=== PATIENT | female | born 1960 | race American Indian/Alaskan Native ===

== ENCOUNTER 2020-03-11 13:01 | Outpatient (REF) | payer MEDICARE, MEDICAID, SELFPAY ==
[2020-03-11 14:30] LABS: MANUAL DIFF FLAG NO
[2020-03-11 14:38] LABS: Basophils Percent Auto 0.2 % (0-2); Eosinophils Absolute Auto 0.1 X10*3/uL (0.0-0.4); Eosinophils Percent Auto 1.4 % (0-4); Hematocrit 48.9 % (37-47); Hemoglobin 16.6 g/dl (12.0-16.0); Imm Gran Abs Auto 0.03 X10*3/uL (0.00-0.03); Imm Gran Pct Auto 0.3 % (0.0-0.4); Lymphocytes Absolute Auto 2.4 X10*3/uL (1.2-4.9); Lymphocytes Percent Auto 25.9 % (20-40); Mean Corpuscular HGB Conc 33.9 g/dl (31.0-35.0); Mean Corpuscular Hemoglobin 31.3 pg (27.0-33.0); Mean Corpuscular Volume 92.3 fL (80-98); Mean Platelet Volume 9.5 fL (9.4-12.3); Monocytes Absolute Auto 0.5 X10*3/uL (0.1-1.2); Monocytes Percent Auto 4.9 % (2-11); Neutrophils Absolute Auto 6.3 X10*3/uL (2.0-8.3); Neutrophils Percent Auto 67.3 % (45-73); Platelet Count 284 X10*3/uL (160-400); Red Cell Distribution Width 12.5 % (11.0-16.0); White Blood Count 9.4 X10*3/uL (4.8-10.8)
[2020-03-11 15:11] LABS: C Reactive Protein 0.13 mg/dL (< or = 0.50)
[2020-03-11 15:22] LABS: Erythrocyte Sedimentation Rate 5 MM/HR (0-20)
[2020-03-11 15:25] LABS: TSH reflex Free T4 0.94 mIU/mL (0.32-4.0)
[2020-03-11 15:36] LABS: Vitamin B12 646 pg/mL (200-900)
[2020-03-12 19:11] LABS: Anti Nuclear Antibody Screen NEGATIVE (NEGATIVE)
[2020-03-13 09:50] LABS: ANA Additional Testing NOT INDICATED
== END 2020-03-11 13:02 | disposition home or self-care (01) ==
LOC: HO.LAB 13:01
PROVIDERS: Visit Provider Internal Medicine
DX: L65.9 Nonscarring hair loss, unspecified (principal); R20.2 Paresthesia of skin
CPT/HCPCS: 36415; 82607; 82746; 84443; 85025; 85652; 86038; 86039; 86140

== ENCOUNTER 2020-09-21 11:54 | Outpatient (REF) | payer MEDICARE, MEDICAID, SELFPAY ==
[2020-09-21 14:22] LABS: TSH reflex Free T4 0.54 uIU/mL (0.32-4.0)
[2020-09-21 14:43] LABS: Erythrocyte Sedimentation Rate 6 MM/HR (0-20)
[2020-09-21 15:03] LABS: Folate 19.3 ng/mL (> or = 4.0); Vitamin B12 692 pg/mL (200-900)
[2020-09-22 08:23] LABS: Syphilis Screen Nonreactive (Nonreactive)
[2020-09-22 09:02] LABS: Lyme Abs Screen <0.90 index
[2020-09-22 13:51] LABS: Anti Nuclear Antibody Screen NEGATIVE (NEGATIVE)
[2020-09-22 17:12] LABS: IgA 159 mg/dL (70-320); IgG 809 mg/dL (600-1540); IgM 64 mg/dL (50-300)
== END 2020-09-21 11:55 | disposition home or self-care (01) ==
LOC: HO.LAB 11:54
PROVIDERS: Psychiatry & Neurology Neurology; PCP Internal Medicine; Visit Provider Internal Medicine
DX: I10 Essential (primary) hypertension (principal); R41.3 Other amnesia; L65.9 Nonscarring hair loss, unspecified; Z86.73 Personal history of transient ischemic attack (TIA), and cerebral infarction without residual deficits
CPT/HCPCS: 36415; 82607; 82746; 82784; 84443; 85652; 86038; 86039; 86617; 86618; 86780

== ENCOUNTER → 2020-12-01 08:24 | Outpatient (BNVA) | payer MEDICARE, MEDICAID, SELFPAY | PROVIDERS: PCP Internal Medicine; Visit Provider Anesthesiology | DX: M51.36 Other intervertebral disc degeneration, lumbar region (principal); M96.1 Postlaminectomy syndrome, not elsewhere classified; I63.9 Cerebral infarction, unspecified; Z79.899 Other long term (current) drug therapy | CPT/HCPCS: 99202 ==

== ENCOUNTER 2021-01-04 10:25 | Outpatient (REF) | payer MEDICARE, MEDICAID, SELFPAY ==
--- NOTE | ~2021-01-04 | XR_ITS ---
EXAMINATION: XR TIBIA AND FIBULA, RIGHT CLINICAL INFORMATION: Right leg pain. COMPARISON: None TECHNIQUE: AP and lateral views of the right tibia and fibula were obtained. FINDINGS: No acute fracture or dislocation. No osseous erosion. No abnormal soft tissue calcification. Mild soft tissue swelling overlying the anterior aspect of the mid tibial diaphysis. XR/XR tibia fibula RT 2V IMPRESSION: Mild anterior soft tissue swelling without osseous abnormality.
[2021-01-04 12:00] LABS: MANUAL DIFF FLAG NO
[2021-01-04 12:04] LABS: Basophils Percent Auto 0.3 % (0-2); Eosinophils Absolute Auto 0.1 X10*3/uL (0.0-0.4); Eosinophils Percent Auto 1.4 % (0-4); Hematocrit 46.9 % (37-47); Hemoglobin 16.1 g/dl (12.0-16.0); Imm Gran Abs Auto 0.03 X10*3/uL (0.00-0.03); Imm Gran Pct Auto 0.3 % (0.0-0.4); Lymphocytes Absolute Auto 2.9 X10*3/uL (1.2-4.9); Lymphocytes Percent Auto 32.2 % (20-40); Mean Corpuscular HGB Conc 34.3 g/dl (31.0-35.0); Mean Corpuscular Hemoglobin 31.1 pg (27.0-33.0); Mean Corpuscular Volume 90.5 fL (80-98); Mean Platelet Volume 9.5 fL (9.4-12.3); Monocytes Absolute Auto 0.5 X10*3/uL (0.1-1.2); Monocytes Percent Auto 5.8 % (2-11); Neutrophils Absolute Auto 5.5 X10*3/uL (2.0-8.3); Platelet Count 289 X10*3/uL (160-400); Red Blood Count 5.18 X10*6/uL (4.20-5.50); Red Cell Distribution Width 12.7 % (11.0-16.0); White Blood Count 9.1 X10*3/uL (4.8-10.8)
[2021-01-04 12:14] LABS: Glucose Urine UA NEG (NEG); Leukocyte Esterase Urine NEG (NEG); Nitrite Urine NEG (NEG); Specific Gravity - Urine 1.015 (1.005-1.025); Urine Blood NEG (NEG); Urine Ketones 15 MG/DL (NEG); Urine Protein NEG (NEG-TRACE)
[2021-01-04 12:17] LABS: Appearance Urine CLEAR; Color Urine YELLOW
[2021-01-04 12:34] LABS: Alanine Aminotransferase 11 U/L (0-31); Alkaline Phosphatase 54 U/L (39-117); Anion Gap 18 (12-20); Aspartate Amino Transferase 18 U/L (5-31); Bilirubin Total 0.8 mg/dL (0.0-1.0); Blood Urea Nitrogen 13 mg/dL (9-16); Calcium 10.3 mg/dL (8.4-10.2); Carbon Dioxide 26 mmol/L (22-29); Chloride 98 mmol/L (96-108); Cholesterol 253 mg/dL; Estimated Glomerular Filt Rate > 60; Glucose Fasting 90 mg/dL (60-99); HDL Cholesterol 73 mg/dL; LDL Cholesterol Calculated 149 mg/dl; Potassium 4.5 mmol/L (3.3-5.1); Sodium 137 mmol/L (135-145); Total Protein 7.8 g/dL (6.5-8.0); Triglycerides 157 mg/dL
[2021-01-04 12:57] LABS: TSH reflex Free T4 1.49 uIU/mL (0.32-4.0); Vitamin D 25-OH Total 57.6 ng/mL (>30)
[2021-01-04 13:59] LABS: Folate > 20.0 ng/mL (> or = 4.0); Vitamin B12 861 pg/mL (200-900)
== END 2021-01-04 10:26 | disposition home or self-care (01) ==
LOC: HO.XRAY 10:25
PROVIDERS: PCP Internal Medicine; Visit Provider Internal Medicine
DX: M79.604 Pain in right leg (principal); L65.9 Nonscarring hair loss, unspecified; E78.00 Pure hypercholesterolemia, unspecified; I10 Essential (primary) hypertension; E53.8 Deficiency of other specified B group vitamins; G62.9 Polyneuropathy, unspecified; E55.9 Vitamin D deficiency, unspecified
CPT/HCPCS: 36415; 73590; 80053; 80061; 81003; 82306; 82607; 82746; 84443; 85025

== ENCOUNTER → 2021-04-25 16:10 | Outpatient (BNVA) | payer MEDICARE, MEDICAID, SELFPAY | PROVIDERS: PCP Internal Medicine; Visit Provider Anesthesiology | DX: M51.36 Other intervertebral disc degeneration, lumbar region (principal); Z86.73 Personal history of transient ischemic attack (TIA), and cerebral infarction without residual deficits; M96.1 Postlaminectomy syndrome, not elsewhere classified; M79.671 Pain in right foot; M21.372 Foot drop, left foot | CPT/HCPCS: 99212 ==

== ENCOUNTER 2021-07-07 08:47 | Outpatient (REF) | payer MEDICARE, MEDICAID, SELFPAY ==
[2021-07-07 10:16] LABS: MANUAL DIFF FLAG NO
[2021-07-07 10:38] LABS: Basophils Percent Auto 0.5 % (0-2); Eosinophils Absolute Auto 0.2 X10*3/uL (0.0-0.4); Eosinophils Percent Auto 2.6 % (0-4); Hematocrit 45.9 % (37.0-47.0); Hemoglobin 15.3 g/dl (12.0-16.0); Imm Gran Abs Auto 0.02 X10*3/uL (0.00-0.03); Imm Gran Pct Auto 0.3 % (0.0-0.4); Lymphocytes Absolute Auto 2.7 X10*3/uL (1.2-4.9); Lymphocytes Percent Auto 34.2 % (20-40); Mean Corpuscular HGB Conc 33.3 g/dl (31.0-35.0); Mean Corpuscular Hemoglobin 30.7 pg (27.0-33.0); Mean Platelet Volume 9.5 fL (9.4-12.3); Monocytes Absolute Auto 0.5 X10*3/uL (0.1-1.2); Monocytes Percent Auto 6.3 % (2-11); Neutrophils Absolute Auto 4.5 x10*3/uL (2.0-8.3); Neutrophils Percent Auto 56.1 % (45-73); Platelet Count 268 X10*3/uL (160-400); Red Blood Count 4.99 X10*6/uL (4.20-5.50); Red Cell Distribution Width 12.5 % (11.0-16.0)
[2021-07-07 11:13] LABS: Alanine Aminotransferase 7 U/L (0-31); Albumin Level 4.7 g/dL (3.5-5.0); Alkaline Phosphatase 69 U/L (39-117); Anion Gap 13 (12-20); Aspartate Amino Transferase 15 U/L (5-31); Bilirubin Total 0.8 mg/dL (0.0-1.0); Blood Urea Nitrogen 12 mg/dL (9-16); Calcium 10.2 mg/dL (8.4-10.2); Carbon Dioxide 31 mmol/L (22-29); Chloride 100 mmol/L (96-108); Cholesterol 271 mg/dL; Estimated Glomerular Filt Rate > 60; Glucose Fasting 92 mg/dL (60-99); HDL Cholesterol 90 mg/dL; LDL Cholesterol Calculated 140 mg/dl; Potassium 4.6 mmol/L (3.3-5.1); Sodium 139 mmol/L (135-145); Total Protein 7.7 g/dL (6.5-8.0); Triglycerides 205 mg/dL
[2021-07-07 11:33] LABS: TSH reflex Free T4 0.96 uIU/mL (0.32-4.0); Vitamin D 25-OH Total 40.9 ng/mL (>30)
[2021-07-07 12:09] LABS: Appearance Urine CLEAR; Color Urine YELLOW; Glucose Urine UA NEG (NEG); Leukocyte Esterase Urine NEG (NEG); Nitrite Urine NEG (NEG); Specific Gravity - Urine <= 1.005 (1.005-1.025); Urine Blood NEG (NEG); Urine Ketones NEG (NEG); Urine Protein NEG (NEG-TRACE)
[2021-07-12 17:32] LABS: HCV Log PCR <1.18 log IU/mL; HepC Viral Load <15 IU/mL
== END 2021-07-07 08:48 | disposition home or self-care (01) ==
LOC: HO.LAB 08:47
PROVIDERS: PCP Internal Medicine; Referring Provider Internal Medicine; Visit Provider Physician Assistant
DX: Z01.818 Encounter for other preprocedural examination (principal); K64.9 Unspecified hemorrhoids; E78.00 Pure hypercholesterolemia, unspecified; I10 Essential (primary) hypertension; E55.9 Vitamin D deficiency, unspecified; B19.20 Unspecified viral hepatitis C without hepatic coma
CPT/HCPCS: 36415; 80053; 80061; 81003; 82306; 84443; 85025; 87522; 99202

== ENCOUNTER 2021-11-07 09:53 | Day surgery (SDC) | payer MEDICARE, MEDICAID, SELFPAY ==
[2021-11-01 09:23] VITALS: BMI 26.6
--- NOTE | 2021-11-03 13:49 | HO.ANESPROP2 ---
Documented by User: Marya Grijalva NP 11/03/21 13:50 HPI - Anesthesia Eval Consult details Narrative: 60yo F for Colonoscopy PMFSH Active Problems Active Problems: All Active Problems (Updated 10/25/21 @ 12:14 by Himanshu Navarrete MD) Osteoporosis screening (Acute) Breast cancer screening (Acute) Cervical cancer screening (Acute) Pap smear for cervical cancer screening (Acute) Hemorrhoids (Acute) Encounter for screening colonoscopy (Acute) Pure hypercholesterolemia (Acute) Encounter for Medicare annual wellness exam (Acute) Right leg pain (Acute) Open wound (Acute) Postlaminectomy syndrome (Acute) Overweight (BMI 25.0-29.9) (Acute) Memory loss or impairment (Acute) Cerebrovascular accident (CVA) (Acute ~2019) Lumbar degenerative disc disease (Acute) Benign essential hypertension (Acute) Hair loss (Acute) Paresthesia of foot (Acute) Past Medical History Medical History Benign essential hypertension Cerebrovascular accident (CVA) (~2019) Hair loss HCV (hepatitis C virus) Hemorrhoids Lumbar degenerative disc disease Memory loss or impairment Overweight (BMI 25.0-29.9) Paresthesia of foot Postlaminectomy syndrome Pure hypercholesterolemia Family History Family History Father Diabetes Mother Lung cancer Past heart attack Daughter In good health Brother In good health Brother No problems noted. Brother No problems noted. Surgical History Surgical History History of colonoscopy History of hysterectomy History of neck surgery History of surgery Social History Social History Housing: Apartment Alcohol intake: current Alcohol intake frequency: holidays/special occasions only Patient Tobacco Use Status: Never used Tobacco Second Hand Smoke Exposure: No Use of substances other than those prescribed or required for medical reasons: No Are you DNR?: No Advance Directives: No Advance Directives Information Provided: Yes Patient : No service: No Current occupational status: disabled Cognitive needs: No Hearing needs: No Vision needs: No Meds Allergies Allergy/AdvReac Type Severity Reaction Status Date / Time ibuprofen [From Motrin] AdvReac Severe high blood Verified 10/25/21 09:12 pressure, dizzy and chest pain NSAIDS (Non-Steroidal AdvReac Severe palpitation Verified 10/25/21 09:12 Anti-Inflamma s,dizziness Home Medications Medication Instructions Recorded Confirmed Last Taken Type acetaminophen 500 mg tablet 500 mg PO Q8H PRN Pain 03/12/20 11/01/21 Unknown History Exam Exam Date and Time: November 03, 2021 1349 Height,Weight and Vital Signs: Height 5 ft 6 in Weight 74.843 kg Pertinent Lab Results Pertinent Lab Results: Laboratory Tests 07/07/21 07/07/21 10:13 10:13 WBC 8.0 Hgb 15.3 Hct 45.9 Plt Count 268 Sodium 139 Potassium 4.6 Chloride 100 Carbon Dioxide 31 H BUN 12 Creatinine 0.73 Assessment and Plan Assessment Anesthesia Assessment: Chart Reviewed Documented by User: Laura Gonzalez MD 11/07/21 10:28 [facility] Past Medical History Medical History Benign essential hypertension Cerebrovascular accident (CVA) (~2018) Hair loss HCV (hepatitis C virus) Hemorrhoids Lumbar degenerative disc disease Memory loss or impairment Overweight (BMI 25.0-29.9) Paresthesia of foot Postlaminectomy syndrome Pure hypercholesterolemia Family History Family History Father Diabetes Mother Lung cancer Past heart attack Daughter In good health Brother In good health Brother No problems noted. Brother No problems noted. Family history of problems with anesthesia: No Surgical History Surgical History History of colonoscopy History of hysterectomy History of neck surgery History of surgery History of Problems with Anesthesia: No Social History Social History Housing: Apartment Alcohol intake: current Alcohol intake frequency: holidays/special occasions only Patient Tobacco Use Status: Never used Tobacco Second Hand Smoke Exposure: No Use of substances other than those prescribed or required for medical reasons: No Are you DNR?: No Advance Directives: No Advance Directives Information Provided: Yes Patient : No service: No Current occupational status: disabled Cognitive needs: No Hearing needs: No Vision needs: No Meds Allergies Allergy/AdvReac Type Severity Reaction Status Date / Time ibuprofen [From Motrin] AdvReac Severe high blood Verified 10/25/21 09:12 pressure, dizzy and chest pain NSAIDS (Non-Steroidal AdvReac Severe palpitation Verified 10/25/21 09:12 Anti-Inflamma s,dizziness Home Medications Medication Instructions Recorded Confirmed Last Taken Type acetaminophen 500 mg tablet 500 mg PO Q8H PRN Pain 03/12/20 11/01/21 Unknown History Exam Airway Mallampati Class: II (Caps upper off to side bilateral) TM Dist: >3cm Neck ROM: Full Heart: rrr Lungs: cta Assessment and Plan Assessment Anesthesia Assessment: Anesthesia Plan Discussed and Chart Reviewed Final Anesthetic Review Family History of Problems with Anesthesia: No History of Problems with Anesthesia: No NPO: Yes ASA Class: III Final Preanesthetic Review: No Changes in Pt Med Stat, Meds/Allgs Chart Reviewed and Consent Obtained/Reviewed Patient Risk: Intermediate Procedure Risk: Intermediate Anesthetic Plan Anesthetic Plan: MAC: Disposition: Standard PACU
--- NOTE | 2021-11-07 09:15 | MHC.SHP ---
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 Relevant Family History (Specify if Yes): Yes Relevant Social History: None Present Medications: see Short Stay Collaborative assessment Medical History: Significant History (Benign essential hypertension Cerebrovascular accident (CVA) (~2019) Hair loss HCV (hepatitis C virus) Hemorrhoids Lumbar degenerative disc disease Memory loss or impairment Overweight (BMI 25.0-29.9) Paresthesia of foot Postlaminectomy syndrome Pure hypercholesterolemia) History of Previous Operations: Relevant previous surgery/procedure and date(s) (History of colonoscopy History of hysterectomy History of neck surgery History of surgery) Allergies: Allergies Allergy/AdvReac Type Severity Reaction Status Date / Time ibuprofen [From Motrin] AdvReac Severe high blood Verified 10/25/21 09:12 pressure, dizzy and chest pain NSAIDS (Non-Steroidal AdvReac Severe palpitation Verified 10/25/21 09:12 Anti-Inflamma s,dizziness Review of Systems Sugical H&P ROS: Negative: Constitution, Cardiovascular, Respiratory and Gastrointestinal Exam Surgical H&P Exam: Normal: Heart, Normal: Lungs and Normal: Extremities Plan Diagnosis/Plan: Unchanged I have reviewed the history and physical and performed a pertinent physical examination on my patient. No changes have occurred unless specified.
[2021-11-07 10:03] VITALS: BMI 26.6
--- NOTE | 2021-11-07 10:36 | P.OP_ITS ---
Operative Note Operative Note Date of Service: 11/07/21 Narrative: Pre-op diagnosis: Colon cancer screen, family history of colon polyps Post-op diagnosis:?other (Colon polyp, diverticulosis, hemorrhoids, melanosis coli) Procedure: COLONOSCOPY TILL CECUM WITH BIOPSIES Consent: Indications for the procedure and potential complications of bleeding, perforation, reaction to medications and missed diagnosis were discussed with the patient and informed consent was obtained. Instrument: Olympus PCF H 190 L variable stiffness pediatric colonoscope Monitoring: Vital signs and clinical assessment, intermittent blood pressure monitoring, continuous EKG monitoring, Pulse oximetry and Carbon Dioxide monitoring were done throughout the procedure. Colon withdrawl time was 15 minutes. Procedure: The patient was placed in the left lateral decubitis position and pre-procedure medications were administered. After a digital rectal examination of the ano-rectum, the video colonoscope was inserted into the rectum and advanced through the colon to the cecum. The colonoscope was slowly withdrawn in a retrograde panoramic fashion and the colon mucosa was carefully examined including a retroflexed view of the rectum. Findings and interventions are described below. Procedure Difficulty: Colon was long and tortuous and there was some loop formation Findings: Terminal Ileum: Not evaluated Cecum:? Mild melanosis coli throughout the colon - biopsies obtained from the right colon Ascending Colon: ? Mild melanosis coli throughout the colon Transverse Colon: ? Mild melanosis coli throughout the colon Descending Colon: ? Mild melanosis coli throughout the colon Sigmoid Colon: ? A 5-6 mm diminutive appearing polyp - biopsied. Mild melanosis coli throughout the colon.? Mild diverticulosis Rectum:? Normal Ano-rectum:? Moderate internal hemorrhoids Colon preparation:? Good? Impression and Post Procedure Diagnosis: Colonoscopy Findings: One small polyp removed Mild melanosis coli throughout the colon - biopsies obtained from the right colon Mild diverticulosis seen in the sigmoid colon Moderate hemorrhoids on retroflexed exam. Plan: Await pathology results Patient has an appointment on 11/23/21 in the GI Clinic with ANTONINA Ruiz. Repeat Colonoscopy interval based on path results - in 5 years if polyps are adenomatous and due to family hx of colon polyps (adult colonoscope for future colonoscopies). Above findings were reviewed with the patient and colon polyps and Melanosis Coli handouts were given in the discharge area Surgeon: Wilton Silva MD Anesthesia:?MAC (Dr Murphy) Was an Director Of Program Management used for this Procedure?:?Yes Director Of Program Management:?Carmen Roper Estimated blood loss (mL):?0 Pathology:?other (A: biopsy right colon? to rule out melanosis coloi? B:sigmoid colon polyp) Condition:?stable Disposition:?PACU
[2021-11-07 10:37] VITALS: BP 103/76; PULSE 69; RESP 16; TEMP 36.7; O2SAT 96
[2021-11-07] MEDS: Lactated Ringers 1,000 ML 100 ML IVCONT (10:45)
[2021-11-07 12:13] VITALS: BP 109/68; PULSE 76; RESP 16; TEMP 36.6; O2SAT 100
[2021-11-07 12:28] VITALS: BP 95/60; PULSE 56; RESP 16; O2SAT 96
[2021-11-07 12:43] VITALS: BP 103/61; PULSE 56; RESP 16; TEMP 36.4; O2SAT 97
== END 2021-11-07 13:05 | disposition home or self-care (01) ==
PROVIDERS: PCP Internal Medicine; Visit Provider Internal Medicine Gastroenterology
PROC: 0DJD8ZZ Inspection of Lower Intestinal Tract, Via Natural or Artificial Opening Endoscopic (ICD-10-PCS; CPT 45378; principal; 2021-11-07 11:00)
DX: Z12.11 Encounter for screening for malignant neoplasm of colon (principal); Z83.71 Family history of colonic polyps; K63.5 Polyp of colon; K57.30 Diverticulosis of large intestine without perforation or abscess without bleeding; K64.8 Other hemorrhoids; K63.89 Other specified diseases of intestine; I10 Essential (primary) hypertension; E78.00 Pure hypercholesterolemia, unspecified; I69.951 Hemiplegia and hemiparesis following unspecified cerebrovascular disease affecting right dominant side; L65.9 Nonscarring hair loss, unspecified; R41.3 Other amnesia; Z86.19 Personal history of other infectious and parasitic diseases; Z79.899 Other long term (current) drug therapy; Z88.8 Allergy status to other drugs, medicaments and biological substances
CPT/HCPCS: 45380; 88305

== ENCOUNTER → 2021-11-23 09:58 | Outpatient (BNVA) | payer MEDICARE, MEDICAID, SELFPAY | PROVIDERS: PCP Internal Medicine; Visit Provider Physician Assistant | DX: K64.9 Unspecified hemorrhoids (principal); K57.90 Diverticulosis of intestine, part unspecified, without perforation or abscess without bleeding | CPT/HCPCS: Q3014 ==

== ENCOUNTER 2022-02-17 08:41 | Outpatient (REF) | payer MEDICARE, MEDICAID, SELFPAY ==
[2022-02-17 08:53] LABS: MANUAL DIFF FLAG NO
[2022-02-17 09:51] LABS: Basophils Percent Auto 0.4 % (0-2); Eosinophils Absolute Auto 0.2 X10*3/uL (0.0-0.4); Eosinophils Percent Auto 2.8 % (0-4); Hematocrit 43.3 % (37.0-47.0); Hemoglobin 14.4 g/dl (12.0-16.0); Imm Gran Abs Auto 0.02 X10*3/uL (0.00-0.03); Imm Gran Pct Auto 0.3 % (0.0-0.4); Lymphocytes Absolute Auto 2.3 X10*3/uL (1.2-4.9); Lymphocytes Percent Auto 33.7 % (20-40); Mean Corpuscular HGB Conc 33.3 g/dl (31.0-35.0); Mean Corpuscular Volume 93.3 fL (80.0-98.0); Mean Platelet Volume 9.6 fL (9.4-12.3); Monocytes Absolute Auto 0.4 X10*3/uL (0.1-1.2); Neutrophils Absolute Auto 3.9 x10*3/uL (2.0-8.3); Neutrophils Percent Auto 56.8 % (45-73); Platelet Count 277 X10*3/uL (160-400); Red Blood Count 4.64 X10*6/uL (4.20-5.50); Red Cell Distribution Width 13.1 % (11.0-16.0); White Blood Count 6.9 X10*3/uL (4.8-10.8)
[2022-02-17 10:43] LABS: Alanine Aminotransferase 14 U/L (0-31); Albumin Level 4.4 g/dL (3.5-5.0); Alkaline Phosphatase 47 U/L (39-117); Anion Gap 15 (12-20); Aspartate Amino Transferase 21 U/L (5-31); Bilirubin Total 0.4 mg/dL (0.0-1.0); Blood Urea Nitrogen 11 mg/dL (9-16); Calcium 9.7 mg/dL (8.4-10.2); Carbon Dioxide 29 mmol/L (22-29); Chloride 99 mmol/L (96-108); Cholesterol 169 mg/dL; Estimated Glomerular Filt Rate > 60; Glucose Fasting 86 mg/dL (60-99); HDL Cholesterol 64 mg/dL; LDL Cholesterol Calculated 76 mg/dl; Potassium 4.3 mmol/L (3.3-5.1); Sodium 139 mmol/L (135-145); Total Protein 6.8 g/dL (6.5-8.0); Triglycerides 145 mg/dL
== END 2022-02-17 08:42 | disposition home or self-care (01) ==
LOC: HO.LAB 08:41
PROVIDERS: PCP Internal Medicine; Visit Provider Internal Medicine
DX: E78.00 Pure hypercholesterolemia, unspecified (principal); I10 Essential (primary) hypertension
CPT/HCPCS: 36415; 80053; 80061; 84443; 85025

== ENCOUNTER 2022-03-01 13:00 | Outpatient (REF) | payer MEDICARE, MEDICAID, SELFPAY ==
--- NOTE | ~2022-03-01 | MM_ITS ---
EXAMINATION: BONE DENSITOMETRY CLINICAL INDICATION: Asymptomatic menopausal state. COMPARISON: None (current study represents initial baseline exam). TECHNIQUE: Using a Cartagenia DXA System (software version: 13.1) manufactured by [employer], dual-energy x-ray absorptiometry was performed of the lumbar spine and left hip. The images are of good technical quality. Summary results are attached. FINDINGS: AP SPINE L1-L4 (excluding L2 and L3): The data of L1-L4 has been changed to exclude the L2 and L3 vertebral bodies, because significant degenerative change at these levels may cause overestimation of lumbar spine density. BMD 1.103 g/cm2, Z-score 0.7, T-score -0.5, normal. LEFT FEMUR, NECK: BMD 0.898 g/cm2, Z-score 0.2, T-score -1.0, normal. LEFT FEMUR, TOTAL: BMD 0.883 g/cm2, Z-score 0.0, T-score -1.0, normal. IDENTIFIED RISK FACTORS: Early menopause, secondary osteoporosis, hysterectomy, history of fracture (adult). HISTORY OF FRACTURE: Spine. MEDICATIONS: Calcium supplements or multivitamin, vitamin D. MM/XR DEXA axial skeleton IMPRESSION: 1. DIAGNOSIS: Normal bone density based on the lowest T-score value of -1.0 in the femoral neck and total femur applying World Health Organization criteria. 2. 10-YEAR FRACTURE RISK PREDICTION, FRAX: According to the guidelines, FRAX calculation should only be performed on patients in the osteopenia bone density category. Therefore, FRAX was not performed on this patient. 3. Treatment Recommendations: NOF guidelines recommend consideration for treatment in postmenopausal women and men age 50 and older presenting with the following: -A hip or vertebral (clinical or morphometric) fracture. -T-score less than or equal to -2.5 at the femoral neck or spine after appropriate evaluation to exclude secondary causes. -Low bone mass at the hip or spine and a 10-year fracture probability by FRAX of greater than or equal to 3% for hip fracture or greater than or equal to 20% for major osteoporotic fracture based on the [place] adapted WHO algorithm. 4. Other Recommendations: All treatment decisions require clinical judgment and consideration of individual patient factors, including patient preferences, comorbidities, previous drug use, risk factors not captured in the FRAX model (e.g. frailty, falls, vitamin D deficiency, increased bone turnover, interval significant decline in bone density) and possible under or overestimation of fracture risk by FRAX. FUTURE SCAN RECOMMENDATION: People with diagnosed cases of osteoporosis or at high risk for fracture should have regular bone mineral density tests. For patients eligible for Medicare, routine testing is allowed once every 2 years. The testing frequency can be increased to one year for patients who have rapidly progressing disease, those who are receiving or discontinuing medical therapy to restore bone mass, or have additional risk factors.
--- NOTE | ~2022-03-01 | MM_ITS ---
EXAMINATION: MM SCREENING DIGITAL BREAST TOMOSYNTHESIS, BILATERAL CLINICAL INFORMATION: Screening. Asymptomatic. The lifetime risk of breast cancer based on the Tyrer-Cuzick Model is 8%. COMPARISON: Outside mammography: 10/07/2018, 10/05/2015 ([place], [place]) TECHNIQUE: Digital breast tomosynthesis is performed in both the craniocaudal and mediolateral oblique views along with computer-aided detection (CAD). Synthesized 2D images are generated from the tomosynthesis. FINDINGS: The breasts are heterogeneously dense, which may obscure small masses (ACR BI-RADS breast composition Category c). There are no significant masses, abnormal calcifications, or other abnormalities. Parenchymal pattern is similar to prior outside studies. There is a stable dominant nodule posterior central 6:00 left breast. Intramammary nodes again seen bilateral posterior upper outer breast. No developing density or architectural abnormality. The axilla and skin contours are unremarkable. MM/MM tomosynthesis screening BI IMPRESSION: No mammographic evidence of malignancy. ASSESSMENT: BI-RADS 2: Benign RECOMMENDATION: Routine annual mammography screening. This patient's information was entered into a reminder system with a target due date for their next mammogram.
== END 2022-03-01 13:01 | disposition home or self-care (01) ==
LOC: HO.MAMMO 13:00
PROVIDERS: PCP Internal Medicine; Visit Provider Internal Medicine
DX: Z12.31 Encounter for screening mammogram for malignant neoplasm of breast (principal); Z13.820 Encounter for screening for osteoporosis; Z78.0 Asymptomatic menopausal state
CPT/HCPCS: 77063; 77067; 77080

== ENCOUNTER 2022-10-18 10:57 | Outpatient (REF) | payer MEDICARE, MEDICAID, SELFPAY ==
[2022-10-18 14:05] LABS: MANUAL DIFF FLAG NO
[2022-10-18 14:10] LABS: Basophils Percent Auto 0.6 % (0-2); Eosinophils Absolute Auto 0.2 X10*3/uL (0.0-0.4); Eosinophils Percent Auto 2.4 % (0-4); Hematocrit 42.7 % (37.0-47.0); Hemoglobin 14.4 g/dl (12.0-16.0); Imm Gran Abs Auto 0.02 X10*3/uL (0.00-0.03); Imm Gran Pct Auto 0.3 % (0.0-0.4); Lymphocytes Absolute Auto 2.6 X10*3/uL (1.2-4.9); Lymphocytes Percent Auto 35.7 % (20-40); Mean Corpuscular HGB Conc 33.7 g/dl (31.0-35.0); Mean Corpuscular Hemoglobin 31.4 pg (27.0-33.0); Mean Corpuscular Volume 93.2 fL (80.0-98.0); Mean Platelet Volume 9.3 fL (9.4-12.3); Monocytes Absolute Auto 0.4 X10*3/uL (0.1-1.2); Monocytes Percent Auto 6.1 % (2-11); Neutrophils Percent Auto 54.9 % (45-73); Platelet Count 271 X10*3/uL (160-400); Red Blood Count 4.58 X10*6/uL (4.20-5.50); Red Cell Distribution Width 12.5 % (11.0-16.0); White Blood Count 7.2 X10*3/uL (4.8-10.8)
[2022-10-18 14:27] LABS: Alanine Aminotransferase 9 U/L (0-31); Albumin Level 4.6 g/dL (3.5-5.0); Alkaline Phosphatase 49 U/L (39-117); Anion Gap 15 (12-20); Aspartate Amino Transferase 18 U/L (5-31); Bilirubin Total 0.7 mg/dL (0.0-1.0); Blood Urea Nitrogen 14 mg/dL (9-16); Calcium 10.2 mg/dL (8.4-10.2); Carbon Dioxide 28 mmol/L (22-29); Chloride 101 mmol/L (96-108); Cholesterol 197 mg/dL; Estimated Glomerular Filt Rate > 60; Glucose Fasting 128 mg/dL (60-99); HDL Cholesterol 95 mg/dL; LDL Cholesterol Calculated 88 mg/dl; Potassium 4.6 mmol/L (3.3-5.1); Sodium 139 mmol/L (135-145); Total Protein 7.3 g/dL (6.5-8.0); Triglycerides 73 mg/dL
[2022-10-18 14:32] LABS: Appearance Urine Clear; Color Urine Yellow; Glucose Urine UA Negative (Negative); Leukocyte Esterase Urine Trace (Negative); Nitrite Urine Negative (Negative); UMIC TRIGGER UACC YES; Urine Blood Negative (Negative); Urine Ketones Negative (Negative); Urine Protein Negative (Neg-Trace)
[2022-10-18 14:36] LABS: Bacteria Urine None Seen (None Seen); Hyaline Casts Urine 0-2 /LPF (0-2); RBC Urine 0-2 /HPF (0-2); WBC Urine 0-5 /HPF (0-5)
[2022-10-18 14:41] LABS: TSH reflex Free T4 0.75 uIU/mL (0.32-4.0); Vitamin D 25-OH Total 36.1 ng/mL (>30)
== END 2022-10-18 10:58 | disposition home or self-care (01) ==
LOC: HO.HMGCLDS 10:57
PROVIDERS: PCP Internal Medicine; Visit Provider Internal Medicine
DX: E78.00 Pure hypercholesterolemia, unspecified (principal); E55.9 Vitamin D deficiency, unspecified; I10 Essential (primary) hypertension; R30.0 Dysuria
CPT/HCPCS: 36415; 80053; 80061; 81001; 81003; 82306; 84443; 85025

== ENCOUNTER 2022-11-14 12:40 | Outpatient (REF) | payer MEDICARE, MEDICAID, SELFPAY | END 2022-11-14 12:41 | disposition home or self-care (01) | LOC: HO.LAB 12:40 | PROVIDERS: PCP Internal Medicine; Visit Provider Internal Medicine | DX: M25.552 Pain in left hip (principal); M25.562 Pain in left knee | CPT/HCPCS: 73502; 73564 ==

== ENCOUNTER 2022-11-29 08:45 | Outpatient (AMB) | payer MEDICARE, MEDICAID, SELFPAY ==
[2022-11-29 08:56] VITALS: BP 124/86; BMI 26.1
--- NOTE | 2022-11-29 08:56 | MHC.OFFVIS ---
Intake Vital Signs 11/29/22 08:56 Height 5 ft 6 in Weight 162 lb BMI 26.1 BP 124/86 Intake Visit Reasons: painful ovaries Intake Note: Left sided pain for several months, still has ovaries The patient agreed to use of a medical education manager during this encounter. Scribed for MARIELA Auguste by Mariajose Gonzalez medical education manager, on 11/29/2022 at 9:15 am EST. Chiropractic Neurologist: Chiropractic Neurologist Present (Theresa) Allergies ibuprofen [From Motrin] Adverse Reaction (Severe, Verified 11/29/22 08:59) high blood pressure, dizzy and chest pain NSAIDS (Non-Steroidal Anti-Inflamma Adverse Reaction (Severe, Verified 11/29/22 08:59) palpitations,dizziness HPI HPI Comments History of Present Illness Details She is here today with complaints of constant left sided pelvic (and pointed to her groin) for several months (12/28). States she had not tried any OTC pain management or heating pad. States she feels pain when leg is raised but pain stops when she is laying down straight. Seen by PCP for left hip arthritis and has a Ortho referral, diagnosed with osteoarthritis, PT has been recommended. Denies urinary or GI issues, vaginal discharge, itching, burning. History of hysterectomy for endometriosis. Currently not sexually active since 6 years ago. UTD with colonoscopy. [facility] Medical History Benign essential hypertension Cerebrovascular accident (CVA) (~2019) Hair loss HCV (hepatitis C virus) Hemorrhoids Insomnia Left groin pain Lumbar degenerative disc disease Memory loss or impairment Overweight (BMI 25.0-29.9) Paresthesia of foot Postlaminectomy syndrome Pure hypercholesterolemia Surgical History History of colonoscopy History of hysterectomy History of neck surgery History of surgery Family History Father Diabetes Mother Lung cancer Past heart attack Daughter In good health Brother In good health Brother No problems noted. Brother No problems noted. Family/Other Colon cancer Social History Housing: Apartment Alcohol intake: current Alcohol intake frequency: holidays/special occasions only Patient Tobacco Use Status: Never used Tobacco e-Cigarette/Vaping Use: Never Used Second Hand Smoke Exposure: No service: No Current occupational status: disabled Cognitive needs: No Hearing needs: No Vision needs: No Female Reproductive History Menstrual Age of Menarche: 8 Menopause type: surgical Total pregnancies: 1 Full term: 1 Number of Living Children: 1 Physical Exam Vital Signs: Last Vital Signs BP 124/86 11/29/22 08:56 BMI result Body Mass Index 26.1 Const General: cooperative, healthy appearing, comfortable, no acute distress, well developed, alert, awake and Physically active GI Other: abdomen soft and non tender` Palpation (GI): Soft to palpation Other: slightly tender over left groin region, no bulging or defects with Valsalva manuever. no masses. General: Yes bladder normal to palpation External Female Exam: normal external appearance and normal appearance of the urethra Speculum Exam - Vagina: normal appearance of the vagina, normal palpation, abnormal vaginal discharge (scant) white and other (vag cuff; no lesions no nodules) Speculum Exam - Cervix: Cervix absent Bimanual exam- vagina & uterus: normal bimanual exam, normal palpation, bladder normal to palpation and uterus absent Bimanual Exam- Adnexa, other: normal adnexae and no masses Assessment & Plan Assessment & Plan (1) Pelvic pain: Code(s): R10.2 - Pelvic and perineal pain Plan: Discussed: Pelvic US; follow up via tele-visit, pt. has transportation problems. Most likely pain is from hip, will evaluate pelvis with US to exclude any concerns. Follow up with Orthopedics regarding hip pain. OTC comfort measures, heat or ice prn. If pelvic pain worsen go to ED. All of her questions and concerns were addressed to the best of my ability and shared decision making. She is agreeable to plan of care. (2) Left groin pain: Code(s): R10.32 - Left lower quadrant pain Orders: Orders US pelvic and transvaginal Today R10.32 - Left lower quadrant pain Coding Level of Care Code Est Pt Level 4 (32083) Diagnoses Pelvic pain R10.2 Left groin pain R10.32
== END 2022-11-29 09:28 | disposition home or self-care (01) ==
LOC: HO.HWS 08:46
PROVIDERS: PCP Internal Medicine; Visit Provider Advanced Practice Midwife
DX: R10.2 Pelvic and perineal pain (principal); R10.32 Left lower quadrant pain
CPT/HCPCS: 99214

== ENCOUNTER → 2022-11-29 08:45 | Outpatient (BNVA) | payer MEDICARE, MEDICAID, SELFPAY | PROVIDERS: PCP Internal Medicine; Visit Provider Advanced Practice Midwife | DX: R10.2 Pelvic and perineal pain (principal); R10.32 Left lower quadrant pain; N94.89 Other specified conditions associated with female genital organs and menstrual cycle; Z90.710 Acquired absence of both cervix and uterus | CPT/HCPCS: 99212 ==

== ENCOUNTER 2022-11-30 13:20 | Outpatient (REF) | payer MEDICARE, MEDICAID, SELFPAY ==
--- NOTE | ~2022-11-30 | US_ITS ---
EXAMINATION: US PELVIS CLINICAL INFORMATION: Left lower quadrant pain. Status post hysterectomy in 2003 COMPARISON: None available. TECHNIQUE: Ultrasound of the pelvis is performed using both transabdominal and transvaginal transducers along with Doppler. Transvaginal imaging is performed due to inadequate visualization transabdominally. FINDINGS: The uterus is surgically absent. The ovaries are not visualized. There is no free adnexal mass or free fluid. There are peristaltic bowel loops. There is no free fluid. The bladder is nondistended. US/US pelvic and transvaginal IMPRESSION: Uterus not visualized consistent with previous history of hysterectomy. Ovaries are not seen. No visible mass or free fluid in the pelvis. The exam is slightly limited due to bowel gas in the pelvis.
== END 2022-11-30 13:21 | disposition home or self-care (01) ==
LOC: HO.US 13:20
PROVIDERS: PCP Internal Medicine; Visit Provider Advanced Practice Midwife
DX: R10.32 Left lower quadrant pain (principal)
CPT/HCPCS: 76830; 76856

== ENCOUNTER 2022-12-13 12:41 | Outpatient (AMB) | payer MEDICARE, MEDICAID, SELFPAY ==
--- NOTE | 2022-12-13 12:42 | MHC.OFFVIS ---
Intake Intake Visit Reasons: TV Ultrasound Results Intake Note: # [phone] The patient agreed to use of a medical laboratory technical officer during this encounter. Scribed for MARIELA Auguste by Mariajose Gonzalez medical laboratory technical officer, on 12/13/2022 at 12:51 am EST. Allergies ibuprofen [From Motrin] Adverse Reaction (Severe, Verified 12/13/22 12:42) high blood pressure, dizzy and chest pain NSAIDS (Non-Steroidal Anti-Inflamma Adverse Reaction (Severe, Verified 12/13/22 12:42) palpitations,dizziness HPI HPI Comments History of Present Illness Details Telehealth visit 12:51 pm -12:57 pm. Phone Call due to Covid-19 Pandemic. She presents via phone to discuss US regarding left lower quadrant/hip pain. She was interested in pap results; informed pap was not done due to hysterectomy for endometriosis, no indications. Reports hot flashes and asks about starting HRT, as her daughter is on the at age 46. [facility] Medical History Benign essential hypertension Cerebrovascular accident (CVA) (~2019) Hair loss HCV (hepatitis C virus) Hemorrhoids Insomnia Left groin pain Left lower quadrant pain Lumbar degenerative disc disease Memory loss or impairment Overweight (BMI 25.0-29.9) Paresthesia of foot Postlaminectomy syndrome Pure hypercholesterolemia Surgical History History of colonoscopy History of hysterectomy History of neck surgery History of surgery Family History Father Diabetes Mother Lung cancer Past heart attack Daughter In good health Brother In good health Brother No problems noted. Brother No problems noted. Family/Other Colon cancer Social History Housing: Apartment Alcohol intake: current Alcohol intake frequency: holidays/special occasions only Patient Tobacco Use Status: Never used Tobacco e-Cigarette/Vaping Use: Never Used Second Hand Smoke Exposure: No service: No Current occupational status: disabled Cognitive needs: No Hearing needs: No Vision needs: No Female Reproductive History Menstrual Age of Menarche: 8 Physical Exam Const General: cooperative, healthy appearing, comfortable, no acute distress, well developed, alert and awake Results Reviewed Results Reviewed: EXAMINATION:? US PELVIS CLINICAL INFORMATION:? Left lower quadrant pain. Status post hysterectomy in 2002 COMPARISON: None available. TECHNIQUE: Ultrasound of the pelvis is performed using both transabdominal and transvaginal transducers along with Doppler. Transvaginal imaging is performed due to inadequate visualization transabdominally. FINDINGS: The uterus is surgically absent. The ovaries are not visualized. There is no free adnexal mass or free fluid. There are peristaltic bowel loops. There is no free fluid. The bladder is nondistended. US/US pelvic and transvaginal IMPRESSION: Uterus not visualized consistent with previous history of hysterectomy. ? Ovaries are not seen. No visible mass or free fluid in the pelvis. ? The exam is slightly limited due to bowel gas in the pelvis. Assessment & Plan Assessment & Plan (1) Encounter to discuss test results: Code(s): Z71.2 - Person consulting for explanation of examination or test findings Plan: Discussed: US findings of: Uterus not visualized consistent with previous history of hysterectomy. Ovaries are not seen. No visible mass or free fluid in the pelvis. The exam is slightly limited due to bowel gas in the pelvis. Encouraged to schedule appointment with PCP regarding left lower quadrant/hip pain. Informed she is not a candidate for HRT due to her age/risks. And no indication for a pap. All of her questions and concerns were addressed to the best of my ability and shared decision making. She is agreeable to plan of care. RTO for AG. (2) Left lower quadrant pain: Code(s): R10.32 - Left lower quadrant pain (3) Hot flashes: Code(s): R23.2 - [place] Telehealth Telehealth Location of provider rendering services: practice address Location of patient: address on file Patient Identification confirmed using: Name, : Yes Telehealth method: voice only Patient verbally consented to treatment: Yes Patient verbally consented to billing insurance company: Yes Patient informed of any privacy concerns related to visit: Yes Coding Level of Care Code Tele Est Pt Level 3 (46404) Diagnoses Encounter to discuss test results Z71.2 Left lower quadrant pain R10.32 Hot flashes R23.2
== END 2022-12-13 13:54 | disposition home or self-care (01) ==
LOC: HO.HWS 12:41
PROVIDERS: PCP Internal Medicine; Visit Provider Advanced Practice Midwife
DX: Z71.2 Person consulting for explanation of examination or test findings (principal); R10.32 Left lower quadrant pain; R23.2 Flushing
CPT/HCPCS: 99441

== ENCOUNTER → 2022-12-13 12:41 | Outpatient (BNVA) | payer MEDICARE, MEDICAID, SELFPAY | PROVIDERS: PCP Internal Medicine; Visit Provider Advanced Practice Midwife ==

== ENCOUNTER 2022-12-29 07:51 | Outpatient (REF) | payer MEDICARE, MEDICAID, SELFPAY ==
--- NOTE | ~2022-12-29 | CT_ITS ---
EXAMINATION: CT HIP WITHOUT CONTRAST, LEFT CLINICAL INFORMATION: Left hip pain. COMPARISON: Left hip radiographs dated 11/14/2022. TECHNIQUE: Multidetector volumetric imaging was obtained through the left hip without contrast material. Multiplanar reformatted images were submitted in coronal and sagittal planes. This CT examination was performed using dose optimization techniques as appropriate, variously including the following: *Automated exposure control *Adjustment of mA and/or kV according to patient size (this includes techniques or standardized protocols for targeted exams where dose is matched to indication/reason for exam; i.e. extremities or head) *Use of iterative reconstruction technique DLP: 258 mGy-cm. FINDINGS: No acute fracture or dislocation. Moderate anterosuperior joint space narrowing with mild subchondral cystic change. Marginal osteophytes with mild femoral neck buttressing. No concerning lytic or blastic osseous lesion. No evidence of avascular necrosis. The visualized muscles and tendons are grossly intact; however, evaluation is limited on CT examination. Small left hip joint effusion. No abnormal soft tissue mass or fluid collection. The visualized pelvic structures are grossly unremarkable. CT/CT hip LT wo IV con IMPRESSION: 1. No acute fracture or dislocation. 2. Moderate left hip osteoarthritis with mild femoral neck buttressing. 3. Small left hip joint effusion.
== END 2022-12-29 07:52 | disposition home or self-care (01) ==
LOC: HO.CT 07:51
PROVIDERS: Visit Provider Internal Medicine
DX: M25.552 Pain in left hip (principal)
CPT/HCPCS: 73700

== ENCOUNTER 2023-02-21 09:01 | Outpatient (REF) | payer MEDICARE, MEDICAID, SELFPAY ==
[2023-02-21 11:25] LABS: Appearance Urine Clear; Color Urine Yellow; Glucose Urine UA Negative (Negative); Leukocyte Esterase Urine Negative (Negative); Nitrite Urine Negative (Negative); PH 7.5 (5.0-9.0); Urine Blood Negative (Negative); Urine Ketones Negative (Negative); Urine Protein Negative (Neg-Trace)
[2023-02-21 11:26] LABS: MANUAL DIFF FLAG NO
[2023-02-21 11:31] LABS: Basophils Percent Auto 0.4 % (0-2); Eosinophils Absolute Auto 0.1 X10*3/uL (0.0-0.4); Eosinophils Percent Auto 1.9 % (0-4); Hematocrit 44.9 % (37.0-47.0); Hemoglobin 15.2 g/dl (12.0-16.0); Imm Gran Abs Auto 0.01 X10*3/uL (0.00-0.03); Imm Gran Pct Auto 0.1 % (0.0-0.4); Mean Corpuscular HGB Conc 33.9 g/dl (31.0-35.0); Mean Corpuscular Hemoglobin 32.2 pg (27.0-33.0); Mean Corpuscular Volume 95.1 fL (80.0-98.0); Mean Platelet Volume 9.6 fL (9.4-12.3); Monocytes Absolute Auto 0.4 X10*3/uL (0.1-1.2); Monocytes Percent Auto 6.2 % (2-11); Neutrophils Absolute Auto 4.3 x10*3/uL (2.0-8.3); Neutrophils Percent Auto 62.4 % (45-73); Platelet Count 244 X10*3/uL (160-400); Red Blood Count 4.72 X10*6/uL (4.20-5.50); Red Cell Distribution Width 12.8 % (11.0-16.0); White Blood Count 6.8 X10*3/uL (4.8-10.8)
[2023-02-21 11:54] LABS: Alanine Aminotransferase 10 U/L (0-31); Albumin Level 4.6 g/dL (3.5-5.0); Alkaline Phosphatase 47 U/L (39-117); Anion Gap 12 (12-20); Aspartate Amino Transferase 21 U/L (5-31); Bilirubin Total 0.7 mg/dL (0.0-1.0); Blood Urea Nitrogen 11 mg/dL (9-16); Carbon Dioxide 27 mmol/L (22-29); Chloride 103 mmol/L (96-108); Cholesterol 178 mg/dL (<200); Estimated Glomerular Filt Rate > 60; Glucose Fasting 103 mg/dL (60-99); HDL Cholesterol 85 mg/dL (>40); LDL Cholesterol Calculated 74 mg/dL (<100); Potassium 4.2 mmol/L (3.3-5.1); Sodium 138 mmol/L (135-145); Total Protein 7.6 g/dL (6.5-8.0); Triglycerides 95 mg/dL (<150)
[2023-02-21 12:13] LABS: Erythrocyte Sedimentation Rate 6 MM/HR (0-20); TSH reflex Free T4 0.68 uIU/mL (0.32-4.0); Vitamin D 25-OH Total 46.9 ng/mL (>30)
[2023-02-21 12:26] LABS: Folate 15.9 ng/mL (> or = 4.0); Vitamin B12 1022 pg/mL (200-900)
== END 2023-02-21 09:02 | disposition home or self-care (01) ==
LOC: HO.CHCLDS 09:01
PROVIDERS: Visit Provider Internal Medicine
DX: I10 Essential (primary) hypertension (principal); E78.00 Pure hypercholesterolemia, unspecified; M79.7 Fibromyalgia; R30.0 Dysuria; E53.8 Deficiency of other specified B group vitamins; G62.9 Polyneuropathy, unspecified; E55.9 Vitamin D deficiency, unspecified
CPT/HCPCS: 36415; 80053; 80061; 81003; 82306; 82607; 82746; 84443; 85025; 85652

== ENCOUNTER 2023-02-27 09:43 | Outpatient (AMB) | payer MEDICARE, MEDICAID, SELFPAY ==
[2023-02-27 10:08] VITALS: BP 128/82; PULSE 71; O2SAT 97; BMI 25.7
--- NOTE | 2023-02-27 10:08 | MHC.PC.OV ---
Vital Signs 02/27/23 10:08 Height 5 ft 6 in Weight 159 lb 8 oz BMI 25.7 BP 128/82 Blood Pressure Location Lt brachial Position Sitting Pulse 71 Pulse Source Pulse Oximeter Pulse Oximetry (%) 97 Oxygen Delivery Method Room Air Intake Visit Reasons: HTN, hyperlipidemia, CVA, lumbar DDD Credit Support Specialist Required: No Accompanied by: Self / Same As Patient Allergies ibuprofen [From Motrin] Adverse Reaction (Severe, Verified 02/27/23 11:12) high blood pressure, dizzy and chest pain NSAIDS (Non-Steroidal Anti-Inflamma Adverse Reaction (Severe, Verified 02/27/23 11:12) palpitations,dizziness Medication List - Last Reconciled 02/27/23 by Himanshu Navarrete MD acetaminophen 500 mg PO Q8H PRN amitriptyline 10 mg PO BEDTIME 30 days atorvastatin 10 mg PO BEDTIME 90 days clonidine HCl 0.1 mg PO BID enalapril maleate 10 mg PO BID gabapentin 600 mg PO BID 30 days lidocaine 5% 1 patch topical DAILY tizanidine 4 mg PO Q8H PRN 30 days tramadol 50 mg PO Q6H PRN 30 days zolpidem 5 mg PO BEDTIME PRN 30 days Tobacco use date assessed: 02/27/23 Fall risk assessment: No Falls in past year Last assessed Fall Risk: 02/27/23 Dental Screening Dental Screen Date: 02/27/23 Did you have a dental visit in the last 12 months?: Yes Did you have a dental problem in the last 6 months where you did not have access to dental care?: No Was dental information given to patient?: Patient has dentist HPI HTN, hyperlipidemia, CVA, lumbar DDD HPI Details Patient comes in today for her follow up visit States that she continues to experience increased pain over her lower back that radiates down her legs - chronic Also has chronic pain in her feet that are worse at night and states that she can hardly sleep at night due to her symptoms States that her current Rx (Gabapentin) does nothing and she is feeling frustrated and desperate now as to what can be done to help with her symptoms She is aware that we will not prescribe her opioids detention for her pain but is asking again for just a few tablets of Percocet so she can get some sleep at night Recalls being told by pain management previously that the only things they can do is to keep her on Rx like Gabapentin and do some interventional treatments / trials, which she did not agree to at the time due to concerns about surgical options and her skepticism as to whether they will actually help or not States that she has been feeling very desperate lately and is now willing to try going back to pain management again Would also like to try seeing neurology for her neuropathy but prefers not to go back to see Dr. Haq She denies any headaches or dizziness Denies any chest pains, no SOB No nausea/vomiting, no abdominal pain No change in bowel habits noted Needs a couple of her Rx refilled Had her follow up labs done last week - to discuss her results [facility] Medical History Left lower quadrant pain Left groin pain Insomnia HCV (hepatitis C virus) Hemorrhoids Pure hypercholesterolemia Postlaminectomy syndrome Overweight (BMI 25.0-29.9) Memory loss or impairment Cerebrovascular accident (CVA) (~2018) Lumbar degenerative disc disease Benign essential hypertension Hair loss Paresthesia of foot Surgical History History of colonoscopy History of surgery History of neck surgery History of hysterectomy Family History Father Diabetes Mother Lung cancer Past heart attack Daughter In good health Brother In good health Brother No problems noted. Brother No problems noted. Family/Other Colon cancer Social History Housing: Apartment Alcohol intake: current Alcohol intake frequency: holidays/special occasions only Patient Tobacco Use Status: Never used Tobacco e-Cigarette/Vaping Use: Never Used Second Hand Smoke Exposure: No service: No Current occupational status: disabled Cognitive needs: No Hearing needs: No Vision needs: No Female Reproductive History Menstrual Age of Menarche: 8 Questionnaire PHQ-9 Over the last 2 weeks, how often have you been bothered by any of the following problems? 1. Little interest or pleasure in doing things: several days 2. Feeling down, depressed, or hopeless: not at all 3. Trouble falling or staying asleep, or sleeping too much: nearly every day 4. Feeling tired or having little energy: nearly every day 5. Poor appetite or overeating: not at all 6. Feeling bad about yourself - or that you are a failure or have let yourself or your family down: not at all 7. Trouble concentrating on things, such as reading the newspaper or watching television: several days 8. Moving or speaking so slowly that other people could have noticed. Or the opposite - being so fidgety or restless that you have been moving around a lot more than usual: not at all 9. Thoughts that you would be better off or of hurting yourself in some way: not at all Total score: 8 Depression Screening Interpretation: Positive Depression Screening Follow-up: Existing condition and Declines treatment (states her symptoms are related to pain and she does NOT feel that she is depressed) Depression Screening Done: Yes 06557 - PHQ-9 Billing: Yes Source: Developed by Drs. Orlando Kat, Corina Corona, Dillon Greenwood and colleagues, with an educational marilynn from [employer]. Thrive Questionnaire Date Thrive assessed: 02/27/23 I am a: Patient What is your living situation today?: I have a steady place to live Within the past 12 months, did the food you bought not last and you didn't have the money to get more?: Never true Within the past 12 months, did you worry whether your food would run out before you got money to buy more?: Never true Do you have trouble paying for medicines?: No Do you have trouble getting transportation to medical appointments?: No Do you have trouble paying your heating and electricity bill?: No Do you have trouble taking care of your child, family member or friend?: No Do you have trouble with day-to-day activities such as bathing, preparing meals, shopping, managing finances, etc.?: No Are you currently unemployed and looking for a job?: No Are you interested in more education?: No Please select the resources that you would like help with: None Currently or been in a relationship where the following occur: no concerns reported AUDIT C Alcohol Use Questionnaire (AUDIT-C) 1. How often do you have a drink containing alcohol?: Never 2. How many drinks containing alcohol do you have on a typical day when you are drinking?: 1 or 2 3. How often do you have six or more drinks on one occasion?: Never Total Score: 0 Score Reviewed/Action Taken: Yes CONSTANTINO-7 AMB Questionnaire CONSTANTINO-7 Date CONSTANTINO - 7 assessed: 02/27/23 Feeling nervous, anxious, or on edge: 0 = Not at all Not being able to stop or control worryin = Several days Worrying too much about different things: 0 = Not at all Trouble relaxin = Not at all Being so restless that it is hard to sit still: 0 = Not at all Becoming easily annoyed or irritable: 0 = Not at all Feeling afraid as if something awful might happen: 0 = Not at all Total CONSTANTINO-7 score (0-4 normal; 5-9 mild; 10-14 moderate; 15-21 severe): 1 Source: Developed by Drs. Orlando Kat, Corina Corona, Dillon Greenwood and colleagues, with an educational marilynn from [employer]. CONSTANTINO-7 Assessment Billing CONSTANTINO-7 Assessment Tool: CONSTANTINO-7 Assessment 08716 Review of Systems Const Reports difficulty sleeping (due to pain - feels that Percocet is the only med that helps her sleep), Reports fatigue, Denies fever(s), Denies headache(s) and Reports weakness (over the right side, involving the right arm & right leg - unchanged) ENT Denies dysphagia, Denies dizziness, Denies otalgia, Denies headache(s), Denies odynophagia and Denies sore throat Card Denies chest pain, Denies palpitations and Denies dyspnea Resp Denies cough, Denies dyspnea and Denies wheezing GI Denies abdominal pain, Denies constipation, Denies dysphagia, Denies heartburn, Denies diarrhea, Denies nausea, Denies odynophagia and Denies vomiting Denies difficulty voiding, Denies nocturia, Denies dysuria and Denies urinary urgency Musc Details: (+) chronic pain in the right foot - foot goes completely numb at times Reports back pain (over the lower back, chronic) and Denies arthralgias Skin/Breast Denies rash Neuro Reports burning sensations (and pain in her feet - increased especially at night ), Denies dizziness, Denies headache(s), Reports memory loss and Reports weakness (over the right side, involving the right arm & right leg - unchanged) Psych Reports memory loss Endo Reports fatigue and Denies palpitations Aller/Immun Denies wheezing Physical exam (Primary Care) Vital Signs: Last Vital Signs Pulse 71 02/27/23 10:08 BP 128/82 02/27/23 10:08 Pulse Ox 97 02/27/23 10:08 Oxygen Delivery Method Room Air 02/27/23 10:08 BMI result Body Mass Index 25.7 Tobacco/Smoking Status: Tobacco use Status Tobacco use date assessed 02/27/23 02/27/23 10:13 Patient Tobacco Use Status Never used Tobacco 02/27/23 10:13 e-Cigarette/Vaping Use Never Used 02/27/23 10:13 PHQ-9: PHQ-9 Score PHQ-9: Total score 8 02/27/23 10:13 Depression Screening Interpretation: Positive Depression Screening Follow-up: Existing condition and Declines treatment (states her symptoms are related to pain and she does NOT feel that she is depressed) Thrive Assessment: Date of Thrive Assessment Date Thrive assessed 02/27/23 02/27/23 10:13 Currently or been in a relationship where the following occur: no concerns reported Const General: no acute distress and alert HENMT Ears: TM's normal bilaterally and EAC's normal Throat: Yes posterior oropharynx normal and Yes tonsils normal (no TP congestion noted) Neck Neck: Yes no lymphadenopathy and Yes supple Resp Auscultation: clear to auscultation bilaterally, no rales and no wheezes Cardio Rate: regular rate Rhythm: regular rhythm Heart sounds: no murmurs GI Palpation (GI): Soft to palpation and nontender Auscultation: normal bowel sounds Back/Spine/Pelvis Thoracic/Lumbar Spine: lumbar spinal tenderness (chronic) Neuro Other: (+) residual weakness over the right arm and right leg - unchanged from previous Extrem General: Yes no clubbing, cyanosis or edema Results Reviewed Results Reviewed: Laboratory Tests 02/21/23 02/21/23 02/21/23 09:12 09:12 09:15 WBC 6.8 Hgb 15.2 Hct 44.9 Plt Count 244 ESR 6 Sodium 138 Potassium 4.2 Creatinine 0.63 Estimated GFR > 60 Fasting Glucose 103 H Calcium 10.0 AST 21 ALT 10 Triglycerides 95 Cholesterol 178 LDL Cholesterol, Calc 74 HDL Cholesterol 85 Vitamin B12 1022 H 25-OH Vitamin D Total 46.9 TSH 0.68 Ur Specific [place] 1.010 Urine Protein Negative Urine Glucose (UA) Negative Urine Blood Negative Assessment and Plan Assessment & Plan (1) Pure hypercholesterolemia: Code(s): E78.00 - Pure hypercholesterolemia, unspecified Plan: Results of her labs done last week reviewed and discussed with patient Reinforced low cholesterol diet Continue Atorvastatin 10 mg QD Will recheck her labs and fasting lipids in 4 months for follow up (2) Cerebrovascular accident (CVA): Onset Date: ~2018 Comment: (+) CVA in 2019, with residual right-sided weakness primarily involving the right arm and right leg - S/P physical therapy with only some improvement of her weakness Code(s): I63.9 - Cerebral infarction, unspecified Qualifiers: CVA mechanism: unspecified Qualified Code(s): I63.9 - Cerebral infarction, unspecified Plan: Reinforced to continue with aggressive risk factor modification to minimize recurrence, including lowering her cholesterol and controlling her BP Used to see Dr. Haq for neurology follow up but she has not been to see neurology in over 2 years now (3) Benign essential hypertension: Code(s): I10 - Essential (primary) hypertension Plan: Reinforced low-sodium diet -? goal is systolic BP of at least 120 to 130 mm or less Continue Enalapril 10 mg BID (4) Lumbar degenerative disc disease: Comment: Has failed back sydrome/postlaminectomy syndrome Code(s): M51.36 - Other intervertebral disc degeneration, lumbar region Plan: Was seen by pain management a few years ago but she did not follow-up again with them for a while as she was not interested in any alternative or interventional Tx options at the time Was referred back to pain management last year and was seen by , who recommended that she start on TCAs and have her Gabapentin dose increased but patient declined both of these recommendations Was seen more recently at [facility] and offered trial of SCS which patient also decided not to pursue Continue Gabapentin 600 mg QID and Tizanidine 4 mg QID PRN Was started on a trial of Duloxetine 30 mg QD as well last year but patient also decided NOT to continue on the Rx Reinforced again to patient that other than Tramadol, we have no plans to start her back on opioids for chronic/long-term pain management but will allow patient again a few Oxycodone 5 mg tablets to take 1 tablet Q HS PRN ONLY for severe pain (# 7 tablets) - reminded again that this will NOT be refilled regularly As she currently is feeling desperate and frustrated by her chronic pain, which she feels are worsening (especially with her feet), she is willing to try going back to pain management again and asked for a referral to go back to [facility] - referral done (5) Neuropathy: Code(s): G62.9 - Polyneuropathy, unspecified Plan: Continue Amitriptyline 10 mg Q HS Will refer her again to neurology (Dr. Ledezma) as patient does not wish to go back to see Dr. Haq As she does not appear to have had any formal EMG and NCV done in the past, have advised that these may be worthwhile to look into but I will leave it up to neurology to decide whether they are needed or not at this point (6) Impaired fasting glucose: Code(s): R73.01 - Impaired fasting glucose Plan: Advised that her FBS on her recent labs was at 103 mg/dl, which is much improved from her previous reading of 128 mg/dl Reinforced low calorie diet Will continue to monitor this closely for now (7) Memory loss or impairment: Code(s): R41.3 - Other amnesia Plan: Reports (+) memory loss/impairment that appear to have started after her CVA in 2019 - advised again that this is most likely a sequelae of her CVA and that there may not be much we can do for this except for aggressive reduction of her risk factors to prevent any further recurrence of her CVA Follow up with neurology as scheduled (8) Insomnia: Code(s): G47.00 - Insomnia, unspecified Qualifiers: Insomnia type: unspecified Qualified Code(s): G47.00 - Insomnia, unspecified Plan: Sleep hygiene reinforced Continue Zolpidem 5 mg Q HS PRN - Rx refilled (9) Overweight (BMI 25.0-29.9): Code(s): E66.3 - Overweight Plan: Reinforced diet/lose weight; exercise is an unrealistic option at this time given patient's right-sided weakness as well as her significant low back pain Plan Follow up in 4 months Orders: Orders Comprehensive [place]. Panel Fast 4 Months E78.00 - Pure hypercholesterolemia, unspecified Vitamin B12 and Folate 4 Months E53.8 - Deficiency of other specified B group vitamins Complete Blood Count Auto Diff 4 Months I10 - Essential (primary) hypertension Lipid Panel 4 Months E78.00 - Pure hypercholesterolemia, unspecified Vitamin D 25-OH Total 4 Months E55.9 - Vitamin D deficiency, unspecified Referrals Neurology Referral G62.9 - Polyneuropathy, unspecified, I63.9 - Cerebral infarction, unspecified Pain Management Referral G62.9 - Polyneuropathy, unspecified, M51.36 - Other intervertebral disc degeneration, lumbar region Medications: Refilled zolpidem 5 mg PO BEDTIME PRN 30 tabs 2RF sleep 30 days tramadol 50 mg PO Q6H PRN 120 tabs 0RF pain 30 days oxycodone-acetaminophen 5-325 mg take at bedtime ONLY for increased pain 1 tab PO .QHS PRN 7 tabs 0RF pain 7 days Coding Level of Care Code Est Pt Level 4 (85825) Diagnoses Pure hypercholesterolemia E78.00 Cerebrovascular accident (CVA), unspecified mechanism I63.9 CVA mechanism: unspecified Benign essential hypertension I10 Lumbar degenerative disc disease M51.36 Neuropathy G62.9 Impaired fasting glucose R73.01 Memory loss or impairment R41.3 Insomnia, unspecified type G47.00 Insomnia type: unspecified Overweight (BMI 25.0-29.9) E66.3 Additional Codes CONSTANTINO-7 Assessment Billing - CONSTANTINO-7 Assessment Tool: CONSTANTINO-7 Assessment [id number] ([id number])
== END 2023-02-27 11:27 | disposition home or self-care (01) ==
PROVIDERS: PCP Internal Medicine; Visit Provider Internal Medicine
DX: E78.00 Pure hypercholesterolemia, unspecified (principal); I69.351 Hemiplegia and hemiparesis following cerebral infarction affecting right dominant side; I10 Essential (primary) hypertension; M51.36 Other intervertebral disc degeneration, lumbar region; G62.9 Polyneuropathy, unspecified; R73.01 Impaired fasting glucose; R41.3 Other amnesia; G47.00 Insomnia, unspecified; E66.3 Overweight
CPT/HCPCS: 99214

== ENCOUNTER 2023-04-03 08:54 | Outpatient (AMB) | payer MEDICARE, MEDICAID, SELFPAY ==
[2023-04-03 08:56] VITALS: BP 128/86; PULSE 66; O2SAT 97; BMI 25.8
--- NOTE | 2023-04-03 08:56 | A.OFFVIS_ITS ---
Intake Vital Signs 04/03/23 08:56 Height 5 ft 6 in Weight 160 lb BMI 25.8 BP 128/86 Blood Pressure Location Lt brachial Position Sitting Pulse 66 Pulse Source Pulse Oximeter Pulse Oximetry (%) 97 Oxygen Delivery Method Room Air Intake Visit Reasons: [facility] Intake Note: Patient is here for an Annual Wellness Visit. Blurb Writer Required: No Allergies ibuprofen [From Motrin] Adverse Reaction (Severe, Verified 04/03/23 09:19) high blood pressure, dizzy and chest pain NSAIDS (Non-Steroidal Anti-Inflamma Adverse Reaction (Severe, Verified 04/03/23 09:19) palpitations,dizziness Medication List - Last Reconciled 04/03/23 by JESSE [place] acetaminophen 500 mg PO Q8H PRN amitriptyline 10 mg PO BEDTIME 30 days atorvastatin 10 mg PO BEDTIME 90 days clonidine HCl 0.1 mg PO BID enalapril maleate 10 mg PO BID gabapentin 600 mg PO BID 30 days lidocaine 5% 1 patch topical DAILY oxycodone-acetaminophen 5-325 mg 1 tab PO .QHS PRN 7 days tizanidine 4 mg PO Q8H PRN 30 days tramadol 50 mg PO Q6H PRN 30 days zolpidem 5 mg PO BEDTIME PRN 30 days HPI SA[facility] HPI Details Patient is a 62-year-old female who presents today for subsequent wellness visit. Patient of Dr. Navarrete. Today we discussed patient's need for breast cancer screening, patient will call for a mammogram. 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 [place] of care was reviewed with the patient and she was provided with a screening schedule. End of life planning was discussed with the patient and she was provided with healthcare proxy and MOLST forms. [facility] Medical History Left lower quadrant pain Left groin pain Insomnia HCV (hepatitis C virus) Hemorrhoids Pure hypercholesterolemia Postlaminectomy syndrome Overweight (BMI 25.0-29.9) Memory loss or impairment Cerebrovascular accident (CVA) (~2019) Lumbar degenerative disc disease Benign essential hypertension Hair loss Paresthesia of foot Surgical History History of colonoscopy History of surgery History of neck surgery History of hysterectomy Family History Father Diabetes Mother Lung cancer Past heart attack Daughter In good health Brother In good health Brother No problems noted. Brother No problems noted. Family/Other Colon cancer Social History Housing: Apartment Alcohol intake: current Alcohol intake frequency: holidays/special occasions only Patient Tobacco Use Status: Never used Tobacco e-Cigarette/Vaping Use: Never Used Second Hand Smoke Exposure: No service: No Current occupational status: disabled Cognitive needs: No Hearing needs: No Vision needs: No Female Reproductive History Menstrual Age of Menarche: 8 Questionnaire Medicare Wellness Checkup What [age] your age?: 65-69 (62 ) What gender do you identify with?: female During the past 4 weeks, how much have you been bothered by emotional problems such as feeling anxious, depressed, irritable, sad or downhearted, and blue?: not at all During the past 4 weeks, has your physical & emotional health limited your social activities with family, friends, neighbors, or groups?: quite a bit During the past 4 weeks, how much bodily pain have you generally had?: mild pain During the past 4 weeks, was someone available to help you if you needed & wanted help?: no, not at all During the past 4 weeks, what was the hardest physical activity you could do for at least 2 minutes?: light Can you get to places out of walking distance without help? (For eg., can you travel alone on buses, taxis or drive your car?): Yes Can you go shopping for groceries or clothes without someone's help?: Yes Can you prepare your own meals?: Yes Can you do your housework without help?: Yes Because of any health problems, do you need the help of another person with your personal care needs such as eating, bathing, dressing or getting around the house?: No Can you handle your own money without help?: Yes During the past 4 weeks, how would you rate your health in general?: very good During the past 4 weeks how have things been going for you?: pretty bad Are you having difficulties driving your car?: no Do you always fasten your seat belt when you are in a car?: yes, usually During past 4 weeks, have you been bothered by the following: never: Falling or dizzy when standing up, Trouble eating well?, Teeth or denture problems?, Problems using the telephone? and Tiredness or fatigue? Have you fallen 2 or more times in the past year?: No Are you afraid of falling?: Yes Are you a smoker?: no During the past 4 weeks, how many drinks of wine, beer, or other alcoholic beverages did you have?: no alcohol at all Do you exercise for about 20 minutes 3 or more times a week?: no, I usually do not exercise this much Have you been given information to help with the following?: yes: Keeping track of your medications? and no: Hazards in your house that might hurt you? How often do you have trouble taking medicines the way you have been told to take them?: I always take medicine as prescribed How confident are you that you can control & manage most of your health problems?: somewhat confident What is your race?: White Mini Mental State Exam (MMSE) Orientation What is the (year) (season) (date) (day) (month)?: year, season, date, day and month Score Score: 5 Activity of Daily Living Bathing - sponge bath, tub bath or shower: receives no assistance (gets in/out by self, if usual bathing means Dressing - getting clothes from closets & drawers, including inner/outer garments & fasteners.: gets clothes & gets completely dressed without help Toileting - going to the 'toilet room' for urine/bowel elimination & cleaning self/arranging clothes: goes to toilet room, cleans self, arranges clothes without help Transfer: moves in & out of bed and chair without help (may use support object) Continence: controls urination/bowel movements completely by self Feeding: feeds self without help Total Score: 0 Information obtained from: patient Using telephone: independent Traveling: independent Shopping: independent Preparing meals: independent Housework: independent Taking medicine: independent Managing money: independent PHQ-9 Over the last 2 weeks, how often have you been bothered by any of the following problems? 1. Little interest or pleasure in doing things: several days 2. Feeling down, depressed, or hopeless: not at all 3. Trouble falling or staying asleep, or sleeping too much: nearly every day 4. Feeling tired or having little energy: not at all 5. Poor appetite or overeating: not at all 6. Feeling bad about yourself - or that you are a failure or have let yourself or your family down: not at all 7. Trouble concentrating on things, such as reading the newspaper or watching television: not at all 8. Moving or speaking so slowly that other people could have noticed. Or the opposite - being so fidgety or restless that you have been moving around a lot more than usual: not at all 9. Thoughts that you would be better off or of hurting yourself in some way: not at all Total score: 4 Depression Screening Interpretation: Negative Depression Screening Done: Yes 28298 - PHQ-9 Billing: Yes Source: Developed by Drs. Orlando Kat, Corina Corona, Dillon Greenwood and colleagues, with an educational marilynn from [employer]. Physical Exam Vital Signs: Last Vital Signs Pulse 66 04/03/23 08:56 BP 128/86 04/03/23 08:56 Pulse Ox 97 04/03/23 08:56 Oxygen Delivery Method Room Air 04/03/23 08:56 BMI result Body Mass Index 25.8 Const General: cooperative and no acute distress Orientation/consciousness: patient oriented x3 HEENT Other: Whisper test: pass Neuro Other: Balance: Normal Get up and walk: unable to Romberg: negative Tandem gait: unable to General: patient oriented x3 Assessment & Plan Assessment & Plan (1) Pure hypercholesterolemia: Code(s): E78.00 - Pure hypercholesterolemia, unspecified Plan: Atorvastatin 10 mg at bedtime Low-cholesterol diet (2) Encounter for Medicare annual wellness exam: Code(s): Z00.00 - Encounter for general adult medical examination without abnormal findings (3) Lumbar degenerative disc disease: Comment: Has failed back sydrome/postlaminectomy syndrome Code(s): M51.36 - Other intervertebral disc degeneration, lumbar region Plan: Reinforced activity restrictions Continue current treatment (4) Benign essential hypertension: Code(s): I10 - Essential (primary) hypertension Plan: Continue current treatment Low-sodium diet (5) Insomnia: Code(s): G47.00 - Insomnia, unspecified Qualifiers: Insomnia type: unspecified Qualified Code(s): G47.00 - Insomnia, unspecified Plan: On zolpidem at bedtime p.r.n. Sleep hygiene (6) Neuropathy: Code(s): G62.9 - Polyneuropathy, unspecified Plan: Patient will be seeing [place] [facility] (7) Breast cancer screening: Code(s): Z12.39 - Encounter for other screening for malignant neoplasm of breast Plan: Patient will call for mammogram Quality Reporting (2019) Depression/Bipolar (159/160/161/177) PHQ-9: Total score: 4 Coding Level of Care Code Medicare Subsequent (G0439) Diagnoses Pure hypercholesterolemia E78.00 Encounter for Medicare annual wellness exam Z00.00 Lumbar degenerative disc disease M51.36 Benign essential hypertension I10 Insomnia, unspecified type G47.00 Insomnia type: unspecified Neuropathy G62.9 Breast cancer screening Z12.39 CPT Codes Advance Care Planning - Time spent: 1-15 minutes, not on file ([id number]) Advance Care Planning Date of discussion: 04/03/23 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
== END 2023-04-03 09:29 | disposition home or self-care (01) ==
PROVIDERS: Visit Provider Nurse Practitioner Family
DX: E78.00 Pure hypercholesterolemia, unspecified (principal); Z00.00 Encounter for general adult medical examination without abnormal findings; M51.36 Other intervertebral disc degeneration, lumbar region; I10 Essential (primary) hypertension; G47.00 Insomnia, unspecified; G62.9 Polyneuropathy, unspecified; Z12.39 Encounter for other screening for malignant neoplasm of breast
CPT/HCPCS: 1124F; G0439

== ENCOUNTER 2023-07-04 09:06 | Outpatient (AMB) | payer MEDICARE, MEDICAID, SELFPAY ==
[2023-07-04 09:12] VITALS: BP 132/80; PULSE 79; O2SAT 95; BMI 26.3
--- NOTE | 2023-07-04 09:12 | A.OFFPC_ITS ---
Vital Signs 07/04/23 09:12 Height 5 ft 6 in Weight 163 lb 4 oz BMI 26.3 BP 132/80 Blood Pressure Location Lt brachial Position Sitting Pulse 79 Pulse Source Pulse Oximeter Pulse Oximetry (%) 95 Oxygen Delivery Method Room Air Intake Visit Reasons: 4 month f/u [employer] Required: No Accompanied by: Self / Same As Patient Allergies ibuprofen [From Motrin] Adverse Reaction (Severe, Verified 07/04/23 09:47) high blood pressure, dizzy and chest pain NSAIDS (Non-Steroidal Anti-Inflamma Adverse Reaction (Severe, Verified 07/04/23 09:47) palpitations,dizziness Medication List - Last Reconciled 07/04/23 by Himanshu Navarrete MD acetaminophen 500 mg PO Q8H PRN amitriptyline 10 mg PO BEDTIME 30 days atorvastatin 10 mg PO BEDTIME 90 days clonidine HCl 0.1 mg PO BID enalapril maleate 10 mg PO BID gabapentin 600 mg PO BID 30 days lidocaine 5% 1 patch topical DAILY oxycodone-acetaminophen 5-325 mg 1 tab PO .QHS PRN 7 days tizanidine 4 mg PO Q8H PRN 30 days tramadol 50 mg PO Q6H PRN 30 days zolpidem 5 mg PO BEDTIME PRN 30 days Tobacco use date assessed: 07/04/23 Fall risk assessment: No Falls in past year Last assessed Fall Risk: 07/04/23 Dental Screening Dental Screen Date: 07/04/23 Did you have a dental visit in the last 12 months?: Yes Did you have a dental problem in the last 6 months where you did not have access to dental care?: No Was dental information given to patient?: Patient has dentist HPI 4 month f/u HPI Details Patient comes in today for her follow up visit She continues to experience increased (chronic) pain over her lower back that radiates down her legs often Also feels that the chronic pain in her feet are getting worse - notes that the pain feels worse at night and she can hardly sleep due to the pain She has recently tried going up on her Gabapentin 600 mg to TID dosing to help with her pain - states that it helps a little - but is now losing more of her hair rapidly Would now like to try switching over to Lyrica again She was referred to neurology at her previous visit for further evaluation and recommendations and she is scheduled to be seen in August 2023 (she apparently missed her original appt on 06/11/23) States that she also recently started back on her Clonidine 0.1 mg BID as her blood pressure has been running high often and her BP seems to be better controlled lately She denies any increased headaches or dizziness lately Denies any chest pains, no SOB No nausea/vomiting, no abdominal pain No change in bowel habits noted Needs a couple of her Rx refilled, including another short-term refill of her Percocet States that she forgot to get her follow up labs done before her appointment today [facility] Medical History Left lower quadrant pain Left groin pain Insomnia HCV (hepatitis C virus) Hemorrhoids Pure hypercholesterolemia Postlaminectomy syndrome Overweight (BMI 25.0-29.9) Memory loss or impairment Cerebrovascular accident (CVA) (~2018) Lumbar degenerative disc disease Benign essential hypertension Hair loss Paresthesia of foot Surgical History History of colonoscopy History of surgery History of neck surgery History of hysterectomy Family History Father Diabetes Mother Lung cancer Past heart attack Daughter In good health Brother In good health Brother No problems noted. Brother No problems noted. Family/Other Colon cancer Social History Housing: Apartment Alcohol intake: current Alcohol intake frequency: holidays/special occasions only Patient Tobacco Use Status: Never used Tobacco e-Cigarette/Vaping Use: Never Used Second Hand Smoke Exposure: No service: No Current occupational status: disabled Cognitive needs: No Hearing needs: No Vision needs: No Female Reproductive History Menstrual Age of Menarche: 8 Questionnaire PHQ-9 Over the last 2 weeks, how often have you been bothered by any of the following problems? 1. Little interest or pleasure in doing things: several days 2. Feeling down, depressed, or hopeless: not at all 3. Trouble falling or staying asleep, or sleeping too much: nearly every day 4. Feeling tired or having little energy: not at all 5. Poor appetite or overeating: not at all 6. Feeling bad about yourself - or that you are a failure or have let yourself or your family down: not at all 7. Trouble concentrating on things, such as reading the newspaper or watching television: not at all 8. Moving or speaking so slowly that other people could have noticed. Or the opposite - being so fidgety or restless that you have been moving around a lot more than usual: not at all 9. Thoughts that you would be better off or of hurting yourself in some way: not at all Total score: 4 Depression Screening Interpretation: Positive Depression Screening Follow-up: Existing condition and In treatment Depression Screening Done: Yes 41950 - PHQ-9 Billing: Yes Source: Developed by Drs. Orlando Kat, Corina Corona, Dillon Greenwood and colleagues, with an educational marilynn from [employer] Thrive Questionnaire Date Thrive assessed: 07/04/23 I am a: Patient What is your living situation today?: I have a steady place to live Within the past 12 months, did the food you bought not last and you didn't have the money to get more?: Never true Within the past 12 months, did you worry whether your food would run out before you got money to buy more?: Never true Do you have trouble paying for medicines?: No Do you have trouble getting transportation to medical appointments?: No Do you have trouble paying your heating and electricity bill?: No Do you have trouble taking care of your child, family member or friend?: No Do you have trouble with day-to-day activities such as bathing, preparing meals, shopping, managing finances, etc.?: No Are you currently unemployed and looking for a job?: No Are you interested in more education?: No Please select the resources that you would like help with: None Currently or been in a relationship where the following occur: no concerns reported THRIVE Score: 0 AUDIT C Alcohol Use Questionnaire (AUDIT-C) 1. How often do you have a drink containing alcohol?: Never 2. How many drinks containing alcohol do you have on a typical day when you are drinking?: 1 or 2 3. How often do you have six or more drinks on one occasion?: Never Total Score: 0 Score Reviewed/Action Taken: Yes CONSTANTINO-7 AMB Questionnaire CONSTANTINO-7 Date CONSTANTINO - 7 assessed: 07/04/23 Feeling nervous, anxious, or on edge: 0 = Not at all Not being able to stop or control worryin = Several days Worrying too much about different things: 0 = Not at all Trouble relaxin = Not at all Being so restless that it is hard to sit still: 0 = Not at all Becoming easily annoyed or irritable: 0 = Not at all Feeling afraid as if something awful might happen: 0 = Not at all Total CONSTANTINO-7 score (0-4 normal; 5-9 mild; 10-14 moderate; 15-21 severe): 1 Source: Developed by Drs. Orlando Kat, Corina Corona, Dillon Greenwood and colleagues, with an educational marilynn from [employer] ([employer] CONSTANTINO-7 Assessment Billing CONSTANTINO-7 Assessment Tool: CONSTANTINO-7 Assessment 78715 Review of Systems Const Denies chills, Reports difficulty sleeping (due to pain - feels that Percocet is the only med that helps her sleep), Reports fatigue, Denies fever(s), Denies headache(s) and Reports weakness (over the right side, involving the right arm & right leg - unchanged) Eyes Denies change in vision ENT Denies dysphagia, Denies dizziness, Denies otalgia, Denies headache(s), Denies neck pain, Denies odynophagia and Denies sore throat Card Denies chest pain, Denies palpitations and Denies dyspnea Resp Denies cough, Denies dyspnea and Denies wheezing GI Denies abdominal pain, Denies constipation, Denies dysphagia, Denies heartburn, Denies diarrhea, Denies nausea, Denies odynophagia and Denies vomiting Denies difficulty voiding, Denies nocturia, Denies dysuria and Denies urinary urgency Musc Details: (+) chronic pain in the right foot - foot goes completely numb at times Reports back pain (over the lower back, chronic), Denies arthralgias and Denies neck pain Skin/Breast Reports alopecia (due to Gabapentin) and Denies rash Neuro Reports burning sensations (and pain in her feet - increased especially at night ), Denies dizziness, Denies headache(s), Reports memory loss and Reports weakne ss (over the right side, involving the right arm & right leg - unchanged) Psych Reports memory loss Endo Reports fatigue and Denies palpitations Aller/Immun Denies wheezing Physical exam (Primary Care) Vital Signs: Last Vital Signs Pulse 79 07/04/23 09:12 BP 132/80 07/04/23 09:12 Pulse Ox 95 07/04/23 09:12 Oxygen Delivery Method Room Air 07/04/23 09:12 BMI result Body Mass Index 26.3 Tobacco/Smoking Status: Tobacco use Status Tobacco use date assessed 07/04/23 07/04/23 09:16 Patient Tobacco Use Status Never used Tobacco 07/04/23 09:16 e-Cigarette/Vaping Use Never Used 07/04/23 09:16 PHQ-9: PHQ-9 Score PHQ-9: Total score 4 07/04/23 09:16 Depression Screening Interpretation: Positive Depression Screening Follow-up: Existing condition and In treatment Thrive Assessment: Date of Thrive Assessment Date Thrive assessed 07/04/23 07/04/23 09:16 Currently or been in a relationship where the following occur: no concerns reported Const General: no acute distress and alert HENMT Ears: TM's normal bilaterally and EAC's normal Throat: Yes posterior oropharynx normal and Yes tonsils normal (no TP congestion noted) Neck Neck: Yes no lymphadenopathy and Yes supple Thyroid: Thyroid normal Resp Auscultation: clear to auscultation bilaterally, no rales and no wheezes Cardio Rate: regular rate Rhythm: regular rhythm Heart sounds: no murmurs GI Palpation (GI): Soft to palpation and nontender Auscultation: normal bowel sounds General: Yes no CVA tenderness Back/Spine/Pelvis Back: no CVA tenderness Thoracic/Lumbar Spine: lumbar spinal tenderness (chronic) Skin Rashes: no rashes Neuro Other: (+) residual weakness over the right arm and right leg - unchanged from previous Extrem General: Yes no clubbing, cyanosis or edema Assessment and Plan Assessment & Plan (1) Pure hypercholesterolemia: Code(s): E78.00 - Pure hypercholesterolemia, unspecified Plan: Will have patient go and get her follow up labs done after her appointment today Reinforced low cholesterol diet Continue Atorvastatin 10 mg QD Will recheck her labs and fasting lipids in 4 months for follow up (2) Cerebrovascular accident (CVA): Onset Date: ~2018 Comment: (+) CVA in 2019, with residual right-sided weakness primarily involving the right arm and right leg - S/P physical therapy with only some improvement of her weakness Code(s): I63.9 - Cerebral infarction, unspecified Qualifiers: CVA mechanism: unspecified Qualified Code(s): I63.9 - Cerebral infarction, unspecified Plan: Reinforced to continue with aggressive risk factor modification to minimize recurrence, including lowering her cholesterol and controlling her BP Patient used to see Dr. Haq for neurology follow up but she has not been to see neurology in over 2 years She was referred back to neurology but she requested to see another neurologist other than Dr. Haq She was originally scheduled with [facility] Neurology last month but she missed her appt and has been rescheduled to August 2023 (3) Benign essential hypertension: Code(s): I10 - Essential (primary) hypertension Plan: Reinforced low-sodium diet -? goal is systolic BP of at least 120 to 130 mm or less Continue Enalapril 10 mg BID and Clonidine 0.1 mg BID Patient is reminded to continue monitoring her blood pressure regularly (4) Lumbar degenerative disc disease: Comment: Has failed back sydrome/postlaminectomy syndrome Code(s): M51.36 - Other intervertebral disc degeneration, lumbar region Plan: Was seen by pain management a few years ago but she did not follow-up again with them for a while as she was not interested in any alternative or interventional Tx options at the time Was referred back to pain management last year and was seen by , who recommended that she start on TCAs and have her Gabapentin dose increased but patient declined both of these recommendations Was seen more recently at [facility] and offered trial of SCS which patient also decided not to pursue She has been on Gabapentin 600 mg TID and Tizanidine 4 mg QID PRN for a while now and is requesting to have her Gabapentin switched out to Lyrica again as her hair loss seems to be progressively worse now Will try to start her again on Pregabalin 50 mg TID; she is reminded to STOP her Gabapentin when she starts taking Pregabalin Was started on a trial of Duloxetine 30 mg QD as well last year but patient also decided NOT to continue on the Rx Reinforced again to patient that other than Tramadol, we have no plans to start her back on opioids for chronic/long-term pain management but will allow patient again a few Oxycodone 5 mg tablets to take 1 tablet Q HS PRN ONLY for severe pain (# 7 tablets) - reminded again that this will NOT be refilled regularly She was also referred back to [facility] for pain management evaluation at her last visit but has not been seen yet (5) Neuropathy: Code(s): G62.9 - Polyneuropathy, unspecified Plan: Continue Amitriptyline 10 mg Q HS She is now scheduled to be seen by neurology (Dr. Ledezma) in August 2023 She does not appear to have had any formal EMG and NCV done in the past and have again advised her that these may be worthwhile to pursue but I will leave it up to neurology to decide if they are necessary or not at this point (6) Impaired fasting glucose: Code(s): R73.01 - Impaired fasting glucose Plan: Advised that her FBS on her previous labs was at 103 mg/dl, which was much improved from her previous reading of 128 mg/dl Reinforced low calorie diet Will continue to monitor this closely for now (7) Memory loss or impairment: Code(s): R41.3 - Other amnesia Plan: Reports (+) memory loss/impairment that appear to have started after her CVA in 2019 - advised again that this is most likely a sequelae of her CVA and that there may not be much we can do for this except for aggressive reduction of her risk factors to prevent any further recurrence of her CVA Follow up with neurology as scheduled (8) Insomnia: Code(s): G47.00 - Insomnia, unspecified Qualifiers: Insomnia type: unspecified Qualified Code(s): G47.00 - Insomnia, unspecified Plan: Sleep hygiene reinforced Continue Zolpidem 5 mg Q HS PRN - Rx refilled (9) Overweight (BMI 25.0-29.9): Code(s): E66.3 - Overweight Plan: Reinforced diet/lose weight; exercise is an unrealistic option at this time given patient's right-sided weakness as well as her significant low back pain Plan Follow up in 3 months Orders: Orders Vitamin D 25-OH Total 3 Months E55.9 - Vitamin D deficiency, unspecified Comprehensive [place]. Panel Fast 3 Months E78.00 - Pure hypercholesterolemia, unspecified Lipid Panel 3 Months E78.00 - Pure hypercholesterolemia, unspecified TSH reflex Free T4 3 Months E78.00 - Pure hypercholesterolemia, unspecified Medications: Refilled zolpidem 5 mg PO BEDTIME 30 days PRN 30 tabs 2RF sleep oxycodone-acetaminophen 5-325 mg take at bedtime ONLY for increased pain 1 tab PO .QHS 7 days PRN 7 tabs 0RF pain pregabalin (Lyrica) 50 mg PO TID 30 days 90 caps 0RF M51.36 - Other intervertebral disc degeneration, lumbar region Coding Level of Care Code Est Pt Level 4 (71548) Diagnoses Pure hypercholesterolemia E78.00 Cerebrovascular accident (CVA), unspecified mechanism I63.9 CVA mechanism: unspecified Benign essential hypertension I10 Lumbar degenerative disc disease M51.36 Neuropathy G62.9 Impaired fasting glucose R73.01 Memory loss or impairment R41.3 Insomnia, unspecified type G47.00 Insomnia type: unspecified Overweight (BMI 25.0-29.9) E66.3 Additional Codes CONSTANTINO-7 Assessment Billing - CONSTANTINO-7 Assessment Tool: CONSTANTINO-7 Assessment [id number] ([id number])
== END 2023-07-04 09:58 | disposition home or self-care (01) ==
PROVIDERS: PCP Internal Medicine; Visit Provider Internal Medicine
DX: E78.00 Pure hypercholesterolemia, unspecified (principal); I69.351 Hemiplegia and hemiparesis following cerebral infarction affecting right dominant side; I10 Essential (primary) hypertension; M51.36 Other intervertebral disc degeneration, lumbar region; G62.9 Polyneuropathy, unspecified; R73.01 Impaired fasting glucose; R41.3 Other amnesia; G47.00 Insomnia, unspecified; E66.3 Overweight
CPT/HCPCS: 99214

== ENCOUNTER 2023-07-04 10:04 | Outpatient (REF) | payer MEDICARE, MEDICAID, SELFPAY ==
[2023-07-04 10:23] LABS: MANUAL DIFF FLAG NO
[2023-07-04 11:00] LABS: Basophils Percent Auto 0.4 % (0-2); Eosinophils Absolute Auto 0.2 X10*3/uL (0.0-0.4); Eosinophils Percent Auto 2.5 % (0-4); Hematocrit 42.9 % (37.0-47.0); Hemoglobin 14.9 g/dl (12.0-16.0); Imm Gran Abs Auto 0.04 X10*3/uL (0.00-0.03); Imm Gran Pct Auto 0.5 % (0.0-0.4); Lymphocytes Absolute Auto 2.6 X10*3/uL (1.2-4.9); Lymphocytes Percent Auto 32.7 % (20-40); Mean Corpuscular HGB Conc 34.7 g/dl (31.0-35.0); Mean Corpuscular Hemoglobin 32.4 pg (27.0-33.0); Mean Corpuscular Volume 93.3 fL (80.0-98.0); Mean Platelet Volume 9.8 fL (9.4-12.3); Monocytes Absolute Auto 0.4 X10*3/uL (0.1-1.2); Monocytes Percent Auto 5.4 % (2-11); Neutrophils Absolute Auto 4.7 x10*3/uL (2.0-8.3); Neutrophils Percent Auto 58.5 % (45-73); Platelet Count 225 X10*3/uL (160-400); Red Cell Distribution Width 12.1 % (11.0-16.0)
[2023-07-04 11:23] LABS: Alanine Aminotransferase 12 U/L (0-31); Albumin Level 4.6 g/dL (3.5-5.0); Alkaline Phosphatase 50 U/L (39-117); Anion Gap 14 (12-20); Aspartate Amino Transferase 23 U/L (5-31); Bilirubin Total 0.5 mg/dL (0.0-1.0); Blood Urea Nitrogen 15 mg/dL (9-16); Calcium 9.9 mg/dL (8.4-10.2); Carbon Dioxide 26 mmol/L (22-29); Chloride 103 mmol/L (96-108); Cholesterol 180 mg/dL (<200); Estimated Glomerular Filt Rate > 60; Glucose Fasting 96 mg/dL (60-99); HDL Cholesterol 84 mg/dL (>40); LDL Cholesterol Calculated 79 mg/dL (<100); Potassium 4.5 mmol/L (3.3-5.1); Sodium 138 mmol/L (135-145); Total Protein 7.6 g/dL (6.5-8.0); Triglycerides 87 mg/dL (<150)
[2023-07-04 11:39] LABS: Vitamin D 25-OH Total 34.3 ng/mL (>30)
[2023-07-04 11:50] LABS: Folate 18.4 ng/mL (> or = 4.0); Vitamin B12 1013 pg/mL (200-900)
== END 2023-07-04 10:05 | disposition home or self-care (01) ==
LOC: HO.LAB 10:04
PROVIDERS: PCP Internal Medicine; Visit Provider Internal Medicine
DX: I10 Essential (primary) hypertension (principal); E55.9 Vitamin D deficiency, unspecified; E53.8 Deficiency of other specified B group vitamins; E78.00 Pure hypercholesterolemia, unspecified
CPT/HCPCS: 36415; 80053; 80061; 82306; 82607; 82746; 85025

== ENCOUNTER 2023-09-10 13:34 | Outpatient (AMB) | payer MEDICARE, MEDICAID, SELFPAY ==
[2023-09-10 13:47] VITALS: BP 124/82; PULSE 76; O2SAT 97; BMI 27.1
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
== END 2023-09-10 14:48 | disposition home or self-care (01) ==
LOC: HO.HSMS 13:39
PROVIDERS: PCP Internal Medicine; Visit Provider Nurse Practitioner Family
DX: I69.351 Hemiplegia and hemiparesis following cerebral infarction affecting right dominant side (principal); G62.9 Polyneuropathy, unspecified
CPT/HCPCS: 99204

== ENCOUNTER → 2023-09-10 13:39 | Outpatient (BNVA) | payer MEDICARE, MEDICAID, SELFPAY | PROVIDERS: PCP Internal Medicine; Visit Provider Nurse Practitioner Family | DX: G62.9 Polyneuropathy, unspecified (principal); Z86.73 Personal history of transient ischemic attack (TIA), and cerebral infarction without residual deficits | CPT/HCPCS: 99202 ==

== ENCOUNTER 2023-09-10 15:05 | Outpatient (AMB) | payer MEDICARE, MEDICAID, SELFPAY ==
--- NOTE | 2023-09-10 15:12 | A.OFFPC_ITS ---
Vital Signs 09/10/23 15:13 Height 5 ft 6 in Weight 167 lb 4 oz BMI 27.0 BP 130/70 Blood Pressure Location Lt brachial Position Sitting Pulse 76 Pulse Source Pulse Oximeter Pulse Oximetry (%) 95 Oxygen Delivery Method Room Air Intake Visit Reasons: Pain Intake Note: Patient is here to follow up on Pain. Explosive Operator Supervisor Required: No Shrimp Peeling Machine Tender: Not Required per policy Accompanied by: Self / Same As Patient Allergies ibuprofen [From Motrin] Adverse Reaction (Severe, Verified 09/10/23 15:13) high blood pressure, dizzy and chest pain NSAIDS (Non-Steroidal Anti-Inflamma Adverse Reaction (Severe, Verified 09/10/23 15:13) palpitations,dizziness Tobacco use date assessed: 09/10/23 Fall risk assessment: No Falls in past year Last assessed Fall Risk: 09/10/23 Dental Screening Dental Screen Date: 07/04/23 [facility] Medical History Left lower quadrant pain Left groin pain Insomnia HCV (hepatitis C virus) Hemorrhoids Pure hypercholesterolemia Postlaminectomy syndrome Overweight (BMI 25.0-29.9) Memory loss or impairment Cerebrovascular accident (CVA) (~2019) Lumbar degenerative disc disease Benign essential hypertension Hair loss Paresthesia of foot Surgical History History of colonoscopy History of surgery History of neck surgery History of hysterectomy Family History Father Diabetes Mother Lung cancer Past heart attack Daughter In good health Brother In good health Brother No problems noted. Brother No problems noted. Family/Other Colon cancer Social History Housing: Apartment Alcohol intake: current Alcohol intake frequency: holidays/special occasions only Patient Tobacco Use Status: Never used Tobacco e-Cigarette/Vaping Use: Never Used Second Hand Smoke Exposure: No service: No Current occupational status: disabled Cognitive needs: No Hearing needs: No Vision needs: No Female Reproductive History Menstrual Age of Menarche: 8 Questionnaire Thrive Questionnaire Date Thrive assessed: 07/04/23 CONSTANTINO-7 AMB Questionnaire CONSTANTINO-7 Date CONSTANTINO - 7 assessed: 07/04/23 Source: Developed by Drs. Orlando Kat, Corina Corona, Dillon Greenwood and colleagues, with an educational marilynn from [email or web address] Physical exam (Primary Care) Vital Signs: Last Vital Signs Pulse 76 09/10/23 15:13 BP 130/70 09/10/23 15:13 Pulse Ox 95 09/10/23 15:13 Oxygen Delivery Method Room Air 09/10/23 15:13 BMI result Body Mass Index 27.0 Tobacco/Smoking Status: Tobacco use Status Tobacco use date assessed 09/10/23 09/10/23 15:18 Patient Tobacco Use Status Never used Tobacco 09/10/23 15:18 e-Cigarette/Vaping Use Never Used 09/10/23 15:18 Thrive Assessment: Date of Thrive Assessment Date Thrive assessed 07/04/23 09/10/23 15:18 Assessment and Plan Assessment & Plan Medications: Changed From clonidine HCl 0.1 mg PO BID 60 tabs 3RF To clonidine HCl 0.2 mg (2 x 0.1 mg) PO TID 30 days 180 tabs 2RF Refilled oxycodone-acetaminophen 5-325 mg take at bedtime ONLY for increased pain 1 tab PO .QHS 7 days PRN 7 tabs 0RF pain zolpidem 5 mg PO BEDTIME 30 days PRN 30 tabs 2RF sleep Coding
--- NOTE | 2023-09-10 15:12 | MHC.PC.OV ---
Vital Signs 09/10/23 15:13 Height 5 ft 6 in Weight 167 lb 4 oz BMI 27.0 BP 130/70 Blood Pressure Location Lt brachial Position Sitting Pulse 76 Pulse Source Pulse Oximeter Pulse Oximetry (%) 95 Oxygen Delivery Method Room Air Intake Visit Reasons: Pain Intake Note: Patient is here to follow up on Pain. Nurse Transitional Required: No Farmhand: Not Required per policy Accompanied by: Self / Same As Patient Allergies ibuprofen [From Motrin] Adverse Reaction (Severe, Verified 07/15/24 10:37) high blood pressure, dizzy and chest pain NSAIDS (Non-Steroidal Anti-Inflamma Adverse Reaction (Severe, Verified 07/15/24 10:37) palpitations,dizziness Medication List - Last Reconciled 07/20/24 by Himanshu Navarrete MD atorvastatin 10 mg PO BEDTIME 90 days clonidine HCl 0.2 mg PO TID 30 days enalapril maleate 10 mg PO BID lidocaine 5% 1 patch topical DAILY naloxone 4 mg/actuation 4 mg intranasal Q2M PRN 1 day oxycodone 5 mg PO BID PRN 30 days [POST-OP SHOE (RIGHT) - medium As directed] pregabalin 100 mg PO TID 30 days zolpidem 10 mg PO BEDTIME PRN 30 days Tobacco use date assessed: 09/10/23 Fall risk assessment: No Falls in past year Last assessed Fall Risk: 09/10/23 Dental Screening Dental Screen Date: 07/04/23 HPI Pain HPI Details Patient comes in today for her follow up visit States that she continues to experience increased pain over her lower back as well as over her right lower extremity and is requesting again for some Rx for Oxycodone to help her primarily at night Notes that her blood pressure is still running high often despite her current meds She denies any headaches or dizziness Denies any chest pains, no increased shortness of breath No nausea/vomiting, no abdominal pain No change in bowel habits noted Needs her Zolpidem Rx refilled as well [facility] Medical History (Updated 07/20/24 @ 22:20 by Himanshu Navarrete MD) Numbness and tingling of both feet Neuropathy Reflex sympathetic dystrophy of right leg Left lower quadrant pain Left groin pain Insomnia HCV (hepatitis C virus) Hemorrhoids Pure hypercholesterolemia Postlaminectomy syndrome Overweight (BMI 25.0-29.9) Memory loss or impairment Cerebrovascular accident (CVA) (~2019) Lumbar degenerative disc disease Benign essential hypertension Hair loss Paresthesia of foot Surgical History History of colonoscopy History of surgery History of neck surgery History of hysterectomy Family History Father Diabetes Mother Lung cancer Past heart attack Daughter In good health Brother In good health Brother No problems noted. Brother No problems noted. Family/Other Colon cancer Social History Housing: Apartment Alcohol intake: current Alcohol intake frequency: holidays/special occasions only Patient Tobacco Use Status: Never used Tobacco e-Cigarette/Vaping Use: Never Used Second Hand Smoke Exposure: No service: No Current occupational status: disabled Cognitive needs: No Hearing needs: No Vision needs: No Female Reproductive History Menstrual Age of Menarche: 8 Questionnaire PHQ-9 Over the last 2 weeks, how often have you been bothered by any of the following problems? Depression Screening Interpretation: Positive Depression Screening Follow-up: Existing condition and In treatment Depression Screening Done: Yes Source: Developed by Drs. Orlando Kat, Dillon Urbano and colleagues, with an educational marilynn from [employer]. Thrive Questionnaire Date Thrive assessed: 07/04/23 Currently or been in a relationship where the following occur: no concerns reported THRIVE Score: 0 CONSTANTINO-7 AMB Questionnaire CONSTANTINO-7 Date CONSTANTINO - 7 assessed: 07/04/23 Source: Developed by Drs. Orlando Kat, Dillon Urbano and colleagues, with an educational marilynn from [employer]. Review of Systems Const Denies chills, Reports difficulty sleeping (due to pain), Reports fatigue, Denies fever(s), Denies headache(s) and Reports weakness (over the right side, involving the right arm & right leg ) ENT Denies dysphagia, Denies dizziness, Denies otalgia, Denies headache(s), Denies neck pain, Denies odynophagia and Denies sore throat Card Denies chest pain, Denies palpitations and Denies dyspnea Resp Denies chest congestion, Denies cough and Denies dyspnea GI Denies abdominal pain, Denies constipation, Denies dysphagia, Denies heartburn, Denies diarrhea, Denies nausea, Denies odynophagia and Denies vomiting Denies difficulty voiding, Denies nocturia, Denies dysuria and Denies urinary urgency Musc Details: (+) chronic pain in the right foot - foot goes completely numb at times Reports back pain (over the lower back, chronic - increasing lately), Reports arthralgias (involving multiple joints) and Denies neck pain Skin/Breast Reports alopecia (due to Gabapentin) and Denies rash Neuro Reports burning sensations (and pain in her feet - increased especially at night ), Denies dizziness, Denies headache(s), Reports memory loss and Reports weakness (over the right side, involving the right arm & right leg ) Psych Reports memory loss Endo Reports fatigue and Denies palpitations Physical exam (Primary Care) Vital Signs: Last Vital Signs Pulse 76 09/10/23 15:13 BP 130/70 09/10/23 15:13 Pulse Ox 95 09/10/23 15:13 Oxygen Delivery Method Room Air 09/10/23 15:13 BMI result Body Mass Index 27.0 Tobacco/Smoking Status: Tobacco use Status Tobacco use date assessed 09/10/23 09/10/23 15:18 Patient Tobacco Use Status Never used Tobacco 09/10/23 15:18 e-Cigarette/Vaping Use Never Used 09/10/23 15:18 Depression Screening Interpretation: Positive Depression Screening Follow-up: Existing condition and In treatment Thrive Assessment: Date of Thrive Assessment Date Thrive assessed 07/04/23 09/10/23 15:18 Currently or been in a relationship where the following occur: no concerns reported Const General: no acute distress and alert HENMT Ears: TM's normal bilaterally and EAC's normal Throat: Yes posterior oropharynx normal and Yes tonsils normal (no TP congestion noted) Neck Neck: Yes supple and No lymphadenopathy Thyroid: Thyroid normal Resp Auscultation: clear to auscultation bilaterally, no rales and no wheezes Cardio Rate: regular rate Rhythm: regular rhythm Heart sounds: no murmurs GI Palpation (GI): Soft to palpation and nontender Auscultation: normal bowel sounds General: Yes no CVA tenderness Back/Spine/Pelvis Back: no CVA tenderness Thoracic/Lumbar Spine: lumbar spinal tenderness (chronic) Skin Rashes: no rashes Neuro Other: (+) residual weakness over the right arm and right leg - unchanged from previous Extrem Other: (+) chronic right lower extremity tenderness and weakness General: Yes no clubbing, cyanosis or edema Coding Level of Care Code Est Pt Level 4 (48310) Diagnoses Degeneration of intervertebral disc of lumbar region with discogenic back pain M51.360 Disc-related pain type: discogenic back pain only Pure hypercholesterolemia E78.00 Cerebrovascular accident (CVA), unspecified mechanism I63.9 CVA mechanism: unspecified Benign essential hypertension I10 Neuropathy G62.9 Impaired fasting glucose R73.01 Memory loss or impairment R41.3 Insomnia, unspecified type G47.00 Insomnia type: unspecified Overweight (BMI 25.0-29.9) E66.3
[2023-09-10 15:13] VITALS: BP 130/70; PULSE 76; O2SAT 95; BMI 27.0
== END 2023-09-10 16:01 | disposition home or self-care (01) ==
LOC: HO.HMGH 15:08
PROVIDERS: PCP Internal Medicine; Visit Provider Internal Medicine
DX: M51.36 Other intervertebral disc degeneration, lumbar region (principal); E78.00 Pure hypercholesterolemia, unspecified; I63.9 Cerebral infarction, unspecified; I10 Essential (primary) hypertension; G62.9 Polyneuropathy, unspecified; R73.01 Impaired fasting glucose; R41.3 Other amnesia; G47.00 Insomnia, unspecified; E66.3 Overweight
CPT/HCPCS: 99214

== ENCOUNTER 2023-10-17 09:45 | Outpatient (REF) | payer MEDICARE, MEDICAID, SELFPAY ==
[2023-10-17 11:53] LABS: Alanine Aminotransferase 11 U/L (0-31); Albumin Level 4.3 g/dL (3.5-5.0); Alkaline Phosphatase 46 U/L (39-117); Anion Gap 12 (12-20); Aspartate Amino Transferase 20 U/L (5-31); Bilirubin Total 0.6 mg/dL (0.0-1.0); Blood Urea Nitrogen 11 mg/dL (9-16); Calcium 10.1 mg/dL (8.4-10.2); Carbon Dioxide 30 mmol/L (22-29); Chloride 101 mmol/L (96-108); Cholesterol 196 mg/dL (<200); Estimated Glomerular Filt Rate > 60; Glucose Fasting 106 mg/dL (60-99); HDL Cholesterol 76 mg/dL (>40); LDL Cholesterol Calculated 93 mg/dL (<100); Potassium 4.2 mmol/L (3.3-5.1); Sodium 139 mmol/L (135-145); Triglycerides 136 mg/dL (<150)
[2023-10-17 11:58] LABS: TSH reflex Free T4 0.62 uIU/mL (0.32-4.0); Vitamin D 25-OH Total 32.8 ng/mL (>30)
== END 2023-10-17 09:46 | disposition home or self-care (01) ==
LOC: HO.HMGCLDS 09:45
PROVIDERS: PCP Internal Medicine; Visit Provider Internal Medicine
DX: E55.9 Vitamin D deficiency, unspecified (principal); E78.00 Pure hypercholesterolemia, unspecified
CPT/HCPCS: 36415; 80053; 80061; 82306; 84443

== ENCOUNTER 2023-10-25 09:28 | Outpatient (AMB) | payer MEDICARE, MEDICAID, SELFPAY ==
[2023-10-25 09:29] VITALS: BP 130/82; PULSE 59; O2SAT 100; BMI 26.6
--- NOTE | 2023-10-25 09:29 | MHC.PC.OV ---
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 Allergies ibuprofen [From Motrin] Adverse Reaction (Severe, Verified 10/25/23 09:56) high blood pressure, dizzy and chest pain NSAIDS (Non-Steroidal Anti-Inflamma Adverse Reaction (Severe, Verified 10/25/23 09:56) palpitations,dizziness Medication List - Last Reconciled 10/25/23 by Himanshu Navarrete MD atorvastatin 10 mg PO BEDTIME 90 days clonidine HCl 0.2 mg (2 x 0.1 mg) PO TID 30 days enalapril maleate 10 mg PO BID lidocaine 5% 1 patch topical DAILY oxycodone-acetaminophen 5-325 mg 1 tab PO .QHS PRN 7 days pregabalin 100 mg PO TID 30 days tizanidine 4 mg PO Q8H PRN 30 days zolpidem 5 mg PO BEDTIME PRN 30 days Tobacco use date assessed: 10/25/23 Fall risk assessment: No Falls in past year Last assessed Fall Risk: 10/25/23 Dental Screening Dental Screen Date: 07/04/23 HPI 3mth f/u HPI Details Patient comes in today for her follow up visit States that he feels okay but continues to experience increased multiple joint pains, low back pain and bilateral leg/feet pain (neuropathy) She denies any headaches or dizziness Denies any chest pains, no SOB No nausea/vomiting, no abdominal pain No change in bowel habits noted Needs a couple of her Rx refilled, including her Percocet Adds that she still has trouble sleeping at night even with her current meds and would like to see if her Zolpidem dosage can be raised Had her follow up labs done last week - to discuss her results [facility] Medical History Left lower quadrant pain Left groin pain Insomnia HCV (hepatitis C virus) Hemorrhoids Pure hypercholesterolemia Postlaminectomy syndrome Overweight (BMI 25.0-29.9) Memory loss or impairment Cerebrovascular accident (CVA) (~2019) Lumbar degenerative disc disease Benign essential hypertension Hair loss Paresthesia of foot Surgical History History of colonoscopy History of surgery History of neck surgery History of hysterectomy Family History Father Diabetes Mother Lung cancer Past heart attack Daughter In good health Brother In good health Brother No problems noted. Brother No problems noted. Family/Other Colon cancer Social History Housing: Apartment Alcohol intake: current Alcohol intake frequency: holidays/special occasions only Patient Tobacco Use Status: Never used Tobacco e-Cigarette/Vaping Use: Never Used Second Hand Smoke Exposure: No service: No Current occupational status: disabled Cognitive needs: No Hearing needs: No Vision needs: No Female Reproductive History Menstrual Age of Menarche: 8 Questionnaire PHQ-9 Over the last 2 weeks, how often have you been bothered by any of the following problems? 1. Little interest or pleasure in doing things: several days 2. Feeling down, depressed, or hopeless: not at all 3. Trouble falling or staying asleep, or sleeping too much: nearly every day 4. Feeling tired or having little energy: not at all 5. Poor appetite or overeating: not at all 6. Feeling bad about yourself - or that you are a failure or have let yourself or your family down: not at all 7. Trouble concentrating on things, such as reading the newspaper or watching television: not at all 8. Moving or speaking so slowly that other people could have noticed. Or the opposite - being so fidgety or restless that you have been moving around a lot more than usual: not at all 9. Thoughts that you would be better off or of hurting yourself in some way: not at all Total score: 4 Depression Screening Interpretation: Positive Depression Screening Follow-up: Existing condition and In treatment Depression Screening Done: Yes 34369 - PHQ-9 Billing: Yes Source: Developed by Drs. Orlando Kat, Corina Corona, Dillon Greenwood and colleagues, with an educational marilynn from [employer]. Thrive Questionnaire Date Thrive assessed: 10/25/23 I am a: Patient What is your living situation today?: I have a steady place to live Within the past 12 months, did the food you bought not last and you didn't have the money to get more?: Never true Within the past 12 months, did you worry whether your food would run out before you got money to buy more?: Never true Do you have trouble paying for medicines?: No Do you have trouble getting transportation to medical appointments?: No Do you have trouble paying your heating and electricity bill?: No Do you have trouble taking care of your child, family member or friend?: No Do you have trouble with day-to-day activities such as bathing, preparing meals, shopping, managing finances, etc.?: No Are you currently unemployed and looking for a job?: No Are you interested in more education?: No Please select the resources that you would like help with: None Currently or been in a relationship where the following occur: no concerns reported THRIVE Score: 0 AUDIT C Alcohol Use Questionnaire (AUDIT-C) 1. How often do you have a drink containing alcohol?: Never 2. How many drinks containing alcohol do you have on a typical day when you are drinking?: 1 or 2 3. How often do you have six or more drinks on one occasion?: Never Total Score: 0 Score Reviewed/Action Taken: Yes CONSTANTINO-7 AMB Questionnaire CONSTANTINO-7 Date CONSTANTINO - 7 assessed: 07/04/23 Source: Developed by Drs. Orlando Kat, Corina Corona, Dillon Greenwood and colleagues, with an educational marilynn from [employer]. Review of Systems Const Denies chills, Reports difficulty sleeping (due to pain - feels that Percocet is the only med that helps her sleep), Reports fatigue, Denies fever(s), Denies headache(s) and Reports weakness (over the right side, involving the right arm & right leg - unchanged) ENT Denies dysphagia, Denies dizziness, Denies otalgia, Denies headache(s), Denies neck pain, Denies odynophagia and Denies sore throat Card Denies chest pain, Denies palpitations and Denies dyspnea Resp Denies cough, Denies dyspnea and Denies wheezing GI Denies abdominal pain, Denies constipation, Denies dysphagia, Denies heartburn, Denies diarrhea, Denies nausea, Denies odynophagia and Denies vomiting Denies difficulty voiding, Denies nocturia, Denies dysuria and Denies urinary urgency Musc Details: (+) chronic pain in the right foot - foot goes completely numb at times Reports back pain (over the lower back, chronic), Reports arthralgias (involving multiple joints) and Denies neck pain Skin/Breast Reports alopecia (due to Gabapentin) and Denies rash Neuro Reports burning sensations (and pain in her feet - increased especially at night ), Denies dizziness, Denies headache(s), Reports memory loss and Reports weakness (over the right side, involving the right arm & right leg - unchanged) Psych Reports memory loss Endo Reports fatigue and Denies palpitations Aller/Immun Denies wheezing Physical exam (Primary Care) Vital Signs: Last Vital Signs Pulse 59 10/25/23 09:29 BP 130/82 10/25/23 09:29 Pulse Ox 100 10/25/23 09:29 Oxygen Delivery Method Room Air 10/25/23 09:29 BMI result Body Mass Index 26.6 Tobacco/Smoking Status: Tobacco use Status Tobacco use date assessed 10/25/23 10/25/23 09:30 Patient Tobacco Use Status Never used Tobacco 10/25/23 09:30 e-Cigarette/Vaping Use Never Used 10/25/23 09:30 PHQ-9: PHQ-9 Score PHQ-9: Total score 4 10/25/23 09:40 Depression Screening Interpretation: Positive Depression Screening Follow-up: Existing condition and In treatment Thrive Assessment: Date of Thrive Assessment Date Thrive assessed 10/25/23 10/25/23 09:40 Currently or been in a relationship where the following occur: no concerns reported Const General: no acute distress and alert HENMT Ears: TM's normal bilaterally and EAC's normal Throat: Yes posterior oropharynx normal and Yes tonsils normal (no TP congestion noted) Neck Neck: Yes no lymphadenopathy and Yes supple Thyroid: Thyroid normal Resp Auscultation: clear to auscultation bilaterally, no rales and no wheezes Cardio Rate: regular rate Rhythm: regular rhythm Heart sounds: no murmurs GI Palpation (GI): Soft to palpation and nontender Auscultation: normal bowel sounds General: Yes no CVA tenderness Back/Spine/Pelvis Back: no CVA tenderness Thoracic/Lumbar Spine: lumbar spinal tenderness (chronic) Skin Rashes: no rashes Neuro Other: (+) residual weakness over the right arm and right leg - unchanged from previous Extrem General: Yes no clubbing, cyanosis or edema Results Reviewed Results Reviewed: Laboratory Tests 07/04/23 10/17/23 10:22 09:49 WBC 8.0 Hgb 14.9 Hct 42.9 Plt Count 225 Sodium 139 Potassium 4.2 Creatinine 0.74 Estimated GFR > 60 Fasting Glucose 106 H Calcium 10.1 AST 20 ALT 11 Triglycerides 136 Cholesterol 196 LDL Cholesterol, Calc 93 HDL Cholesterol 76 Vitamin B12 1013 H 25-OH Vitamin D Total 32.8 TSH 0.62 Assessment and Plan Assessment & Plan (1) Pure hypercholesterolemia: Code(s): E78.00 - Pure hypercholesterolemia, unspecified Plan: Results of her labs done last week reviewed and discussed with patient - she is cautioned that her cholesterol levels have increased slightly from previous Reinforced low cholesterol diet Continue Atorvastatin 10 mg QD Will recheck her labs and fasting lipids in 3 months for follow up (2) Cerebrovascular accident (CVA): Onset Date: ~2018 Comment: (+) CVA in 2019, with residual right-sided weakness primarily involving the right arm and right leg - S/P physical therapy with only some improvement of her weakness Code(s): I63.9 - Cerebral infarction, unspecified Qualifiers: CVA mechanism: unspecified Qualified Code(s): I63.9 - Cerebral infarction, unspecified Plan: Reinforced to continue with aggressive risk factor modification to minimize recurrence, including lowering her cholesterol and controlling her BP Patient used to see Dr. Haq for neurology follow up but she has not been to see neurology in over 2 years now She was referred back to neurology but she requested to see another neurologist other than Dr. Haq She is now going to [facility] - was seen last August 2023 and her next appointment is in February 2024 (3) Benign essential hypertension: Code(s): I10 - Essential (primary) hypertension Plan: Reinforced low-sodium diet -? goal is systolic BP of at least 120 to 130 mm or less Continue Enalapril 10 mg BID and Clonidine 0.2 mg TID (dose was increased from 0.1 mg BID a few weeks ago) Patient is reminded to continue monitoring her blood pressure regularly (4) Lumbar degenerative disc disease: Comment: Has failed back sydrome/postlaminectomy syndrome Code(s): M51.36 - Other intervertebral disc degeneration, lumbar region Plan: She was seen by pain management a few years ago but she did not follow-up again with them for a while as she was not interested in any alternative or interventional Tx options at the time She was referred back to pain management last year and was seen by , who recommended that she start on TCAs and have her Gabapentin dose increased but patient declined both of these recommendations Was seen more recently at [facility] and offered trial of SCS which patient also decided not to pursue She was on Gabapentin 600 mg TID and Tizanidine 4 mg QID PRN for a while and requested to have her Gabapentin switched out to Lyrica as her hair loss seemed to be progressively worse while she was on Gabapentin She was then switched over to Pregabalin 50 mg TID and her Gabapentin was discontinued She was also started on a trial of Duloxetine 30 mg QD last year but patient decided NOT to continue on the Rx Reinforced again to patient that other than Tramadol, we have no plans to start her back on opioids for chronic/long-term pain management but will allow patient again a few Oxycodone 5 mg tablets to take 1 tablet Q HS PRN ONLY for severe pain (# 7 tablets) - reminded again that this will NOT be refilled regularly She was also referred back to [facility] for pain management evaluation at her last visit but she has not been seen yet (5) Neuropathy: Code(s): G62.9 - Polyneuropathy, unspecified Plan: Continue Pregabalin 100 mg TID; feels that Clonidine also helps with her symptoms She is now seeing [facility] (Dr. Ledezma) for this issue as well as for her Hx of CVA She does not appear to have had any formal EMG and NCV done in the past and have again advised her that these may be worthwhile to pursue but I will leave it up to neurology to decide if they are necessary or not at this point (6) Impaired fasting glucose: Code(s): R73.01 - Impaired fasting glucose Plan: Advised that her FBS on her recent labs was still slightly elevated at 106 mg/dl Reinforced low calorie diet Will continue to monitor this closely for now (7) Memory loss or impairment: Code(s): R41.3 - Other amnesia Plan: Reports (+) memory loss/impairment that appear to have started after her CVA in 2019 - advised again that this is most likely a sequelae of her CVA and that there may not be much we can do for this except for aggressive reduction of her risk factors to prevent any further recurrence of her CVA Follow up with neurology as scheduled (8) Insomnia: Code(s): G47.00 - Insomnia, unspecified Qualifiers: Insomnia type: unspecified Qualified Code(s): G47.00 - Insomnia, unspecified Plan: Sleep hygiene reinforced Per request, will increase her Zolpidem to 10 mg Q HS PRN (9) Overweight (BMI 25.0-29.9): Code(s): E66.3 - Overweight Plan: Reinforced diet/lose weight; exercise is an unrealistic option at this time given patient's right-sided weakness as well as her significant low back pain Plan Follow up in 3 months Orders: Orders Complete Blood Count Auto Diff 3 Months D64.9 - Anemia, unspecified TSH reflex Free T4 3 Months E78.00 - Pure hypercholesterolemia, unspecified UA CC w/rflx Micro + Cult 3 Months R30.0 - Dysuria Lipid Panel 3 Months E78.00 - Pure hypercholesterolemia, unspecified Comprehensive [place]. Panel Fast 3 Months E78.00 - Pure hypercholesterolemia, unspecified Vitamin B12 and Folate 3 Months E53.8 - Deficiency of other specified B group vitamins Vitamin D 25-OH Total 3 Months E55.9 - Vitamin D deficiency, unspecified Hemoglobin A1c 3 Months R73.01 - Impaired fasting glucose Medications: Changed From zolpidem 5 mg PO BEDTIME 30 days PRN 30 tabs 1RF sleep To zolpidem 10 mg PO BEDTIME 30 days PRN 30 tabs 1RF sleep Refilled oxycodone-acetaminophen 5-325 mg take at bedtime ONLY for increased pain 1 tab PO .QHS 7 days PRN 7 tabs 0RF pain atorvastatin 10 mg PO BEDTIME 90 days 90 tabs 1RF Coding Level of Care Code Est Pt Level 4 (78651) Complex EM visit Add On G2211 Diagnoses Pure hypercholesterolemia E78.00 Cerebrovascular accident (CVA), unspecified mechanism I63.9 CVA mechanism: unspecified Benign essential hypertension I10 Lumbar degenerative disc disease M51.36 Neuropathy G62.9 Impaired fasting glucose R73.01 Memory loss or impairment R41.3 Insomnia, unspecified type G47.00 Insomnia type: unspecified Overweight (BMI 25.0-29.9) E66.3
== END 2023-10-25 10:09 | disposition home or self-care (01) ==
PROVIDERS: PCP Internal Medicine; Visit Provider Internal Medicine
DX: E78.00 Pure hypercholesterolemia, unspecified (principal); I69.951 Hemiplegia and hemiparesis following unspecified cerebrovascular disease affecting right dominant side; I10 Essential (primary) hypertension; M51.36 Other intervertebral disc degeneration, lumbar region; G62.9 Polyneuropathy, unspecified; R73.01 Impaired fasting glucose; R41.3 Other amnesia; G47.00 Insomnia, unspecified
CPT/HCPCS: 99214; G2211

== ENCOUNTER 2023-12-06 08:04 | Outpatient (REF) | payer MEDICARE, MEDICAID, SELFPAY ==
--- NOTE | ~2023-12-06 | MR_ITS ---
EXAMINATION: MR BRAIN WITHOUT AND WITH CONTRAST CLINICAL INFORMATION: Cognitive decline, history of stroke COMPARISON: None TECHNIQUE: Multiplanar multisequence MR imaging of the brain was obtained without and following the administration of 8 mL Gadavist intravenous contrast. FINDINGS: There is no acute infarct on diffusion-weighted imaging. There is no intracranial hemorrhage on iron-sensitive imaging. No extra-axial collection or mass effect/herniation. Scattered periventricular and deep white matter T2 FLAIR hyperintensities consistent with mild underlying microangiopathy. There is bilateral T2/FLAIR hyperintense signal involving the globi pallidi. There is corresponding mineralization/iron deposition on susceptibility weighted imaging. No hydrocephalus. The ventricles are normal in morphology and size. No abnormal parenchymal or extra-axial enhancement. The major flow voids at the skull base are preserved. The midline structures are normal. The cerebellar tonsils are normally positioned. The craniocervical junction is normal. Degenerative changes of the upper cervical spine. The Marrow signal is within normal limits. The visualized soft tissues are without significant abnormality. No signal abnormality within the paranasal sinuses or within the mastoid air cells. MR/MR head/brain wo/w con IMPRESSION: 1. No acute intracranial abnormality. 2. Bilateral T2/FLAIR hyperintense signal involving the globi pallidi with corresponding susceptibility artifact compatible with mineralization or iron deposition is nonspecific and may reflect sequela of prior toxic/metabolic or ischemic injury although neurodegenerative disease with brain iron accumulation is an additional differential consideration. 3. Mild chronic white matter microangiopathy
[2023-12-06] MEDS: gadobutroL 10 ML VIAL IVPUSH (09:13)
== END 2023-12-06 08:05 | disposition home or self-care (01) ==
LOC: HO.MRI 08:04
PROVIDERS: PCP Internal Medicine; Visit Provider Nurse Practitioner Family
DX: R41.3 Other amnesia (principal); I63.9 Cerebral infarction, unspecified; I10 Essential (primary) hypertension
CPT/HCPCS: 70553; A9585

== ENCOUNTER 2024-03-11 09:44 | Outpatient (AMB) | payer MEDICARE, MEDICAID, SELFPAY ==
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
[2024-03-11 09:47] VITALS: BP 130/86; PULSE 60; O2SAT 98; BMI 27.6
== END 2024-03-11 10:26 | disposition home or self-care (01) ==
PROVIDERS: PCP Internal Medicine; Visit Provider Psychiatry & Neurology Neurology
DX: G90.521 Complex regional pain syndrome I of right lower limb (principal); G62.9 Polyneuropathy, unspecified
CPT/HCPCS: 99215; G2211

== ENCOUNTER → 2024-03-11 09:44 | Outpatient (BNVA) | payer MEDICARE, MEDICAID, SELFPAY | PROVIDERS: PCP Internal Medicine; Visit Provider Psychiatry & Neurology Neurology | DX: G90.521 Complex regional pain syndrome I of right lower limb (principal); G62.9 Polyneuropathy, unspecified | CPT/HCPCS: 99212 ==

== ENCOUNTER 2024-04-08 09:00 | Outpatient (AMB) | payer MEDICARE, MEDICAID, SELFPAY ==
[2024-04-08 09:12] VITALS: BP 122/84; PULSE 64; O2SAT 98; BMI 26.3
--- NOTE | 2024-04-08 09:12 | A.OFFVIS_ITS ---
Intake Vital Signs 04/08/24 09:12 Height 5 ft 6 in Weight 163 lb 2 oz BMI 26.3 BP 122/84 Blood Pressure Location Lt brachial Position Sitting Pulse 64 Pulse Source Pulse Oximeter Pulse Oximetry (%) 98 Oxygen Delivery Method Room Air Intake Visit Reasons: [facility] [[email or web address]] G0439 [employer] Required: No Accompanied by: Self / Same As Patient Allergies ibuprofen [From Motrin] Adverse Reaction (Severe, Verified 04/08/24 09:33) high blood pressure, dizzy and chest pain NSAIDS (Non-Steroidal Anti-Inflamma Adverse Reaction (Severe, Verified 04/08/24 09:33) palpitations,dizziness Medication List - Last Reconciled 04/08/24 by Himanshu Navarrete MD atorvastatin 10 mg PO BEDTIME 90 days clonidine HCl 0.2 mg PO TID 30 days enalapril maleate 10 mg PO BID lidocaine 5% 1 patch topical DAILY pregabalin 100 mg PO TID 30 days tizanidine 4 mg PO Q8H PRN 30 days zolpidem 10 mg PO BEDTIME PRN 30 days Do you need a note to return to daycare/school/sports/work: No HPI [facility] [[email or web address]] G0439 HPI Details Patient comes in today for her Annual Medicare Wellness Exam AND follow up visit States that she still has increased (chronic) multiple joint pains, low back pain and bilateral leg/feet pain due to her neuropathy States that she fell again into a drawer at home - she somehow supposedly tripped and fell into the drawer, which was open at the time She has been experiencing a significant increase in her low back pain currently as a result She denies hitting her head or passing out after her fall and denies any increased headaches or dizziness lately Denies any chest pains, no increased SOB No nausea/vomiting, no abdominal pain No change in bowel habits noted States that she still has trouble sleeping at night often, despite her current meds She was not able to get her previously ordered follow up labs done recently She has her NCV and EMG scheduled for later this morning and has a pain management consultation with Dr. Adams scheduled for next week [place] of care was reviewed and updated today Patient does not have a healthcare proxy in place yet; they were provided with a MOLST form and HCP form and is instructed to complete these as soon as possible IPPE/AWV: c/o of Annual Wellness Visit, subsequent visit. Medical / Social History Reviewed Past Medical History Yes . [place] of Care / Care Team list updated Yes . Surgical/Hospitalization History Yes . Current Medications (including OTC and supplements) Yes . Family History Yes . Tobacco Control form Yes . AUDIT-C (Alcohol use) form Yes . Illicit drug use in Social History Yes . Current diagnosis of depression? No Appropriate PHQ2/PHQ9 completed Yes . Data entered by Wastewater Supervisor and reviewed by provider Home Safety Throw rugs? No Grab bars? No Raised toilet seats? No Working smoke detectors? Yes Working carbon monoxide detectors? Yes Data entered by Wastewater Supervisor and reviewed by provider Activities of Daily Living (ADLs) Difficulty bathing or showering? No Difficulty dressing? No Difficulty using the toilet? No Difficulty getting in and out of bed? No Difficulty walking? No Receives help from another person with any of the above tasks? No Instrumental Activities of Daily Living (IADLs) Uses the telephone without help Gets to places out of walking distance without help Goes shopping for groceries without help but has a hard time doing it now Prepares own meals without help Does own minor home maintenance without help Does own laundry without help but has a hard time now Does own housework with help Manages own money without help Currently takes medications? Yes Takes medication without help End-of-Life Planning Discussed advance directive Yes Advance directive on file Discussed wishes expressed in advance directive agreed to following patient's wishes Fall Risk: Fall History Have you had any falls with injury in the past year? No . Have you had two or more falls in the past year? No . Fall Risk Assessment: No falls in the past year . HRA filled out by the patient, reviewed by Provider and scanned. [facility] Medical History Numbness and tingling of both feet Neuropathy Reflex sympathetic dystrophy of right leg Left lower quadrant pain Left groin pain Insomnia HCV (hepatitis C virus) Hemorrhoids Pure hypercholesterolemia Postlaminectomy syndrome Overweight (BMI 25.0-29.9) Memory loss or impairment Cerebrovascular accident (CVA) (~2019) Lumbar degenerative disc disease Benign essential hypertension Hair loss Paresthesia of foot Surgical History History of colonoscopy History of surgery History of neck surgery History of hysterectomy Family History Father Diabetes Mother Lung cancer Past heart attack Daughter In good health Brother In good health Brother No problems noted. Brother No problems noted. Family/Other Colon cancer Social History Housing: Apartment Alcohol intake: current Alcohol intake frequency: holidays/special occasions only Patient Tobacco Use Status: Never used Tobacco e-Cigarette/Vaping Use: Never Used Second Hand Smoke Exposure: No service: No Current occupational status: disabled Cognitive needs: No Hearing needs: No Vision needs: No Female Reproductive History Menstrual Age of Menarche: 8 Questionnaire Medicare Wellness Checkup [age] What gender do you identify with?: female During the past 4 weeks, how much have you been bothered by emotional problems such as feeling anxious, depressed, irritable, sad or downhearted, and blue?: moderately During the past 4 weeks, has your physical & emotional health limited your social activities with family, friends, neighbors, or groups?: moderately During the past 4 weeks, how much bodily pain have you generally had?: severe pain During the past 4 weeks, was someone available to help you if you needed & wanted help?: yes, some During the past 4 weeks, what was the hardest physical activity you could do for at least 2 minutes?: very heavy Can you get to places out of walking distance without help? (For eg., can you travel alone on buses, taxis or drive your car?): Yes Can you go shopping for groceries or clothes without someone's help?: Yes Can you prepare your own meals?: Yes Can you do your housework without help?: Yes Because of any health problems, do you need the help of another person with your personal care needs such as eating, bathing, dressing or getting around the house?: No Can you handle your own money without help?: Yes During the past 4 weeks, how would you rate your health in general?: poor During the past 4 weeks how have things been going for you?: very bad; could hardly be worse Are you having difficulties driving your car?: sometimes Do you always fasten your seat belt when you are in a car?: yes, usually During past 4 weeks, have you been bothered by the following: never: Trouble eating well?, Teeth or denture problems?, Problems using the telephone? and Tiredness or fatigue?, seldom: Sexual problems? and always: Falling or dizzy when standing up Have you fallen 2 or more times in the past year?: Yes Are you afraid of falling?: Yes Are you a smoker?: no During the past 4 weeks, how many drinks of wine, beer, or other alcoholic beverages did you have?: no alcohol at all Do you exercise for about 20 minutes 3 or more times a week?: no, I usually do not exercise this much Have you been given information to help with the following?: no: Hazards in your house that might hurt you? and no: Keeping track of your medications? How often do you have trouble taking medicines the way you have been told to take them?: I always take medicine as prescribed How confident are you that you can control & manage most of your health problems?: very confident What is your race?: White Mini Mental State Exam (MMSE) Orientation What is the (year) (season) (date) (day) (month)?: year, season, date, day and month Where are we (state) (county) (town or city) (hospital) (floor)?: state, county, town or city, hospital/clinic and floor Score Score: 10 Activity of Daily Living Bathing - sponge bath, tub bath or shower: receives no assistance (gets in/out by self, if usual bathing means Dressing - getting clothes from closets & drawers, including inner/outer garments & fasteners.: gets clothes & gets completely dressed without help Toileting - going to the 'toilet room' for urine/bowel elimination & cleaning self/arranging clothes: goes to toilet room, cleans self, arranges clothes without help Transfer: moves in & out of bed and chair without help (may use support object) Continence: controls urination/bowel movements completely by self Feeding: feeds self without help Total Score: 0 Information obtained from: patient Using telephone: independent Traveling: independent Shopping: independent Preparing meals: independent Housework: needs assistance Taking medicine: independent Managing money: independent PHQ-9 Over the last 2 weeks, how often have you been bothered by any of the following problems? 1. Little interest or pleasure in doing things: more than half the days 2. Feeling down, depressed, or hopeless: not at all 3. Trouble falling or staying asleep, or sleeping too much: nearly every day 4. Feeling tired or having little energy: several days 5. Poor appetite or overeating: not at all 6. Feeling bad about yourself - or that you are a failure or have let yourself or your family down: not at all 7. Trouble concentrating on things, such as reading the newspaper or watching television: more than half the days 8. Moving or speaking so slowly that other people could have noticed. Or the opposite - being so fidgety or restless that you have been moving around a lot more than usual: not at all 9. Thoughts that you would be better off or of hurting yourself in some way: not at all Total score: 8 Depression Screening Interpretation: Positive Depression Screening Follow-up: Existing condition and In treatment Depression Screening Done: Yes [id number] - PHQ-9 Billing: Yes Source: Developed by Drs. Orlando Kat, Corina Corona, Dillon Greenwood and colleagues, with an educational marilynn from [employer]. PHQ-2/PHQ-9 PHQ-2 Over the last 2 weeks, how often have you been bothered by any of the following problems? 1. Little interest or pleasure in doing things: more than half the days 2. Feeling down, depressed, or hopeless: not at all Total score: 2 If score is 3 or greater, continue 3. Trouble falling or staying asleep, or sleeping too much: nearly every day 4. Feeling tired or having little energy: several days 5. Poor appetite or overeating: not at all 6. Feeling bad about yourself - or that you are a failure or have let yourself or your family down: not at all 7. Trouble concentrating on things, such as reading the newspaper or watching television: more than half the days 8. Moving or speaking so slowly that other people could have noticed. Or the opposite - being so fidgety or restless that you have been moving around a lot more than usual: not at all 9. Thoughts that you would be better off or of hurting yourself in some way: not at all Total score: 8 0-4 None-Minimal, 5-9 Mild, 10-14 Moderate, 15-19 Moderately Severe, 20-27 Severe Source: Developed by Drs. Orlando Kat, Corina Corona, Dillon Greenwood and colleagues, with an educational marilynn from [employer]. Thrive Questionnaire Date Thrive assessed: 04/08/24 I am a: Patient What is your living situation today?: I have a steady place to live Within the past 12 months, did the food you bought not last and you didn't have the money to get more?: Never true Within the past 12 months, did you worry whether your food would run out before you got money to buy more?: Never true Do you have trouble paying for medicines?: No Do you have trouble getting transportation to medical appointments?: No Do you have trouble paying your heating and electricity bill?: No Do you have trouble taking care of your child, family member or friend?: No Do you have trouble with day-to-day activities such as bathing, preparing meals, shopping, managing finances, etc.?: No Are you currently unemployed and looking for a job?: No Are you interested in more education?: No Please select the resources that you would like help with: None Currently or been in a relationship where the following occur: No concerns reported THRIVE Score: 0 CONSTANTINO-7 AMB Questionnaire CONSTANTINO-7 Date CONSTANTINO - 7 assessed: 04/08/24 Feeling nervous, anxious, or on edge: 0 = Not at all Not being able to stop or control worryin = Not at all Worrying too much about different things: 0 = Not at all Trouble relaxin = Not at all Being so restless that it is hard to sit still: 0 = Not at all Becoming easily annoyed or irritable: 0 = Not at all Feeling afraid as if something awful might happen: 0 = Not at all Total CONSTANTINO-7 score (0-4 normal; 5-9 mild; 10-14 moderate; 15-21 severe): 0 Source: Developed by Drs. Orlando Kat, Corina Corona, Dillon Greenwood and colleagues, with an educational marilynn from [employer]. Fall Risk Assessment Fall Risk Assessment Fall risk assessment: 2 + Falls in past year Review of Systems Const Denies chills, Reports difficulty sleeping (due to pain - feels that Percocet is the only med that helps her sleep), Reports fatigue, Denies fever(s), Denies headache(s) and Reports weakness (over the right side, involving the right arm & right leg - unchanged) ENT Denies dysphagia, Denies dizziness, Denies otalgia, Denies headache(s), Denies neck pain, Denies odynophagia and Denies sore throat Card Denies chest pain, Denies palpitations and Denies dyspnea Resp Denies cough, Denies dyspnea and Denies wheezing GI Denies abdominal pain, Denies constipation, Denies dysphagia, Denies heartburn, Denies diarrhea, Denies nausea, Denies odynophagia and Denies vomiting Denies difficulty voiding, Denies nocturia, Denies dysuria and Denies urinary urgency Musc Details: (+) chronic pain in the right foot - foot goes completely numb at times Reports back pain (over the lower back, chronic), Reports arthralgias (involving multiple joints) and Denies neck pain Skin/Breast Reports alopecia (due to Gabapentin) and Denies rash Neuro Reports burning sensations (and pain in her feet - increased especially at night ), Denies dizziness, Denies headache(s), Reports memory loss and Reports weakness (over the right side, involving the right arm & right leg - unchanged) Psych Reports memory loss Endo Reports fatigue and Denies palpitations Aller/Immun Denies wheezing Physical Exam Vital Signs: Last Vital Signs Pulse 64 04/08/24 09:12 BP 122/84 04/08/24 09:12 Pulse Ox 98 04/08/24 09:12 Oxygen Delivery Method Room Air 04/08/24 09:12 BMI result Body Mass Index 26.3 IPPE/AWV: Balance Romberg Yes . Tandem walk Yes . Walk and Turn Yes . Rise from sit to stand Yes . Vision Corrective lens No Vision screen pass Hearing Whisper test pass . Urinary incont. no. EKG Not clinically necessary. Const General: no acute distress and alert Orientation/consciousness: patient oriented x3 HEENT Ears: TM's normal bilaterally and EAC's normal Throat: Yes posterior oropharynx normal and Yes tonsils normal (no TP congestion noted) Neck Neck: Yes no lymphadenopathy and Yes supple Thyroid: Thyroid normal Resp Auscultation: clear to auscultation bilaterally, no rales and no wheezes Cardio Rate: regular rate Rhythm: regular rhythm Heart sounds: no murmurs GI Palpation (GI): Soft to palpation and nontender Auscultation: normal bowel sounds Back/Spine/Pelvis Thoracic/Lumbar Spine: lumbar spinal tenderness Neuro Other: (+) right-sided weakness, involving the right arm and right leg General: patient oriented x3 Cognition (Neuro): normal cognition Extrem General: Yes no clubbing, cyanosis or edema Psych Thought process: Normal thought process present Office Procedures Flu Questionnaire Does the patient have a severe egg allergy?: No Immunizations Fluarix Triv [id number] (PF) 45 mcg (15 mcg x 3)/0.5 mL IM syringe Performing Provider: Himanshu Navarrete MD [facility] Documented (not given) by: CHRISTOPHER Chandra on 04/08/24 09:35 Reason Not Given: Patient Refused Assessment & Plan Assessment & Plan (1) Medicare annual wellness visit, subsequent: Code(s): Z00.00 - Encounter for general adult medical examination without abnormal findings Plan: HRA form discussed and completed with patient; forms will be scanned into eddie woodard' chart DINA updated (2) Pure hypercholesterolemia: Code(s): E78.00 - Pure hypercholesterolemia, unspecified Plan: Patient was not able to get her follow-up labs done prior to her visit today - states that she can go over and get them done as soon as she leaves the office today Reinforced low cholesterol diet Continue Atorvastatin 10 mg QD Will recheck her labs and fasting lipids in 3 months for follow up (3) Cerebrovascular accident (CVA): Onset Date: ~2018 Comment: (+) CVA in 2019, with residual right-sided weakness primarily involving the right arm and right leg - S/P physical therapy with only some improvement of her weakness Code(s): I63.9 - Cerebral infarction, unspecified Qualifiers: CVA mechanism: unspecified Qualified Code(s): I63.9 - Cerebral infarction, unspecified Plan: Reinforced to continue with aggressive risk factor modification to minimize recurrence, including lowering her cholesterol and controlling her BP Patient used to see Dr. Haq for neurology follow up but she has not been to see neurology in over 2 years now She was referred back to neurology but she requested to see another neurologist other than Dr. Haq She is now following up with [facility] regularly (4) Benign essential hypertension: Code(s): I10 - Essential (primary) hypertension Plan: Reinforced low-sodium diet -? goal is systolic BP of at least 120 to 130 mm or less Continue Enalapril 10 mg BID and Clonidine 0.2 mg TID (dose was increased from 0.1 mg BID a few months ago) Patient is reminded to continue monitoring her blood pressure regularly (5) Lumbar degenerative disc disease: Comment: Has failed back sydrome/postlaminectomy syndrome Code(s): M51.36 - Other intervertebral disc degeneration, lumbar region Qualifiers: Disc-related pain type: discogenic back pain only Qualified Code(s): M51.360 - Other intervertebral disc degeneration, lumbar region with discogenic back pain only Plan: She was seen by pain management a few years ago but she did not follow-up again with them for a while as she was not interested in any alternative or interventional Tx options at the time She was referred back to pain management last year and was seen by Dr. Adams, who recommended that she start on TCAs and have her Gabapentin dose increased but patient declined both of these recommendations Was seen more recently at [facility] and offered trial of SCS which patient also decided not to pursue She was on Gabapentin 600 mg TID and Tizanidine 4 mg QID PRN for a while and requested to have her Gabapentin switched out to Lyrica as her hair loss seemed to be progressively worse while she was on Gabapentin She was then switched over to Pregabalin 50 mg TID and her Gabapentin was discontinued She was also started on a trial of Duloxetine 30 mg QD last year but patient decided NOT to continue on the Rx Reinforced again to patient that other than Tramadol, we have no plans to start her back on opioids for chronic/long-term pain management but will allow patient again a few Oxycodone 5 mg tablets to take 1 tablet Q HS PRN ONLY for severe pain (# 7 tablets) - reminded again that this will NOT be refilled regularly Per request will also try starting her on Soma 350 mg TID PRN but advised that insurance will likely not allow her to get this filled because of her other concurrent medications She was also [facility] at her last visit but she has not been seen yet Will try sending her again for an MRI of the lumbar spine for further evaluation (6) Neuropathy: Code(s): G62.9 - Polyneuropathy, unspecified Plan: Continue Pregabalin 100 mg TID; feels that Clonidine also helps with her symptoms She is now seeing [facility] (Dr. Ledezma) for this issue as well as for her Hx of CVA She does not appear to have had any formal EMG and NCV done in the past and have again advised her that these may be worthwhile to pursue but I will leave it up to neurology to decide if they are necessary or not at this point (7) Impaired fasting glucose: Code(s): R73.01 - Impaired fasting glucose Plan: Advised that her FBS on her previous labs was still slightly elevated at 106 mg/dl Reinforced low calorie diet Will continue to monitor this closely for now (8) Memory loss or impairment: Code(s): R41.3 - Other amnesia Plan: She reports (+) memory loss/impairment that appear to have started after her CVA in 2019 - advised again that this is most likely a sequelae of her CVA and that there may not be much we can do for this except for aggressive reduction of her risk factors to prevent any further recurrence of her CVA Follow up with neurology as scheduled (9) Insomnia: Code(s): G47.00 - Insomnia, unspecified Qualifiers: Insomnia type: unspecified Qualified Code(s): G47.00 - Insomnia, unspecified Plan: Sleep hygiene reinforced Continue Zolpidem 10 mg Q HS PRN (10) Overweight (BMI 25.0-29.9): Code(s): E66.3 - Overweight Plan: Reinforced diet/lose weight; exercise is an unrealistic option at this time given patient's right-sided weakness as well as her significant low back pain Plan Follow up in 3 months Orders: Orders Influenza [id number] Immunization 04/08/24 Z23 - Encounter for immunization MR lumbar spine wo con 04/08/24 M54.16 - Radiculopathy, lumbar region, R29.898 - Other symptoms and signs involving the musculoskeletal system Lipid Panel 3 Months E78.00 - Pure hypercholesterolemia, unspecified Comprehensive [place]. Panel Fast 3 Months E78.00 - Pure hypercholesterolemia, unspecified Medications: New carisoprodol 350 mg PO TID PRN 30 tabs 0RF muscle pain/low back pain Refilled oxycodone Take ONLY NEEDED for severe pain 5 mg PO BEDTIME 7 days PRN 7 tabs 0RF pain S39.012A - Strain of muscle, fascia and tendon of lower back, initial enc ounter Quality Reporting (2019) Fall Risk Screening ([facility] 139) Fall risk assessment: 2 + Falls in past year Depression/Bipolar (159/160/161/177) PHQ-9: Total score: 8 Coding Level of Care Code Medicare Subsequent (G0439) Est Pt Level 4 (53959) Diagnoses Medicare annual wellness visit, subsequent Z00.00 Pure hypercholesterolemia E78.00 Cerebrovascular accident (CVA), unspecified mechanism I63.9 CVA mechanism: unspecified Benign essential hypertension I10 Degeneration of intervertebral disc of lumbar region with discogenic back pain M51.360 Disc-related pain type: discogenic back pain only Neuropathy G62.9 Impaired fasting glucose R73.01 Memory loss or impairment R41.3 Insomnia, unspecified type G47.00 Insomnia type: unspecified Overweight (BMI 25.0-29.9) E66.3 Additional Codes PHQ-9 - 71915 - PHQ-9 Billing: Yes ([id number])
== END 2024-04-08 10:01 | disposition home or self-care (01) ==
PROVIDERS: PCP Internal Medicine; Visit Provider Internal Medicine
DX: Z00.00 Encounter for general adult medical examination without abnormal findings (principal); E78.00 Pure hypercholesterolemia, unspecified; I10 Essential (primary) hypertension; I69.351 Hemiplegia and hemiparesis following cerebral infarction affecting right dominant side; M51.360 Other intervertebral disc degeneration, lumbar region with discogenic back pain only; G62.9 Polyneuropathy, unspecified; R73.01 Impaired fasting glucose; R41.3 Other amnesia; G47.00 Insomnia, unspecified; E66.3 Overweight

== ENCOUNTER 2024-04-08 10:19 | Outpatient (REF) | payer MEDICARE, MEDICAID, SELFPAY ==
--- NOTE | 2024-04-08 10:21 | EMG_ITS ---
Right tibial and peroneal motor studies were performed. Right superficial peroneal and sural sensory studies were performed. Tibial H-reflex was obtained and paraspinal muscles were tested with a needle. 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 MD ELI Madera/JOSE / [id number]
[2024-04-08 11:05] LABS: MANUAL DIFF FLAG NO
[2024-04-08 11:18] LABS: Basophils Percent Auto 0.3 % (0-2); Eosinophils Absolute Auto 0.1 X10*3/uL (0.0-0.4); Eosinophils Percent Auto 0.9 % (0-4); Hematocrit 45.4 % (37.0-47.0); Hemoglobin 15.9 g/dl (12.0-16.0); Imm Gran Abs Auto 0.04 X10*3/uL (0.00-0.03); Imm Gran Pct Auto 0.4 % (0.0-0.4); Lymphocytes Percent Auto 22.3 % (20-40); Mean Corpuscular Hemoglobin 32.3 pg (27.0-33.0); Mean Corpuscular Volume 92.1 fL (80.0-98.0); Mean Platelet Volume 9.4 fL (9.4-12.3); Monocytes Absolute Auto 0.5 X10*3/uL (0.1-1.2); Neutrophils Absolute Auto 6.5 x10*3/uL (2.0-8.3); Neutrophils Percent Auto 71.1 % (45-73); Platelet Count 267 X10*3/uL (160-400); Red Blood Count 4.93 X10*6/uL (4.20-5.50); Red Cell Distribution Width 12.7 % (11.0-16.0); White Blood Count 9.1 X10*3/uL (4.8-10.8)
[2024-04-08 11:32] LABS: Estimated Average Glucose 91 mg/dL; Hemoglobin A1C 118.7441 umol/L; Hemoglobin A1c % 4.8 % (<6.0); Total Hemoglobin (HGBA1C) 4088.8783 umol/L
[2024-04-08 12:19] LABS: Alanine Aminotransferase 17 U/L (0-31); Albumin Level 4.8 g/dL (3.5-5.0); Alkaline Phosphatase 57 U/L (39-117); Anion Gap 16 (12-20); Aspartate Amino Transferase 29 U/L (5-31); Bilirubin Total 0.8 mg/dL (0.0-1.0); Blood Urea Nitrogen 6 mg/dL (9-16); Calcium 9.9 mg/dL (8.4-10.2); Carbon Dioxide 27 mmol/L (22-29); Chloride 101 mmol/L (96-108); Cholesterol 214 mg/dL (<200); Estimated Glomerular Filt Rate > 60; Glucose Fasting 87 mg/dL (60-99); HDL Cholesterol 82 mg/dL (>40); LDL Cholesterol Calculated 108 mg/dL (<100); Sodium 140 mmol/L (135-145); TSH reflex Free T4 0.87 uIU/mL (0.32-4.0); Total Protein 7.8 g/dL (6.5-8.0); Triglycerides 123 mg/dL (<150); Vitamin D 25-OH Total 35.1 ng/mL (>30)
[2024-04-08 12:23] LABS: Appearance Urine Cloudy; Color Urine Dark Yellow; Glucose Urine UA Negative (Negative); Leukocyte Esterase Urine Small (1+) (Negative); Nitrite Urine Negative (Negative); PH 5.5 (5.0-9.0); UMIC TRIGGER UACC YES; Urine Blood Negative (Negative); Urine Ketones 40 mg/dL (Negative); Urine Protein Trace mg/dL (Neg-Trace)
[2024-04-08 12:30] LABS: Bacteria Urine Trace (None Seen); RBC Urine 0-2 /HPF (0-2); UACC Culture Trigger YES
[2024-04-08 12:34] LABS: Folate 18.3 ng/mL (> or = 4.0); Vitamin B12 585 pg/mL (200-900)
== END 2024-04-08 10:20 | disposition home or self-care (01) ==
LOC: HO.NEURO 10:19
PROVIDERS: PCP Internal Medicine; Visit Provider Psychiatry & Neurology Neurology
DX: R20.2 Paresthesia of skin (principal); R20.0 Anesthesia of skin; G62.9 Polyneuropathy, unspecified; E78.00 Pure hypercholesterolemia, unspecified; E53.8 Deficiency of other specified B group vitamins; R73.01 Impaired fasting glucose; D64.9 Anemia, unspecified; E55.9 Vitamin D deficiency, unspecified; I63.9 Cerebral infarction, unspecified; I10 Essential (primary) hypertension; M51.360 Other intervertebral disc degeneration, lumbar region with discogenic back pain only; R82.90 Unspecified abnormal findings in urine
CPT/HCPCS: 36415; 80053; 80061; 81001; 82306; 82607; 82746; 83036; 84443; 85025; 87086; 90471; 95886; 95909; 96127; 99212

== ENCOUNTER 2024-04-16 09:25 | Outpatient (AMB) | payer MEDICARE, MEDICAID, SELFPAY ==
--- NOTE | 2024-04-16 09:38 | A.OFFVIS_ITS ---
Vital Signs 04/16/24 09:43 Height 5 ft 6 in Weight 165 lb 4 oz BMI 26.7 BP 130/76 Blood Pressure Location Rt brachial Position Sitting Respiration 16 Pulse 67 Pulse Source Pulse Oximeter Pulse Oximetry (%) 93 Oxygen Delivery Method Room Air Intake Visit Reasons: Complex regional pain syndrome Intake Note: Patient comes in for follow up. Reports pain 10/10. Allergies ibuprofen [From Motrin] Adverse Reaction (Severe, Verified 04/16/24 09:45) high blood pressure, dizzy and chest pain NSAIDS (Non-Steroidal Anti-Inflamma Adverse Reaction (Severe, Verified 04/16/24 09:45) palpitations,dizziness HPI Comments Details: Heaven is very unfortunate 63 years old female who presented today in my office after 3 years of absence. She was seen in 2020. She is suffering from Complex regional pain syndrome of the right foot with severe burning, pins and needles, crushing pain and wrenching pain sensation. She exhausted conservative therapy to treat this condition. She tried multiple medications including gabapentin which causes alopecia, Lyrica causes weight gain in sodium retention, she is allergic to ibuprofen and NSAIDs which cause palpitation and dizziness. She is currently taking Tylenol, her primary care physician prescribes her short course opioid medications. She reports today in the office with pain 10/10. She is also suffering from postlaminectomy syndrome, she had Barbosa fanny insertion for scoliosis and removal of the Barbosa rods. We discussed today possibility of treatment of this patient with neuromodulation. We also discussed today possibility of admitting her to chronic opioid program. The patient was given brochure to go for psychological evaluation with [facility] psychology, she was also given opioid in information page, opioid consent, and opioid agreement page. She was ordered x-ray of the lumbar and thoracic spine. I personally examined the x-ray images, the metal parts are not demonstrable neither in thoracic nor in lumbar spine. There are intervertebral space images at the L1-L2 and T12-L1 intervals, I think we certainly can try [employer] spinal cord stimulator to treat the pain in her foot. If she decides to go for chronic opioid therapy she needs to schedule an appointment for 1 full hour with me to to do addiction evaluation, perform UDS, and explained her risks and benefits of the chronic opioid therapy. [facility] Medical History Numbness and tingling of both feet Neuropathy Reflex sympathetic dystrophy of right leg Left lower quadrant pain Left groin pain Insomnia HCV (hepatitis C virus) Hemorrhoids Pure hypercholesterolemia Postlaminectomy syndrome Overweight (BMI 25.0-29.9) Memory loss or impairment Cerebrovascular accident (CVA) (~2019) Lumbar degenerative disc disease Benign essential hypertension Hair loss Paresthesia of foot Surgical History History of colonoscopy History of surgery History of neck surgery History of hysterectomy Family History Father Diabetes Mother Lung cancer Past heart attack Daughter In good health Brother In good health Brother No problems noted. Brother No problems noted. Family/Other Colon cancer Social History Housing: Apartment Alcohol intake: current Alcohol intake frequency: holidays/special occasions only Patient Tobacco Use Status: Never used Tobacco e-Cigarette/Vaping Use: Never Used Second Hand Smoke Exposure: No service: No Current occupational status: disabled Cognitive needs: No Hearing needs: No Vision needs: No Female Reproductive History Menstrual Age of Menarche: 8 Review of Systems Const All systems reviewed & are unremarkable except as noted in HPI and below Physical Exam Vital Signs: Last Vital Signs Pulse 67 04/16/24 09:43 Resp 16 04/16/24 09:43 BP 130/76 04/16/24 09:43 Pulse Ox 93 04/16/24 09:43 Oxygen Delivery Method Room Air 04/16/24 09:43 BMI result Body Mass Index 26.7 Const General: cooperative, healthy appearing and comfortable Eyes General: appearance normal, both eyes and all related structures Pupils: Equal, round and reactive pupils present EOM: EOMs intact bilaterally Resp Effort & Inspection: normal respiratory effort, able to speak in complete sentences, normal respiratory pattern, no audible wheezes and no cough Cardio Jugular venous distension: no JVD Neuro Cranial nerves: Yes Equal, round and reactive pupils present Extrem Other: she has awkward with her right lower extremity and there is objective weakness in the right lower extremity. There is also weakness and numbness and right upper extremity however not that pronounced like a right lower extremity. She exhibits antalgic gait on the right and foot drop on the left. She reports that footdrop on the left is secondary to prior longstanding injury. Assessment & Plan Assessment & Plan (1) Cerebrovascular accident (CVA): Onset Date: ~2018 Comment: (+) CVA in 2019, with residual right-sided weakness primarily involving the right arm and right leg - S/P physical therapy with only some improvement of her weakness Code(s): I63.9 - Cerebral infarction, unspecified Category: Medical Qualifiers: CVA mechanism: unspecified Qualified Code(s): I63.9 - Cerebral infarction, unspecified (2) Lumbar degenerative disc disease: Comment: Has failed back sydrome/postlaminectomy syndrome Code(s): M51.36 - Other intervertebral disc degeneration, lumbar region Category: Medical Qualifiers: Disc-related pain type: discogenic back pain only Qualified Code(s): M51.360 - Other intervertebral disc degeneration, lumbar region with discogenic back pain only (3) Postlaminectomy syndrome: Code(s): M96.1 - Postlaminectomy syndrome, not elsewhere classified Category: Medical Plan: looks like this patient is suffering from central pain secondary to stroke however Complex regional pain syndrome of the right lower extremity can not be excluded. Unfortunately patient exhausted all the conservative ways of treating of her pain. She has a history of postlaminectomy syndrome with Barbosa rods insertion and then removal. I personally examined the x-rays she had today and I think that there is a possibility of trying spinal cord stimulator on this patient there are intervertebral interlaminar spaces on those images at L1-L2 and T12-L1 in lesser extent. Discussion of the chronic opioid program is as above. If she wants to join our chronic opioid program she needs to call and make an appointment for 1 hour. She also has to go for psychological evaluation with [facility] psychology. She has computer at home and she will be able to get into contact with them. Unfortunately she stated today that she does not have enough of the funds to pay a co-pay of 100 dollars to the psychology. It will be a difficult trial of [employer] spinal cord stimulator however I do not mind to try to place the electrodes in proper position even if it has to be insertion of the epidural leads at the level of T11-T10. On the x-ray examined myself today the interspace intervals at T12-L1 and L1-L2 however because she had Barbosa rods placed the could be full of epidural adhesions and difficult to advance the epidural leads. (4) Complex regional pain syndrome i of right lower limb: Code(s): G90.521 - Complex regional pain syndrome I of right lower limb Category: Medical Plan Next appointment will be scheduled after the patient decides what does she want to do. She will give us a call and schedule an appointment. Orders: Orders XR lumbar spine 2-3V Today M96.1 - Postlaminectomy syndrome, not elsewhere classified XR thoracic spine 2V Today M96.1 - Postlaminectomy syndrome, not elsewhere classified Patient Instructions: I here by testify that I spent 35 minutes in conversation with this patient as well as planning her care and organizing this note. Coding Level of Care Code Est Pt Level 4 (62606) Diagnoses Cerebrovascular accident (CVA), unspecified mechanism I63.9 CVA mechanism: unspecified Degeneration of intervertebral disc of lumbar region with discogenic back pain M51.360 Disc-related pain type: discogenic back pain only Postlaminectomy syndrome M96.1 Complex regional pain syndrome i of right lower limb G90.521
[2024-04-16 09:43] VITALS: BP 130/76; PULSE 67; RESP 16; O2SAT 93; BMI 26.7
== END 2024-04-16 10:06 | disposition home or self-care (01) ==
PROVIDERS: PCP Internal Medicine; Visit Provider Anesthesiology
DX: I63.9 Cerebral infarction, unspecified (principal); M51.360 Other intervertebral disc degeneration, lumbar region with discogenic back pain only; M96.1 Postlaminectomy syndrome, not elsewhere classified; G90.521 Complex regional pain syndrome I of right lower limb
CPT/HCPCS: 99214

== ENCOUNTER 2024-04-16 09:25 | Outpatient (REF) | payer MEDICARE, MEDICAID, SELFPAY ==
--- NOTE | ~2024-04-16 | XR_ITS ---
EXAMINATION: XR LUMBAR SPINE CLINICAL INFORMATION: Postlaminectomy syndrome, not elsewhere classified M96.1. Patient stated no injury / pain in upper and lower back. COMPARISON: None available TECHNIQUE: Three views of the lumbosacral spine. FINDINGS: There is a moderate compression deformity at T12. Advanced degenerative disc disease at L2-L3 with minimal retrolisthesis of L2 on L3. Mild degenerative disc disease throughout the remainder of the lumbar spine. Mild facet arthropathy. XR/XR lumbar spine 2-3V IMPRESSION: 1. Age-indeterminate moderate compression deformity at T12. 2. Advanced degenerative disc disease at L2-L3 with minimal retrolisthesis of L2 on L3. Electronically signed by: Orlando Webb MD 05/13/2024 10:19 AM [facility] ENGLE
--- NOTE | ~2024-04-16 | XR_ITS ---
EXAMINATION: XR THORACIC SPINE CLINICAL INFORMATION: Postlaminectomy syndrome, not elsewhere classified M96.1. Patient stated no injury / pain in upper and lower back. COMPARISON: None available TECHNIQUE: 3 views of the thoracic spine were obtained. FINDINGS: Mild dextro scoliotic curvature centered in the lower thoracic spine. There is a moderate compression deformity in the T12 vertebral body. Mild degenerative disc disease throughout the thoracic spine. There is orthopedic hardware in the visualized lower cervical spine. XR/XR thoracic spine 2V IMPRESSION: 1. Age-indeterminate moderate compression deformity in the T12 vertebral body. 2. Mild degenerative disc disease in the thoracic spine. Electronically signed by: Orlando Webb MD 05/13/2024 10:20 AM [facility]
== END 2024-04-16 09:26 | disposition home or self-care (01) ==
LOC: HO.XRAY 09:25
PROVIDERS: PCP Internal Medicine; Visit Provider Anesthesiology
DX: M96.1 Postlaminectomy syndrome, not elsewhere classified (principal); I63.9 Cerebral infarction, unspecified; M51.360 Other intervertebral disc degeneration, lumbar region with discogenic back pain only; G90.521 Complex regional pain syndrome I of right lower limb
CPT/HCPCS: 72070; 72100; 99212

== ENCOUNTER 2024-04-24 14:55 | Outpatient (AMB) | payer MEDICARE, MEDICAID, SELFPAY ==
--- NOTE | 2024-04-24 14:56 | A.OFFVIS_ITS ---
Vital Signs 04/24/24 14:57 Height 5 ft 6 in Weight 165 lb 6 oz BMI 26.7 BP 158/90 H Blood Pressure Location Rt brachial Position Sitting Pulse 66 Pulse Source Pulse Oximeter Pulse Oximetry (%) 96 Oxygen Delivery Method Room Air Intake Visit Reasons: Complex regional pain syndrome Allergies ibuprofen [From Motrin] Adverse Reaction (Severe, Verified 04/24/24 14:59) high blood pressure, dizzy and chest pain NSAIDS (Non-Steroidal Anti-Inflamma Adverse Reaction (Severe, Verified 04/24/24 14:59) palpitations,dizziness HPI Comments Details: Heaven is back in my office after receiving x-ray of the lumbar spine and thoracic spine. The quality of the images is not very great however there is no metal artifacts and there interlaminar spaces demonstrated on the x-ray which makes me hope that spinal cord stimulation trial is possible for this patient. She read information about chronic opioid therapy and she would like to join our chronic opioid program. We need to reschedule her for full 1 hour procedure in the morning time to make an appropriate evaluation of the patient. I will schedule her for this procedure as soon as possible. Also she does not have computer at home therefore she needs to be scheduled for psychological evaluation to be done here in the office. Prior: very unfortunate 63 years old female who presented today in my office after 3 years of absence. She was seen in 2020. She is suffering from Complex regional pain syndrome of the right foot with severe burning, pins and needles, crushing pain and wrenching pain sensation. She exhausted conservative therapy to treat this condition. She tried multiple medications including gabapentin which causes alopecia, Lyrica causes weight gain in sodium retention, she is allergic to ibuprofen and NSAIDs which cause palpitation and dizziness. She is currently taking Tylenol, her primary care physician prescribes her short course opioid medications. She reports today in the office with pain 10/10. She is also suffering from postlaminectomy syndrome, she had Barbosa fanny insertion for scoliosis and removal of the Barbosa rods. We discussed today possibility of treatment of this patient with neuromodulation. We also discussed today possibility of admitting her to chronic opioid program. The patient was given brochure to go for psychological evaluation with [facility] psychology, she was also given opioid in information page, opioid consent, and opioid agreement page. She was ordered x-ray of the lumbar and thoracic spine. I personally examined the x-ray images, the metal parts are not demonstrable neither in thoracic nor in lumbar spine. There are intervertebral space images at the L1-L2 and T12-L1 intervals, I think we certainly can try [employer] spinal cord stimulator to treat the pain in her foot. If she decides to go for chronic opioid therapy she needs to schedule an appointment for 1 full hour with me to to do addiction evaluation, perform UDS, and explained her risks and benefits of the chronic opioid therapy. [facility] Medical History Numbness and tingling of both feet Neuropathy Reflex sympathetic dystrophy of right leg Left lower quadrant pain Left groin pain Insomnia HCV (hepatitis C virus) Hemorrhoids Pure hypercholesterolemia Postlaminectomy syndrome Overweight (BMI 25.0-29.9) Memory loss or impairment Cerebrovascular accident (CVA) (~2019) Lumbar degenerative disc disease Benign essential hypertension Hair loss Paresthesia of foot Surgical History History of colonoscopy History of surgery History of neck surgery History of hysterectomy Family History Father Diabetes Mother Lung cancer Past heart attack Daughter In good health Brother In good health Brother No problems noted. Brother No problems noted. Family/Other Colon cancer Social History Housing: Apartment Alcohol intake: current Alcohol intake frequency: holidays/special occasions only Patient Tobacco Use Status: Never used Tobacco e-Cigarette/Vaping Use: Never Used Second Hand Smoke Exposure: No service: No Current occupational status: disabled Cognitive needs: No Hearing needs: No Vision needs: No Female Reproductive History Menstrual Age of Menarche: 8 Review of Systems Const All systems reviewed & are unremarkable except as noted in HPI and below Physical Exam Vital Signs: Last Vital Signs Pulse 66 04/24/24 14:57 BP 158/90 H 04/24/24 14:57 Pulse Ox 96 04/24/24 14:57 Oxygen Delivery Method Room Air 04/24/24 14:57 BMI result Body Mass Index 26.7 Const General: cooperative, healthy appearing and comfortable Eyes General: appearance normal, both eyes and all related structures Pupils: Equal, round and reactive pupils present EOM: EOMs intact bilaterally Resp Effort & Inspection: normal respiratory effort, able to speak in complete sentences, normal respiratory pattern, no audible wheezes and no cough Cardio Jugular venous distension: no JVD Neuro Cranial nerves: Yes Equal, round and reactive pupils present Extrem Other: she has awkward with her right lower extremity and there is objective weakness in the right lower extremity. There is also weakness and numbness and right upper extremity however not that pronounced like a right lower extremity. She exhibits antalgic gait on the right and foot drop on the left. She reports that footdrop on the left is secondary to prior longstanding injury. Assessment & Plan Assessment & Plan (1) Cerebrovascular accident (CVA): Onset Date: ~2018 Comment: (+) CVA in 2019, with residual right-sided weakness primarily involving the right arm and right leg - S/P physical therapy with only some improvement of her weakness Code(s): I63.9 - Cerebral infarction, unspecified Category: Medical Qualifiers: CVA mechanism: unspecified Qualified Code(s): I63.9 - Cerebral infarction, unspecified (2) Lumbar degenerative disc disease: Comment: Has failed back sydrome/postlaminectomy syndrome Code(s): M51.36 - Other intervertebral disc degeneration, lumbar region Category: Medical Qualifiers: Disc-related pain type: discogenic back pain only Qualified Code(s): M51.360 - Other intervertebral disc degeneration, lumbar region with discogenic back pain only (3) Postlaminectomy syndrome: Code(s): M96.1 - Postlaminectomy syndrome, not elsewhere classified Category: Medical Plan: looks like this patient is suffering from central pain secondary to stroke however Complex regional pain syndrome of the right lower extremity can not be excluded. Unfortunately patient exhausted all the conservative ways of treating of her pain. She has a history of postlaminectomy syndrome with Barbosa rods insertion and then removal. The x-ray demonstrated interlaminar spaces at L1-L2 which could be the only available site to establish epidural stimulating leads provided adhesions in the epidural space will allow me to manipulate the leads in the epidural space. She will be invited for an appointment to have opioid risk evaluation and opioid program discussion. She will be also invited in the office for an appointment with [facility] psychology to perform psychological evaluation. (4) Complex regional pain syndrome i of right lower limb: Code(s): G90.521 - Complex regional pain syndrome I of right lower limb Category: Medical Plan She will be scheduled for an appointment to perform evaluation of the opioid addiction risk and PHQ-9 questionnaire. Coding Level of Care Code Est Pt Level 3 (68999) Diagnoses Cerebrovascular accident (CVA), unspecified mechanism I63.9 CVA mechanism: unspecified Degeneration of intervertebral disc of lumbar region with discogenic back pain M51.360 Disc-related pain type: discogenic back pain only Postlaminectomy syndrome M96.1 Complex regional pain syndrome i of right lower limb G90.521
[2024-04-24 14:57] VITALS: BP 158/90; PULSE 66; O2SAT 96; BMI 26.7
== END 2024-04-24 15:27 | disposition home or self-care (01) ==
PROVIDERS: PCP Internal Medicine; Visit Provider Anesthesiology
DX: I63.9 Cerebral infarction, unspecified (principal); M51.360 Other intervertebral disc degeneration, lumbar region with discogenic back pain only; M96.1 Postlaminectomy syndrome, not elsewhere classified; G90.521 Complex regional pain syndrome I of right lower limb
CPT/HCPCS: 99213

== ENCOUNTER → 2024-04-24 14:55 | Outpatient (BNVA) | payer MEDICARE, MEDICAID, SELFPAY | PROVIDERS: PCP Internal Medicine; Visit Provider Anesthesiology | DX: M96.1 Postlaminectomy syndrome, not elsewhere classified (principal); M51.360 Other intervertebral disc degeneration, lumbar region with discogenic back pain only; G90.521 Complex regional pain syndrome I of right lower limb; Z86.73 Personal history of transient ischemic attack (TIA), and cerebral infarction without residual deficits | CPT/HCPCS: 99212 ==

== ENCOUNTER 2024-05-22 08:58 | Outpatient (AMB) | payer MEDICARE, MEDICAID, SELFPAY ==
--- NOTE | 2024-05-22 09:12 | A.OFFVIS_ITS ---
Vital Signs 05/22/24 09:18 Height 5 ft 6 in Weight 166 lb BMI 26.8 BP 191/89 H Blood Pressure Location Lt brachial Position Sitting Pulse 72 Pulse Oximetry (%) 96 Oxygen Delivery Method Room Air Intake Visit Reasons: Opioid discussion Allergies ibuprofen [From Motrin] Adverse Reaction (Severe, Verified 05/22/24 09:18) high blood pressure, dizzy and chest pain NSAIDS (Non-Steroidal Anti-Inflamma Adverse Reaction (Severe, Verified 05/22/24 09:18) palpitations,dizziness Medication List - Last Reconciled 05/22/24 by Fabienne eWir, SERVICE CONTROL OPERATOR atorvastatin 10 mg PO BEDTIME 90 days carisoprodol 350 mg PO TID PRN clonidine HCl 0.2 mg PO TID 30 days enalapril maleate 10 mg PO BID lidocaine 5% 1 patch topical DAILY oxycodone 5 mg PO BEDTIME PRN 7 days pregabalin 100 mg PO TID 30 days zolpidem 10 mg PO BEDTIME PRN 30 days HPI Comments Details: Heaven is back in my office to discuss opioid consent, opioid contract, opioid information page, to receive the testing on opioid addiction score is and receive the drug screen. Opioid consent, opioid contract, opioid information page were careful discussed with the patient. Her PHQ score is equal to 9. Her addiction score is equal to 7. Therefore total opioid addiction risk score is equal to 16. She therefore has moderate risk for opioid addiction. Implication of the moderate opioid risk addiction were explained to the patient. Prolonged and detailed conversation was held today to explained to the patient interventional pain management in combination of with the opioid therapy. We agreed that she will submit her urine drug screen today and as soon as it will be available to us we will prescribe her opioid medications oxycodone. I am planning oxycodone 5 mg b.i.d.. Currently she is receiving oxycodone from Dr. Navarrete. She is receiving 7 pills of oxycodone per months , she reports that her last oxycodone was more than 1 month ago. She is currently taking cannabis, she is also on Soma carisoprodol. I will stop this medication today. This is medication with ability to increase the risk of opioid addiction. Unfortunately she refused today to go for psychological evaluation. I explained to the patient that I do not mind to prescribe her opioid therapy however as soon as she requests me dose escalation we will returned to the discussion of treatment of her pain in the right lower extremity with neuromodulation, specifically spinal cord stimulation. The reports of the thoracic and lumbar x-rays are as below. I evaluated those images as well as the reports. Prior: very unfortunate 63 years old female who presented today in my office after 3 years of absence. She was seen in 2020. She is suffering from Complex regional pain syndrome of the right foot with severe burning, pins and needles, crushing pain and wrenching pain sensation. She exhausted conservative therapy to treat this condition. She tried multiple medications including gabapentin which causes alopecia, Lyrica causes weight gain in sodium retention, she is allergic to ibuprofen and NSAIDs which cause palpitation and dizziness. She is currently taking Tylenol, her primary care physician prescribes her short course opioid medications. She reports today in the office with pain 10/10. She is also suffering from postlaminectomy syndrome, she had Barbosa fanny insertion for scoliosis and removal of the Barbosa rods. We discussed today possibility of treatment of this patient with neuromodulation. We also discussed today possibility of admitting her to chronic opioid program. The patient was given brochure to go for psychological evaluation with [facility] psychology, she was also given opioid in information page, opioid consent, and opioid agreement page. She was ordered x-ray of the lumbar and thoracic spine. [facility] Medical History Numbness and tingling of both feet Neuropathy Reflex sympathetic dystrophy of right leg Left lower quadrant pain Left groin pain Insomnia HCV (hepatitis C virus) Hemorrhoids Pure hypercholesterolemia Postlaminectomy syndrome Overweight (BMI 25.0-29.9) Memory loss or impairment Cerebrovascular accident (CVA) (~2019) Lumbar degenerative disc disease Benign essential hypertension Hair loss Paresthesia of foot Surgical History History of colonoscopy History of surgery History of neck surgery History of hysterectomy Family History Father Diabetes Mother Lung cancer Past heart attack Daughter In good health Brother In good health Brother No problems noted. Brother No problems noted. Family/Other Colon cancer Social History Housing: Apartment Alcohol intake: current Alcohol intake frequency: holidays/special occasions only Patient Tobacco Use Status: Never used Tobacco e-Cigarette/Vaping Use: Never Used Second Hand Smoke Exposure: No service: No Current occupational status: disabled Cognitive needs: No Hearing needs: No Vision needs: No Female Reproductive History Menstrual Age of Menarche: 8 Review of Systems Const All systems reviewed & are unremarkable except as noted in HPI and below Physical Exam Vital Signs: Last Vital Signs Pulse 72 05/22/24 09:18 BP 191/89 H 05/22/24 09:18 Pulse Ox 96 05/22/24 09:18 Oxygen Delivery Method Room Air 05/22/24 09:18 BMI result Body Mass Index 26.8 Const General: cooperative, healthy appearing and comfortable Eyes General: appearance normal, both eyes and all related structures Pupils: Equal, round and reactive pupils present EOM: EOMs intact bilaterally Resp Effort & Inspection: normal respiratory effort, able to speak in complete sentences, normal respiratory pattern, no audible wheezes and no cough Cardio Jugular venous distension: no JVD Neuro Cranial nerves: Yes Equal, round and reactive pupils present Extrem Other: she has awkward with her right lower extremity and there is objective weakness in the right lower extremity. There is also weakness and numbness and right upper extremity however not that pronounced like a right lower extremity. She exhibits antalgic gait on the right and foot drop on the left. She reports that footdrop on the left is secondary to prior longstanding injury. Results Reviewed Results Reviewed: XR THORACIC SPINE April 13 CLINICAL INFORMATION: Postlaminectomy syndrome, not elsewhere classified M96.1. Patient stated no injury / pain in upper and lower back. COMPARISON: None available TECHNIQUE: 3 views of the thoracic spine were obtained. FINDINGS: Mild dextro scoliotic curvature centered in the lower thoracic spine. There is a moderate compression deformity in the T12 vertebral body. Mild degenerative disc disease throughout the thoracic spine. There is orthopedic hardware in the visualized lower cervical spine. XR LUMBAR SPINE April 13 CLINICAL INFORMATION: Postlaminectomy syndrome, not elsewhere classified M96.1. Patient stated no injury / pain in upper and lower back. COMPARISON: None available TECHNIQUE: Three views of the lumbosacral spine. FINDINGS: There is a moderate compression deformity at T12. Advanced degenerative disc disease at L2-L3 with minimal retrolisthesis of L2 on L3. Mild degenerative disc disease throughout the remainder of the lumbar spine. Mild facet arthropathy. IMPRESSION: 1. Age-indeterminate moderate compression deformity at T12. 2. Advanced degenerative disc disease at L2-L3 with minimal retrolisthesis of L2 on L3. Assessment & Plan Assessment & Plan (1) Cerebrovascular accident (CVA): Onset Date: ~2018 Comment: (+) CVA in 2019, with residual right-sided weakness primarily involving the right arm and right leg - S/P physical therapy with only some improvement of her weakness Code(s): I63.9 - Cerebral infarction, unspecified Category: Medical Qualifiers: CVA mechanism: unspecified Qualified Code(s): I63.9 - Cerebral infarction, unspecified (2) Lumbar degenerative disc disease: Comment: Has failed back sydrome/postlaminectomy syndrome Code(s): M51.36 - Other intervertebral disc degeneration, lumbar region Category: Medical Qualifiers: Disc-related pain type: discogenic back pain only Qualified Code(s): M51.360 - Other intervertebral disc degeneration, lumbar region with discogenic back pain only (3) Postlaminectomy syndrome: Code(s): M96.1 - Postlaminectomy syndrome, not elsewhere classified Category: Medical Plan: Heaven came today to discuss admission to chronic opioid therapy. (4) Complex regional pain syndrome i of right lower limb: Code(s): G90.521 - Complex regional pain syndrome I of right lower limb Category: Medical Plan She came for the appointment today appointment to perform evaluation of the opioid addiction risk and PHQ-9 questionnaire. Her PHQ score is equal to 9. Opioid addiction score is equal to 7. Therefore total score is 16. The implication of the score was explained to the patient. With any discrepancy she will be suspended for 1 year. She expressed understanding. She has moderate risk of opioid addiction. Consent contract opioid information page were discussed with the patient. Office obligation opioid contract were discussed with the patient. Her personal obligations were carefully explained to the patient. The patient changed her mind about participating in neuromodulation. She said to me that she is scared of the procedure. As soon as her urine drug screen will come to us I will start her on moderate opioid therapy. I will start her on oxycodone 5 mg twice a day. If she continues to function well on this minimal doses of the opioid I will continue prescription as long as she is compliant with her opioid contract. The very moment she will be asking me for escalation of the opioid medications will returned to the discussion of the neuromodulation. Patient Instructions: I here by testify that I spent 55 minutes in conversation with this patient as well as evaluating her prior records and diagnostic studies as well as planning her care and organizing this note. Coding Level of Care Code Est Pt Level 5 (84258) Diagnoses Cerebrovascular accident (CVA), unspecified mechanism I63.9 CVA mechanism: unspecified Degeneration of intervertebral disc of lumbar region with discogenic back pain M51.360 Disc-related pain type: discogenic back pain only Postlaminectomy syndrome M96.1 Complex regional pain syndrome i of right lower limb G90.521
[2024-05-22 09:18] VITALS: BP 191/89; PULSE 72; O2SAT 96; BMI 26.8
== END 2024-05-22 10:20 | disposition home or self-care (01) ==
PROVIDERS: PCP Internal Medicine; Visit Provider Anesthesiology
DX: I63.9 Cerebral infarction, unspecified (principal); M51.360 Other intervertebral disc degeneration, lumbar region with discogenic back pain only; M96.1 Postlaminectomy syndrome, not elsewhere classified; G90.521 Complex regional pain syndrome I of right lower limb
CPT/HCPCS: 99215

== ENCOUNTER → 2024-05-22 08:58 | Outpatient (BNVA) | payer MEDICARE, MEDICAID, SELFPAY | PROVIDERS: PCP Internal Medicine; Visit Provider Anesthesiology | DX: M51.360 Other intervertebral disc degeneration, lumbar region with discogenic back pain only (principal); M96.1 Postlaminectomy syndrome, not elsewhere classified; G90.521 Complex regional pain syndrome I of right lower limb; Z86.73 Personal history of transient ischemic attack (TIA), and cerebral infarction without residual deficits | CPT/HCPCS: 99212 ==

== ENCOUNTER 2024-06-11 08:58 | Outpatient (AMB) | payer MEDICARE, MEDICAID, SELFPAY ==
[2024-06-11 09:13] VITALS: BP 198/111; PULSE 78; O2SAT 96; BMI 26.0
--- NOTE | 2024-06-11 09:13 | A.OFFVIS_ITS ---
Vital Signs 06/11/24 09:13 Height 5 ft 6 in Weight 161 lb BMI 26.0 BP 198/111 H Blood Pressure Location Lt brachial Position Sitting Pulse 78 Pulse Source Pulse Oximeter Pulse Oximetry (%) 96 Oxygen Delivery Method Room Air Intake Visit Reasons: UDS Results Intake Note: BP high, R 208/116, waited 5 minutes repeated in L 198/111, pt states that she took her BP medication Building Service Worker Required: No Allergies ibuprofen [From Motrin] Adverse Reaction (Severe, Verified 06/11/24 09:15) high blood pressure, dizzy and chest pain NSAIDS (Non-Steroidal Anti-Inflamma Adverse Reaction (Severe, Verified 06/11/24 09:15) palpitations,dizziness Medication List - Last Reconciled 06/11/24 by Fabienne Weir, WINDLASSER atorvastatin 10 mg PO BEDTIME 90 days carisoprodol 350 mg PO TID PRN clonidine HCl 0.2 mg PO TID 30 days enalapril maleate 10 mg PO BID lidocaine 5% 1 patch topical DAILY oxycodone 5 mg PO BEDTIME PRN 7 days pregabalin 100 mg PO TID 30 days zolpidem 10 mg PO BEDTIME PRN 30 days HPI Comments Details: Heaven is back in my office to start chronic oral opioid therapy. Her UDS come came back and it was positive for carisoprodol and cannabis. She stated that she stopped taking carisoprodol and she has no intention to take it. However she states that cannabis helps her to tolerate her pain better, when she was asked when she obtained cannabis she said I am bothering it from my brother. I explained to her that this is illegal, she needs to obtain cannabis officially through the dispensary. Next time she is here she will bring us receipt from official dispensary that she brought enough of the cannabis supplies. She will also administer another urine drug screen at that time for her. The appointment is scheduled on 06/20/2024. The pill count will be performed on that date. Her PHQ score is equal to 9. Her addiction score is equal to 7. Therefore total opioid addiction risk score is equal to 16. She therefore has moderate risk for opioid addiction. Unfortunately she refused today to go for psychological evaluation. I explained to the patient that I do not mind to prescribe her opioid therapy however as soon as she requests me dose escalation we will returned to the discussion of treatment of her pain in the right lower extremity with neuromodulation, specifically spinal cord stimulation and intrathecal drug delivery system pain pump. The reports of the thoracic and lumbar x-rays are as below. I evaluated those images as well as the reports. Prior: very unfortunate 63 years old female who presented today in my office after 3 years of absence. She was seen in 2020. She is suffering from Complex regional pain syndrome of the right foot with severe burning, pins and needles, crushing pain and wrenching pain sensation. She exhausted conservative therapy to treat this condition. She tried multiple medications including gabapentin which causes alopecia, Lyrica causes weight gain in sodium retention, she is allergic to ibuprofen and NSAIDs which cause palpitation and dizziness. She is currently taking Tylenol, her primary care physician prescribes her short course opioid medications. She reports today in the office with pain 10/10. She is also suffering from postlaminectomy syndrome, she had Barbosa fanny insertion for scoliosis and removal of the Barbosa rods. We discussed today possibility of treatment of this patient with neuromodulation. We also discussed today possibility of admitting her to chronic opioid program. The patient was given brochure to go for psychological evaluation with [facility] psychology, she was also given opioid in information page, opioid consent, and opioid agreement page. She was ordered x-ray of the lumbar and thoracic spine. [facility] Medical History Numbness and tingling of both feet Neuropathy Reflex sympathetic dystrophy of right leg Left lower quadrant pain Left groin pain Insomnia HCV (hepatitis C virus) Hemorrhoids Pure hypercholesterolemia Postlaminectomy syndrome Overweight (BMI 25.0-29.9) Memory loss or impairment Cerebrovascular accident (CVA) (~2019) Lumbar degenerative disc disease Benign essential hypertension Hair loss Paresthesia of foot Surgical History History of colonoscopy History of surgery History of neck surgery History of hysterectomy Family History Father Diabetes Mother Lung cancer Past heart attack Daughter In good health Brother In good health Brother No problems noted. Brother No problems noted. Family/Other Colon cancer Social History Housing: Apartment Alcohol intake: current Alcohol intake frequency: holidays/special occasions only Patient Tobacco Use Status: Never used Tobacco e-Cigarette/Vaping Use: Never Used Second Hand Smoke Exposure: No service: No Current occupational status: disabled Cognitive needs: No Hearing needs: No Vision needs: No Female Reproductive History Menstrual Age of Menarche: 8 Review of Systems Const All systems reviewed & are unremarkable except as noted in HPI and below Physical Exam Vital Signs: Last Vital Signs Pulse 78 06/11/24 09:13 BP 198/111 H 06/11/24 09:13 Pulse Ox 96 06/11/24 09:13 Oxygen Delivery Method Room Air 06/11/24 09:13 BMI result Body Mass Index 26.0 Const General: cooperative, healthy appearing and comfortable Eyes General: appearance normal, both eyes and all related structures Pupils: Equal, round and reactive pupils present EOM: EOMs intact bilaterally Resp Effort & Inspection: normal respiratory effort, able to speak in complete sentences, normal respiratory pattern, no audible wheezes and no cough Cardio Jugular venous distension: no JVD Neuro Cranial nerves: Yes Equal, round and reactive pupils present Extrem Other: she has awkward with her right lower extremity and there is objective weakness in the right lower extremity. There is also weakness and numbness and right upper extremity however not that pronounced like a right lower extremity. She exhibits antalgic gait on the right and foot drop on the left. She reports that footdrop on the left is secondary to prior longstanding injury. Assessment & Plan Assessment & Plan (1) Cerebrovascular accident (CVA): Onset Date: ~2018 Comment: (+) CVA in 2019, with residual right-sided weakness primarily involving the right arm and right leg - S/P physical therapy with only some improvement of her weakness Code(s): I63.9 - Cerebral infarction, unspecified Category: Medical Qualifiers: CVA mechanism: unspecified Qualified Code(s): I63.9 - Cerebral infarction, unspecified (2) Lumbar degenerative disc disease: Comment: Has failed back sydrome/postlaminectomy syndrome Code(s): M51.36 - Other intervertebral disc degeneration, lumbar region Category: Medical Qualifiers: Disc-related pain type: discogenic back pain only Qualified Code(s): M51.360 - Other intervertebral disc degeneration, lumbar region with discogenic back pain only (3) Postlaminectomy syndrome: Code(s): M96.1 - Postlaminectomy syndrome, not elsewhere classified Category: Medical Plan: Heaven came today to start chronic oral opioid therapy. (4) Complex regional pain syndrome i of right lower limb: Code(s): G90.521 - Complex regional pain syndrome I of right lower limb Category: Medical Plan PHQ score is equal to 9. Opioid addiction score is equal to 7. Therefore total score is 16. She is taking cannabis. She stated that she takes it from her brother. I explained to her that this is illegal. We will next time she is here request her to bring us receipt from official dispensary. We also will request her to submit urine drug screen next time she is here on 06/20/2024. I will prescribe her oxycodone 5 mg b.i.d.. I will prescribe her naloxone intranasal. I will make her next script of oxycodone conditional of her picking up naloxone fill up. Initially she left me under impression that she would like to participate in neuromodulation, however later on she changed her mind stating that she is uncomfortable with any surgeries or interventional procedures. I explained to her that as soon as she does not ask me for escalation of her opioid medications I will continue to prescribe current dose. The very moment she will ask me to increase the doses of the oxycodone I will return this conversation to neuromodulation. Next appointment 06/20/2024 on that appointment she will be administered pill count and urine drug screen. Medications: New oxycodone Partial Fill upon patient request. 5 mg PO BID PRN 60 tabs 0RF pain 30 days Discontinued oxycodone Take ONLY NEEDED for severe pain Discontinued Reason: Doctor's Order 5 mg PO BEDTIME 7 days PRN 7 tabs 0RF pain S39.012A - Strain of muscle, fascia and tendon of lower back, initial encounter carisoprodol Discontinued Reason: Doctor's Order 350 mg PO TID PRN 30 tabs 0RF muscle pain/low back pain Patient Instructions: I here by testify that I spent 35 minutes in conversation with this patient as well as planning her care, evaluating my prior records and diagnostic studies and organizing this note. Coding Level of Care Code Est Pt Level 4 (60898) Diagnoses Cerebrovascular accident (CVA), unspecified mechanism I63.9 CVA mechanism: unspecified Degeneration of intervertebral disc of lumbar region with discogenic back pain M51.360 Disc-related pain type: discogenic back pain only Postlaminectomy syndrome M96.1 Complex regional pain syndrome i of right lower limb G90.521
== END 2024-06-11 09:19 | disposition home or self-care (01) ==
PROVIDERS: PCP Internal Medicine; Visit Provider Anesthesiology
DX: I63.9 Cerebral infarction, unspecified (principal); M51.360 Other intervertebral disc degeneration, lumbar region with discogenic back pain only; M96.1 Postlaminectomy syndrome, not elsewhere classified; G90.521 Complex regional pain syndrome I of right lower limb
CPT/HCPCS: 99214

== ENCOUNTER → 2024-06-11 08:58 | Outpatient (BNVA) | payer MEDICARE, MEDICAID, SELFPAY | PROVIDERS: PCP Internal Medicine; Visit Provider Anesthesiology | DX: M51.360 Other intervertebral disc degeneration, lumbar region with discogenic back pain only (principal); M96.1 Postlaminectomy syndrome, not elsewhere classified; G90.521 Complex regional pain syndrome I of right lower limb; Z86.73 Personal history of transient ischemic attack (TIA), and cerebral infarction without residual deficits; Z79.891 Long term (current) use of opiate analgesic | CPT/HCPCS: 99212 ==

== ENCOUNTER 2024-06-19 09:34 | Outpatient (AMB) | payer MEDICARE, MEDICAID, SELFPAY ==
--- NOTE | 2024-06-19 09:36 | MHC.OFFVIS ---
Vital Signs 06/19/24 09:50 06/19/24 09:50 Height 5 ft 6 in Weight 162 lb 6 oz BMI 26.2 BP 198/125 H 180/90 H Blood Pressure Location Lt brachial Rt brachial Position Sitting Sitting Pulse 126 H Pulse Source Pulse Oximeter Comment manual bp recheck Intake Visit Reasons: Follow up Intake Note: Heaven comes in today for a pill count to oxycodone, patient should have 0 tablets and presents with 0 tablets which she states she last took 06/16/24 at 9am. Pain today 02/27. Patient will also have a random UDS done today, aware that she will need to go to the lab on the first floor of this building today 06/09/24 before 12pm. Product Representative Required: No Accompanied by: Self / Same As Patient Allergies ibuprofen [From Motrin] Adverse Reaction (Severe, Verified 06/19/24 09:51) high blood pressure, dizzy and chest pain NSAIDS (Non-Steroidal Anti-Inflamma Adverse Reaction (Severe, Verified 06/19/24 09:51) palpitations,dizziness HPI Comments Details: Heaven is back in my office for the follow-up and pain medication refill. Because the pharmacy gave her only 1 week worse of script she came today without any medication in her possession. I will prescribe her medications again this time for the whole month, I recommended patient to go to the pharmacy and requests the full script as it is prescribed by her provider. If the pharmacy does not comply with the order do not accept partial script. At the same time the patient requested for me today to prescribe her 2 pills of oxycodone in the morning and 2 pills for the nighttime. This is the request to double the dose of opioid medications. I explained to her that this is evident of addiction. I recommended her to stay with the current doses of the opioid medications. I explained to her that there are other ways to help her pain we discussed in the past. She has Complex regional pain syndrome of the right lower extremity she also suffers from postlaminectomy syndrome of the lumbar spine she had Barbosa rods inserted and removed. I offered her intrathecal pain pump trial and spinal cord stimulation trial. Initially patient was agreeable to that but after I started her on opioid medication she withdrew her agreement. She brought today a copy of the receipt from 1 of the local cannabis dispensaries. Currently I will allow her to continue on oral opioids since the consumption of the cannabis is legitimate. Her UDS come came back and it was positive for carisoprodol and cannabis. Her PHQ score is equal to 9. Her addiction score is equal to 7. Therefore total opioid addiction risk score is equal to 16. She therefore has moderate risk for opioid addiction. Prior: very unfortunate 63 years old female who presented today in my office after 3 years of absence. She was seen in 2020. She is suffering from Complex regional pain syndrome of the right foot with severe burning, pins and needles, crushing pain and wrenching pain sensation. She exhausted conservative therapy to treat this condition. She tried multiple medications including gabapentin which causes alopecia, Lyrica causes weight gain in sodium retention, she is allergic to ibuprofen and NSAIDs which cause palpitation and dizziness. She is currently taking Tylenol, her primary care physician prescribes her short course opioid medications. She reports today in the office with pain 10/10. She is also suffering from postlaminectomy syndrome, she had Barbosa fanny insertion for scoliosis and removal of the Barbosa rods. [facility] Medical History Numbness and tingling of both feet Neuropathy Reflex sympathetic dystrophy of right leg Left lower quadrant pain Left groin pain Insomnia HCV (hepatitis C virus) Hemorrhoids Pure hypercholesterolemia Postlaminectomy syndrome Overweight (BMI 25.0-29.9) Memory loss or impairment Cerebrovascular accident (CVA) (~2019) Lumbar degenerative disc disease Benign essential hypertension Hair loss Paresthesia of foot Surgical History History of colonoscopy History of surgery History of neck surgery History of hysterectomy Family History Father Diabetes Mother Lung cancer Past heart attack Daughter In good health Brother In good health Brother No problems noted. Brother No problems noted. Family/Other Colon cancer Social History Housing: Apartment Alcohol intake: current Alcohol intake frequency: holidays/special occasions only Patient Tobacco Use Status: Never used Tobacco e-Cigarette/Vaping Use: Never Used Second Hand Smoke Exposure: No service: No Current occupational status: disabled Cognitive needs: No Hearing needs: No Vision needs: No Female Reproductive History Menstrual Age of Menarche: 8 Review of Systems Const All systems reviewed & are unremarkable except as noted in HPI and below Physical Exam Vital Signs: Last Vital Signs Pulse 126 H 06/19/24 09:50 BP 180/90 H 06/19/24 09:50 BMI result Body Mass Index 26.2 Const General: cooperative, healthy appearing and comfortable Eyes General: appearance normal, both eyes and all related structures Pupils: Equal, round and reactive pupils present EOM: EOMs intact bilaterally Resp Effort & Inspection: normal respiratory effort, able to speak in complete sentences, normal respiratory pattern, no audible wheezes and no cough Cardio Jugular venous distension: no JVD Neuro Cranial nerves: Yes Equal, round and reactive pupils present Extrem Other: she is awkward with her right lower extremity and there is objective weakness in the right lower extremity. There is also weakness and numbness and right upper extremity however not that pronounced like a right lower extremity. She exhibits antalgic gait on the right and foot drop on the left. She reports that footdrop on the left is secondary to prior longstanding injury. Assessment & Plan Assessment & Plan (1) Cerebrovascular accident (CVA): Onset Date: ~2018 Comment: (+) CVA in 2019, with residual right-sided weakness primarily involving the right arm and right leg - S/P physical therapy with only some improvement of her weakness Code(s): I63.9 - Cerebral infarction, unspecified Category: Medical Qualifiers: CVA mechanism: unspecified Qualified Code(s): I63.9 - Cerebral infarction, unspecified (2) Lumbar degenerative disc disease: Comment: Has failed back sydrome/postlaminectomy syndrome Code(s): M51.36 - Other intervertebral disc degeneration, lumbar region Category: Medical Qualifiers: Disc-related pain type: discogenic back pain only Qualified Code(s): M51.360 - Other intervertebral disc degeneration, lumbar region with discogenic back pain only (3) Postlaminectomy syndrome: Code(s): M96.1 - Postlaminectomy syndrome, not elsewhere classified Category: Medical Plan: Heaven came today to start chronic oral opioid therapy. (4) Complex regional pain syndrome i of right lower limb: Code(s): G90.521 - Complex regional pain syndrome I of right lower limb Category: Medical Plan PHQ score is equal to 9. Opioid addiction score is equal to 7. Therefore total score is 16. Pill count is impossible today since the pharmacy did not fill up the entire script. I will prescribe her oxycodone 5 mg b.i.d. today. She is prescribed naloxone intranasal in May of 2024. Initially she left me under impression that she would like to participate in neuromodulation, however later on she changed her mind stating that she is uncomfortable with any surgeries or interventional procedures. I explained to her that as soon as she does not ask me for escalation of her opioid medications I will continue to prescribe current dose. The very moment she will ask me to increase the doses of the oxycodone I will return this conversation to neuromodulation. Today she was asking me for basically doubling her dose of the opioid medication and I returned the conversation to neuromodulation again. Next appointment in 2 weeks to perform pill count. Medications: Refilled oxycodone Partial Fill upon patient request. 5 mg PO BID 30 days PRN 60 tabs 0RF pain Coding Level of Care Code Est Pt Level 3 (52394) Diagnoses Cerebrovascular accident (CVA), unspecified mechanism I63.9 CVA mechanism: unspecified Degeneration of intervertebral disc of lumbar region with discogenic back pain M51.360 Disc-related pain type: discogenic back pain only Postlaminectomy syndrome M96.1 Complex regional pain syndrome i of right lower limb G90.521
[2024-06-19 09:50] VITALS: BP 180/90; BP 198/125; PULSE 126; BMI 26.2
== END 2024-06-19 10:38 | disposition home or self-care (01) ==
PROVIDERS: PCP Internal Medicine; Visit Provider Anesthesiology
DX: I63.9 Cerebral infarction, unspecified (principal); M51.360 Other intervertebral disc degeneration, lumbar region with discogenic back pain only; M96.1 Postlaminectomy syndrome, not elsewhere classified; G90.521 Complex regional pain syndrome I of right lower limb
CPT/HCPCS: 99213

== ENCOUNTER → 2024-06-19 09:34 | Outpatient (BNVA) | payer MEDICARE, MEDICAID, SELFPAY | PROVIDERS: PCP Internal Medicine; Visit Provider Anesthesiology | DX: M51.360 Other intervertebral disc degeneration, lumbar region with discogenic back pain only (principal); M96.1 Postlaminectomy syndrome, not elsewhere classified; G90.521 Complex regional pain syndrome I of right lower limb; Z79.891 Long term (current) use of opiate analgesic; Z86.73 Personal history of transient ischemic attack (TIA), and cerebral infarction without residual deficits | CPT/HCPCS: 99212 ==

== ENCOUNTER 2024-07-03 09:46 | Outpatient (AMB) | payer MEDICARE, MEDICAID, SELFPAY ==
[2024-07-03 09:45] VITALS: BP 144/83; PULSE 73; O2SAT 96; BMI 26.0
--- NOTE | 2024-07-03 09:45 | MHC.OFFVIS ---
Vital Signs 07/03/24 09:45 Height 5 ft 6 in Weight 161 lb 4 oz BMI 26.0 BP 144/83 H Blood Pressure Location Lt brachial Position Sitting Pulse 73 Pulse Source Pulse Oximeter Pulse Oximetry (%) 96 Oxygen Delivery Method Room Air Intake Visit Reasons: pill count Allergies ibuprofen [From Motrin] Adverse Reaction (Severe, Verified 07/03/24 09:46) high blood pressure, dizzy and chest pain NSAIDS (Non-Steroidal Anti-Inflamma Adverse Reaction (Severe, Verified 07/03/24 09:46) palpitations,dizziness HPI Comments Details: Heaven is back in my office for the follow-up and pain medication refill. She stated today that she fell on her left knee and most of her pain now at the left knee. She has a bruise swelling at the left knee. Dr. Navarrete send her for knee x-ray. I recommended her instead of increasing doses of the opioids to start ibuprofen OTC q.6 hours on the clock p.r.n. for the next 14 days and then stop this medication. Pill count today is correct she presented today with 31 pills in her possession, she supposed to have 32 pills in her possession. I explained to her that we prefer that she would come for the pill count with small excess of the pills not deficit. Patient expressed understanding. Her next refill of the medication is due on 07/18/2024 No request for opioid escalation was presented today. Prior: She has Complex regional pain syndrome of the right lower extremity she also suffers from postlaminectomy syndrome of the lumbar spine she had Barbosa rods inserted and removed. I offered her intrathecal pain pump trial and spinal cord stimulation trial. Initially patient was agreeable to that but after I started her on opioid medication she withdrew her agreement. She brought today a copy of the receipt from 1 of the local cannabis dispensaries. Currently I will allow her to continue on oral opioids since the consumption of the cannabis is legitimate. Her UDS come came back and it was positive for carisoprodol and cannabis. Her PHQ score is equal to 9. Her addiction score is equal to 7. Therefore total opioid addiction risk score is equal to 16. She therefore has moderate risk for opioid addiction. Prior: very unfortunate 63 years old female who presented today in my office after 3 years of absence. She was seen in 2020. She is suffering from Complex regional pain syndrome of the right foot with severe burning, pins and needles, crushing pain and wrenching pain sensation. She exhausted conservative therapy to treat this condition. She tried multiple medications including gabapentin which causes alopecia, Lyrica causes weight gain in sodium retention, she is allergic to ibuprofen and NSAIDs which cause palpitation and dizziness. She is currently taking Tylenol, her primary care physician prescribes her short course opioid medications. She reports today in the office with pain 02/27. She is also suffering from postlaminectomy syndrome, she had Barbosa fanny insertion for scoliosis and removal of the Barbosa rods. [facility] Medical History Numbness and tingling of both feet Neuropathy Reflex sympathetic dystrophy of right leg Left lower quadrant pain Left groin pain Insomnia HCV (hepatitis C virus) Hemorrhoids Pure hypercholesterolemia Postlaminectomy syndrome Overweight (BMI 25.0-29.9) Memory loss or impairment Cerebrovascular accident (CVA) (~2019) Lumbar degenerative disc disease Benign essential hypertension Hair loss Paresthesia of foot Surgical History History of colonoscopy History of surgery History of neck surgery History of hysterectomy Family History Father Diabetes Mother Lung cancer Past heart attack Daughter In good health Brother In good health Brother No problems noted. Brother No problems noted. Family/Other Colon cancer Social History Housing: Apartment Alcohol intake: current Alcohol intake frequency: holidays/special occasions only Patient Tobacco Use Status: Never used Tobacco e-Cigarette/Vaping Use: Never Used Second Hand Smoke Exposure: No service: No Current occupational status: disabled Cognitive needs: No Hearing needs: No Vision needs: No Female Reproductive History Menstrual Age of Menarche: 8 Review of Systems Const All systems reviewed & are unremarkable except as noted in HPI and below Physical Exam Vital Signs: Last Vital Signs Pulse 73 07/03/24 09:45 BP 144/83 H 07/03/24 09:45 Pulse Ox 96 07/03/24 09:45 Oxygen Delivery Method Room Air 07/03/24 09:45 BMI result Body Mass Index 26.0 Const General: cooperative, healthy appearing and comfortable Eyes General: appearance normal, both eyes and all related structures Pupils: Equal, round and reactive pupils present EOM: EOMs intact bilaterally Resp Effort & Inspection: normal respiratory effort, able to speak in complete sentences, normal respiratory pattern, no audible wheezes and no cough Cardio Jugular venous distension: no JVD Neuro Cranial nerves: Yes Equal, round and reactive pupils present Extrem Other: she is awkward with her right lower extremity and there is objective weakness in the right lower extremity. There is also weakness and numbness and right upper extremity however not that pronounced like a right lower extremity. She exhibits antalgic gait on the right and foot drop on the left. She reports that footdrop on the left is secondary to prior longstanding injury. Assessment & Plan Assessment & Plan (1) Cerebrovascular accident (CVA): Onset Date: ~2018 Comment: (+) CVA in 2019, with residual right-sided weakness primarily involving the right arm and right leg - S/P physical therapy with only some improvement of her weakness Code(s): I63.9 - Cerebral infarction, unspecified Category: Medical Qualifiers: CVA mechanism: unspecified Qualified Code(s): I63.9 - Cerebral infarction, unspecified (2) Lumbar degenerative disc disease: Comment: Has failed back sydrome/postlaminectomy syndrome Code(s): M51.36 - Other intervertebral disc degeneration, lumbar region Category: Medical Qualifiers: Disc-related pain type: discogenic back pain only Qualified Code(s): M51.360 - Other intervertebral disc degeneration, lumbar region with discogenic back pain only (3) Postlaminectomy syndrome: Code(s): M96.1 - Postlaminectomy syndrome, not elsewhere classified Category: Medical Plan: Heaven came today to start chronic oral opioid therapy. (4) Complex regional pain syndrome i of right lower limb: Code(s): G90.521 - Complex regional pain syndrome I of right lower limb Category: Medical Plan PHQ score is equal to 9. Opioid addiction score is equal to 7. Therefore total score is 16. Pill count today is correct see as above. Her new prescription will be issued for 07/18/2024. She is prescribed naloxone intranasal in May of 2024. Initially she left me under impression that she would like to participate in neuromodulation, however later on she changed her mind stating that she is uncomfortable with any surgeries or interventional procedures. I explained to her that as soon as she does not ask me for escalation of her opioid medications I will continue to prescribe current dose. The very moment she will ask me to increase the doses of the oxycodone I will return this conversation to neuromodulation. The next appointment will be scheduled in 1 month. Medications: Refilled oxycodone Partial Fill upon patient request. 5 mg PO BID 30 days PRN 60 tabs 0RF pain Coding Level of Care Code Est Pt Level 3 (15249) Diagnoses Cerebrovascular accident (CVA), unspecified mechanism I63.9 CVA mechanism: unspecified Degeneration of intervertebral disc of lumbar region with discogenic back pain M51.360 Disc-related pain type: discogenic back pain only Postlaminectomy syndrome M96.1 Complex regional pain syndrome i of right lower limb G90.521
== END 2024-07-03 10:07 | disposition home or self-care (01) ==
PROVIDERS: PCP Internal Medicine; Visit Provider Anesthesiology
DX: G90.521 Complex regional pain syndrome I of right lower limb (principal); M51.360 Other intervertebral disc degeneration, lumbar region with discogenic back pain only; M96.1 Postlaminectomy syndrome, not elsewhere classified; Z79.891 Long term (current) use of opiate analgesic; I63.9 Cerebral infarction, unspecified
CPT/HCPCS: 99213

== ENCOUNTER 2024-07-03 09:46 | Outpatient (REF) | payer MEDICARE, MEDICAID, SELFPAY ==
--- NOTE | ~2024-07-03 | XR_ITS ---
CLINICAL HISTORY: M79.671 - Pain in right foot 3 view right foot Comparison: None Findings: There is a nondisplaced fracture of the proximal 5th metatarsal. There is soft tissue edema. There is osteopenia. There is a moderate calcaneal spur No significant arthritic change or erosions. No ankle effusion. No radiopaque foreign body. IMPRESSION: Nondisplaced fracture of the proximal 5th metatarsal Soft tissue edema Osteopenia Moderate calcaneal spur This document has been electronically signed by: Orlando Tong MD on 07/04/2024 04:49:22
--- NOTE | ~2024-07-03 | XR_ITS ---
CLINICAL HISTORY: M25.571 - Pain in right ankle and joints of right foot 3 view right ankle Comparison: None Findings: There is an acute nondisplaced fracture proximal metaphysis of the 5th metatarsal. There is soft tissue edema. There is a moderate-sized calcaneal spur. There is osteopenia. No significant loss of joint space, osteophytes, or erosions. No radiopaque foreign body. IMPRESSION: Acute nondisplaced fracture proximal metaphysis 5th metatarsal Soft tissue edema Osteopenia Moderate calcaneal spur This document has been electronically signed by: Orlando Tong MD on 07/04/2024 04:47:05
[2024-07-03 11:12] LABS: Alanine Aminotransferase 29 U/L (0-31); Albumin Level 4.4 g/dL (3.5-5.0); Alkaline Phosphatase 55 U/L (39-117); Anion Gap 13 (12-20); Aspartate Amino Transferase 34 U/L (5-31); Bilirubin Total 0.5 mg/dL (0.0-1.0); Blood Urea Nitrogen 9 mg/dL (9-16); Calcium 9.6 mg/dL (8.4-10.2); Carbon Dioxide 27 mmol/L (22-29); Chloride 101 mmol/L (96-108); Cholesterol 192 mg/dL (<200); Estimated Glomerular Filt Rate > 60; Glucose Fasting 104 mg/dL (60-99); HDL Cholesterol 63 mg/dL (>40); LDL Cholesterol Calculated 91 mg/dL (<100); Potassium 4.3 mmol/L (3.3-5.1); Sodium 137 mmol/L (135-145); Total Protein 7.5 g/dL (6.5-8.0); Triglycerides 192 mg/dL (<150)
== END 2024-07-03 09:47 | disposition home or self-care (01) ==
LOC: HO.XRAY 09:46
PROVIDERS: PCP Internal Medicine; Visit Provider Anesthesiology
DX: I63.9 Cerebral infarction, unspecified (principal); M51.360 Other intervertebral disc degeneration, lumbar region with discogenic back pain only; M96.1 Postlaminectomy syndrome, not elsewhere classified; G90.521 Complex regional pain syndrome I of right lower limb; E78.00 Pure hypercholesterolemia, unspecified; M25.571 Pain in right ankle and joints of right foot; Z91.81 History of falling; M79.671 Pain in right foot
CPT/HCPCS: 36415; 73610; 73630; 80053; 80061; 99212

== ENCOUNTER → 2024-07-03 10:27 | Outpatient (BNV) | payer MEDICARE, MEDICAID, SELFPAY | PROVIDERS: PCP Internal Medicine; Visit Provider Radiology Diagnostic Radiology | DX: S92.354A Nondisplaced fracture of fifth metatarsal bone, right foot, initial encounter for closed fracture (principal) | CPT/HCPCS: 73610; 73630 ==

== ENCOUNTER 2024-07-15 09:53 | Outpatient (AMB) | payer MEDICARE, MEDICAID, SELFPAY ==
[2024-07-15 09:59] VITALS: BP 112/78; PULSE 57; O2SAT 97; BMI 26.1
--- NOTE | 2024-07-15 09:59 | A.OFFPC_ITS ---
Vital Signs 07/15/24 09:59 Height 5 ft 6 in Weight 161 lb 8 oz BMI 26.1 BP 112/78 Blood Pressure Location Lt brachial Position Sitting Pulse 57 Pulse Source Pulse Oximeter Pulse Oximetry (%) 97 Oxygen Delivery Method Room Air Intake Visit Reasons: hyperlipidemia, lumbar DDD, HTN Property Supervisor Required: No Accompanied by: Self / Same As Patient Allergies ibuprofen [From Motrin] Adverse Reaction (Severe, Verified 07/15/24 10:37) high blood pressure, dizzy and chest pain NSAIDS (Non-Steroidal Anti-Inflamma Adverse Reaction (Severe, Verified 07/15/24 10:37) palpitations,dizziness Medication List - Last Reconciled 07/15/24 by Himanshu Navarrete MD atorvastatin 10 mg PO BEDTIME 90 days clonidine HCl 0.2 mg PO TID 30 days enalapril maleate 10 mg PO BID lidocaine 5% 1 patch topical DAILY naloxone 4 mg/actuation 4 mg intranasal Q2M PRN 1 day oxycodone 5 mg PO BID PRN 30 days pregabalin 100 mg PO TID 30 days zolpidem 10 mg PO BEDTIME PRN 30 days Tobacco use date assessed: 07/15/24 Fall risk assessment: 2 + Falls in past year Last assessed Fall Risk: 07/15/24 Dental Screening Dental Screen Date: 07/15/24 Did you have a dental visit in the last 12 months?: Yes Did you have a dental problem in the last 6 months where you did not have access to dental care?: No Was dental information given to patient?: Patient has dentist HPI hyperlipidemia, lumbar DDD, HTN HPI Details Patient comes in today for her follow up visit States that she is still experiencing increased pain in her right foot, which has been bothering her since she tripped and fell and twisted her right foot/ankle about 3 weeks ago She called up a couple of weeks ago to request for x-ray orders for her foot - states that she went and got her x-rays done a couple of weekends ago and is wondering if her x-rays showed anything to help explain her foot pain States that she can hardly lift and move her foot nowadays due to the pain (foot/ankle) also feels weak and that she now drags her right foot when walking and fell again a couple of days ago on her knees as a result Would like to get Rx for some kind of brace for her foot to help support it for now and wishes to see a specialist at [facility] for this She is now also seeing Dr. Adams for her chronic pain and has an existing pain management contract with him for chronic opioid Rx, currently at 5 mg of Oxycodone BID 60 tablets per month - patient states that this has been helping her enough She denies any headaches or dizziness Denies any chest pains, no SOB No nausea/vomiting, no abdominal pain No change in bowel habits noted She had some follow up labs done a couple of weeks ago - to discuss her results [facility] Medical History (Updated 07/20/24 @ 22:20 by Himanshu Navarrete MD) Numbness and tingling of both feet Neuropathy Reflex sympathetic dystrophy of right leg Left lower quadrant pain Left groin pain Insomnia HCV (hepatitis C virus) Hemorrhoids Pure hypercholesterolemia Postlaminectomy syndrome Overweight (BMI 25.0-29.9) Memory loss or impairment Cerebrovascular accident (CVA) (~2019) Lumbar degenerative disc disease Benign essential hypertension Hair loss Paresthesia of foot Surgical History History of colonoscopy History of surgery History of neck surgery History of hysterectomy Family History Father Diabetes Mother Lung cancer Past heart attack Daughter In good health Brother In good health Brother No problems noted. Brother No problems noted. Family/Other Colon cancer Social History Housing: Apartment Alcohol intake: current Alcohol intake frequency: holidays/special occasions only Patient Tobacco Use Status: Never used Tobacco e-Cigarette/Vaping Use: Never Used Second Hand Smoke Exposure: No service: No Current occupational status: disabled Cognitive needs: No Hearing needs: No Vision needs: No Female Reproductive History Menstrual Age of Menarche: 8 Questionnaire PHQ-9 Over the last 2 weeks, how often have you been bothered by any of the following problems? 1. Little interest or pleasure in doing things: more than half the days 2. Feeling down, depressed, or hopeless: not at all 3. Trouble falling or staying asleep, or sleeping too much: nearly every day 4. Feeling tired or having little energy: several days 5. Poor appetite or overeating: not at all 6. Feeling bad about yourself - or that you are a failure or have let yourself or your family down: not at all 7. Trouble concentrating on things, such as reading the newspaper or watching television: more than half the days 8. Moving or speaking so slowly that other people could have noticed. Or the opposite - being so fidgety or restless that you have been moving around a lot more than usual: not at all 9. Thoughts that you would be better off or of hurting yourself in some way: not at all Total score: 8 Depression Screening Interpretation: Positive Depression Screening Follow-up: Existing condition and In treatment Depression Screening Done: Yes 64065 - PHQ-9 Billing: Yes Source: Developed by Drs. Orlando Kat, Corina Corona, Dillon Greenwood and colleagues, with an educational marilynn from [employer]. Thrive Questionnaire Date Thrive assessed: 07/15/24 I am a: Patient What is your living situation today?: I have a steady place to live Within the past 12 months, did the food you bought not last and you didn't have the money to get more?: Never true Within the past 12 months, did you worry whether your food would run out before you got money to buy more?: Never true Do you have trouble paying for medicines?: No Do you have trouble getting transportation to medical appointments?: No Do you have trouble paying your heating and electricity bill?: No Do you have trouble taking care of your child, family member or friend?: No Do you have trouble with day-to-day activities such as bathing, preparing meals, shopping, managing finances, etc.?: No Are you currently unemployed and looking for a job?: No Are you interested in more education?: No Please select the resources that you would like help with: None Currently or been in a relationship where the following occur: No concerns reported THRIVE Score: 0 AUDIT C Alcohol Use Questionnaire (AUDIT-C) 1. How often do you have a drink containing alcohol?: Never 2. How many drinks containing alcohol do you have on a typical day when you are drinking?: 1 or 2 3. How often do you have six or more drinks on one occasion?: Never Total Score: 0 Score Reviewed/Action Taken: Yes CONSTANTINO-7 AMB Questionnaire CONSTANTINO-7 Date CONSTANTINO - 7 assessed: 07/15/24 Feeling nervous, anxious, or on edge: 0 = Not at all Not being able to stop or control worryin = Not at all Worrying too much about different things: 0 = Not at all Trouble relaxin = Not at all Being so restless that it is hard to sit still: 0 = Not at all Becoming easily annoyed or irritable: 0 = Not at all Feeling afraid as if something awful might happen: 0 = Not at all Total CONSTANTINO-7 score (0-4 normal; 5-9 mild; 10-14 moderate; 15-21 severe): 0 Source: Developed by Drs. Orlando Kat, Corina Corona, Dillon Greenwood and colleagues, with an educational marilynn from [employer]. Review of Systems Const Denies chills, Reports difficulty sleeping (due to pain), Reports fatigue, Denies fever(s), Denies headache(s) and Reports weakness (over the right side, involving the right arm & right leg ) ENT Denies dysphagia, Denies dizziness, Denies otalgia, Denies headache(s), Denies neck pain, Denies odynophagia and Denies sore throat Card Denies chest pain, Denies palpitations and Denies dyspnea Resp Denies chest congestion, Denies cough and Denies dyspnea GI Denies abdominal pain, Denies constipation, Denies dysphagia, Denies heartburn, Denies diarrhea, Denies nausea, Denies odynophagia and Denies vomiting Denies difficulty voiding, Denies nocturia, Denies dysuria and Denies urinary urgency Musc Details: (+) chronic pain in the right foot - foot goes completely numb at times Reports back pain (over the lower back, chronic), Reports arthralgias (involving multiple joints) and Denies neck pain Skin/Breast Reports alopecia (due to Gabapentin) and Denies rash Neuro Reports burning sensations (and pain in her feet - increased especially at night ), Denies dizziness, Denies headache(s), Reports memory loss and Reports weakness (over the right side, involving the right arm & right leg ) Psych Reports memory loss Endo Reports fatigue and Denies palpitations Physical exam (Primary Care) Vital Signs: Last Vital Signs Pulse 57 07/15/24 09:59 BP 112/78 07/15/24 09:59 Pulse Ox 97 07/15/24 09:59 Oxygen Delivery Method Room Air 07/15/24 09:59 BMI result Body Mass Index 26.1 Tobacco/Smoking Status: Tobacco use Status Tobacco use date assessed 07/15/24 07/15/24 10:04 Patient Tobacco Use Status Never used Tobacco 07/15/24 10:04 e-Cigarette/Vaping Use Never Used 07/15/24 10:04 PHQ-9: PHQ-9 Score PHQ-9: Total score 8 07/15/24 12:50 Depression Screening Interpretation: Positive Depression Screening Follow-up: Existing condition and In treatment Thrive Assessment: Date of Thrive Assessment Date Thrive assessed 07/15/24 07/15/24 10:04 Currently or been in a relationship where the following occur: No concerns reported Const General: no acute distress and alert HENMT Ears: TM's normal bilaterally and EAC's normal Throat: Yes posterior oropharynx normal and Yes tonsils normal (no TP congestion noted) Neck Neck: Yes supple and No lymphadenopathy Thyroid: Thyroid normal Resp Auscultation: clear to auscultation bilaterally, no rales and no wheezes Cardio Rate: regular rate Rhythm: regular rhythm Heart sounds: no murmurs GI Palpation (GI): Soft to palpation and nontender Auscultation: normal bowel sounds General: Yes no CVA tenderness Back/Spine/Pelvis Back: no CVA tenderness Thoracic/Lumbar Spine: lumbar spinal tenderness (chronic) Skin Rashes: no rashes Neuro Other: (+) residual weakness over the right arm and right leg - unchanged from previous Extrem General: Yes no clubbing, cyanosis or edema Results Reviewed Results Reviewed: Laboratory Tests 07/03/24 10:25 Sodium 137 Potassium 4.3 Creatinine 0.72 Estimated GFR > 60 Fasting Glucose 104 H Calcium 9.6 AST 34 H ALT 29 Triglycerides 192 H Cholesterol 192 LDL Cholesterol, Calc 91 HDL Cholesterol 63 Coding Level of Care Code Est Pt Level 4 (77502) Diagnoses Closed fracture of right foot, sequela S92.901S Encounter type: sequela Fracture type: closed Pure hypercholesterolemia E78.00 Cerebrovascular accident (CVA), unspecified mechanism I63.9 CVA mechanism: unspecified Benign essential hypertension I10 Degeneration of intervertebral disc of lumbar region with discogenic back pain M51.360 Disc-related pain type: discogenic back pain only Neuropathy G62.9 Impaired fasting glucose R73.01 Memory loss or impairment R41.3 Insomnia, unspecified type G47.00 Insomnia type: unspecified Overweight (BMI 25.0-29.9) E66.3 Additional Codes PHQ-9 - 07739 - PHQ-9 Billing: Yes ([id number]) Assessment & Plan Assessment & Plan (1) Foot fracture, right: Code(s): S92.901A - Unspecified fracture of right foot, initial encounter for closed fracture Category: Medical Qualifiers: Encounter type: sequela Fracture type: closed Qualified Code(s): S92.901S - Unspecified fracture of right foot, sequela Plan: X-rays x-rays of the right foot done over a week ago on 07/04/2024 revealed (+) nondisplaced fracture of the proximal 5th metatarsal, with (+) soft tissue edema. Osteopenia is noted as well as a moderate calcaneal spur Will refer patient to podiatry for further evaluation and management Will also provide her in the meantime with Rx for a post-op shoe that she can wear to keep from aggravating her foot injury further until she is seen by podiatry (2) Pure hypercholesterolemia: Code(s): E78.00 - Pure hypercholesterolemia, unspecified Category: Medical Plan: Results of her labs done a couple of weeks ago reviewed and discussed with patient Reinforced low cholesterol diet Continue Atorvastatin 10 mg QD Will recheck her labs and fasting lipids in 3 months for follow up (3) Cerebrovascular accident (CVA): Onset Date: ~2018 Comment: (+) CVA in 2019, with residual right-sided weakness primarily involving the right arm and right leg - S/P physical therapy with only some improvement of her weakness Code(s): I63.9 - Cerebral infarction, unspecified Category: Medical Qualifiers: CVA mechanism: unspecified Qualified Code(s): I63.9 - Cerebral infarction, unspecified Plan: Reinforced to continue with aggressive risk factor modification to minimize recurrence, including lowering her cholesterol and controlling her BP Patient used to see Dr. Haq for neurology follow up but she has not been to see neurology in over 2 years now She was referred back to neurology but she requested to see another neurologist other than Dr. Haq She is now following up with [facility] Neurology regularly (4) Benign essential hypertension: Code(s): I10 - Essential (primary) hypertension Category: Medical Plan: Reinforced low-sodium diet -? goal is systolic BP of at least 120 to 130 mm or less Continue Enalapril 10 mg BID and Clonidine 0.2 mg TID (dose was increased from 0.1 mg BID a few months ago) Patient is reminded to continue monitoring her blood pressure regularly (5) Lumbar degenerative disc disease: Comment: Has failed back sydrome/postlaminectomy syndrome Code(s): M51.36 - Other intervertebral disc degeneration, lumbar region Category: Medical Qualifiers: Disc-related pain type: discogenic back pain only Qualified Code(s): M51.360 - Other intervertebral disc degeneration, lumbar region with discogenic back pain only Plan: She was seen by pain management a few years ago but she did not follow-up again with them for a while as she was not interested in any alternative or interventional Tx options at the time She was referred back to pain management last year and was seen by Dr. Adams, who recommended that she start on TCAs and have her Gabapentin dose increased but patient declined both of these recommendations She was seen more recently at [facility] and offered trial of SCS which patient also decided not to pursue She was on Gabapentin 600 mg TID and Tizanidine 4 mg QID PRN for a while and requested to have her Gabapentin switched out to Lyrica as her hair loss seemed to be progressively worse while she was on Gabapentin - she was then switched over to Pregabalin 50 mg TID and her Gabapentin was discontinued She was also started on a trial of Duloxetine 30 mg QD last year but patient decided NOT to continue on the Rx Reinforced again to patient that other than Tramadol, we have no plans to start her back on opioids for chronic/long-term pain management MRI of the thoracic and lumbar spine done back in March 2024 revealed (+) age-indeterminate moderate compression deformity at T12 as well as advanced degenerative disc disease at L2-L3 with minimal retrolisthesis of L2 on L3 She was referred back to [facility] for pain management evaluation last year but patient ended up going back to [facility] Pain Management and is now seeing Dr. Adams regularly for chronic opioid Rx (6) Neuropathy: Code(s): G62.9 - Polyneuropathy, unspecified Category: Medical Plan: Continue Pregabalin 100 mg TID; feels that Clonidine also helps with her symptoms She is now seeing [facility] Neurology (Dr. Ledezma) for this issue as well as for her Hx of CVA She does not appear to have had any formal EMG and NCV done in the past and have again advised her that these may be worthwhile to pursue but I will leave it up to neurology to decide if they are necessary or not at this point (7) Impaired fasting glucose: Code(s): R73.01 - Impaired fasting glucose Category: Medical Plan: Patient has been advised that her FBS was still slightly elevated at 104 mg/dl on her recent labs Reinforced low calorie diet Will continue to monitor this closely for now (8) Memory loss or impairment: Code(s): R41.3 - Other amnesia Category: Medical Plan: She reports (+) memory loss/impairment that appear to have started after her CVA in 2019 - advised again that this is most likely a sequelae of her CVA and that there may not be much we can do for this except for aggressive reduction of her risk factors to prevent any further recurrence of her CVA Follow up with neurology as scheduled (9) Insomnia: Code(s): G47.00 - Insomnia, unspecified Category: Medical Qualifiers: Insomnia type: unspecified Qualified Code(s): G47.00 - Insomnia, unspecified Plan: Sleep hygiene reinforced Continue Zolpidem 10 mg Q HS PRN (10) Overweight (BMI 25.0-29.9): Code(s): E66.3 - Overweight Category: Medical Plan: Reinforced diet/lose weight; exercise is an unrealistic option at this time given patient's right-sided weakness as well as her significant low back pain Plan Follow-up in 4 months Orders: Orders Comprehensive [place]. Panel Fast 4 Months E78.00 - Pure hypercholesterolemia, unspecified UA CC w/rflx Micro + Cult 4 Months R30.0 - Dysuria Complete Blood Count Auto Diff 4 Months D64.9 - Anemia, unspecified Lipid Panel 4 Months E78.00 - Pure hypercholesterolemia, unspecified Referrals Podiatry Referral M79.671 - Pain in right foot, S92.353A - Displaced fracture of fifth metatarsal bone, unspecified foot, initial encounter for closed fracture Medications: New [POST-OP SHOE (RIGHT) - medium] As directed 1 ea 0RF S92.901A - Unspecified fracture of right foot, initial encounter for closed fracture
== END 2024-07-15 11:08 | disposition home or self-care (01) ==
PROVIDERS: PCP Internal Medicine; Visit Provider Internal Medicine
DX: S92.901S Unspecified fracture of right foot, sequela (principal); E78.00 Pure hypercholesterolemia, unspecified; I63.9 Cerebral infarction, unspecified; I10 Essential (primary) hypertension; M51.360 Other intervertebral disc degeneration, lumbar region with discogenic back pain only; G62.9 Polyneuropathy, unspecified; R73.01 Impaired fasting glucose; R41.3 Other amnesia; G47.00 Insomnia, unspecified; E66.3 Overweight

== ENCOUNTER → 2024-07-15 09:53 | Outpatient (BNVA) | payer MEDICARE, MEDICAID, SELFPAY | PROVIDERS: PCP Internal Medicine; Visit Provider Internal Medicine | DX: S92.901S Unspecified fracture of right foot, sequela (principal); E78.00 Pure hypercholesterolemia, unspecified; I63.9 Cerebral infarction, unspecified; I10 Essential (primary) hypertension; M51.360 Other intervertebral disc degeneration, lumbar region with discogenic back pain only; G62.9 Polyneuropathy, unspecified; R73.01 Impaired fasting glucose; R41.3 Other amnesia | CPT/HCPCS: 96127; 99212 ==

== ENCOUNTER 2024-07-31 09:08 | Outpatient (AMB) | payer MEDICARE, MEDICAID, SELFPAY ==
[2024-07-31 09:11] VITALS: BP 165/91; PULSE 85; O2SAT 96; BMI 25.9
--- NOTE | 2024-07-31 09:11 | MHC.OFFVIS ---
Vital Signs 07/31/24 09:11 Height 5 ft 6 in Weight 160 lb 8 oz BMI 25.9 BP 165/91 H Blood Pressure Location Lt brachial Position Sitting Pulse 85 Pulse Source Pulse Oximeter Pulse Oximetry (%) 96 Oxygen Delivery Method Room Air Intake Visit Reasons: PILL COUNT Allergies ibuprofen [From Motrin] Adverse Reaction (Severe, Verified 07/31/24 09:11) high blood pressure, dizzy and chest pain NSAIDS (Non-Steroidal Anti-Inflamma Adverse Reaction (Severe, Verified 07/31/24 09:11) palpitations,dizziness HPI Comments Details: Heaven is back in my office for the follow-up and pain medication refill. She stated today that she fractured her right ankle and now she feels most of the pain in right ankle. This is acute pain and therefore we should not treated with opioids. I recommended her to start ibuprofen 200 mg on the clock every 6 hours for the next 10 days not p.r.n.. Pill count today is correct she presented today with 43 pills in her possession, she supposed to have 42 pills in her possession. I explained to her that we prefer that she would come for the pill count with small excess of the pills not deficit. Patient expressed understanding. Her next refill of the medication is due on 07/18/2024 No request for opioid escalation was presented today. Prior: She has Complex regional pain syndrome of the right lower extremity she also suffers from postlaminectomy syndrome of the lumbar spine she had Barbosa rods inserted and removed. I offered her intrathecal pain pump trial and spinal cord stimulation trial. Initially patient was agreeable to that but after I started her on opioid medication she withdrew her agreement. She brought today a copy of the receipt from 1 of the local cannabis dispensaries. Currently I will allow her to continue on oral opioids since the consumption of the cannabis is legitimate. Her UDS come came back and it was positive for carisoprodol and cannabis. Her PHQ score is equal to 9. Her addiction score is equal to 7. Therefore total opioid addiction risk score is equal to 16. She therefore has moderate risk for opioid addiction. Prior: very unfortunate 63 years old female who presented today in my office after 3 years of absence. She was seen in 2020. She is suffering from Complex regional pain syndrome of the right foot with severe burning, pins and needles, crushing pain and wrenching pain sensation. She exhausted conservative therapy to treat this condition. She tried multiple medications including gabapentin which causes alopecia, Lyrica causes weight gain in sodium retention, she is allergic to ibuprofen and NSAIDs which cause palpitation and dizziness. She is currently taking Tylenol, her primary care physician prescribes her short course opioid medications. She reports today in the office with pain 10/10. She is also suffering from postlaminectomy syndrome, she had Barbosa fanny insertion for scoliosis and removal of the Barbosa rods. ON LICENSE OF [facility] Medical History Numbness and tingling of both feet Neuropathy Reflex sympathetic dystrophy of right leg Left lower quadrant pain Left groin pain Insomnia HCV (hepatitis C virus) Hemorrhoids Pure hypercholesterolemia Postlaminectomy syndrome Overweight (BMI 25.0-29.9) Memory loss or impairment Cerebrovascular accident (CVA) (~2019) Lumbar degenerative disc disease Benign essential hypertension Hair loss Paresthesia of foot Surgical History History of colonoscopy History of surgery History of neck surgery History of hysterectomy Family History Father Diabetes Mother Lung cancer Past heart attack Daughter In good health Brother In good health Brother No problems noted. Brother No problems noted. Family/Other Colon cancer Social History Housing: Apartment Alcohol intake: current Alcohol intake frequency: holidays/special occasions only Patient Tobacco Use Status: Never used Tobacco e-Cigarette/Vaping Use: Never Used Second Hand Smoke Exposure: No service: No Current occupational status: disabled Cognitive needs: No Hearing needs: No Vision needs: No Female Reproductive History Menstrual Age of Menarche: 8 Review of Systems Const All systems reviewed & are unremarkable except as noted in HPI and below Physical Exam Vital Signs: Last Vital Signs Pulse 85 07/31/24 09:11 BP 165/91 H 07/31/24 09:11 Pulse Ox 96 07/31/24 09:11 Oxygen Delivery Method Room Air 07/31/24 09:11 BMI result Body Mass Index 25.9 Const General: cooperative, healthy appearing and comfortable Eyes General: appearance normal, both eyes and all related structures Pupils: Equal, round and reactive pupils present EOM: EOMs intact bilaterally Resp Effort & Inspection: normal respiratory effort, able to speak in complete sentences, normal respiratory pattern, no audible wheezes and no cough Cardio Jugular venous distension: no JVD Neuro Cranial nerves: Yes Equal, round and reactive pupils present Extrem Other: she is awkward with her right lower extremity and there is objective weakness in the right lower extremity. There is also weakness and numbness and right upper extremity however not that pronounced like a right lower extremity. She exhibits antalgic gait on the right and foot drop on the left. She reports that footdrop on the left is secondary to prior longstanding injury. Assessment & Plan Assessment & Plan (1) Cerebrovascular accident (CVA): Onset Date: ~2018 Comment: (+) CVA in 2019, with residual right-sided weakness primarily involving the right arm and right leg - S/P physical therapy with only some improvement of her weakness Code(s): I63.9 - Cerebral infarction, unspecified Category: Medical Qualifiers: CVA mechanism: unspecified Qualified Code(s): I63.9 - Cerebral infarction, unspecified (2) Lumbar degenerative disc disease: Comment: Has failed back sydrome/postlaminectomy syndrome Code(s): M51.36 - Other intervertebral disc degeneration, lumbar region Category: Medical Qualifiers: Disc-related pain type: discogenic back pain only Qualified Code(s): M51.360 - Other intervertebral disc degeneration, lumbar region with discogenic back pain only (3) Postlaminectomy syndrome: Code(s): M96.1 - Postlaminectomy syndrome, not elsewhere classified Category: Medical Plan: Heaven came today to start chronic oral opioid therapy. (4) Complex regional pain syndrome i of right lower limb: Code(s): G90.521 - Complex regional pain syndrome I of right lower limb Category: Medical Plan PHQ score is equal to 9. Opioid addiction score is equal to 7. Therefore total score is 16. Pill count today is correct see as above. Her new prescription will be issued for 07/18/2024. She is prescribed naloxone intranasal in May of 2024. Initially she left me under impression that she would like to participate in neuromodulation, however later on she changed her mind stating that she is uncomfortable with any surgeries or interventional procedures. I explained to her that as soon as she does not ask me for escalation of her opioid medications I will continue to prescribe current dose. The very moment she will ask me to increase the doses of the oxycodone I will return this conversation to neuromodulation. The next appointment will be scheduled in 1 month. she is currently taking cannabis from the official state dispensary. Medications: Refilled oxycodone Partial Fill upon patient request. 5 mg PO BID PRN 60 tabs 0RF pain 30 days Coding Level of Care Code Est Pt Level 3 (47745) Diagnoses Cerebrovascular accident (CVA), unspecified mechanism I63.9 CVA mechanism: unspecified Degeneration of intervertebral disc of lumbar region with discogenic back pain M51.360 Disc-related pain type: discogenic back pain only Postlaminectomy syndrome M96.1 Complex regional pain syndrome i of right lower limb G90.521
--- OUTSIDE RECORDS SUMMARY | 2024-07-31 10:31 | XMS_ITS | Data Portability ---
Author Organization [place] - [facility] Address [address] [place] [address] Assessment No assessment recorded. Plan of Treatment Reminders Order Date Submit Date Provider Last Modified By Organization Details Last Modified Time Details Appointments None recorded. Lab drug screen, urine 2018 019 [facility], [address], [place], [address], 9 02:06:58 CMP, serum or plasma 2018 019 [facility], [address], [place], [address], 9 04:57:45 HBsAg (hepatitis B surface Ag), serum 2018 019 [facility], [address], [place], [address], 9 04:57:45 hepatitis C virus RNA, quant, PCR, serum or plasma 2018 019 [facility], [address], [place], [address], 9 04:57:45 Referral general surgeon referral - Painful 1-2 cm palpable mass adjacent to scar s/p abdominal wall lipoma removal in 2006 019 [email or web address] Not available 9 17:04:[address] referral 2018 019 meredith Barrera MD, [address], [facility] [place], [address], 9 09:29:30 Procedures None recorded. Surgeries None recorded. Imaging MRI, spleen, w/ contrast - History of abnormal spleen finding since 2016- was due for MRI, patient did not f/u. Recent abdominal CT + for 2 cm hyperenhac ninf lesion on spleen with subphrenis /diagphrag matis pain. Further evaluate with spleen MRI 2018 019 [facility] (Imaging), [address], [place], [address], 9 20:21:25 US, abdomen - RUQ pain - please evaluate liver and GB 2018 019 [facility] (Imaging), [address], [place] [address], 9 15:21:15 US, abdominal wall - h/o excision lipomas- concern of reacurrenc e - please evaluate 2018 019 [email or web address] [facility] (Imaging), [address], [place], [address], 9 15:05:42 Medication Orders Tylenol-Co deine #3 300 mg-30 mg tablet 2018 019 [facility], [address] [place], [address], 9 20:00:29 Tylenol Extra Strength 500 mg tablet 2018 019 [facility], [address] [place], [address], 9 20:00:24 enalapril maleate 20 mg tablet 2018 019 INTERFACE [facility], [address] [place], [address], 9 20:00:24 clonidine HCl 0.1 mg tablet 2018 019 INTERFACE [facility], [address] [place], [address], 9 12:06:29 Tylenol Extra Strength 500 mg tablet 2018 019 INTERFACE [facility], [address] [place] [address], [address], 9 09:18:02 Tylenol-Co deine #3 300 mg-30 mg tablet 2018 019 INTERFACE [facility], [address] [place], [address], 9 10:14:05 Tylenol-Co deine #3 300 mg-30 mg tablet 2018 019 INTERFACE [facility], [address] [place], [address], 9 09:01:44 clonidine HCl 0.1 mg tablet 2018 019 INTERFACE [facility], [address] [place], [address], 9 09:01:44 enalapril maleate 20 mg tablet 2018 019 INTERFACE [facility], [address] [place] [address], [address], 9 09:01:43 Patient TargetsNo targets recorded. Patient InstructionsNo instructions recorded. 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 Referral for At ypical chest pain Referring Physician: Lacie Masters [facility], Encounter Date: 09/04/2018 General Surgeon Referral for Mass of skin Painful 1-2 cm palpable mass adjacent to scar s/p abdominal wall lipoma removal in 2006 Referring Physician: Lacie Masters [facility], Encounter Date: 09/26/2018 Results Created Date Observation Date Name Description Value Unit Range Abnormal Flag Note LastModifiedBy Organization Detail LastModifiedTime 08/17/19 19 08/17/2018 drug scree n, urine amphetamines NEGATI VE NG/mL <500 normal Not Available [facility] [place] [facility] [address], [place], [address], 08/17/2018 02:06:57 08/17/1908/17/2018 drug scree n, urine barbiturates NEGATI VE NG/mL <300 normal Not Available [facility] [place] [facility] [address], [place], [address], 08/17/2018 02:06:57 08/17/19 19 08/17/2018 drug scree n, urine benzodiazepi charlie NEGATI VE NG/mL <100 normal Not Available [facility] [place] [facility] [address], [place], [address], 08/17/2018 02:06:57 08/17/19 19 08/17/2018 drug scree n, urine buprenorphin e NEGATI VE NG/mL <5 normal Not Available [facility] [place] [facility] [address], [place], [address], 08/17/2018 02:06:57 08/17/19 19 08/17/2018 drug scree n, urine cocaine metabolite NEGATI VE NG/mL <150 normal Not Available [facility] [place] [facility] [address], [place], [address], 08/17/2018 02:06:57 08/17/19 19 08/17/2018 drug scree n, urine heroin metabolite NEGATI VE NG/mL <10 normal Not Available [facility] [place] [facility] [address], [place], [address], 08/17/2018 02:06:57 08/17/19 19 08/17/2018 drug scree n, urine marijuana metabolite 20 POSITI VE NG/mL <20 abnormal Not Available [facility] [address], [place], [address], 08/17/2018 02:06:57 08/17/19 19 08/17/2018 drug scree n, urine MDMA/mda NEGATI VE NG/mL <500 normal Not Available [facility] [address], [place], [address], 08/17/2018 02:06:57 08/17/19 19 08/17/2018 drug scree n, urine methadone metabolite NEGATI VE NG/mL <100 normal Not Available [facility] [address], [place], [address], 08/17/2018 02:06:57 08/17/19 19 08/17/2018 drug scree n, urine opiates NEGATI VE NG/mL <100 normal Not Available [facility] [address], [place], [address], 08/17/2018 02:06:57 08/17/19 19 08/17/2018 drug scree n, urine oxycodone NEGATI VE NG/mL <100 normal Not Available [facility] [address], [place], [address], 08/17/2018 02:06:57 08/17/19 19 08/17/2018 drug scree n, urine phencyclidin e NEGATI VE NG/mL <25 normal Not Available [facility] [address], [place], [address], 08/17/2018 02:06:57 08/17/19 19 08/17/2018 drug scree n, urine comment See Note 1 Note 1 This drug testi ng is for medic al treat ment only. The resul ts are presu mptiv e; based only on reba esparza metho ds, and they have not been confi rmed by a defin itive metho d. Blanca sis was perfo rmed as non-f orens ic testi ng and these resul ts shoul d be used only by healt hcare provi ders to rende r diagn osis or treat ment, or to monit or progr ess of medic al condi tions . For heath tance with inter preti ng these drug resul ts, pleas e conta ct a [facility] al[facility] : [phone] X [phone] ( [phone] ), M-F, 8am-6 pm EST. Not Available [facility] [place] [facility] [address], [address], 08/17/2018 02:06:57 08/17/19 19 08/21/2018 CMP, serum or plasm a glucose 82 mg/dL 65-139 normal Non-f astin g refer ence inter adonis Not Available [facility] [place] [facility] [address], [address], 08/21/2018 04:57:45 08/17/19 19 08/21/2018 CMP, serum or plasm a urea nitrogen (BUN) 13 mg/dL 7-25 normal Not Available [facility] [place] [facility] [address], [address], 08/21/2018 04:57:45 08/17/19 19 08/21/2018 CMP, serum or plasm a creatinine 0.74 mg/dL 0.50-1 .05 normal For patie nts >49 years of age, the refer ence limit for Creat inine is appro ximat carlos manuel 13% highe r for peopl e ident ified as Afric an-Am cathy n. Not Available [facility] [place] [facility] [address], [address], 08/21/2018 04:57:45 08/17/19 19 08/21/2018 CMP, serum or plasm a eGFR non-afr. [place] 89 mL/mi n/1.7 3m2 > or = 60 normal Not Available [facility] [place] [facility] [address], [place], [address], 08/21/2018 04:57:45 08/17/1908/21/2018 CMP, serum or plasm a eGFR 103 mL/mi n/1.7 3m2 > or = 60 normal Not Available [facility] [place] [facility] [address], [place], [address], 08/21/2018 04:57:45 08/17/1908/21/2018 CMP, serum or plasm a BUN/creatini ne ratio NOT APPLIC ABLE (calc ) 6-22 Not Available [facility] [place] [facility] [address], [place], [address], 08/21/2018 04:57:45 08/17/1908/21/2018 CMP, serum or plasm a sodium 137 mmol/ L 135-14 6 normal Not Available [facility] [place] [facility] [address], [place], [address], 08/21/2018 04:57:45 08/17/1908/21/2018 CMP, serum or plasm a potassium 4.0 mmol/ L 3.5-5. 3 normal Not Available [facility] [address], [place], [address], 08/21/2018 04:57:45 08/17/1908/21/2018 CMP, serum or plasm a chloride 100 mmol/ L 98-110 normal Not Available [facility] [address], [place], [address], 08/21/2018 04:57:45 08/17/1908/21/2018 CMP, serum or plasm a carbon dioxide 31 mmol/ L 20-32 normal Not Available [facility] [address] [place], [address], 08/21/2018 04:57:45 08/17/19 19 08/21/2018 CMP, serum or plasm a calcium 9.4 mg/dL 8.6-10 .4 normal Not Available [facility] [address] [place], [address], 08/21/2018 04:57:45 08/17/1908/21/2018 CMP, serum or plasm a protein, total 6.5 g/dL 6.1-8. 1 normal Not Available [facility] [address], [place], [address], 08/21/2018 04:57:45 08/17/1908/21/2018 CMP, serum or plasm a albumin 4.2 g/dL 3.6-5. 1 normal Not Available [address] [place], [address], 08/21/2018 04:57:45 08/17/1908/21/2018 CMP, serum or plasm a globulin 2.3 g/dL_ (calc ) 1.9-3. 7 normal Not Available [facility] [address], [place], [address], 08/21/2018 04:57:45 08/17/1908/21/2018 CMP, serum or plasm a albumin/glob ulin ratio 1.8 (calc ) 1.0-2. 5 normal Not Available [facility] [address] [place], [address], 08/21/2018 04:57:45 08/17/19 19 08/21/2018 CMP, serum or plasm a bilirubin, total 0.5 mg/dL 0.2-1. [address] [facility] [place] [facility] [address] [place], [address], 08/21/2018 04:57:45 08/17/19 19 08/21/2018 CMP, serum or plasm a alkaline phosphatase 46 U/L 33-130 normal Not Available [facility] [employer] [address] [place], [address], 08/21/2018 04:57:45 08/17/19 19 08/21/2018 CMP, serum or plasm a AST 19 U/L 10-35 normal Not Available [facility] [address] [place], [address], 08/21/2018 04:57:45 08/17/19 19 08/21/2018 CMP, serum or plasm a ALT 10 U/L 6-29 normal Not Available [address] [place], [address], 08/21/2018 04:57:45 08/17/1908/21/2018 HBsAg (hepa titis B surfa ce Ag), serum hepatitis B surface antigen NON-RE ACTIVE non-re active normal Not Available [address], [address], 08/21/2018 04:57:45 08/17/1908/21/2018 hepat itis C virus RNA, quant , PCR, serum or plasm a HCV RNA, quantitative real time PCR <15 NOT DETECT ED IU/mL not detect ed normal Not Available [address] [place], [address], 08/21/2018 04:57:45 08/17/1908/21/2018 hepat itis C virus RNA, quant , PCR, serum or plasm a HCV RNA, quantitative real time PCR <1.18 NOT DETECT ED log_I U/mL not detect ed normal This test was perfo rmed using Real- Time Polym erase Chain React ion. Repor table Range : 15 IU/mL to 100,0 00,00 0 IU/mL (1.18 Log IU/mL to 8.00 Log IU/mL ). The blanca tical perfo rmanc e frances cteri stics of this assay have been deter mined by [facility]. The modif icati ons have not been clear ed or appro lisa by the FDA. This assay has been valid ated pursu ant to the CLIA regul ation s and is used for clini agustin purpo ses. For more infor craig hernandez on this test, go to: http: //[facility] mariama hernandez.que stdia gnost ics.c om/fa q/FAQ 22v1 (This link is being provi ded for infor matio nal/ educa nancy l purpo ses only. ) Not Available [facility] [place] [facility] [address], [place], [address], 08/21/2018 04:57:45 09/11/19 19 09/10/2018 US, abdom en No observ ation record ed. [email or web address] Not Available 2018 09:59:31 09/26/19 19 09/19/2018 MAMMO , scree vilma, bilat eral No observ ation record ed. [facility] [address] [facility], [place], [address], 10/01/2018 13:29:12 10/01/19 19 09/30/2018 CT, abdom en + pelvi s, w/ contr ast No observ ation record ed. [email or web address] [facility] (Imaging) (Interface) [address] [place], [address], 10/02/2018 10:27:04 Result Notes None recorded. Problems Name Problem SNOMED Code Status Onset Date Resolution Date Notes Provider Name and Address Organization Details Recorded Time Essential hypertens ion 94244625 Active Tunde dorsey [place] - [facility] 6 19:14:48 Chronic hepatitis C 690115343 Active Antonia Negron MD [address] [place], [address], [facility] 6 11:59:41 Overweigh t 208570749 Active Antonia Negron MD [address] [place], [address], [facility] 6 11:55:27 History of cervical spine fusion 888715074002 1 Active 2016 anterior fusion plate C5-C7 Victorina Rhoades [facility] 7 15:58:05 Neck pain 35454959 Active 2016 Victorinajaney Rhoades [facility] 7 09:19:03 Chronic back pain 656266148 Active 2016 Victorinajaney Rhoades [facility] 7 11:39:39 Osteopeni a 590326223 Active 2016 L hip, normal bone density spine. repeat BMD 2018 Victorinajaney Rhoades [facility] 7 11:27:01 Foot-drop 9908397 Active 2016 Victorinajaney Rhoades [facility] 7 09:39:52 Major depressiv e disorder 333879049 Active 2016 Victorinajaney Rhoades [facility] 7 13:43:16 Hyperlipi demia 05770560 Active 2017 Judy Rivers [facility] 8 18:35:25 Body mass index 25-29 - overweigh t 737225774 Active 2017 Judy Rivers [facility] 8 18:35:30 History of eating disorder 889079106158 101 Active 2017 Judy Rivers [facility] 8 18:35:32 Vitamin D deficienc y 27042725 Active 2017 Victorina Rhoades [facility] 8 14:11:22 Chronic pain syndrome 272607773 Active 2017 Victorina Rhoades [facility] 8 13:37:27 Mass of skin 217435169 Active 2018 Lacie Masters PA-C [address] [place], [address], [facility] 9 15:06:30 Imaging of spleen abnormal 246057181 Active 2018 Lacie Masters PA-C [address] [place], [address], [facility] 9 19:59:08 Lipomatos is 593689715 Active 2018 Lacie Masters PA-C [address] [place], [address], [facility] 9 19:59:08 Problem Notes None recorded. Procedures Surgical History Date Name Laterality Status Provider Name and Address Organization Details Recorded Time 09/12/19 17 Appendectomy completed Victorina Rhoades [facility] 09/14/2016 14:18:44 05/21/19 12 Spinal Surgery completed Arturo Cisneros [facility] 10/08/2015 10:45:16 05/21/19 00 Hysterectomy completed Briana Jimenez [facility] 06/30/2015 15:07:34 05/21/19 00 Total Hysterectomy completed Stephenie Curry [facility] 12/12/2016 15:07:23 05/21/18 76 Spinal Surgery completed Arturo Cisneros [facility] 10/08/2015 10:45:16 Imaging Results Imaging Date Name Status LastModified by Organiz ation Details LastModified Time 09/10/2018 US, abdomen completed [email or web address] Information n ot available 09/16/2018 09:59:31 09/19/2018 MAMMO, screening, bilateral completed [facility] [address] [facility], [place], [address], 10/01/2018 13:29:12 09/30/2018 CT, abdomen + pelvis, w/ contrast completed [email or web address] [facility] (Imaging) (Interface) [address] [place] [address], [place], [address], 10/02/2018 10:27:04 Procedure Notes None recorded. Medical Equipment None Reported. Allergies Allergen ID Allergen Name Allergen Category Reaction Reaction Severity Criticality Documentation Date Start Date Code Code System Note Provider Name and Address Organization Details Recorded Time 64443 Ansaid medicatio n chest pain Not available Not available 06/30/201503094 1 RxNorm Tunde Christianson [facility] 6 16:22:30 [address]441 Motrin medicatio n chest pain Not available Not available 06/30/201578689 8 RxNorm Victorina Rhoades [facility] 8 10:51:58 96202 naproxen medicatio n dizziness Not available Not available 09/22/2016 7258 RxNorm Stephenie Patricio [facility] 7 10:49:18 70885 codeine medicatio n nausea moderate Not available 09/22/2016 2670 RxNorm Victorinajaney Rhoades [facility] 7 11:09:33 99662 Lyrica medicatio n other Not available Not available 11/17/2016 081[address] 1 RxNorm depre ssion at high doses Victorinajaney Rhoades [facility] 7 15:32:28 Medications Name Sig Start Date Stop Date Status Note LastModified by Organization Details LastModified Time cyclobenz aprine 10 mg tablet TAKE 1 TABLET(S ) EVERY DAY BY ORAL ROUTE NEEDED. 04/02 completed Not Available Not Available Not Available clonidine HCl 0.1 mg tablet TAKE 1 TABLET(S ) TWICE A DAY BY ORAL ROUTE. 2018 active Not Available Not Available Not Avai lable enalapril maleate 10 mg tablet Take 1 tablet twice a day by oral route as directed . 11/15 completed Not Available Not Available Not Available cetirizin e 10 mg tablet Take 1 tablet every day by oral route. 01/22 completed Not Available Not Available Not Available ibuprofen 800 mg tablet TAKE 1 TABLET BY MOUTH TWICE A DAY NEEDED BACKOR HIP PAIN DO NOT TAKE WHILE TAKING MEDROL 01/22 completed Not Available Not Available Not Available metoprolo l tartrate 100 mg tablet Take 0.5 tablets twice a day by oral route. 2015 active Not Available Not Available Not Avai lable hydrocodo ne 5 mg-acetam inophen 325 mg tablet Take 1 tablet every 6 hours by oral route as needed for pain. 09/22 completed Not Available Not Available Not Available enalapril maleate 20 mg tablet TAKE 1 TABLET BY MOUTH TWICE A DAY 2018 active Not Available Not Available Not Avai lable lisinopri l 20 mg tablet Take 0.5 tablets twice a day by oral route. 05/17 completed Not Available Not Available Not Available Medrol (Jamil) 4 mg tablets in a dose pack take as directed . 01/22 completed Not Available Not Available Not Available Pyridium 200 mg tablet Take 1 tablet 3 times a day by oral route. 09/08 completed Not Available Not Available Not Available Diflucan 150 mg tablet Take 1 tablet every day by oral route. 10/06 completed Not Available Not Available Not Available amlodipin e 2.5 mg tablet Take 1 tablet every day by oral route. 08/16 completed Not Available Not Available Not Available tramadol 50 mg tablet Take 1 tablet as needed by oral route. active for break through pain Not Available Not Available Not Available oxycodone 15 mg tablet Take 1 tablet every 4 hours by oral route. active Not Available Not Available No t Available citalopra m 20 mg tablet Take 1 tablet every day by oral route. 11/29 completed chest pain Not Available Not Available Not Available pantopraz ole 40 mg tablet,de layed release TAKE 1 TABLET BY MOUTH EVERY DAY 05/29 completed Not Available Not Available Not Available Cipro 500 mg tablet Take 1 tablet every 12 hours by oral route. 09/08 completed Not Available Not Available Not Available Robaxin-7 50 750 mg tablet Take 1 tablet every 8 hours by oral route. 11/15 completed Not Available Not Available Not Available gabapenti n 300 mg capsule Take 1 capsule 3 times a day by oral route as needed. 08/16 completed Not Available Not Available Not Available omeprazol e 20 mg capsule,d elayed release Take 1 capsule every day by oral route. 09/08 completed Not Available Not Available Not Available hydroxyzi ne HCl 25 mg tablet 1-2 tab spo 30 minutes before flight 07/01 completed Not Available Not Available Not Available lisinopri l 5 mg tablet Take 1 tablet twice a day by oral route. active Not Available Not Available No t Available hydrochlo rothiazid e 25 mg tablet Take 1 tablet every day by oral route. 05/01 completed Not Available Not Available Not Available Tylenol-C odeine #3 300 mg-30 mg tablet Take 1 tablet every day by oral route as needed for 30 days. 2018 active Not Available Not Available Not Avai lable Vitamin D2 1,250 mcg (50,000 unit) capsule Take 1 capsule every week by oral route for 56 days. 05/01 completed Not Available Not Available Not Available Naprosyn 500 mg tablet Take 1 tablet twice a day by oral route as needed. 01/09 completed causes tingling in fingers and body Not Available Not Available Not Available fluticaso ne propionat e 50 mcg/actua tion nasal spray,gemma pension SPRAY 1 SPRAY(S) EVERY DAY BY INTRANAS AL ROUTE. 2018 active Not Available Not Available Not Avai lable loratadin e 10 mg tablet Take 1 tablet every day by oral route. 08/29 completed Not Available Not Available Not Available fluticaso ne propionat e 110 mcg/actua tion HFA aerosol inhaler Inhale 1 puff twice a day by inhalati on route. 02/01 completed Not Available Not Available Not Available Tylenol Extra Strength 500 mg tablet Take 2 tablets every 8 hours by oral route as needed. 2018 active Not Available Not Available Not Avai lable oxycodone 5 mg tablet 1 tab po daily prn severe back pain x4 days 12/12 completed Not Available Not Available Not Available Bactrim DS 800 mg-160 mg tablet Take 1 tablet every 12 hours by oral route. 11/15 completed Not Available Not Available Not Available Lyrica 50 mg capsule 1 capsule po qHS 02/08 completed Not Available Not Available Not Available lidocaine 5 % topical ointment 07/05 completed Not Available Not Available Not Available Harvoni 90 mg-400 mg tablet Take 1 tablet every day by oral route. 02/08 completed Not Available Not Available Not Available Vitals Date Recorded Body height Body mass index (BMI) Body weight Heart rate Oxygen saturation Oxygen saturation in Arterial blood by Pulse oximetry Respiratory rate Systolic blood pressure Diastolic blood pressure Provider Name and Address Organization Details Last Updated DateTime 9 162.56 cm 25.7 kg/m2 62123.8 6 g 62 /min 100 % 100 % 16 /min 120 mm[Hg] 62 mm[Hg] Briana Jimenez [facility] 9 08:42:30 Date Recorded Body height Body mass index (BMI) Body weight Heart rate Respiratory rate Systolic blood pressure Diastolic blood pressure Provider Name and Address Organization Details Last Updated DateTime 9 162.56 cm 26.4 kg/m2 47402.7 9 g 68 /min 14 /min 127 mm[Hg] 79 mm[Hg] Alyce Christianson [facility] 9 09:54:19 Date Recorded Body height Heart rate Oxygen saturation Oxygen saturation in Arterial blood by Pulse oximetry Respiratory rate Body mass index (BMI) Body weight Systolic blood pressure Diastolic blood pressure Provider Name and Address Organization Details Last Updated DateTime 9 162.56 cm 75 /min 97 % 97 % 14 /min 25.8 kg/m2 32176.2 6 g 154 mm[Hg] 98 mm[Hg] Mraifer Zavala [facility] 9 08:45:39 Date Recorded Body height Respiratory rate Heart rate Oxygen saturation Oxygen saturation in Arterial blood by Pulse oximetry Body temperature Systolic blood pressure Diastolic blood pressure Provider Name and Address Organization Details Last Updated DateTime 9 162.56 cm 14 /min 64 /min 99 % 99 % 97.9 [degF] 157 mm[Hg] 99 mm[Hg] [facility] 9 11:22:28 Date Recorded Body height Respiratory rate Heart rate Oxygen saturation Oxygen saturation in Arterial blood by Pulse oximetry Body mass index (BMI) Body weight Systolic blood pressure Diastolic blood pressure Provider Name and Address Organization Details Last Updated DateTime 9 162.56 cm 14 /min 69 /min 99 % 99 % 27.2 kg/m2 49189.6 9 g 160 mm[Hg] 100 mm[Hg] [facility] 9 19:19:58 Social History Question Answer Notes LastModified by Organization Details LastModified Time Tobacco Sm[facility] Status [facility] 15:05:03 What Is Your Level Of Alcohol Consumption? None Information not available 06/30/2015 What Is Your Level Of Caffeine Consumption? Moderate Information not available 06/30/2015 How Much Tobacco Do You Chew? None Information not available 06/30/2015 What Type Of Diet Are You Following? 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 No Information not available 06/30/2015 Hard Of Hearing Or Deaf In One Or Both Ears? No Information not available 06/30/2015 Legally Blind In One Or Both Eyes? No Information not available 06/30/2015 Live Alone Or With Others? Alone Information not available 06/30/2015 Are You Able To Care For Yourself At Home Including Activities Of Bathing, Dressing, And Walking? Yes Information not available 07/05/2017 Are You Able To Handle Your Own Medications, Money/finances, Shopping, And Housekeeping Chores? Yes Information not available 07/05/2017 Have You Been Hospitalized In The Past 12 Months? No Information not available 07/05/2017 Homeless Not Homeless Information not available 08/29/2017 In The Past Month, Was There Any Day When You Or Someone In Your Family Went Hungry Because You Didn't Have Money For Food? No Information not available 04/02/2018 Do You Need Help Finding Clothing Or Other Supplies For Yourself Or For Your Children? Yes Information not available 04/02/2018 Do You Need Medicine But Cannot Buy It Because It Is Too Expensive? No Information not available 04/02/2018 Do You Need Transportation To Medical Appointments? No Information not available 04/02/2018 Do You Worry That You Can't Pay Your Utility Bill(s)? (electric, Gas, Heating Oil, Telephone) No Information not available 04/02/2018 Do You Prefer To Learn By: Verbal Communication Information not available 04/02/2018 Do You Have Any Of The Following Barriers To Learn: I Don't Have Any Interest In Learning Information not available 04/02/2018 Marital Status Informatio n not available 06/30/2015 What Was The Date Of Your Most Recent Tobacco Screening? 11/06/2018 Information not available 12/12/2018 Do You Use Your Seat Belt Or Car Seat Routinely? Yes Information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 and start loratidine 10mg dailyRTC worsening symptoms not responding to above Overweight 482174359 E66 .3 doing a great job with healthy diet and exercise encouraged her to continue Essential hypertension 61445316 I10 no CP, HABP at goal, reviewed importance of taking medication daily though will decrease enalapril to 20mg daily given she has not been taking more than that dosecheck renal fxn and lytes and f/u 2-3 weeks BP checkto ED/911 for CP, severe CONROY with vision changes/pr oblems speech/bal ance, concern Chronic back pain 450284 002 G89.29 doing well managing her chronic pain with walking and yoga and using pain as a threshold and encouraged exercise modificati ons when neededagre es that opioids are not helpful in management of her chronic back pain given her struggle with addiction to themdeclin e to prescribe chronic opioids for neck and back pain. cont gabapentin to 600 mg qHS and 300mg in the afternoon. refill flexeril prncont tylenol 1000mg po TID prn. she does occasional ly take naproxen which at lower doses has been helpful and does not make her as dizzysched ule with pain clinic for worsening pain and repeat injection vs injection to different area of pain Osteopenia 678695784 M85 .80 bone density 01/30/17 showed normal density spine and L femoral neck, osteopenia total L hipcont weigth bearing exercise and 1200mg calcium combined with vitamin D via diet or supplement ation and repeat BMD 01/30/19 Major depr essive disorder 277270971 F32.9 denies SIdoing well right now minimizing contact with daughter, toxic relationsh ip, and taking care of her body and prayingcon t self caref/u prn Spleen finding [id number] R94.8 need to re-order spleen imaging for approval through her insurance. Order placed and faxed to [facility] for PA. Pt to call if has not heard in next 2 weeks about appt [id number] Victorina [place] [address] [place] [address] 08/29/2017 09:50:25 09/06/2017 15:12:49 Screening for malignant neoplasm of colon 287152331 Z12.11 Pain in ri ght hip joint [id number] 21529 M25.551 eval with xray rule out fx and OA tx with medrol pack and then ibuprofen as needed. she requests 800mg tabs to break in half and see if tolerates (has made her dizzy in past but does help the pain)rest, icef/u xrayRTC problems with ambulation worsening pain or not repsonding to above Chronic back pain 100937 002 G89.29 establishe d, stablerefi ll flexeril prncont tylenol 1000mg po TID prn. she does occasional ly takes OTC ibuprofen lower doses has been helpful and does not make her as dizzysched ule with pain clinic for worsening pain and repeat injection vs injection to different area of pain Greater tr ochanteric pain syndrome 5357932 M70.61 [id number] MD LORENZA Murdock [address] [place] [address] 10/02/2017 15:24:27 10/02/2017 16:35:41 Essential hypertension 34913967 I10 --Managed with RX Hyperlipidemia 49090754 E78.2 07/05/17: TCHOL:225 HDL:71 TRI LDL:116 Overweight 434645744 E66 .3 10/02/17: WT: 149 lbs. 3 ozs. BMI: 25.4 Body mass index 25-29 - overweight 238716435 Z68.25 10/02/17: BMI: 25.4 History of eating disorder 1889795387 87162 Z86.59 --Pt reports hx eating disorder including starving herself, binging and purging, beginning at age 13 and continued until 2 years ago when she started Atkins diet. [id number] Victorina [place] [address] [place] [address] 10/04/2017 09:18:17 10/04/2017 10:21:45 Screening for malignant neoplasm of breast 591331656 Z12.31 Greater tr ochanteric pain syndrome 1577931 M70.61 Xray showed mild narrowing o R hip joint space small osteophyte from acetabular margin R femoral head. no fx or dislocatio nreports she saw ortho yesterday though not consult available for my review today. she will reconsider steroid injectionr efer PTsmall amt tylenol with codeine provided not to be taken when driving or drinking alcohol and not to be refilled. plans to take tylenol as needed after that reviewed maximum doses of tylenolf/u ortho if no relief with PT Essential hypertension 93987427 I10 no CP, HABP elevated again today increase enalapril to 20mg po BIDf/u 3-4 weeks BP check to ED/911 for CP, severe CONROY with vision changes/pr oblems speech/bal ance, concern Foot-drop 6516753 M21.37 9 nerve damage from trauma/spi nal surgeries er AFO is very old and falling apart and she has been tripping without it, needs new one, will provide with a script and fax to [place] [id number] [place] [address] 10/31/2017 09:29:43 10/31/2017 10:18:30 Administration of diphtheria, pertussis, and tetanus vaccine 963331049 Z23 Antibody measurement 352 7003 Z01.84 nop indication communicab le infection on exam today, Tdap admin and titers drawn Dysphagia 58859675 R13.1 0 refer GI for eval dysphagia and abnormalit y of pharynx (though may be better evaluated by ENT with laryngosco py but will eval with EGD 1st given dysphagia r/o stricture or malignancy and may be able to biopsy)f/u after consult [id number] Victorina [place] [address] [place] [address] 11/09/2017 13:53:49 11/09/2017 16:17:55 Sore throat 295849621 J02.9 neg rapid strep, check monotx post nasal drip as abovef/u rn worsening symptoms or not responding to above Headache 20365848 R51 normal neuro exam, attributes to allergic sinusitis as above Allergy to mold 54000114 3 Z91.048 check resp allergy panel, address mold at homecont flonasetx with medrol pack and cetirizine f/u labs and RTC if worsening symptoms or not responding to above [id number] Victorina [place] [address] [facility] [place] [address] 01/22/2018 08:27:18 01/22/2018 09:13:48 Essential hypertension 98569986 I10 no CP, HABP elevated today cont enalapril to 20mg po BIDconcern ed that sporadic use of clonidine may be contributi ng to rebound HTN/BP fluctuatio ns so will d/c and start hydroxyzin e prn anxiety instead and start hctz 25mg po dailyf/u 2 weeks BP check sooner prn dizziness, CP, CONROY, concern to ED/911 for CP, severe CONROY with vision changes/pr oblems speech/bal ance, concern Anxiety 51812150 F41.9 see above Pain in throat 415559295 R07.0 bumps most consistent with transient lingular papillitis and pt concerned this is a reaction to black mold in her apartment. she did not get any relief with medrol pack or zyrtecshe has upcoming GI appt for her complaint of dysphagia and will refer to ENT as well and pt will f/u with me after these consultsin surance will not pay for mold testing and $250 out of pocket so pt declines and will discuss with ENT Chronic back pain 485750 002 G89.29 establishe d, stablecont flexeril prncont tylenol 1000mg po TID prn. she does occasional ly takes OTC ibuprofen lower doses has been helpful and does not make her as dizzyprovi ded refill of small amt tylenol with codeine though reviewed no more than 4G tylenol in 24 hours. she verbalizes understand ingschedul e with pain clinic for worsening pain and repeat injection vs injection to different area of pain [id number] Victorina [place] [address] [place] [address] 04/02/2018 14:44:10 04/02/2018 16:30:40 Greater trochanteric pain syndrome 2984194 M70.61 Xray showed mild narrowing of R hip joint space small osteophyte from acetabular margin R femoral head. no fx or dislocatio nshe will reconsider steroid injection and has # to call ortho to scheduledi scussed PT, she refers to do exercises at home, provided with printoutsr eviewed risk opioid medication in pt with hx misuse. She verbalizes understand ing and states tylenol with codeine helps pain a little without causing stomach upset of NSAIDs and denies misuse or desire to escalate use as had in past with oxycodone. check urine tox#30 tylenol with codeine daily prn provided not to be taken when driving or drinking alcohol and agree to continue 30 tabs per month without increasing for her chronic hip neck and back pain. f/u 1 month Hypertriglyceridemia 302 250379 E78.1 reviewed healthy diet and exercisech dante fasting lipids and LFTs Vitamin D deficiency 347 92289 E55.9 low in past takes OTC supplement on occasionch dante vitamin d level [id number] Victorina [place] [address] [place] [address] 05/01/2018 12:52:58 05/01/2018 13:58:01 Greater trochanteric pain syndrome 6741849 M70.61 Xray showed mild narrowing of R hip joint space small osteophyte from acetabular margin R femoral head. no fx or dislocatio nshe will reconsider steroid injection and has # to call ortho to scheduledi scussed PT, she prefers to do exercises at home, provided with printouts last visitraghav sanford risk opioid medication in pt with hx misuse. She verbalizes understand ing and states tylenol with codeine helps pain a little without causing stomach upset of NSAIDs and denies misuse or desire to escalate use as had in past with oxycodone. recent urine tox and MA pat consistent #30 tylenol with codeine daily prn provided not to be taken when driving or drinking alcohol and agree to continue 30 tabs per month without increasing for her chronic hip neck and back pain.she plans to reschedule with ortho for injection and f/u with me in 1 month Essential hypertension 37728770 I10 no CP, HABP elevated today cont enalapril to 20mg po BIDpt contracts to stop taking her BP at home and stop self-adjus ting medication sshe does not wish to take hctz so taken off listclonid ine helps anxiety and HTN and she agrees to take consistent ly instead of prn to avoid rebound HTN she has experience d in paststart clonidine 0.1mg po BIDf/u 2 weeks BP check sooner prn dizziness, CP, CONROY, concern to ED/911 for CP, severe CONROY with vision changes/pr oblems speech/bal ance, concern Chronic pain syndrome 37 9745433 G89.4 see above regarding hipreviewe d breathing and meditation exercises to take focus off painshe plans to start water walking, yoga as toleratedf /u 1 month, sooner prn [id number] Victorina [place] [address] [facility] [place] [address] 05/29/2018 08:26:23 05/29/2018 10:49:06 Screening for malignant neoplasm of breast 260563154 Z12.31 Essential hypertension 84327176 I10 no CP, HABP improved but still mildly elevated today cont enalapril 20mg po BID and clonidine 0.1mg po BID which is for her BP and anxiety though rec she take standing to avoid rebound HTN she has had with abruptly stopping in [facility] ed possible SE of amlodipine and pt would like to proceed with amlodipine 2.5mg po dailyf/u 2 weeks BP check at clinic in [facility] sooner prn dizziness, CP, CONROY, concern f/u at [facility] when [facility] in [facility] ED/911 for CP, severe CONROY with vision changes/pr oblems speech/bal ance, concern Greater tr ochanteric pain syndrome 5567915 M70.61 Xray showed mild narrowing of R hip joint space small osteophyte from acetabular margin R femoral head. no fx or dislocatio nshe will reconsider steroid injection and has # to call ortho to scheduledi scussed PT, she prefers to do exercises at home, provided with printouts last visitrevie wed risk opioid medication in pt with hx misuse. She verbalizes understand ing and states tylenol with codeine helps pain a little without causing stomach upset of NSAIDs and denies misuse or desire to escalate use as had in past with oxycodone. recent urine tox and MA pat consistent #30 tylenol with codeine daily prn provided not to be taken when driving or drinking alcohol and agree to continue 30 tabs per month without increasing for her chronic hip neck and back pain.f/u 1 month sooner prn Anxiety 29267344 F41.9 worried about flightdisc ussed possible SE and she would like to proceed with hydroxyzin e to take 30 minutes prior to flight prn anxiety Chronic back pain 599239 002 G89.29 establishe d, stablecont tylenol 1000mg po TID prn. she does occasional ly takes OTC ibuprofen lower doses has been helpful and does not make her as dizzy provided refill tylenol with codeine as aboverevie wed medication , yoga, breathing exercises for chronic painfu 1 month [id number] Eriberto ferrer MD [place] [address] [facility] [address] [place] [address] 07/01/2018 08:28:06 07/01/2018 10:35:50 Essential hypertension 70131827 I10 BP well controlled todayagree to continue on just clonidine and enalapril Greater tr ochanteric pain syndrome 4305083 M70.61 reviewed [employer] record -- has been having monthly refills as prescribed by last PCPlast filled 05/29/18,req uesting to be evaluated by a different property specialist , believes that may need surgery for ongoing R hip issuespati ent to call insurance to see which specialist s will accept insurance, then can have new referral generated for 2nd opinion [id number] Antonia Negron MD ZZZ NQ-ADULT DO NOT USE [address] [place] [address] 08/16/2018 09:42:26 08/16/2018 16:45:36 Greater trochanteric pain syndrome 4133822 M70.61 - xray hip in 09/03/18: mild narrowing o R hip joint space small osteophyte notes from acetabular margin R femoral head- need to f/u with orthopedic s- [employer] reviewed- UDS today- refill given- RTC with PCP at [facility] Right uppe r quadrant pain 583515242 R10.11 - DDx Gb disease vs hepatitis vs lipomas- h/o abdominal wall lipoma s/p excision - US order given- h/o s/o Hep C tx in 2017- h/o + Hep B core AB- will do labs- ED precaution s given- will contact patient with results- RTC as needed Long-term drug therapy 475599283 Z79.899 History of hepatitis C 5101025426 9101 Z86.19 - Gt1a, F0 s/p tx with Cheryl- reviewed RF with patient, denies- will do labs today [id number] CHAITANYA Heredia [address] [facility] [place], [place] [address] 09/04/2018 08:24:09 09/04/2018 09:22:10 Atypical chest pain 447841390 R07.89 -ECG wnl as per patient, at [facility] in [facility]--> signed release for records-Ex am wnl, VSS aside from elevated BP- plan noted below-DDx: MT (unlikely per recent ECG), PE, CM, AI, pn, pleuritis, GERD, musculoske latal, anxiety/pa karol attack (most likely)-Pa tiefeliciano very anxious with varying tangential thoughts-A larm signs reviewed-- > to -Send to cards for chest stress for atypical chets pain, f/u after test/consu lt Essential hypertension 30996630 I10 -Establish ed, unstable-B P 154/98 in office, patient is non-compli ant/adhere nt on clonidine and enalapril, misses many doses-Stre ss important of compliant on medication - to take a prescribed - expresses understand ing-Discus sed possible complicati ons from uncontroll ed BP including MT, stoke, etc-F/u in 3 months for BP check-F/u with cardiology as advised for CP Chronic back pain 412472 002 M54.9 -Continue on tylenol #3 at night as needed, tylenol PRN during day for pain-Santy nue f/ at pain clinic for injections - patient upset they will not prescribe her stronger pain medication --> advised can call [facility] pain clinic to discuss med management -F/u with ortho/pain clinic as planned [id number] CHAITANYA Heredia [address] [facility] [place] [address] 09/26/2018 11:12:22 09/26/2018 12:40:31 Essential hypertension 60376500 I10 -Establish ed, unstable-P atient is non-compli ant/adhere nt on clonidine and enalapril, misses many doses-Stre ss important of compliant on medication - to take a prescribed - expresses understand ing-Refill of clonidine sent-Discu ssed possible complicati ons from uncontroll ed BP including MT, stoke, etc-F/u in 3 months for BP check-F/u with cardiology as advised for h/o atypical CP Mass of skin 799721603 R 22.9 -2 cm superficia l mobile mass palpated along anterior lower rib cage just superior to RUQ adjacent to scar s/o lipoma excision-R eports severe pain/distr ess to palpation- Concerned more for surgical/s car tissue complicati ons vs. abdominal pathology- OTC NSAIDs/tyl enol for pain, continue compresses -Patient advised to f/u with general surgeon to discuss treatment [id number] HCAITANYA Heredia [address] [facility] [place] [address] 11/06/2018 19:10:43 11/06/2018 20:21:25 Imaging of spleen abnormal 038386599 R93.5 -2 cm enhancing lesion seen on CT with previous abnormalit y non imaging >2 years ago-Never had f/u MRI--> new order sent for further eval Lipomatosis 733609743 E8 8.2 -2 cm superficia l mobile mass palpated along anterior lower rib cage just superior to RUQ adjacent to scar s/o lipoma excision -Reports severe pain/distr ess to palpation -Concerned more for surgical/s car tissue complicati ons vs. abdominal pathology -OTC NSAIDs/tyl enol for pain, continue compresses -Patient advised to f/u with general surgeon to discuss treatment- -> agree with lipoma diagnosis, discuss excision with surgeon Essential hypertension 40558703 I10 -Establish ed, unstable-P atient is non-compli ant/adhere nt on clonidine and enalapril, misses many doses-Stre ss important of compliant on medication - to take a prescribed - expresses understand ing-Refill of clonidine sent-Discu ssed possible complicati ons from uncontroll ed BP including MT, stoke, etc-F/u in 1-2 months for BP check-F/u with cardiology as advised for h/o atypical CP Chronic back pain 308735 002 M54.9 -Continue on tylenol #3 at night as needed, tylenol PRN during day for pain-Santy nue f/ at pain clinic for injections - patient upset they will not prescribe her stronger pain medication --> advised can call [facility] pain clinic to discuss med management -F/u with ortho/pain clinic as planned Health Concerns Section Related Observation LastModified by Organization Detai ls LastModified Time None Recorded Concern Status LastModified by Organization Details LastModified Time None Recorded Advance Directives Directive None Recorded Payers Encounter Date Sequence Insurance Name Policy Number Policy Tena Covered Member ID Tena Member ID Guarantor Name 07/01/2018 1 [place] [employer] Heaven A Mario [id number] Heaven Martin 07/01/2018 2 [place] Heaven Aranda Mario [id number] Heaven Martin 08/16/2018 1 [place] [employer] Heaven A Mario [id number] Heaven Martin 08/16/2018 2 [place] Heaven Aranda Mario [id number] Heaven Martin 09/04/2018 1 MEDICARE B-[place]: [facility] [employer] Heaven A Mario [id number] Heaven Martin 09/04/2018 2 [place] Heaven Aranda Martin [id number] Heaven Martin 09/26/2018 1 [place] [employer] Heaven A Mario [id number] Heaven Martin 09/26/2018 2 [place] Heaven A Mario [id number] Heaven Martin 11/06/2018 1 [place] [employer] Heaven A Mario [id number] Heaven Martin 11/06/2018 2 [place] Heaven A Mario [id number] Heaven Mario Notes Date Note Type Note Provider Name and Address Organization Details Recorded Time 07/01/2018 text/html here for BP chec k, medication refill had low dose amlodipine added to medication regimen for HTN control on last visit within the past month; noted BP well controlled today on to reports that stopped taking amlodipine, due to not wanting to take Eriberto Fernandez MD [address] [place], [address], [facility] 07/17/2018 13:03:23 08/16/2018 text/html here for f/u she has been having RUQ painon and off for 6 monthsfor the last week she was having more painshe has a h/o lipoma in RUQ area- s/p excision several years agono change on BMappetite decreasedno change on urineno sore throat + CONROY+ fatiguefeverish +no swollen glansbut no feels better Antonia Negron MD [address] [place], [address], [facility] 08/16/2018 10:32:39 09/04/2018 text/html 57F is here c/o chest tightness over the past 2 weeksBegan while she was on vacation in [place] with her daughterSays pain was severe, mostly on right side of chestSays she had to push on chest to relieve pain which did helpSays when her plan landed back in [place], she went right to [facility] in [place] for chest pain within the last weekHad ECG which she was told was normal, says she left AMA after ECG because she did not feel she needed to stayAdmits chest pain still present intermittently but not as intenseBP has been high but say she is not compliant on clonidineBelieves that B complex vitamin helps lower her BP but says she cannot afford that supplementDenies any palpitations, CONROY, vision changes, SOB, n/v, changes in appetite Lacie Masters PA-C [address] [place], [address], [facility] 09/05/2018 11:15:14 09/26/2018 text/html 57 is here c/o r ight sided abdominal pain x 6 monthsPain originally intermittent but has gotten more persistent over the past few weeksWorst with direct touch/pressure but now also occuring at rest and relieved only with laying downHad full work up including labs and abdominal US done recently, all which returned unremarkableAsuncion has a h/o abdominal wall lipomas in RUQ area- s/p excision several years ago ([address] Bunch)Pain is occuring around scar site in RUQH/o Hep C treated with Harvoni in 2016Den any changes in BM, urination, appetite, fatigue, feverHas been applying heat and ice with little releif Lacie Masters PA-C [address] [place], [address], [facility] 09/26/2018 15:07:13 11/06/2018 text/html 57 is here for f /u for right sided painHas been c/o right sided abdominal pain x 6 months Pain originally intermittent but has gotten more persistent over the past few weeks Worst with direct touch/pressure but now also occuring at rest and relieved only with laying down Had full work up including labs and abdominal US done recently, all which returned unremarkable CT was negative aside from enhancing lesion of spleen in which she has had abnormal spleen findings in past with no f/u MRIShe has a h/o abdominal wall lipomas in RUQ area- s/p excision several years ago ([address] Bunch) Pain is still occuring around scar site in RUQ Saw general surgeon last month wh diagnosed her with lipomatosis and ordered CT which was normal- advised of f/u as neededH/o Hep C treated with Harvoni in 2016 Labs normal in July 2018Den any changes in BM, urination, appetite, fatigue, fever Has been applying heat and ice with little releifRequesting refill of pain medication Lacie Masters PA-C [address] [place], [id number], [facility] 11/06/2018 20:14:16 OBGyn Episode No OBEpisode recorded.
== END 2024-07-31 09:46 | disposition home or self-care (01) ==
LOC: HO.PMC 09:08
PROVIDERS: PCP Internal Medicine; Visit Provider Anesthesiology
DX: G90.521 Complex regional pain syndrome I of right lower limb (principal); M51.360 Other intervertebral disc degeneration, lumbar region with discogenic back pain only; M96.1 Postlaminectomy syndrome, not elsewhere classified; Z79.891 Long term (current) use of opiate analgesic; I63.9 Cerebral infarction, unspecified
CPT/HCPCS: 99213

== ENCOUNTER → 2024-07-31 09:08 | Outpatient (BNVA) | payer MEDICARE, MEDICAID, SELFPAY | PROVIDERS: PCP Internal Medicine; Visit Provider Anesthesiology | DX: M51.360 Other intervertebral disc degeneration, lumbar region with discogenic back pain only (principal); G90.521 Complex regional pain syndrome I of right lower limb; M96.1 Postlaminectomy syndrome, not elsewhere classified; Z51.81 Encounter for therapeutic drug level monitoring; Z79.891 Long term (current) use of opiate analgesic; Z86.73 Personal history of transient ischemic attack (TIA), and cerebral infarction without residual deficits | CPT/HCPCS: 99212 ==

== ENCOUNTER 2024-08-28 09:00 | Outpatient (AMB) | payer MEDICARE, MEDICAID, SELFPAY ==
--- NOTE | 2024-08-28 09:01 | A.OFFVIS_ITS ---
Vital Signs 08/28/24 09:03 Height 5 ft 6 in Weight 160 lb 2 oz BMI 25.8 BP 123/72 Blood Pressure Location Lt brachial Position Sitting Pulse 62 Pulse Source Pulse Oximeter Pulse Oximetry (%) 97 Oxygen Delivery Method Room Air Intake Visit Reasons: Pill Count Allergies ibuprofen [From Motrin] Adverse Reaction (Severe, Verified 08/28/24 09:04) high blood pressure, dizzy and chest pain NSAIDS (Non-Steroidal Anti-Inflamma Adverse Reaction (Severe, Verified 08/28/24 09:04) palpitations,dizziness HPI Comments Details: Heaven is back in my office for the follow-up and pain medication refill as well as pill count. Pill count today is correct she presented today with 1 pill in her possession, she supposed to have 2pills in her possession. Technically pill count is correct. She reports her pain severe 8/10 today. I agreed today to increase the daily dose for her to 3 pills of oxycodone a day. Because she presented today with the and of the medication her script she supposed to have only 2 pills in her possession I would schedule her appointment with me in 3 weeks so we would have something to count in her pill bottle . I she is also taking pregabalin and Ambien. We discussed possibility of treatment of respiratory depression. I told her not to take pregabalin or Ambien within 2 hours of taking oxycodone. She also has Narcan at home. I explained to her that she needs to tell all of her neighbors and friends about the Narcan in the way to use it in the situation when they will find her unconscious and breathing less than 8 breaths a minute. She denies side effects of the opioid medication at this time. She denies constipation. Prior: She has Complex regional pain syndrome of the right lower extremity she also suffers from postlaminectomy syndrome of the lumbar spine she had Barbosa rods inserted and removed. I offered her intrathecal pain pump trial and spinal cord stimulation trial. Initially patient was agreeable to that but after I started her on opioid medication she withdrew her agreement. She brought today a copy of the receipt from 1 of the local cannabis [facility] [place]. Currently I will allow her to continue on oral opioids since the consumption of the cannabis is legitimate. Her UDS come came back and it was positive for carisoprodol and cannabis. Her PHQ score is equal to 9. Her addiction score is equal to 7. Therefore total opioid addiction risk score is equal to 16. She therefore has moderate risk for opioid addiction. Prior: very unfortunate 63 years old female who presented today in my office after 3 years of absence. She was seen in 2020. She is suffering from Complex regional pain syndrome of the right foot with severe burning, pins and needles, crushing pain and wrenching pain sensation. She exhausted conservative therapy to treat this condition. She tried multiple medications including gabapentin which causes alopecia, Lyrica causes weight gain in sodium retention, she is allergic to ibuprofen and NSAIDs which cause palpitation and dizziness. She is currently taking Tylenol, her primary care physician prescribes her short course opioid medications. She reports today in the office with pain 10/10. She is also suffering from postlaminectomy syndrome, she had Barbosa fanny insertion for scoliosis and removal of the Barbosa rods. [facility] Medical History Numbness and tingling of both feet Neuropathy Reflex sympathetic dystrophy of right leg Left lower quadrant pain Left groin pain Insomnia HCV (hepatitis C virus) Hemorrhoids Pure hypercholesterolemia Postlaminectomy syndrome Overweight (BMI 25.0-29.9) Memory loss or impairment Cerebrovascular accident (CVA) (~2019) Lumbar degenerative disc disease Benign essential hypertension Hair loss Paresthesia of foot Surgical History History of colonoscopy History of surgery History of neck surgery History of hysterectomy Family History Father Diabetes Mother Lung cancer Past heart attack Daughter In good health Brother In good health Brother No problems noted. Brother No problems noted. Family/Other Colon cancer Social History Housing: Apartment Alcohol intake: current Alcohol intake frequency: holidays/special occasions only Patient Tobacco Use Status: Never used Tobacco e-Cigarette/Vaping Use: Never Used Second Hand Smoke Exposure: No service: No Current occupational status: disabled Cognitive needs: No Hearing needs: No Vision needs: No Female Reproductive History Menstrual Age of Menarche: 8 Review of Systems Const All systems reviewed & are unremarkable except as noted in HPI and below Physical Exam Vital Signs: Last Vital Signs Pulse 62 08/28/24 09:03 BP 123/72 08/28/24 09:03 Pulse Ox 97 08/28/24 09:03 Oxygen Delivery Method Room Air 08/28/24 09:03 BMI result Body Mass Index 25.8 Const General: cooperative, healthy appearing and comfortable Eyes General: appearance normal, both eyes and all related structures Pupils: Equal, round and reactive pupils present EOM: EOMs intact bilaterally Resp Effort & Inspection: normal respiratory effort, able to speak in complete sentences, normal respiratory pattern, no audible wheezes and no cough Cardio Jugular venous distension: no JVD Neuro Cranial nerves: Yes Equal, round and reactive pupils present Extrem Other: she is awkward with her right lower extremity and there is objective weakness in the right lower extremity. There is also weakness and numbness and right upper extremity however not that pronounced like a right lower extremity. She exhibits antalgic gait on the right and foot drop on the left. She reports that footdrop on the left is secondary to prior longstanding injury. Assessment & Plan Assessment & Plan (1) Cerebrovascular accident (CVA): Onset Date: ~2018 Comment: (+) CVA in 2019, with residual right-sided weakness primarily involving the right arm and right leg - S/P physical therapy with only some improvement of her weakness Code(s): I63.9 - Cerebral infarction, unspecified Category: Medical Qualifiers: CVA mechanism: unspecified Qualified Code(s): I63.9 - Cerebral infarction, unspecified (2) Lumbar degenerative disc disease: Comment: Has failed back sydrome/postlaminectomy syndrome Code(s): M51.36 - Other intervertebral disc degeneration, lumbar region Category: Medical Qualifiers: Disc-related pain type: discogenic back pain only Qualified Code(s): M51.360 - Other intervertebral disc degeneration, lumbar region with discogenic back pain only (3) Postlaminectomy syndrome: Code(s): M96.1 - Postlaminectomy syndrome, not elsewhere classified Category: Medical Plan: Heaven came today to start chronic oral opioid therapy. (4) Complex regional pain syndrome i of right lower limb: Code(s): G90.521 - Complex regional pain syndrome I of right lower limb Category: Medical Plan PHQ score is equal to 9. Opioid addiction score is equal to 7. Therefore total score is 16. Pill count today is correct see as above. Her new prescription will be issued for 08/29/2024 She is prescribed naloxone intranasal in May of 2024. I explained to the patient that she needs to inform about Narcan all her relatives, neighbors and friends. Unfortunately she lives alone. Initially she left me under impression that she would like to participate in neuromodulation, however later on she changed her mind stating that she is uncomfortable with any surgeries or interventional procedures. I decided today to escalate slightly her daily dose and prescribe her 3 doses of 5 mg oxycodone a day. I will not be very eager to continue escalation of the opioid medications for this patient. Next time I will see her in 3 weeks for pill count and I will send for physical therapy. Medications: Changed From oxycodone Partial Fill upon patient request. 5 mg PO BID 30 days PRN 60 tabs 0RF pain To oxycodone Partial Fill upon patient request. 5 mg PO Q8H PRN 90 tabs 0RF pain 30 days Patient Instructions: I here by testify that I spent 30 minutes in conversation with this patient as well as planning her care and organizing this note. Coding Level of Care Code Est Pt Level 4 (77391) Diagnoses Cerebrovascular accident (CVA), unspecified mechanism I63.9 CVA mechanism: unspecified Degeneration of intervertebral disc of lumbar region with discogenic back pain M51.360 Disc-related pain type: discogenic back pain only Postlaminectomy syndrome M96.1 Complex regional pain syndrome i of right lower limb G90.521
[2024-08-28 09:03] VITALS: BP 123/72; PULSE 62; O2SAT 97; BMI 25.8
--- OUTSIDE RECORDS SUMMARY | 2024-08-28 09:33 | XMS_ITS | Data Portability ---
Author Organization [place] [facility], _[facility] Address [address] [place] [address] Assessment No assessment recorded. Plan of Treatment Reminders Order Date Submit Date Provider Last Modified By Organization Details Last Modified Time Details Appointments None recorded . Lab drug screen, urine 2016 017 [facility] (Closed Permanently, Testing Ceased), [address], [place], [address], 7 10:27:42 BMP, serum or plasma 2016 017 [facility] (Lab), [address] [facility], [place], [address], 7 21:40:17 unlisted lab - vitamin D 25 hydroxy by lcmsms 2016 017 [facility] (Lab), [address] [place], [address], 7 12:35:32 Referral pain manageme nt referral 2016 017 [facility] (Pain Management), [address] [facility], [facility] [address], [place], [address], 7 23:19:05 Procedures None recorded . Surgeries None recorded . Imaging None recorded . Medication Orders tramadol 50 mg tablet 2016 017 mary annprzully [facility] #[id number], [address] [place], [address], 7 15:26:29 Vasotec 10 mg tablet 2016 017 [facility] #[id number], [address] [place], [address], 7 15:27:22 oxycodon e 15 mg tablet 2016 017 [facility]/Pharmacy #[id number], [address] [place], [address], 7 15:27:14 Vasotec 10 mg tablet 2016 017 [facility] #[id number], [address] [place], [address], 7 15:26:24 oxycodon e 15 mg tablet 2016 017 [facility]/Pharmacy #[id number], [address] [place], [address], 2 09:40:47 cycloben zaprine 10 mg tablet 2016 017 [facility]acy #[id number], [address] [place], [address], 7 15:11:47 Patient TargetsNo targets recorded. Patient Instructions Encounter Date Encounter Id Patient Instructions Last Modified By Organization Details Last Modified Time 07/17/2016 [id number] 30 mins spent with pt and >50% of face to face time spent on counseling. [email or web address] Not available 07/17/2016 19:25:44 08/07/2016 [id number] 30 mins spent with pt and >50% of face to face encounter spent on counseling. [email or web address] Not available 08/07/2016 19:38:25 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 Pain Management Referral for Chronic pain Referring Physician: Elsy Gold, Internal Medicine, Encounter Date: 05/31/2016 Results Created Date Observation Date Name Description Value Unit Range Abnormal Flag Note LastModifiedBy Organization Detail LastModifiedTime 06/14/19 17 06/14/2016 BMP, serum or plasm a sodium 142 mmol/ L 136-14 5 normal Not Available [facility] (Lab) [address] [place], [address], 06/15/2016 09:59:28 06/14/19 17 06/14/2016 BMP, serum or plasm a potassium 4.6 mmol/ L 3.5-5. 1 normal Not Available [facility] (Lab) [address] [place], [address], 06/15/2016 09:59:28 06/14/19 17 06/14/2016 BMP, serum or plasm a chloride 97 mmol/ L 98-107 low Not Available [facility] (Lab) [address] [place], [address], 06/15/2016 09:59:28 06/14/19 17 06/14/2016 BMP, serum or plasm a carbon dioxide 23 mmol/ L 22-29 normal Not Available [facility] (Lab) [address] [place], [address], 06/15/2016 09:59:28 06/14/19 17 06/14/2016 BMP, serum or plasm a glucose 111 mg/dL 74-109 high Not Available [facility] Annie Fishman (Lab) [address] [place], [address], 06/15/2016 09:59:28 06/14/19 17 06/14/2016 BMP, serum or plasm a BUN 11 mg/dL 6-20 normal Not Available [facility] Annie Fishman (Lab) [address] [place], [address], 06/15/2016 09:59:28 06/14/19 17 06/14/2016 BMP, serum or plasm a creatinine 0.7 mg/dL 0.5-0. 9 normal Not Available [facility] (Lab) [address] [place] [place], [address], 06/15/2016 09:59:28 06/14/19 17 06/14/2016 BMP, serum or plasm a calcium 10.0 mg/dL 8.6-10 .0 normal Not Available [facility] (Lab) [address] [place] [place], [address], 06/15/2016 09:59:28 06/14/19 17 06/14/2016 BMP, serum or plasm a anion gap 22 mmol/ L 6-18 high Not Available [facility] (Lab) [address] [place], [address], 06/15/2016 09:59:28 06/14/19 17 06/14/2016 BMP, serum or plasm a est glom filtration rate calc2 86.2 normal MULTI PLY X 1.212 IF OF AFRIC AN AMERI CAN DESCE NT PAULINA L KIDNE Y FUNCT ION >60 mL/mi n RESUL TS PAULINA LIZED TO 1.73 m SQUAR ED BODY SURFA CE AREA Not Available [facility] (Lab) [address] [place], [address], 06/15/2016 09:59:28 06/14/19 17 06/15/2016 vitam in D, 25-hy droxy , total , serum vitamin D total 32.30 NG/mL 30-100 normal Defic iency : <10 ng/mL Insuf ficie ncy: 10 - 30 ng/mL Suffi cienc y: 30 - 100 ng/mL Toxic ity: >100 ng/mL Not Available [facility] (Lab) [address] [place], [address], 06/15/2016 09:59:29 Result Notes None recorded. Problems Name Problem SNOMED Code Status Onset Date Resolution Date Notes Provider Name and Address Organization Details Recorded Time Low back pain 280520053 Active 2015 Elsy Godl MD [address] [place] [address], [phone] , [facility] 01/11/201 7 06:26:19 Chronic pain 82807217 Active 2015 W/U Status: confirme d Not Available [facility] 7 15:27:31 Neck pain 16894275 Active 2015 W/U Status: confirme d Not Available [facility] 7 15:27:31 Foot-augie p 1354881 Completed 201505/31/2016 W/U Status: confirme d Elsy Gold MD [address] [place] [address], [phone] , [facility] 7 06:27:26 Carpal tunnel syndrome 46097427 Active 2015 W/U Status: confirme d Not Available [facility] 7 15:27:32 Chest pain 41644079 Active 2015 Atypical chest pain, stress test negative for ischemia , echo normal. W/U Status: confirme d Elsy Gold MD [address] [place] [address], [phone] , [facility] 7 06:27:00 Vitamin D deficien cy 25897164 Active 2015 advised to take vitamin D 2,000 iu daily OTC. W/U Status: confirme d Elsy Gold MD [address] [place] [address], [phone] , [facility] 7 06:27:17 Stress 84741264 Active 2015 advised stress can also raise BP. Stress mgt deniz jean Declined ghanshyam matthew ;W/U Status: confirme d Not Available [facility] 7 15:27:32 Heart murmur 21683566 Active 2015 obtain echo;W/U Status: confirme d Not Available [facility] 7 15:27:32 Hyperten sive disorder 51710130 Active 2015 W/U Status: confirme d Not Available [facility] 7 15:27:34 Foot-augie p 7385903 Active 2016 Elsy Gold MD [address] [place] [address], [phone] , [facility] 7 06:27:39 Problem Notes None recorded. Medical Equipment None Reported. Allergies Allergen ID Allergen Name Allergen Category Reaction Reaction Severity Criticality Documentation Date Start Date Code Code System Note Provider Name and Address Organization Details Recorded Time 663247 amitripty line hydrochlo ride medicatio n irregular heart rate Not available Not available 05/24/20162015 81536 8 RxNorm React ion: palpi tatio ns; Not Available [facility] 7 09:03:45 689625 cyclobenz aprine hydrochlo ride medicatio n dizziness Not available Not available 05/24/20162015 17427 RxNorm React ion: dizzi ness; Elsy lieberman MD [address] [place] [address], [phone] [place] [address] [facility] 7 20:31:33 021514 gabapenti n medicatio n dizziness Not available Not available 05/24/20162015 21727 RxNorm React ion: dizzi ness; Not Available [facility] 7 09:03:45 513069 lisinopri l medicatio n dizziness Not available Not available 05/24/20162015 47853 RxNorm React ion: dizzi ness; Not Available [facility] 7 09:03:45 213567 amlodipin e besylate medicatio n chest pain Not available Not available 05/24/20162015 86914 6 RxNorm React ion: chest pain; Not Available [facility] 7 09:03:45 529545 Non-stero idal anti-infl ammatory agent (product) medicatio n chest pain Not available Not available 05/24/20162015 03386 005 SNOMED React ion: chest pain; Not Available [facility] 7 09:03:45 Medications Name Sig Start Date Stop Date Status Note LastModified by Organization Details LastModified Time multivitami n tablet active Actio n: Takin g;Felicity rce: Shannan Bautista MD;Fer pérez By: Shannan Bautista Not Available Not Available Not Available cyclobenzap rine 10 mg tablet 1 tablet; 10 MG; QHS prn; 30 day(s) 2016 active Not Available Not Available Not Avai lable lisinopril 20 mg tablet 1 tablet; 20 MG; twice a day; 30 day(s) 05/31 completed Actio n: Nicki wigginsinu ed;So urce: Shannan Bautista MD;Pr epare d By: Shannan Bautista Not Available Not Available Not Available amlodipine 5 mg tablet 1 tablet; 5 mg; Once a day; 30 day(s) 05/31 completed Actio n: Job torres;Felicity rce: Shannan Bautista MD;Pr epare d By: Shannan Bautista Not Available Not Available Not Available Vasotec 10 mg tablet Take 2 tablets in AM and 1 tablet in PM 2016 active Not Available Not Available Not Avai lable tramadol 50 mg tablet 1 tabs; 50 mg; every 8 hrs prn 2016 active Actio n: Job torres;Felicity rce: Shannan Bautista MD;Pr epare d By: Shannan Bautista Not Available Not Available Not Available oxycodone 15 mg tablet 1 tablet every 4-6 hrs PRN for pain. Max 5 a day. Fill date 07/17/16; 14 days 2016 active Actio n: Tyler can;Felicity rce: Shannan Bautista MD;Pr epare d By: Shannan Bautista 03/15 10:21 :35 AM Not Available Not Available Not Available amitriptyli ne 10 mg tablet 1 tablet; 10 mg; at bedtime; 30 day(s) 05/31 completed Actio n: Nicki wigginsincandace ed;So urce: Shannan Bautista MD;Pr epare d By: Shannan Bautista Not Available Not Available Not Available Zofran ODT 4 mg disintegrat ing tablet 1 tablet on the tongue and allow to dissolve; 4 mg; every 8 hrs prn for nausea/vo miting; 10 day(s) 05/31 completed Actio n: Job Pollard rce: Shannan Bautista MD;Pr epare d By: Mable Alberts 2015 12:55 :58 PM Not Available Not Available Not Available lisinopril 10 mg tablet 1 tablet; 10 MG; twice a day 05/31 completed Actio n: Job Pollard rce: Shannan Bautista MD;Pr epare d By: Shannan Bautista Not Available Not Available Not Available metoprolol succinate ER 25 mg tablet,exte nded release 24 hr 1 tablet; 25 MG; Once a day; 30 day(s) 05/31 completed Actio n: Start ;Sour ce: Shannan Bautista MD;Pr epare d By: Shannan Bautista 03/15 10:07 :47 AM Not Available Not Available Not Available Cardizem CD 120 mg capsule,ext ended release Take 1 capsule every day by oral route. 07/17 completed Not Available Not Available Not Available lidocaine HCl 5 % topical ointment 1 applicati on to affected area as needed; 5 %; Three times a day; 30 days 05/31 completed Actio n: Nicki aguilar ed;So urce: Shannan Bautista MD;Pr epare d By: Shannan Bautista Not Available Not Available Not Available oxycodone 5 mg tablet 1 tablet; 5 mg; every 6 hrs PRN; 14 days 05/31 completed Actio n: Job Pollard rce: Shannan Bautista MD;Pr epare d By: Shannan Bautista Not Available Not Available Not Available oxycodone 10 mg tablet 1 tablet; 10 MG; every 6 hrs PRN; 14 days 05/31 completed Actio n: Job torres;Felicity rce: Shannan Bautista MD;Fer pérez By: Shannan Bautista Not Available Not Available Not Available Vitals Date Recorded Body height Body weight Body mass index (BMI) Heart rate Oxygen saturation Oxygen saturation in Arterial blood by Pulse oximetry Systolic blood pressure Diastolic blood pressure Provider Name and Address Organization Details Last Updated DateTime 7 165.1 cm 35130 g 26.1 kg/m2 73 /min 99 % 99 % 122 mm[Hg] 82 mm[Hg] Marizol Braga [place] [facility] 7 14:26:29 Date Recorded Body height Heart rate Systolic blood pressure Diastolic blood pressure Systolic blood pressure Diastolic blood pressure Provider Name and Address Organization Details Last Updated DateTime 7 165.1 cm 103 /min 170 mm[Hg] 120 mm[Hg] 158 mm[Hg] 100 mm[Hg] Elisha Vargas LPN [facility] 7 11:06:29 Date Recorded Body height Body weight Body mass index (BMI) Oxygen saturation Oxygen saturation in Arterial blood by Pulse oximetry Heart rate Systolic blood pressure Diastolic blood pressure Provider Name and Address Organization Details Last Updated DateTime 7 165.1 cm 29540 g 26.1 kg/m2 99 % 99 % 104 /min 160 mm[Hg] 100 mm[Hg] Froylan Ireland [facility] 7 15:05:42 Date Recorded Body height Body weight Body mass index (BMI) Heart rate Oxygen saturation Oxygen saturation in Arterial blood by Pulse oximetry Systolic blood pressure Diastolic blood pressure Provider Name and Address Organization Details Last Updated DateTime 7 165.1 cm 11326.6 3 g 25.5 kg/m2 76 /min 99 % 99 % 150 mm[Hg] 90 mm[Hg] Froylan Ireland [facility] 7 15:02:21 Date Recorded Systolic blood pressure Diastolic blood pressure Provider Name and Address Organization Details Last Updated DateTime 08/07/2016 144 mm[Hg] 90 mm[Hg] Elsy Gold MD [address] [place] [address], [phone], [facility] 08/07/2016 15:27:34 Social History Question Answer Notes LastModified by Organizat ion Details LastModified Time Tobacco Smoking Status Never Smoker Marizol Braga [facility] 05/31/2016 14:28:08 What Is Your Level Of Alcohol Consumption? Occasional [email or web address] Information not available 05/31/2016 Sex: Unknown Functional Status None recorded. Mental Status None recorded. Family History Nothing Reported Notes:03/15/2016: FamilyHist oryDetails: 3 brother(s) , 1 sister(s) , 1 daughter(s) - healthy Father: STATUS: alivediagnosed with Diabetesdiagnosed with HTN Maternal Grand Father: not sure of cancer type;STATUS: deceaseddiagnosed with Cancer Maternal Grand Mother: STATUS: deceaseddiagnosed with Cancer Mother: lung cancer, smoker;STATUS: deceaseddiagnosed with Cancer NOTE: Sister - , hit by train Granparents - CAD Paternal Grand Father: STATUS: Paternal Grand Mother: STATUS: Medical History No medical history recorded. Gynecological HistoryNo gynecological history recorded. Obstetrics History GPAL:G 0 P 0 0 0 0 Past Encounters Encounter ID Performer Location Encounter Start Date Encounter Closed Date Diagnosis/Indication Diagnosis SNOMED-CT Code Diagnosis ICD10 Code Diagnosis Note [id number] Elsy Gold MD [address] [address] 05/31/2016 14:01:57 05/31/2016 15:36:11 Hypertensive disorder 45955373 I10 controlled , continue enalapril 10 mg BID, check BMP Chronic pain 77014020 G8 9.29 Chronic neck and back pain s/p multiple surgeries, injections , PT, heavy duty narcotics, [facility]. 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 2000 - T1 compressio n fracture, traumatic Continue oxycodone. CEMENT FINISHER reviewed. Refer to [facility]. Low back pain 514432205 M54.5 Vitamin D deficiency 347 03573 E55.9 advised to take vitamin D 2,000 iu daily OTC Spasm of back muscles 20 9984321 M62.830 Start flexeril only at night QHS prn. Cautioned about dizziness/ drowsiness . [id number] Elsy Gold MD [address] [place] [address] 06/14/2016 10:22:02 06/14/2016 11:09:18 Essential hypertension 61604966 I10 [id number] Elsy Gold MD [address] [place] [address] 07/17/2016 14:25:19 07/17/2016 16:24:51 Hypertensive disorder 60604978 I10 uncontroll ed today which could be due to pain, prior BP within goal, continue enalapril 10 mg BID, continue to monitor BP at home. Chronic pain 53234810 G8 9.29 Chronic neck and back pain s/p multiple surgeries, injections , PT, heavy duty narcotics, [facility] pain [facility]. SE with TCA, gabapentin , NSAIDs. 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 2000 - T1 compressio n fracture, traumatic Continue oxycodone. CEMENT FINISHER reviewed. F/u with [facility] as scheduled on 08/11/16.Ad vised pt to disclose all meds she is taking. Will repeat UDS. Low back pain 830513561 M54.5 Spasm of back muscles 20 8778370 M62.830 Continue with flexeril QHS prn. Cautioned about dizziness/ drowsiness . Vitamin D deficiency 347 32192 E55.9 repleted, advised to take vitamin D 2,000 iu daily OTC for maintenanc e [id number] Elsy Gold MD [address] [address] 08/07/2016 14:19:57 08/07/2016 15:30:26 Hypertensive disorder 40059789 I10 uncontroll ed, states home BP had been high the past week, increase enalapril to 20 mg in AM and 10 mg in PM, continue to monitor BP at home. Goal BP <140/90. F/u on 08/23/16 as scheduled for BP check and bMP. Low back pain 344598199 M54.5 Neck pain 56081077 M54.2 Chronic pain 67937433 G8 9.29 Chronic neck and back pain s/p multiple surgeries, injections , PT, heavy duty narcotics, [facility] pain clinic. Reports SE with TCA, gabapentin , Lyrica, NSAIDs. 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 2000 - T1 compressio n fracture, traumatic Discussed recent UDS results which showed meds not prescribed by me. Informed pt that due to violation of controlled substance agreement, she will be discharged from the practice. I will continue to be her PCP for the next 30 days to give her some time to find another PCP. F/u with the pain clinic.I offered to start her on cymbalta for chronic pain which she declined. Will give few tabs of tramadol which will be her last prescripti on. Health Concerns Section Related Observation LastModified by Organization Detai ls LastModified Time None Recorded Concern Status LastModified by Organization Details LastModified Time None Recorded Advance Directives Directive None Recorded Payers Encounter Date Sequence Insurance Name Policy Number Policy Tena Covered Member ID Tena Member ID Guarantor Name 05/31/2016 1 [place] [employer] Heaven A Martin [id number] Heaven Mario 05/31/2016 2 [place] Heaven A Martin [id number] Heaven Martin 06/14/2016 1 [place] [employer] Heaven A Martin [id number] Heaven Martin 06/14/2016 2 [place] Heaven A Martin [id number] Heaven Martin 07/17/2016 1 [place] Heaven A Martin [id number] Heaven Martin 07/17/2016 2 [place] Heaven A Martin [id number] Heaven Martin 08/07/2016 1 [place] [employer] Heaven A Martin [id number] Heaven Martin 08/07/2016 2 [place] Heaven A Martin [id number] Heaven Martin Notes Date Note Type Note Provider Name and Address Organization Details Recorded Time 05/31/2016 text/html 55 y/o F here fo r f/u HTN. HTN : Taking enalapril 10 mg BID. BP today is within normal range.Feels better on enalapril. She reports UTI in the past week. Went to in [place]. Was given Bactrim and pyridium initially which did not help. Went back another time and rx cipro BID which is helping, today is the 4th day. States that a couple of times right after she takes the cipro her BP goes up to 180s and goes down after. States that this past Sunday, she was shoveling snow and hurt her lower back, muscle spasm, w/o radiation to LE, no numbness, tingling, weakness, bowel and bladder changes. Had been applying heat and is starting to ease up. Chronic neck and back pain s/p multiple spine surgeries with chronic pain. On chronic opioids. She was supposed to see Dr Kumar on 06/13/16 but was cancelled by his office since they have not received the referral yet and rescheduled in July. She found another pain clinic at [facility], can see her in Jun and would like to get a referral there. Elsy Gold MD [address] [place] [address], [phone], [facility] 05/31/2016 20:32:03 07/17/2016 text/html 55 y/o F here fo r f/u HTN, med check. HTN : Taking enalapril 10 mg BID. BP was within normal range last visit. States that her BP at home has been in the 120s-130s since starting enalapril. High today due to pain. States that she is in pain as she was out of pain med for 5 days. Chronic neck and back pain s/p multiple spine surgeries with chronic pain. She states that saw pain doctor at [facility] recently, did not have her records. Has f/u on 08/11/16 and per pt, doctor willing to take over prescription.We discussed UDS done on 06/28/16 which showed clonazepam and +THC. She admits to taking 2 left over clonazepam she had in the past and used marijuana to help with the pain. She will be going to [place] in 2 weeks x 5 days. Elsy Gold MD [address] [place] [address], [phone], [facility] 07/17/2016 19:25:46 08/07/2016 text/html 55 y/o F here fo r f/u HTN, med check. HTN : Taking enalapril 10 mg BID. Home BP - states usually 130s-140s/80s-90. States that she would skip the BP med when BP was in the 130s. Only skipped once or twice. Did not skip med this past week. States BP had been high this week - 140s/110s. Chronic neck and back pain s/p multiple spine surgeries with chronic pain.We discussed UDS done on 06/28/16 which showed clonazepam and +THC. She admits to taking 2 left over clonazepam she had in the past and used marijuana to help with the pain.Repeat UDS on 07/17/16 showed +buprenorphine, norbuprenorphine, THC; negative oxycodone (ran out of meds). Oxycodone filled on 07/17/16.She saw pain doctor at [facility] (Dr Finley) on 07/24/16. UDS done there also showed suboxone, THC, clonazepam, THC, neg opioid.She was prescribed lyrica which she states caused leg cramps so she stopped taking.When I asked her about the UDS results, she states that when she ran out of oxycodone on 07/17/16, she had taken left over suboxone which she said she took in the past when she was trying come off opioids. Then after that she said someone gave her an orange pill to prevent withdrawal. Elsy Gold MD [address] [place] [address], [phone], [facility] 08/07/2016 19:38:29 OBGyn Episode No OBEpisode recorded.
--- OUTSIDE RECORDS SUMMARY | 2024-08-28 09:34 | XMS_ITS | Data Portability ---
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 spine fusion 2933463505 101 Z98.1 MRI cervical spine shows post [...] prnrepeat tox screenf/u 1 month Essential hypertension 86277110 I10 no CP, HABP elevated today but missed medication and was normal when taking as prescribed last visit, reviewed importance of taking as prescribed f/u 2 weeks BP checkto ED/911 for CP, severe CONROY with vision changes/pr oblems speech/bal ance, concern Chronic back pain 475586 002 G89.29 MRI 12/07/16 report as follow: [...] management as above Imaging re sult abnormal 504331386 R93.8 MRI thoracic spine noted increased T2 signal on spleen and rec dedicated imaging--> US ordered and nsg will schedule for pt [id number] Antonia Negron MD ZZZ NQ-ADULT DO NOT USE [address] [place] [address] 01/09/2017 09:53:33 01/09/2017 10:54:07 Chronic hepatitis C 741027677 B18.2 - G1a, s/p Harvoni treatment - [...] - RTC as needed- RTC with PCP [id number] Victorina [place] [address] [place] [address] 01/09/2017 14:47:08 01/09/2017 15:35:48 Administration of diphtheria, pertussis, and tetanus vaccine 356390701 Z23 Pain in left knee 331075 4258 52055 M25.562 eval with xrayrest, ice, compressio n bandage placed today, tylenol prn (unable to tolerate NSAIDs)f/u xray or if worsening pain, knee swelling or giving out Chronic back pain 257699 002 G89.29 MRI 12/07/16 report as follow: [...] qHSf/u 1 month Chronic hepatitis C 1283 28640 B18.2 completed 8 weeks harvonihep c viral load drawn by ID and pending [id number] Victorina [place] [address] [place] [address] 02/08/2017 11:26:22 02/08/2017 13:44:36 Osteopenia 331915737 M85.80 reviewed recent [facility] showed osteopenia L hip and normal bone density spine and femoral neckrec walking, weight bearing exercise as toleratedr eviewed dietary sources of calcium and rec 3 per day and she occasional ly takes a calcium supprepeat [facility] 2019 History of cervical spine fusion 4338930310 101 Z98.1 MRI cervical spine shows post [...] cont flexeril and tylenol as neededrefe r [facility] PT for eval and pool therapyref er behavioral health for counseling on anxiety and depression related to chronic painf/u 3 months or sooner prn Chronic back pain 514353 002 G89.29 MRI 12/07/16 report as follow: [...] await neurosurge ry response as above 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 She had good response to the thoracic injection which is encouragin g. Rec she schedule with pain clinic for cervical injection as well. She agreeswoul d benefit from pool therapy with PT but transporta tion is difficult for her. She has medicare primary and [place] [employer] secondary, will ask MA to see if she qualifies for PT1 ride. If not, rec pt apply for the Ridedeclin e to prescribe chronic opioids for neck and back pain. will increase gabapentin to 600 mg qHS and 300mg in the afternoon. she ibshop snot want to take TID as feels am dose will karan her too tired. Has had inconsiste nt tolerance/ response to NSAIDs in the past so she declinesre c tylenol 1000mg po TID prnf/u after pain clinic cervical injection and PT Spleen finding 622492763 R94.8 need to re-order spleen imaging for approval through her insurance. Order placed and faxed to [facility] for PA. Pt t call if has not heard in next 2 weeks about appt Major depr essive disorder 581950349 F32.9 denies SIshe agrees she could benefit from counseling but transporta tion is an issue. She agrees to schedule and let MA know appt date/time so she can apply for PT1 ride for ptdid not tolerate citalopram in past due to SE chest pain and she declines any trial of alternate medication at this time [id number] Antonia Negron MD ZZZ NQ-ADULT DO NOT USE [address] [place] [address] 04/26/2017 11:37:43 04/26/2017 12:32:46 Chronic hepatitis C 971143277 B18.2 - G1a, F0 s/p Harvoni treatment, completed 8 weeks- no alcohol, drugs or tobacco use - Hep B core Ab+ - Hep A vaccinatio n complete- labs @ 4 weeks - wnl, HCV RNA undetectab le-SVR 12 weeks today- counseling to avoid reexposure - RTC with PCP [id number] Victorina BRITT [address] [facility] [address] [place] [address] 07/05/2017 13:03:15 07/05/2017 14:32:22 Adult health examination 669810570 Z00.00 normal CPEvacc UTDscreen lipids cmp cbcanticip atory guidance providedma mmo: scheduled 12/2017colo noscopy screen order providedRT C 1 year CPE Allergic rhinitis 519056 04 J30.9 rec avoid decongesta nts given HTNrestart flonase and start loratidine 10mg dailyRTC worsening symptoms not responding to above Overweight 294319585 E66 .3 doing a great job with healthy diet and exercise encouraged her to continue Essential hypertension 95945817 I10 no CP, HABP at goal, reviewed importance of taking medication daily though will decrease enalapril to 20mg daily given she has not been taking more than that dosecheck renal fxn and lytes and f/u 2-3 weeks BP checkto ED/911 for CP, severe CONROY with vision changes/pr oblems speech/bal ance, concern Chronic back pain 360317 002 G89.29 doing well managing her chronic [...] injection to different area of pain Osteopenia 020756822 M85 .80 bone density 01/30/17 showed normal density spine and L femoral neck, osteopenia total L hipcont weigth bearing exercise and 1200mg calcium combined with vitamin D via diet or supplement ation and repeat BMD 01/30/19 Major depr essive disorder 471757384 F32.9 denies SIdoing well right now minimizing contact with daughter, toxic relationsh ip, and taking care of her body and prayingcon t self caref/u prn Spleen finding 394031160 R94.8 need to re-order spleen imaging for approval through her insurance. Order placed and faxed to [facility] for PA. Pt to call if has not heard in next 2 weeks about appt [id number] Victorina [place] [address] [place] [address] 08/29/2017 09:50:25 09/06/2017 15:12:49 Screening for malignant neoplasm of colon 630433404 Z12.11 Pain in ri ght hip joint 4145773993 84761 M25.551 eval with xray rule out fx and OA tx with medrol pack and then ibuprofen as needed. she requests 800mg tabs to break in half and see if tolerates (has made her dizzy in past but does help the pain)rest, icef/u xrayRTC problems with ambulation worsening pain or not repsonding to above Chronic back pain 674412 002 G89.29 establishe d, stablerefi ll flexeril prncont tylenol 1000mg po TID prn. she does occasional ly takes OTC ibuprofen lower doses has been helpful and does not make her as dizzysched ule with pain clinic for worsening pain and repeat injection vs injection to different area of pain Greater tr ochanteric pain syndrome 3105154 M70.61 [id number] MD LORENZA Murdock [address] [facility] [address] 10/02/2017 15:24:27 10/02/2017 16:35:41 Essential hypertension 74336683 I10 --Managed with RX Hyperlipidemia 89159362 E78.2 07/05/17: TCHOL:225 HDL:71 TRI LDL:116 Overweight 977055203 E66 .3 10/02/17: WT: 149 lbs. 3 ozs. BMI: 25.4 Body mass index 25-29 - overweight 081482608 Z68.25 10/02/17: BMI: 25.4 History of eating disorder 7705353834 16027 Z86.59 --Pt reports hx eating disorder including starving herself, binging and purging, beginning at age 13 and continued until 2 years ago when she started Atkins diet. [id number] Victorina [place] [address] [place] [address] 10/04/2017 09:18:17 10/04/2017 10:21:45 Screening for malignant neoplasm of breast 347609781 Z12.31 Greater tr ochanteric pain syndrome 9423746 M70.61 Xray showed mild narrowing o R [...] if no relief with PT Essential hypertension 87677822 I10 no CP, HABP elevated again today increase enalapril to 20mg po BIDf/u 3-4 weeks BP check to ED/911 for CP, severe CONROY with vision changes/pr oblems speech/bal ance, concern Foot-drop 8406783 M21.37 9 nerve damage from trauma/spi nal surgeries er AFO is very old and falling apart and she has been tripping without it, needs new one, will provide with a script and fax to ortho [id number] [place] [address] 10/31/2017 09:29:43 10/31/2017 10:18:30 Administration of diphtheria, pertussis, and tetanus vaccine 801403863 Z23 Antibody measurement 352 7003 Z01.84 nop indication communicab le infection on exam today, Tdap admin and titers drawn Dysphagia 67538016 R13.1 0 refer GI for eval dysphagia and abnormalit y of pharynx (though may be better evaluated by ENT with laryngosco py but will eval with EGD 1st given dysphagia r/o stricture or malignancy and may be able to biopsy)f/u after consult [id number] Victorina [place] [address] [place] [address] 11/09/2017 13:53:49 11/09/2017 16:17:55 Sore throat 412109362 J02.9 neg rapid strep, check monotx post nasal drip as abovef/u rn worsening symptoms or not responding to above Headache 93553886 R51 normal neuro exam, attributes to allergic sinusitis as above Allergy to mold 05657947 3 Z91.048 check resp allergy panel, address mold at homecont flonasetx with medrol pack and cetirizine f/u labs and RTC if worsening symptoms or not responding to above [id number] Victorina BRITT [address] [facility] [place] [address] 01/22/2018 08:27:18 01/22/2018 09:13:48 Essential hypertension 19780218 I10 no CP, HABP elevated today cont [...] vision changes/pr oblems speech/bal ance, concern Anxiety 20181732 F41.9 see above Pain in throat 856954386 R07.0 bumps most consistent with transient lingular [...] will discuss with ENT Chronic back pain 807824 002 G89.29 establishe d, stablecont flexeril prncont [...] vs injection to different area of pain [id number] Victorina [place]ITT [address] [place] [address] 04/02/2018 14:44:10 04/02/2018 16:30:40 Greater trochanteric pain syndrome 9024471 M70.61 Xray showed mild narrowing of R [...] back pain. f/u 1 month Hypertriglyceridemia 302 314257 E78.1 reviewed healthy diet and exercisech dante fasting lipids and LFTs Vitamin D deficiency 347 92205 E55.9 low in past takes OTC supplement on occasionch dante vitamin d level [id number] Victorina [place] [address] [place] [address] 05/01/2018 12:52:58 05/01/2018 13:58:01 Greater trochanteric pain syndrome 7966269 M70.61 Xray showed mild narrowing of R [...] with me in 1 month Essential hypertension 26839461 I10 no CP, HABP elevated today cont [...] speech/bal ance, concern Chronic pain syndrome 37 4120641 G89.4 see above regarding hipreviewe d breathing and meditation exercises to take focus off painshe plans to start water walking, yoga as toleratedf /u 1 month, sooner prn [id number] Victorina BRITT [address] [facility] [place] [address] 05/29/2018 08:26:23 05/29/2018 10:49:06 Screening for malignant neoplasm of breast 947404397 Z12.31 Essential hypertension 32210080 I10 no CP, HABP improved but still mildly elevated today cont enalapril 20mg po BID and clonidine 0.1mg po BID which is for her BP and anxiety though rec she take standing to avoid rebound HTN she has had with abruptly stopping in [facility] ed possible SE of amlodipine and pt would like to proceed with amlodipine 2.5mg po dailyf/u 2 weeks BP check at clinic in [facility] sooner prn dizziness, CP, CONROY, concern f/u at [facility] when back in [facility] ED/911 for CP, severe CONROY with vision changes/pr oblems speech/bal ance, concern Greater tr ochanteric pain syndrome 9194687 M70.61 Xray showed mild narrowing of R [...] back pain.f/u 1 month sooner prn Anxiety 87324431 F41.9 worried about flightdisc ussed possible SE and she would like to proceed with hydroxyzin e to take 30 minutes prior to flight prn anxiety Chronic back pain 448731 002 G89.29 establishe d, stablecont tylenol 1000mg po TID prn. she does occasional ly takes OTC ibuprofen lower doses has been helpful and does not make her as dizzy provided refill tylenol with codeine as aboverevie wed medication , yoga, breathing exercises for chronic painfu 1 month [id number] Eriberto ferrer MD [place] [address] [facility] [address] [place] [address] 07/01/2018 08:28:06 07/01/2018 10:35:50 Essential hypertension 84148313 I10 BP well controlled todayagree to continue on just clonidine and enalapril Greater tr ochanteric pain syndrome 5177148 M70.61 reviewed [employer] record -- has been having monthly refills as prescribed by last PCPlast filled 05/29/18,req uesting to be evaluated by a different orthopedically impaired teacher , believes that may need surgery for ongoing R hip issuespati ent to call insurance to see which specialist s will accept insurance, then can have new referral generated for 2nd opinion [id number] Antonia Negron MD ZZZ NQ-ADULT DO NOT USE [address] [place] [address] 08/16/2018 09:42:26 08/16/2018 16:45:36 Greater trochanteric pain syndrome 2103786 M70.61 - xray hip in 09/03/18: mild narrowing o R hip joint space small osteophyte notes from acetabular margin R femoral head- need to f/u with orthopedic s- CLINICAL BIOSTATISTICS DIRECTOR reviewed- UDS today- refill given- RTC with PCP at [place] Right uppe r quadrant pain 803594660 R10.11 - DDx Gb disease vs hepatitis vs lipomas- h/o abdominal wall lipoma s/p excision - US order given- h/o s/o Hep C tx in 2017- h/o + Hep B core AB- will do labs- ED precaution s given- will contact patient with results- RTC as needed Long-term drug therapy 623778476 Z79.899 History of hepatitis C 0245959954 9101 Z86.19 - Gt1a, F0 s/p tx with Cheryl- reviewed RF with patient, denies- will do labs today [id number] CHAITANYA Heredia [address] [facility] [place], [place] [address] 09/04/2018 08:24:09 09/04/2018 09:22:10 Atypical chest pain 535714210 R07.89 -ECG wnl as per patient, at [facility] in [facility]--> signed release for records-Ex am wnl, VSS aside from elevated BP- plan noted below-DDx: WA (unlikely per recent ECG), PE, CM, AI, pn, pleuritis, GERD, musculoske latal, anxiety/pa karol attack (most likely)-Pa tiefeliciano very anxious with varying tangential thoughts-A larm signs reviewed-- > to -Send to cards for chest stress for atypical chets pain, f/u after test/consu lt Essential hypertension 41335715 I10 -Establish ed, unstable-B P 154/98 in office, patient is non-compli ant/adhere nt on clonidine and enalapril, misses many doses-Stre ss important of compliant on medication - to take a prescribed - expresses understand ing-Discus sed possible complicati ons from uncontroll ed BP including WA, stoke, etc-F/u in 3 months for BP check-F/u with cardiology as advised for CP Chronic back pain 097485 002 M54.9 -Continue on tylenol #3 at night as needed, tylenol PRN during day for pain-[place] f/ at pain clinic for injections - patient upset they will not prescribe her stronger pain medication --> advised can call [facility] [place] [facility] to discuss med management -F/u with ortho/pain clinic as planned [id number] CHAITANYA Heredia [address] [facility] [address] 09/26/2018 11:12:22 09/26/2018 12:40:31 Essential hypertension 46193683 I10 -Establish ed, unstable-P atient is non-compli ant/adhere nt on clonidine and enalapril, misses many doses-Stre ss important of compliant on medication - to take a prescribed - expresses understand ing-Refill of clonidine sent-Discu ssed possible complicati ons from uncontroll ed BP including WA, stoke, etc-F/u in 3 months for BP check-F/u with cardiology as advised for h/o atypical CP Mass of skin 378206912 R 22.9 -2 cm superficia l mobile mass palpated along anterior lower rib cage just superior to RUQ adjacent to scar s/o lipoma excision-R eports severe pain/distr ess to palpation- Concerned more for surgical/s car tissue complicati ons vs. abdominal pathology- OTC NSAIDs/tyl enol for pain, continue compresses -Patient advised to f/u with general surgeon to discuss treatment [id number] CHAITANYA Heredia [address] [facility] [place] [address] 11/06/2018 19:10:43 11/06/2018 20:21:25 Imaging of spleen abnormal 400946470 R93.5 -2 cm enhancing lesion seen on CT with previous abnormalit y non imaging >2 years ago-Never had f/u MRI--> new order sent for further eval Lipomatosis 467875403 E8 8.2 -2 cm superficia l mobile [...] diagnosis, discuss excision with surgeon Essential hypertension 58596795 I10 -Establish ed, unstable-P atient is non-compli ant/adhere nt on clonidine and enalapril, misses many doses-Stre ss important of compliant on medication - to take a prescribed - expresses understand ing-Refill of clonidine sent-Discu ssed possible complicati ons from uncontroll ed BP including WA, stoke, etc-F/u in 1-2 months for BP check-F/u with cardiology as advised for h/o atypical CP Chronic back pain 190905 002 M54.9 -Continue on tylenol #3 at [...] [place]: [employer] Heaven A Mario [id number] Heaven Martin 07/01/2018 2 [place]) Heaven Aranda Mario [id number] Heaven Martin 08/16/2018 1 MEDICARE B-[place]: [employer] Heaven A Mario [id number] Heaven Martin 08/16/2018 2 [place]) Heaven Aranda Mario [id number] Heaven Martin 09/04/2018 1 MEDICARE B-[place]: [facility] GOVERNMENT SERVICES Heaven A Mario [id number] Heaven Martin 09/04/2018 2 [place]) Heaven Aranda Martin [id number] Heaven Martin 09/26/2018 1 MEDICARE B-[place]: [employer] Heaven A Mario [id number] Heaven Martin 09/26/2018 2 [place]) Heaven A Mario [id number] Heaven Martin 11/06/2018 1 MEDICARE B-[place]: [employer] Heaven A Mario [id number] Heaven Martin 11/06/2018 2 [place]) Heaven A Mario [id number] Heaven Mario Notes Date Note Type Note [...] wanting to take Eriberto Fernandez MD [address] [place], [address], [facility] 07/17/2018 13:03:23 08/16/2018 text/html here for f/u she has been having RUQ painon and off for 6 monthsfor the last week she was having more painshe has a h/o lipoma in RUQ area- s/p excision several years agono change on BMappetite decreasedno change on urineno sore throat + CONROY+ fatiguefeverish +no swollen glansbut no feels better Antonia Negron MD [address] [place], [address], [facility] 08/16/2018 10:32:39 09/04/2018 text/html 57F is here c/o chest tightness over the past 2 weeksBegan while she was [place] vacation [place] with her daughterSays pain was severe, mostly on right side of chestSays she had to push on chest to relieve pain which did helpSays when her plan landed back in [place], she went right to [facility] in [place] for chest pain within the last weekHad [...] changes in appetite Lacie Masters PA-C [address] [facility] [place], [address], [facility] 09/05/2018 11:15:14 09/26/2018 text/html 57 is here [...] with little releif Lacie Masters PA-C [address] [place], [address], [facility] 09/26/2018 15:07:13 11/06/2018 text/html 57 is here [...] of pain medication Lacie Masters PA-C [address] [place], [address], [facility] 11/06/2018 20:14:16 OBGyn Episode No OBEpisode recorded.
== END 2024-08-28 09:36 | disposition home or self-care (01) ==
LOC: HO.PMC 09:00
PROVIDERS: PCP Internal Medicine; Visit Provider Anesthesiology
DX: G90.521 Complex regional pain syndrome I of right lower limb (principal); I63.9 Cerebral infarction, unspecified; M51.360 Other intervertebral disc degeneration, lumbar region with discogenic back pain only; M96.1 Postlaminectomy syndrome, not elsewhere classified
CPT/HCPCS: 99214

== ENCOUNTER → 2024-08-28 09:00 | Outpatient (BNVA) | payer MEDICARE, MEDICAID, SELFPAY | PROVIDERS: PCP Internal Medicine; Visit Provider Anesthesiology | DX: M51.360 Other intervertebral disc degeneration, lumbar region with discogenic back pain only (principal); M96.1 Postlaminectomy syndrome, not elsewhere classified; G90.521 Complex regional pain syndrome I of right lower limb; Z51.81 Encounter for therapeutic drug level monitoring; Z79.891 Long term (current) use of opiate analgesic | CPT/HCPCS: 99212 ==

== ENCOUNTER 2024-09-18 09:07 | Outpatient (AMB) | payer MEDICARE, MEDICAID, SELFPAY ==
--- NOTE | 2024-09-18 09:07 | A.OFFVIS_ITS ---
Vital Signs 09/18/24 09:17 Height 5 ft 6 in Weight 156 lb BMI 25.2 BP 123/68 Blood Pressure Location Rt brachial Position Sitting Pulse 56 Pulse Source Pulse Oximeter Pulse Oximetry (%) 99 Oxygen Delivery Method Room Air Intake Visit Reasons: Pill Count Intake Note: Heaven comes in today for a pill count to oxycodone, patient should have 30 tablets and presents with 31 tablets which she states she last took today 09/18/24 at 6am or 7am Pain today 02/27. Defensive Secondary Coach Required: No Accompanied by: Self / Same As Patient Allergies ibuprofen [From Motrin] Adverse Reaction (Severe, Verified 09/18/24 09:18) high blood pressure, dizzy and chest pain NSAIDS (Non-Steroidal Anti-Inflamma Adverse Reaction (Severe, Verified 09/18/24 09:18) palpitations,dizziness HPI Comments Details: Heaven is back in my office for the follow-up and pain medication refill as well as pill count. Pill count today is correct she presented today with 30 pill in her possession, she supposed to have 31 pills in her possession. Technically pill count is correct. She reports her pain severe 12/28 today. She currently receives oxycodone 5 mg t.i.d.. She is also taking pregabalin and Ambien. She was also daily consumes cannabis in significant doses. I personally think that this combination is dangerous and I would recommend her to stop at least cannabis consumption. She also has Narcan at home. Unfortunately she lives alone and if she would go into respiratory depression Narcan would be of little help. I explained to her that she needs to tell all of her neighbors and friends about the Narcan in the way to use it in the situation when they will find her unconscious and breathing less than 8 breaths a minute. She denies side effects of the opioid medication at this time. She denies constipation. Prior: She has Complex regional pain syndrome of the right lower extremity she also suffers from postlaminectomy syndrome of the lumbar spine she had Barbosa rods inserted and removed. I offered her intrathecal pain pump trial and spinal cord stimulation trial. Initially patient was agreeable to that but after I started her on opioid medication she withdrew her agreement. She brought today a copy of the receipt from 1 of the local cannabis dispensaries. Currently I will allow her to continue on oral opioids since the consumption of the cannabis is legitimate. Her UDS come came back and it was positive for carisoprodol and cannabis. Her PHQ score is equal to 9. Her addiction score is equal to 7. Therefore total opioid addiction risk score is equal to 16. She therefore has moderate risk for opioid addiction. Prior: very unfortunate 63 years old female who presented today in my office after 3 years of absence. She was seen in 2020. She is suffering from Complex regional pain syndrome of the right foot with severe burning, pins and needles, crushing pain and wrenching pain sensation. She exhausted conservative therapy to treat this condition. She tried multiple medications including gabapentin which causes alopecia, Lyrica causes weight gain in sodium retention, she is allergic to ibuprofen and NSAIDs which cause palpitation and dizziness. She is currently taking Tylenol, her primary care physician prescribes her short course opioid medications. She reports today in the office with pain 10/10. She is also suffering from postlaminectomy syndrome, she had Barbosa fanny insertion for scoliosis and removal of the Barbosa rods. [facility] Medical History Numbness and tingling of both feet Neuropathy Reflex sympathetic dystrophy of right leg Left lower quadrant pain Left groin pain Insomnia HCV (hepatitis C virus) Hemorrhoids Pure hypercholesterolemia Postlaminectomy syndrome Overweight (BMI 25.0-29.9) Memory loss or impairment Cerebrovascular accident (CVA) (~2019) Lumbar degenerative disc disease Benign essential hypertension Hair loss Paresthesia of foot Surgical History History of colonoscopy History of surgery History of neck surgery History of hysterectomy Family History Father Diabetes Mother Lung cancer Past heart attack Daughter In good health Brother In good health Brother No problems noted. Brother No problems noted. Family/Other Colon cancer Social History Housing: Apartment Alcohol intake: current Alcohol intake frequency: holidays/special occasions only Patient Tobacco Use Status: Never used Tobacco e-Cigarette/Vaping Use: Never Used Second Hand Smoke Exposure: No service: No Current occupational status: disabled Cognitive needs: No Hearing needs: No Vision needs: No Female Reproductive History Menstrual Age of Menarche: 8 Review of Systems Const All systems reviewed & are unremarkable except as noted in HPI and below Physical Exam Vital Signs: Last Vital Signs Pulse 56 09/18/24 09:17 BP 123/68 09/18/24 09:17 Pulse Ox 99 09/18/24 09:17 Oxygen Delivery Method Room Air 09/18/24 09:17 BMI result Body Mass Index 25.2 Const General: cooperative, healthy appearing and comfortable Eyes General: appearance normal, both eyes and all related structures Pupils: Equal, round and reactive pupils present EOM: EOMs intact bilaterally Resp Effort & Inspection: normal respiratory effort, able to speak in complete sentences, normal respiratory pattern, no audible wheezes and no cough Cardio Jugular venous distension: no JVD Neuro Cranial nerves: Yes Equal, round and reactive pupils present Extrem Other: she is awkward with her right lower extremity and there is objective weakness in the right lower extremity. There is also weakness and numbness and right upper extremity however not that pronounced like a right lower extremity. She exhibits antalgic gait on the right and foot drop on the left. She reports that footdrop on the left is secondary to prior longstanding injury. Assessment & Plan Assessment & Plan (1) Cerebrovascular accident (CVA): Onset Date: ~2018 Comment: (+) CVA in 2019, with residual right-sided weakness primarily involving the right arm and right leg - S/P physical therapy with only some improvement of her weakness Code(s): I63.9 - Cerebral infarction, unspecified Category: Medical Qualifiers: CVA mechanism: unspecified Qualified Code(s): I63.9 - Cerebral in farction, unspecified (2) Lumbar degenerative disc disease: Comment: Has failed back sydrome/postlaminectomy syndrome Code(s): M51.36 - Other intervertebral disc degeneration, lumbar region Category: Medical Qualifiers: Disc-related pain type: discogenic back pain only Qualified Code(s): M51.360 - Other intervertebral disc degeneration, lumbar region with discogenic back pain only (3) Postlaminectomy syndrome: Code(s): M96.1 - Postlaminectomy syndrome, not elsewhere classified Category: Medical (4) Complex regional pain syndrome i of right lower limb: Code(s): G90.521 - Complex regional pain syndrome I of right lower limb Category: Medical Plan PHQ score is equal to 9. Opioid addiction score is equal to 7. Therefore total score is 16. Pill count today is correct see as above. Her new prescription will be issued for 08/29/2024 She is prescribed naloxone intranasal in May of 2024. I explained to the patient that she needs to inform about Narcan all her relatives, neighbors and friends. Unfortunately she lives alone. I will prescribe her a new doses of the oxycodone due on 09/28/2024. I have significant concern about her taking daily cannabis in combination of all the medications. I would probably request this patient. Cannabis if she wants to continue her opioid medications in combination of the Ambien and Lyrica. Next time I will send her for physical therapy. Coding Level of Care Code Est Pt Level 3 (51513) Diagnoses Cerebrovascular accident (CVA), unspecified mechanism I63.9 CVA mechanism: unspecified Degeneration of intervertebral disc of lumbar region with discogenic back pain M51.360 Disc-related pain type: discogenic back pain only Postlaminectomy syndrome M96.1 Complex regional pain syndrome i of right lower limb G90.521
[2024-09-18 09:17] VITALS: BP 123/68; PULSE 56; O2SAT 99; BMI 25.2
--- OUTSIDE RECORDS SUMMARY | 2024-09-18 09:45 | XMS_ITS | Data Portability ---
Author Organization [place] [facility], _[facility] Address [address] [place] [address] Assessment No assessment recorded. Plan of Treatment Reminders Order Date Submit Date Provider Last Modified By Organization Details Last Modified Time Details Appointments None recorded . Lab drug screen, urine 2016 017 [facility] (Closed Permanently, Testing Ceased), [address], [place], [address], 7 10:27:42 BMP, serum or plasma 2016 017 [facility] (Lab), [address] [facility], [place], [address], 7 21:40:17 unlisted lab - vitamin D 25 hydroxy by lcmsms 2016 017 [facility] (Lab), [address] [place], [address], 7 12:35:32 Referral pain manageme nt referral 2016 017 [facility] (Pain Management), [address] [facility], [facility] [address], [place], [address], 7 23:19:05 Procedures None recorded . Surgeries None recorded . Imaging None recorded . Medication Orders tramadol 50 mg tablet 2016 017 mary anninzully [facility]/Pharmacy #[id number], [address] [place], [address], 7 15:26:29 Vasotec 10 mg tablet 2016 017 INTERFACE [facility]/Pharmacy #[id number], [address] [place], [address], 7 15:27:22 oxycodon e 15 mg tablet 2016 017 [facility]/Pharmacy #[id number], [address] [place], [address], 7 15:27:14 Vasotec 10 mg tablet 2016 017 INTERFACE [facility]/Pharmacy #[id number], [address] [place], [address], 7 15:26:24 oxycodon e 15 mg tablet 2016 017 [facility]/Pharmacy #[id number], [address] [place], [address], 2 09:40:47 cycloben zaprine 10 mg tablet 2016 017 [facility]/Pharmacy #[id number], [address] [place], [address], 7 15:11:47 Patient TargetsNo targets recorded. Patient Instructions Encounter Date Encounter Id Patient Instructions Last Modified By Organization Details Last Modified Time 07/17/2016 [id number] 30 mins spent with pt and >50% of face to face time spent on counseling. [email or web address] Not available 07/17/2016 19:25:44 08/07/2016 [id number] 30 mins spent with pt and >50% [...] mmol/ L 136-14 5 normal Not Available [facility] (Lab) [address] [place], [address], 06/15/2016 09:59:28 06/14/19 17 06/14/2016 BMP, serum or plasm a potassium 4.6 mmol/ L 3.5-5. 1 normal Not Available [facility] (Lab) [address] [place], [address], 06/15/2016 09:59:28 06/14/19 17 06/14/2016 BMP, serum or plasm a chloride 97 mmol/ L 98-107 low Not Available [facility] (Lab) [address] [place], [address], 06/15/2016 09:59:28 06/14/19 17 06/14/2016 BMP, serum or plasm a carbon dioxide 23 mmol/ L 22-29 normal Not Available [facility] (Lab) [address] [place], [address], 06/15/2016 09:59:28 06/14/19 17 06/14/2016 BMP, serum or plasm a glucose 111 mg/dL 74-109 high Not Available [facility]man (Lab) [address] [place], [address], 06/15/2016 09:59:28 06/14/19 17 06/14/2016 BMP, serum or plasm a BUN 11 mg/dL 6-20 normal Not Available [facility]man (Lab) [address] [place], [address], 06/15/2016 09:59:28 06/14/19 17 06/14/2016 BMP, serum or plasm a creatinine 0.7 mg/dL 0.5-0. 9 normal Not Available [facility] (Lab) [address] [place], [address], 06/15/2016 09:59:28 06/14/19 17 06/14/2016 BMP, serum or plasm a calcium 10.0 mg/dL 8.6-10 .0 normal Not Available [facility] (Lab) [address] [place] [place], [address], 06/15/2016 09:59:28 06/14/19 17 06/14/2016 BMP, serum or plasm a anion gap 22 mmol/ L 6-18 high Not Available [facility] (Lab) [address] [place], [address], 06/15/2016 09:59:28 06/14/19 17 06/14/2016 BMP, serum or plasm a est glom filtration rate calc2 86.2 normal MULTI PLY X 1.212 IF OF AFRIC AN AMERI CAN DESCE NT PAULINA L KIDNE Y FUNCT ION >60 mL/mi n RESUL TS PAULINA LIZED TO 1.73 m SQUAR ED BODY SURFA CE AREA Not Available [facility] (Lab) [address] [place], [address], 06/15/2016 09:59:28 06/14/19 17 06/15/2016 vitam in D, 25-hy droxy , total , serum vitamin D total 32.30 NG/mL 30-100 normal Defic iency : <10 ng/mL Insuf ficie ncy: 10 - 30 ng/mL Suffi cienc y: 30 - 100 ng/mL Toxic ity: >100 ng/mL Not Available [facility] (Lab) [address] [place], [address], 06/15/2016 09:59:29 Result Notes None recorded. Problems Name Problem SNOMED Code Status Onset Date Resolution Date Notes Provider Name and Address Organization Details Recorded Time Low back pain 423147850 Active 2015 Elsy Gold MD [address] [place] [address], [phone] , [facility] 01/11/201 7 06:26:19 Chronic pain 50624285 Active 2015 W/U Status: confirme d Not Available [facility] 7 15:27:31 Neck pain 38333130 Active 2015 W/U Status: confirme d Not Available [facility] 7 15:27:31 Foot-augie p 4426168 Completed 201505/31/2016 W/U Status: confirme d Elsy Gold MD [address] [place] [address], [phone] , [facility] 7 06:27:26 Carpal tunnel syndrome 46495979 Active 2015 W/U Status: confirme d Not Available [facility] 7 15:27:32 Chest pain 22494348 Active 2015 Atypical chest pain, stress test negative for ischemia , echo normal. W/U Status: confirme d Elsy Gold MD [address] [place] [address], [phone] , [facility] 7 06:27:00 Vitamin D deficien cy 34815324 Active 2015 advised to take vitamin D 2,000 iu daily OTC. W/U Status: confirme d Elsy Gold MD [address] [place] [address], [phone] , [facility] 7 06:27:17 Stress 27307774 Active 2015 advised stress can also raise BP. Stress mgt deniz jean Declined ghanshyam matthew ;W/U Status: confirme d Not Available [facility] 7 15:27:32 Heart murmur 21361036 Active 2015 obtain echo;W/U Status: confirme d Not Available [facility] 7 15:27:32 Hyperten sive disorder 71001621 Active 2015 W/U Status: confirme d Not Available Pending sale to [facility] 7 15:27:34 Foot-augie p 0424740 Active 2016 Elsy Gold MD [address] [place] [address], [phone] , [facility] 7 06:27:39 Problem Notes None recorded. Medical Equipment None Reported. Allergies Allergen ID Allergen Name Allergen Category Reaction Reaction Severity Criticality Documentation Date Start Date Code Code System Note Provider Name and Address Organization Details Recorded Time 143718 amitripty line hydrochlo ride medicatio n irregular heart rate Not available Not available 05/24/20162015 77507 8 RxNorm React ion: palpi tatio ns; Not Available Pending sale to [facility] 7 09:03:45 719879 cyclobenz aprine hydrochlo ride medicatio n dizziness Not available Not available 05/24/20162015 28128 RxNorm React ion: dizzi ness; Elsy lieberman MD [address] [place] [address], [phone] [place] [address] [facility] 7 20:31:33 408870 gabapenti n medicatio n dizziness Not available Not available 05/24/20162015 05740 RxNorm React ion: dizzi ness; Not Available Pending sale to [facility] 7 09:03:45 829856 lisinopri l medicatio n dizziness Not available Not available 05/24/20162015 98920 RxNorm React ion: dizzi ness; Not Available Pending sale to [facility] 7 09:03:45 782639 amlodipin e besylate medicatio n chest pain Not available Not available 05/24/20162015 09038 6 RxNorm React ion: chest pain; Not Available Pending sale to [facility] 7 09:03:45 027380 Non-stero idal anti-infl ammatory agent (product) medicatio n chest pain Not available Not available 05/24/20162015 18901 005 SNOMED React ion: chest pain; Not Available Pending sale to [facility] 7 09:03:45 Medications Name Sig Start Date [...] completed Actio n: Job Pollard rce: Shannan Batuista MD;Pr epare d By: Mable Alberts 2015 [...] Shannan Bautista MD;Pr epare d By: Shannan Bautitsa 03/15 10:07 :47 AM Not Available Not [...] Details Last Updated DateTime 7 165.1 cm 73370 g 26.1 kg/m2 73 /min 99 % 99 % 122 mm[Hg] 82 mm[Hg] Marizol Braga [place] [facility] 7 14:26:29 Date Recorded Body height Heart rate Systolic blood pressure Diastolic blood pressure Systolic blood pressure Diastolic blood pressure Provider Name and Address Organization Details Last Updated DateTime 7 165.1 cm 103 /min 170 mm[Hg] 120 mm[Hg] 158 mm[Hg] 100 mm[Hg] Elisha Vargas LPN [place] [facility] 7 11:06:29 Date Recorded Body height Body weight Body mass index (BMI) Oxygen saturation Oxygen saturation in Arterial blood by Pulse oximetry Heart rate Systolic blood pressure Diastolic blood pressure Provider Name and Address Organization Details Last Updated DateTime 7 165.1 cm 75487 g 26.1 kg/m2 99 % 99 % 104 /min 160 mm[Hg] 100 mm[Hg] Froylan Ireland [place] [facility] 7 15:05:42 Date Recorded Body height Body weight Body mass index (BMI) Heart rate Oxygen saturation Oxygen saturation in Arterial blood by Pulse oximetry Systolic blood pressure Diastolic blood pressure Provider Name and Address Organization Details Last Updated DateTime 7 165.1 cm 88443.6 3 g 25.5 kg/m2 76 /min 99 % 99 % 150 mm[Hg] 90 mm[Hg] Froylan Ireland [facility] 7 15:02:21 Date Recorded Systolic blood pressure Diastolic blood pressure Provider Name and Address Organization Details Last Updated DateTime 08/07/2016 144 mm[Hg] 90 mm[Hg] Elsy Gold MD [address] [place] [address], [phone], [facility] 08/07/2016 15:27:34 Social History Question Answer Notes LastModified by Organizat ion Details LastModified Time Tobacco Smoking Status Never Smoker Marizol Braga [facility] [place] [facility] 05/31/2016 14:28:08 What [...] SNOMED-CT Code Diagnosis ICD10 Code Diagnosis Note [id number] Elsy Gold MD [address] [address] 05/31/2016 14:01:57 05/31/2016 15:36:11 Hypertensive disorder 41963596 I10 controlled , continue enalapril 10 mg BID, check BMP Chronic pain 55646245 G8 9.29 Chronic neck and back pain s/p multiple surgeries, injections , PT, heavy duty narcotics, [facility]. 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 2000 - T1 compressio n fracture, traumatic Continue oxycodone. SUPERVISOR WOUND reviewed. Refer to [facility]. Low back pain 222902800 M54.5 Vitamin D deficiency 347 31820 E55.9 advised to take vitamin D 2,000 iu daily OTC Spasm of back muscles 20 8057196 M62.830 Start flexeril only at night QHS prn. Cautioned about dizziness/ drowsiness . [id number] Elsy Gold MD [address] [place] [address] 06/14/2016 10:22:02 06/14/2016 11:09:18 Essential hypertension 79743092 I10 [id number] Elsy Gold MD [address] [place] [address] 07/17/2016 14:25:19 07/17/2016 16:24:51 Hypertensive disorder 63903096 I10 uncontroll ed today which could be due to pain, prior BP within goal, continue enalapril 10 mg BID, continue to monitor BP at home. Chronic pain 27877286 G8 9.29 Chronic neck and back pain s/p multiple surgeries, injections , PT, heavy duty narcotics, [facility] pain clinic. SE with TCA, gabapentin , NSAIDs. 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 2000 - T1 compressio n fracture, traumatic Continue oxycodone. SUPERVISOR WOUND reviewed. F/u with [facility] as scheduled on 08/11/16.Ad vised pt to disclose all meds she is taking. Will repeat UDS. Low back pain 771023474 M54.5 Spasm of back muscles 20 5502657 M62.830 Continue with flexeril QHS prn. Cautioned about dizziness/ drowsiness . Vitamin D deficiency 347 98981 E55.9 repleted, advised to take vitamin D 2,000 iu daily OTC for maintenanc e [id number] Elsy Gold MD [address] [address] 08/07/2016 14:19:57 08/07/2016 15:30:26 Hypertensive disorder 61737865 I10 uncontroll ed, states home BP had been high the past week, increase enalapril to 20 mg in AM and 10 mg in PM, continue to monitor BP at home. Goal BP <140/90. F/u on 08/23/16 as scheduled for BP check and bMP. Low back pain 914748888 M54.5 Neck pain 55032653 M54.2 Chronic pain 34990870 G8 9.29 Chronic neck and back pain s/p multiple surgeries, injections , PT, heavy duty narcotics, [facility] pain clinic. Reports SE with TCA, gabapentin [...] [place] Heaven A Martin [id number] Heaven Mario 05/31/2016 2 [place] Heaven A Martin [id number] Heaven Martin 06/14/2016 1 [place] Heaven A Martin [id number] Heaven Martin 06/14/2016 2 [place] Hevaen A Mratin [id number] Heaven Martin 07/17/2016 1 [place] Heaven A Martin [id number] Heaven Martin 07/17/2016 2 [place] Heaven A Martin [id number] Heaven Martin 08/07/2016 1 [place] Heaven A Martin [id number] Heaven Martin 08/07/2016 2 [place] Heaven A Martin [id number] Heaven Martin Notes Date Note Type Note Provider Name and Address Organization Details Recorded Time 05/31/2016 text/html 55 y/o F here fo r f/u HTN. HTN : Taking enalapril 10 mg BID. BP today is within normal range.Feels better on enalapril. She reports UTI in the past week. Went to in [place]. Was given Bactrim and pyridium initially which [...] July. She found another pain clinic at [facility], can see her in Jun and would like to get a referral there. Elsy Gold MD [address] [place] [address], [phone], [facility] 05/31/2016 20:32:03 07/17/2016 text/html 55 [...] She states that saw pain doctor at [facility] recently, did not have her records. Has f/u on 08/11/16 and per pt, doctor willing to take over prescription.We discussed UDS done on 06/28/16 which showed clonazepam and +THC. She admits to taking 2 left over clonazepam she had in the past and used marijuana to help with the pain. She will be going to [place] in 2 weeks x 5 days. Elsy Gold MD [address] [place] [address], [phone], [facility] 07/17/2016 19:25:46 08/07/2016 [...] filled on 07/17/16.She saw pain doctor at [facility] (Dr Finley) on 07/24/16. UDS done there [...] pill to prevent withdrawal. Elsy Gold MD [address] [place] [address], [phone], [facility] 08/07/2016 19:38:29 OBGyn Episode No OBEpisode recorded.
--- OUTSIDE RECORDS SUMMARY | 2024-09-18 09:46 | XMS_ITS | Data Portability ---
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 severe CONROY with vision changes/pr oblems speech/bal ance, concern Chronic back pain 670409 002 G89.29 MRI 12/07/16 report as follow: [...] management as above Imaging re sult abnormal 917705806 R93.8 MRI thoracic spine noted increased T2 signal on spleen and rec dedicated imaging--> US ordered and nsg will schedule for pt [id number] Antonia Negron MD ZZZ NQ-ADULT DO NOT USE [address] [place] [address] 01/09/2017 09:53:33 01/09/2017 10:54:07 Chronic hepatitis C 906310604 B18.2 - G1a, s/p Harvoni treatment - [...] - RTC as needed- RTC with PCP [id number] Victorina Rhoades S, GRISELDA [place] [address] [facility] [address] [place] [address] 01/09/2017 14:47:08 01/09/2017 15:35:48 Administration of diphtheria, pertussis, and tetanus vaccine 760763311 Z23 Pain in left knee 289358 0530 60380 M25.562 eval with xrayrest, ice, compressio n bandage placed today, tylenol prn (unable to tolerate NSAIDs)f/u xray or if worsening pain, knee swelling or giving out Chronic back pain 308320 002 G89.29 MRI 12/07/16 report as follow: [...] qHSf/u 1 month Chronic hepatitis C 1283 60433 B18.2 completed 8 weeks cherylbryon paula viral load drawn by ID and pending [id number] Victorina Rhoades S, FICTION WRITER LORENZA [address] [facility] [address] [place] [address] 02/08/2017 11:26:22 02/08/2017 13:44:36 Osteopenia 062431312 M85.80 reviewed recent [facility] showed osteopenia L hip and normal bone density spine and femoral neckrec walking, weight bearing exercise as toleratedr eviewed dietary sources of calcium and rec 3 per day and she occasional ly takes a calcium supprepeat [facility] 2019 History of cervical spine fusion 1230418598 101 Z98.1 MRI cervical spine shows post [...] cont flexeril and tylenol as neededrefe r [facility] PT for eval and pool therapyref er behavioral health for counseling on anxiety and depression related to chronic painf/u 3 months or sooner prn Chronic back pain 871450 002 G89.29 MRI 12/07/16 report as follow: [...] await neurosurge ry response as above Foot-drop 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 She had good response to the thoracic injection which is encouragin g. Rec she schedule with pain clinic for cervical injection as well. She agreeswoul d benefit from pool therapy with PT but transporta tion is difficult for her. She has medicare primary and [facility] secondary, [facility] qual[facility] for PT1 [...] clinic cervical injection and PT Spleen finding [id number] R94.8 need to re-order spleen imaging for approval through her insurance. Order placed and faxed to [facility] for PA. Pt t call if has not heard in next 2 weeks about appt Major depr essive disorder 244080346 F32.9 denies SIshe agrees she could benefit from counseling but transporta tion is an issue. She agrees to schedule and let MA know appt date/time so she can apply for PT1 ride for ptdid not tolerate citalopram in past due to SE chest pain and she declines any trial of alternate medication at this time [id number] Antonia Negron MD ZZZ NQ-ADULT DO NOT USE [address] [place] [address] 04/26/2017 11:37:43 04/26/2017 12:32:46 Chronic hepatitis C 173860604 B18.2 - G1a, F0 s/p Harvoni treatment, completed 8 weeks- no alcohol, drugs or tobacco use - Hep B core Ab+ - Hep A vaccinatio n complete- labs @ 4 weeks - wnl, HCV RNA undetectab le-SVR 12 weeks today- counseling to avoid reexposure - RTC with PCP [id number] Victorina Camacho, GRISELDA BRITT [address] [facility] [address] [place] [address] 07/05/2017 13:03:15 07/05/2017 14:32:22 Adult health examination 883170990 Z00.00 normal CPEvacc UTDscreen lipids cmp cbcanticip atory guidance providedma mmo: scheduled 12/2017colo noscopy screen order providedRT C 1 year CPE Allergic rhinitis 554298 04 J30.9 rec avoid decongesta nts given HTNrestart flonase and start loratidine 10mg dailyRTC worsening symptoms not responding to above Overweight 752505387 E66 .3 doing a great job with healthy diet and exercise encouraged her to continue Essential hypertension 57089384 I10 no CP, HABP at goal, reviewed importance of taking medication daily though will decrease enalapril to 20mg daily given she has not been taking more than that dosecheck renal fxn and lytes and f/u 2-3 weeks BP checkto ED/911 for CP, severe CONROY with vision changes/pr oblems speech/bal ance, concern Chronic back pain 523997 002 G89.29 doing well managing her chronic [...] injection to different area of pain Osteopenia 844026000 M85 .80 bone density 9/12/17 showed normal density spine and L femoral neck, osteopenia total L hipcont weigth bearing exercise and 1200mg calcium combined with vitamin D via diet or supplement ation and repeat BMD 01/30/19 Major depr essive disorder 416742139 F32.9 denies SIdoing well right now minimizing contact with daughter, toxic relationsh ip, and taking care of her body and prayingcon t self caref/u prn Spleen finding 256331327 R94.8 need to re-order spleen imaging for approval through her insurance. Order placed and faxed to [facility] for PA. Pt to call if has not heard in next 2 weeks about appt [id number] Victorina Camacho, GRISELDA [place] [address] [place] [address] 08/29/2017 09:50:25 09/06/2017 15:12:49 Screening for malignant neoplasm of colon 946950239 Z12.11 Pain of ri ght hip joint 7409641719 96258 M25.551 eval with xray rule out fx and OA tx with medrol pack and then ibuprofen as needed. she requests 800mg tabs to break in half and see if tolerates (has made her dizzy in past but does help the pain)rest, icef/u xrayRTC problems with ambulation worsening pain or not repsonding to above Chronic back pain 427375 002 G89.29 establishe d, stablerefi ll flexeril prncont tylenol 1000mg po TID prn. she does occasional ly takes OTC ibuprofen lower doses has been helpful and does not make her as dizzysched ule with pain clinic for worsening pain and repeat injection vs injection to different area of pain Greater tr ochanteric pain syndrome 7276829 M70.61 [id number] Judy [place] [address] [place] [address] 10/02/2017 15:24:27 10/02/2017 16:35:41 Essential hypertension 61456052 I10 --Managed with RX Hyperlipidemia 08977600 E78.2 07/05/17: TCHOL:225 HDL:71 TRI LDL:116 Overweight 534742989 E66 .3 10/02/17: WT: 149 lbs. 3 ozs. BMI: 25.4 Body mass index 25-29 - overweight 797671425 Z68.25 10/02/17: BMI: 25.4 History of eating disorder 6016680946 91177 Z86.59 --Pt reports hx eating disorder including starving herself, binging and purging, beginning at age 13 and continued until 2 years ago when she started Atkins diet. [id number] GRISELDA Hopper [address] [place] [address] 10/04/2017 09:18:17 10/04/2017 10:21:45 Screening for malignant neoplasm of breast 292175125 Z12.31 Greater tr ochanteric pain syndrome 0326893 M70.61 Xray showed mild narrowing o R [...] if no relief with PT Essential hypertension 61461771 I10 no CP, HABP elevated again today increase enalapril to 20mg po BIDf/u 3-4 weeks BP check to ED/911 for CP, severe CONROY with vision changes/pr oblems speech/bal ance, concern Foot-drop 2363221 M21.37 9 nerve damage from trauma/spi nal [facility] er AFO is very old and falling apart and she has been tripping without it, needs new one, will provide with a script and fax to ortho [id number] GRISELDA Hopper [address] [place] [address] 10/31/2017 09:29:43 10/31/2017 10:18:30 Administration of diphtheria, pertussis, and tetanus vaccine 167055583 Z23 Antibody measurement 352 7003 Z01.84 nop indication communicab le infection on exam today, Tdap admin and titers drawn Dysphagia 25630866 R13.1 0 refer GI for eval dysphagia and abnormalit y of pharynx (though may be better evaluated by ENT with laryngosco py but will eval with EGD 1st given dysphagia r/o stricture or malignancy and may be able to biopsy)f/u after consult [id number] GRISELDA Hopper [address] [facility] [address] 11/09/2017 13:53:49 11/09/2017 16:17:55 Sore throat 314926234 J02.9 neg rapid strep, check monotx post nasal drip as abovef/u rn worsening symptoms or not responding to above Headache 72941181 R51 normal neuro exam, attributes to allergic sinusitis as above Allergy to mold 42680312 3 Z91.048 check resp allergy panel, address mold at homecont flonasetx with medrol pack and cetirizine f/u labs and RTC if worsening symptoms or not responding to above [id number] GRISELDA Hopper [address] [facility] [place] [address] 01/22/2018 08:27:18 01/22/2018 09:13:48 Essential hypertension 33844301 I10 no CP, HABP elevated today cont [...] vision changes/pr oblems speech/bal ance, concern Anxiety 56349807 F41.9 see above Pain in throat 484592430 R07.0 bumps most consistent with transient lingular [...] will discuss with ENT Chronic back pain 890975 002 G89.29 establishe d, stablecont flexeril prncont [...] vs injection to different area of pain [id number] GRISELDA Hopper [address] [place] [address] 04/02/2018 14:44:10 04/02/2018 16:30:40 Greater trochanteric pain syndrome 9595234 M70.61 Xray showed mild narrowing of R [...] back pain. f/u 1 month Hypertriglyceridemia 302 483707 E78.1 reviewed healthy diet and exercisech dante fasting lipids and LFTs Vitamin D deficiency 347 04978 E55.9 low in past takes OTC supplement on occasionch dante vitamin d level [id number] GRISELDA Hopper [address] [facility] [address] 05/01/2018 12:52:58 05/01/2018 13:58:01 Greater trochanteric pain syndrome 1682408 M70.61 Xray showed mild narrowing of R hip joint space small osteophyte from acetabular margin R femoral head. no fx or dislocatio nshe will reconsider steroid injection and has # to call ortho to scheduledi scussed PT, she prefers to do exercises at home, provided with printouts last visitraghav wed risk opioid medication in pt with [...] with me in 1 month Essential hypertension 27736235 I10 no CP, HABP elevated today cont [...] speech/bal ance, concern Chronic pain syndrome 37 9528630 G89.4 see above regarding hipreviewe d breathing and meditation exercises to take focus off painshe plans to start water walking, yoga as toleratedf /u 1 month, sooner prn [id number] Victorina Camacho, GRISELDA [place] [address] [facility] [place] [address] 05/29/2018 08:26:23 05/29/2018 10:49:06 Screening for malignant neoplasm of breast 559633386 Z12.31 Essential hypertension 45849675 I10 no CP, HABP improved but still mildly elevated today cont enalapril 20mg po BID and clonidine 0.1mg po BID which is for her BP and anxiety though rec she take standing to avoid rebound HT[facility] and pt would like to proceed with amlodipine 2.5mg po dailyf/u 2 weeks BP check at clinic in [facility] sooner prn dizziness, CP, CONROY, concern f/u at [facility] when [facility] in [facility] ED/911 for CP, severe CONROY with vision changes/pr oblems speech/bal ance, concern Greater tr ochanteric pain syndrome 5354197 M70.61 Xray showed mild narrowing of R hip joint space small osteophyte from acetabular margin R femoral head. no fx or dislocatio nshe will reconsider steroid injection and has # to call ortho to scheduledi scussed PT, she prefers to do exercises at home, provided with printouts last visitresun risk opioid medication in pt with hx [...] back pain.f/u 1 month sooner prn Anxiety 48070815 F41.9 worried about flightdisc ussed possible SE and she would like to proceed with hydroxyzin e to take 30 minutes prior to flight prn anxiety Chronic back pain 681959 002 G89.29 establishe d, stablecont tylenol 1000mg po TID prn. she does occasional ly takes OTC ibuprofen lower doses has been helpful and does not make her as dizzy provided refill tylenol with codeine as aboveresun medication , yoga, breathing exercises for chronic painfu 1 month [id number] MD LORENZA Adler [address] [facility] [address] [facility] [place] [address] 07/01/2018 08:28:06 07/01/2018 10:35:50 Essential hypertension 19231186 I10 BP well controlled todayagree to continue on just clonidine and enalapril Greater tr ochanteric pain syndrome 3953713 M70.61 reviewed [facility] record -- has been having monthly refills as prescribed by last PCPlast filled 05/29/18,req uesting to be evaluated by a different customer energy specialist , believes that may need surgery for ongoing R hip issuespati ent to call insurance to see which specialist s will accept insurance, then can have new referral generated for 2nd opinion [id number] Antonia Negron MD ZZZ NQ-ADULT DO NOT USE [address] [place] [address] 08/16/2018 09:42:26 08/16/2018 16:45:36 Greater trochanteric pain syndrome 0981814 M70.61 - xray hip in 09/03/18: mild narrowing o R hip joint space small osteophyte notes from acetabular margin R femoral head- need to f/u with orthopedic s- ANIMAL SCIENTIST reviewed- UDS today- refill given- RTC with PCP at [place] Right uppe r quadrant pain 574716424 R10.11 - DDx Gb disease vs hepatitis vs lipomas- h/o abdominal wall lipoma s/p excision - US order given- h/o s/o Hep C tx in 2017- h/o + Hep B core AB- will do labs- ED precaution s given- will contact patient with results- RTC as needed Long-term drug therapy 715372386 Z79.899 History of hepatitis C 0211552421 9101 Z86.19 - Gt1a, F0 s/p tx with Cheryl- reviewed RF with patient, denies- will do labs today [id number] CHAITANYA Heredia [address] [facility] [address] [facility] [place] [address] 09/04/2018 08:24:09 09/04/2018 09:22:10 Atypical chest pain 995463875 R07.89 -ECG wnl as per patient, at [facility] in [facility] d--> signed release for records-Ex am wnl, VSS aside from elevated BP- plan noted below-DDx: WA (unlikely per recent ECG), PE, CM, AI, pn, pleuritis, GERD, musculoske latal, anxiety/pa karol attack (most likely)-Pa tient very anxious with varying tangential thoughts-A larm signs reviewed-- > to -Send to cards for chest stress for atypical chets pain, f/u after test/consu lt Essential hypertension 80206700 I10 -Establish ed, unstable-B P 154/98 in office, patient is non-compli ant/adhere nt on clonidine and enalapril, misses many doses-Stre ss important of compliant on medication - to take a prescribed - expresses understand ing-Discus sed possible complicati ons from uncontroll ed BP including WA, stoke, etc-F/u in 3 months for BP check-F/u with cardiology as advised for CP Chronic back pain 860709 002 M54.9 -Continue on tylenol #3 at night as needed, tylenol PRN during day for pain-[place] f/ at pain clinic for injections - patient upset they will not prescribe her stronger pain medication --> advised can call [facility] pain clinic to discuss med management -F/u with ortho/pain clinic as planned [id number] CHAITANYA Heredia [address] [place] [address] 09/26/2018 11:12:22 09/26/2018 12:40:31 Essential hypertension 76618467 I10 -Establish ed, unstable-P atient is non-compli ant/adhere nt on clonidine and enalapril, misses many doses-Stre ss important of compliant on medication - to take a prescribed - expresses understand ing-Refill of clonidine sent-Discu ssed possible complicati ons from uncontroll ed BP including WA, stoke, etc-F/u in 3 months for BP check-F/u with cardiology as advised for h/o atypical CP Mass of skin 501504964 R 22.9 -2 cm superficia l mobile mass palpated along anterior lower rib cage just superior to RUQ adjacent to scar s/o lipoma excision-R eports severe pain/distr ess to palpation- Concerned more for surgical/s car tissue complicati ons vs. abdominal pathology- OTC NSAIDs/tyl enol for pain, continue compresses -Patient advised to f/u with general surgeon to discuss treatment [id number] CHAITANYA Heredia [address] [place] [address] 11/06/2018 19:10:43 11/06/2018 20:21:25 Imaging of spleen abnormal 066014803 R93.5 -2 cm enhancing lesion seen on CT with previous abnormalit y non imaging >2 years ago-Never had f/u MRI--> new order sent for further eval Lipomatosis 021162081 E8 8.2 -2 cm superficia l mobile [...] diagnosis, discuss excision with surgeon Essential hypertension 76730093 I10 -Establish ed, unstable-P atient is non-compli ant/adhere nt on clonidine and enalapril, misses many doses-Stre ss important of compliant on medication - to take a prescribed - expresses understand ing-Refill of clonidine sent-Discu ssed possible complicati ons from uncontroll ed BP including WA, stoke, etc-F/u in 1-2 months for BP check-F/u with cardiology as advised for h/o atypical CP Chronic back pain 229683 002 M54.9 -Continue on tylenol #3 at night as needed, tylenol PRN during day for pain-Santy nue f/ at pain clinic for injections - patient upset they will not prescribe her stronger pain medication --> advised can call [facility] pain clinic to discuss med management -F/u with ortho/pain clinic as planned Health Concerns Section Related Observation LastModified by Organization Detai ls LastModified Time None Recorded Concern Status LastModified by Organization Details LastModified Time None Recorded Advance Directives Directive None Recorded Payers Encounter Date Sequence Insurance Name Policy Number Policy Tena Covered Member ID Tena Member ID Guarantor Name 07/01/2018 1 [place]IC[place] B[place]: [facility] [facility] Heaven Aranda Martin [id number] Heaven Martin 07/01/2018 2 [place] [id number] ([facility]) Heaven Aranda Martin [id number] Heaven Martin 08/16/2018 1 [place] [employer] Heaven Aranda Martin [id number] Heavne Martin 08/16/2018 2 [place]) Heaven Aranda Martin [id number] [facility] 09/04/2018 1 [place]ICARE B-[place]: [facility] Heaven A Martin [id number] Heaven Martin 09/04/2018 2 [place]) Heaven Aranda Martin [id number] Heaven Martin 09/26/2018 1 [place] [employer] Heaven Aranda Mario [id number] Heavencarlotta Martin 09/26/2018 2 [place]) Heaven Martin [id number] Heaven Martin 11/06/2018 1 [place] [employer] Heaven Martin [id number] Heaven Martin 11/06/2018 2 [place] [facility] ([facility]) Heaven Martin [id number] Heaven Martin Notes Date Note Type Note Provider Name and Address Organization Details Recorded Time 07/01/2018 text/html here for BP chec k, medication refill had low dose amlodipine added to medication regimen for HTN control on last visit within the past month; noted BP well controlled today on reports that stopped taking amlodipine, due to not wanting to take Eriberto Fernandez MD [address] [place] [address], [phone], [facility] 07/17/2018 13:03:23 08/16/2018 text/html here for f/u she has been having RUQ painon and off for 6 monthsfor the last week she was having more painshe has a h/o lipoma in RUQ area- s/p excision several years agono change on BMappetite decreasedno change on urineno sore throat + CONROY+ fatiguefeverish +no swollen glansbut no feels better Antonia Negron MD [address] [place] [address], [phone], [facility] 08/16/2018 10:32:39 09/04/2018 text/html 57F is here c/o chest tightness over the past 2 weeksBegan while she was on vacation in [place] with her daughterSays pain was severe, mostly on right side of chestSays she had to push on chest to relieve pain which did helpSays when her plan landed back [place], she went right to [facility] in [place] for chest pain within the last weekHad [...] changes in appetite Lacie Masters PA-C [address] [place], [address], [facility] 09/05/2018 11:15:14 09/26/2018 text/html 57 is here c/o r ight sided abdominal pain x 6 monthsPain originally intermittent but has gotten more persistent over the past few weeksWorst with direct touch/pressure but now also occuring at rest and relieved only with laying downHad full work up including labs and abdominal US done recently, all which returned unremarkableShe has a h/o abdominal wall lipomas in [facility] area- s/p excision several years ago ([address] Bunch)Pain is occuring around scar site in [facility]/o Hep C treated with Harvoni in 2016Denies any changes in BM, urination, appetite, fatigue, feverHas been applying heat and ice with little releif Lacie Masters PA-C [address] [place], [address], [facility] 09/26/2018 15:07:13 11/06/2018 text/html 57 is here [...] has a h/o abdominal wall lipomas in [facility] area- s/p excision several years ago ([address] Bunch) Pain is still occuring around scar site in RU Saw general surgeon last month wh diagnosed her with lipomatosis and ordered CT which was normal- advised of f/u as neededH/o Hep C treated with Harvoni in 2016 Labs normal in July 2018Den any changes in BM, urination, appetite, fatigue, fever Has been applying heat and ice with little releifRequesting refill of pain medication Lacie Masters PA-C [address] [place], [address], [facility] 11/06/2018 20:14:16 OBGyn Episode No OBEpisode recorded.
== END 2024-09-18 09:29 | disposition home or self-care (01) ==
PROVIDERS: PCP Internal Medicine; Visit Provider Anesthesiology
DX: G90.521 Complex regional pain syndrome I of right lower limb (principal); M51.360 Other intervertebral disc degeneration, lumbar region with discogenic back pain only; M96.1 Postlaminectomy syndrome, not elsewhere classified; Z79.891 Long term (current) use of opiate analgesic; I63.9 Cerebral infarction, unspecified
CPT/HCPCS: 99213

== ENCOUNTER → 2024-09-18 09:07 | Outpatient (BNVA) | payer MEDICARE, MEDICAID, SELFPAY | PROVIDERS: PCP Internal Medicine; Visit Provider Anesthesiology | DX: Z51.81 Encounter for therapeutic drug level monitoring (principal); F11.20 Opioid dependence, uncomplicated; G90.521 Complex regional pain syndrome I of right lower limb; M96.1 Postlaminectomy syndrome, not elsewhere classified; M51.360 Other intervertebral disc degeneration, lumbar region with discogenic back pain only; I69.351 Hemiplegia and hemiparesis following cerebral infarction affecting right dominant side | CPT/HCPCS: 99212 ==

== ENCOUNTER 2024-09-26 07:28 | Outpatient (AMB) | payer MEDICARE, MEDICAID, SELFPAY ==
--- OUTSIDE RECORDS SUMMARY | 2024-09-26 07:32 | XMS_ITS | Data Portability ---
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 548067 002 G89.29 Thoracic xray 09/08/16 showed a [...] +/- neurosurge ry following MRI Neck pain 01521650 M54.2 neck pain and tenderness no response [...] will repeat at f/u in 2 weeks [id number] Antonia Negron MD ZZZ NQ-ADULT DO NOT USE [address] [place] [address] 12/06/2016 15:12:01 12/06/2016 17:32:01 Chronic hepatitis C 627142803 B18.2 - G1a, naive to treatment- currently [...] le- RTC in 4 weeks with labs [id number] Victorina Camacho, GRISELDA [place] [address] [facility] [address] [place] [address] 12/12/2016 14:35:08 12/22/2016 14:28:40 History of cervical spine fusion 5343445362 101 Z98.1 MRI cervical spine shows post [...] prnrepeat tox screenf/u 1 month Essential hypertension 25853860 I10 no CP, HABP elevated today but missed medication and was normal when taking as prescribed last visit, reviewed importance of taking as prescribed f/u 2 weeks BP checkto ED/911 for CP, severe CONROY with vision changes/pr oblems speech/bal ance, concern Chronic back pain 334979 002 G89.29 MRI 12/07/16 report as follow: [...] management as above Imaging re sult abnormal 537696877 R93.8 MRI thoracic spine noted increased T2 signal on spleen and rec dedicated imaging--> US ordered and nsg will schedule for pt [id number] Antonia Negron MD ZZZ NQ-ADULT DO NOT USE [address] [place] [address] 01/09/2017 09:53:33 01/09/2017 10:54:07 Chronic hepatitis C 882837700 B18.2 - G1a, s/p Harvoni treatment - [...] - RTC as needed- RTC with PCP [id number] Victorina Rhoades S, GRISELDA [place] [address] [facility] [address] [place] [address] 01/09/2017 14:47:08 01/09/2017 15:35:48 Administration of diphtheria, pertussis, and tetanus vaccine 622549070 Z23 Pain in left knee 892150 1236 89928 M25.562 eval with xrayrest, ice, compressio n bandage placed today, tylenol prn (unable to tolerate NSAIDs)f/u xray or if worsening pain, knee swelling or giving out Chronic back pain 142414 002 G89.29 MRI 12/07/16 report as follow: [...] qHSf/u 1 month Chronic hepatitis C 1283 84528 B18.2 completed 8 weeks cherylbryon paula viral load drawn by ID and pending [id number] Victorina Rhoades S, [employer]ADER [place] [address] [facility] [address] [place] [address] 02/08/2017 11:26:22 02/08/2017 13:44:36 Osteopenia 872376825 M85.80 reviewed recent [facility] showed osteopenia L hip and normal bone density spine and femoral neckrec walking, weight bearing exercise as toleratedr eviewed dietary sources of calcium and rec 3 per day and she occasional ly takes a calcium supprepeat [facility] 2019 History of cervical spine fusion 7288050319 101 Z98.1 MRI cervical spine shows post [...] cont flexeril and tylenol as neededrefe r [facility] PT for eval and pool therapyref er behavioral health for counseling on anxiety and depression related to chronic painf/u 3 months or sooner prn Chronic back pain 566594 002 G89.29 MRI 12/07/16 report as follow: [...] await neurosurge ry response as above Foot-drop 2895618 M21.37 9 nerve damage from trauma/spi nal [facility] er AFO is very old and falling apart and she has been tripping without it, needs new one, will provide with a script ([place] called for her and [employer] in [place] can fit her for this) [id number] Victorina Rhoades S, [employer] L[place] [address] [facility] [address] [place] [address] 03/30/2017 08:26:28 03/30/2017 10:09:50 Chronic back pain 516497201 G89.29 exam at baseline. She had good response to the thoracic injection which is encouragin g. Rec she schedule with pain clinic for cervical injection as well. She agreeswoul d benefit from pool therapy with PT but transporta tion is difficult for her. She has medicare primary and [facility] secondary, will ask [place] to see if she qualifies for PT1 [...] clinic cervical injection and PT Spleen finding 876831033 R94.8 need to re-order spleen imaging for approval through her insurance. Order placed and faxed to [facility] for PA. Pt t call if has not heard in next 2 weeks about appt Major depr essive disorder 245936674 F32.9 denies SIshe agrees she could benefit from counseling but transporta tion is an issue. She agrees to schedule and let [place] know appt date/time so she can apply for PT1 ride for ptdid not tolerate citalopram in past due to SE chest pain and she declines any trial of alternate medication at this time [id number] Antonia Negron MD ZZZ NQ-ADULT DO NOT USE [address] [place] [address] 04/26/2017 11:37:43 04/26/2017 12:32:46 Chronic hepatitis C 795892652 B18.2 - G1a, F0 s/p Harvoni treatment, completed 8 weeks- no alcohol, drugs or tobacco use - Hep B core Ab+ - Hep A vaccinatio n complete- labs @ 4 weeks - wnl, HCV RNA undetectab le-SVR 12 weeks today- counseling to avoid reexposure - RTC with PCP [id number] Victorina Camacho, GRISELDA [place] [address] [facility] [address] [place] [address] 07/05/2017 13:03:15 07/05/2017 14:32:22 Adult health examination 764046239 Z00.00 normal CPEvacc UTDscreen lipids cmp cbcanticip atory guidance providedma mmo: scheduled 12/2017colo noscopy screen order providedRT C 1 year CPE Allergic rhinitis 240104 04 J30.9 rec avoid decongesta nts given HTNrestart flonase and start loratidine 10mg dailyRTC worsening symptoms not responding to above Overweight 682142423 E66 .3 doing a great job with healthy diet and exercise encouraged her to continue Essential hypertension 96187665 I10 no CP, HABP at goal, reviewed importance of taking medication daily though will decrease enalapril to 20mg daily given she has not been taking more than that dosecheck renal fxn and lytes and f/u 2-3 weeks BP checkto ED/911 for CP, severe CONROY with vision changes/pr oblems speech/bal ance, concern Chronic back pain 882823 002 G89.29 doing well managing her chronic [...] injection to different area of pain Osteopenia 212362828 M85 .80 bone density 9/12/17 showed normal density spine and L femoral neck, osteopenia total L hipcont weigth bearing exercise and 1200mg calcium combined with vitamin D via diet or supplement ation and repeat BMD 01/30/19 Major depr essive disorder 079396799 F32.9 denies SIdoing well right now minimizing contact with daughter, toxic relationsh ip, and taking care of her body and prayingcon t self caref/u prn Spleen finding 246172020 R94.8 need to re-order spleen imaging for approval through her insurance. Order placed and faxed to [facility] for PA. Pt to call if has not heard in next 2 weeks about appt [id number] Victorina Camacho, GRISELDA [place] [address] [place] [address] 08/29/2017 09:50:25 09/06/2017 15:12:49 Screening for malignant neoplasm of colon 046681391 Z12.11 Pain of ri ght hip joint 2670415918 21116 M25.551 eval with xray rule out fx and OA tx with medrol pack and then ibuprofen as needed. she requests 800mg tabs to break in half and see if tolerates (has made her dizzy in past but does help the pain)rest, icef/u xrayRTC problems with ambulation worsening pain or not repsonding to above Chronic back pain 652178 002 G89.29 establishe d, stablerefi ll flexeril prncont tylenol 1000mg po TID prn. she does occasional ly takes OTC ibuprofen lower doses has been helpful and does not make her as dizzysched ule with pain clinic for worsening pain and repeat injection vs injection to different area of pain Greater tr ochanteric pain syndrome 7092097 M70.61 [id number] Judy [place] [address] [place] [address] 10/02/2017 15:24:27 10/02/2017 16:35:41 Essential hypertension 90076344 I10 --Managed with RX Hyperlipidemia 91096989 E78.2 07/05/17: TCHOL:225 HDL:71 TRI LDL:116 Overweight 789073463 E66 .3 10/02/17: WT: 149 lbs. 3 ozs. BMI: 25.4 Body mass index 25-29 - overweight 856033200 Z68.25 10/02/17: BMI: 25.4 History of eating disorder 9745981639 83850 Z86.59 --Pt reports hx eating disorder including starving herself, binging and purging, beginning at age 13 and continued until 2 years ago when she started Atkins diet. [id number] GRISELDA Hopper [address] [place] [address] 10/04/2017 09:18:17 10/04/2017 10:21:45 Screening for malignant neoplasm of breast 581825530 Z12.31 Greater tr ochanteric pain syndrome 0703300 M70.61 Xray showed mild narrowing o R [...] if no relief with PT Essential hypertension 86367412 I10 no CP, HABP elevated again today increase enalapril to 20mg po BIDf/u 3-4 weeks BP check to ED/911 for CP, severe CONROY with vision changes/pr oblems speech/bal ance, concern Foot-drop 9060028 M21.37 9 nerve damage from trauma/spi nal [facility] er AFO is very old and falling apart and she has been tripping without it, needs new one, will provide with a script and fax to ortho [id number] GRISELDA Hopper [address] [place] [address] 10/31/2017 09:29:43 10/31/2017 10:18:30 Administration of diphtheria, pertussis, and tetanus vaccine 992709244 Z23 Antibody measurement 352 7003 Z01.84 nop indication communicab le infection on exam today, Tdap admin and titers drawn Dysphagia 29043051 R13.1 0 refer GI for eval dysphagia and abnormalit y of pharynx (though may be better evaluated by ENT with laryngosco py but will eval with EGD 1st given dysphagia r/o stricture or malignancy and may be able to biopsy)f/u after consult [id number] GRISELDA Hopper [address] [facility] [place] [address] 11/09/2017 13:53:49 11/09/2017 16:17:55 Sore throat 918317608 J02.9 neg rapid strep, check monotx post nasal drip as abovef/u rn worsening symptoms or not responding to above Headache 96401726 R51 normal neuro exam, attributes to allergic sinusitis as above Allergy to mold 87299577 3 Z91.048 check resp allergy panel, address mold at homecont flonasetx with medrol pack and cetirizine f/u labs and RTC if worsening symptoms or not responding to above [id number] GRISELDA Hopper [address] [facility] [place] [address] 01/22/2018 08:27:18 01/22/2018 09:13:48 Essential hypertension 28750115 I10 no CP, HABP elevated today cont [...] vision changes/pr oblems speech/bal ance, concern Anxiety 60962947 F41.9 see above Pain in throat 476217029 R07.0 bumps most consistent with transient lingular [...] will discuss with ENT Chronic back pain 453919 002 G89.29 establishe d, stablecont flexeril prncont [...] vs injection to different area of pain [id number] GRISELDA Hopper [address] [place] [address] 04/02/2018 14:44:10 04/02/2018 16:30:40 Greater trochanteric pain syndrome 7082853 M70.61 Xray showed mild narrowing of R [...] back pain. f/u 1 month Hypertriglyceridemia 302 506967 E78.1 reviewed healthy diet and exercisech dante fasting lipids and LFTs Vitamin D deficiency 347 44886 E55.9 low in past takes OTC supplement on occasionch dante vitamin d level [id number] GRISELDA Hopper [address] [place] [address] 05/01/2018 12:52:58 05/01/2018 13:58:01 Greater trochanteric pain syndrome 1238831 M70.61 Xray showed mild narrowing of R [...] with me in 1 month Essential hypertension 17599905 I10 no CP, HABP elevated today cont [...] speech/bal ance, concern Chronic pain syndrome 37 0884359 G89.4 see above regarding hipreviewe d breathing and meditation exercises to take focus off painshe plans to start water walking, yoga as toleratedf /u 1 month, sooner prn [id number] Victorina Camacho, GRISELDA [place] [address] [facility] [place] [address] 05/29/2018 08:26:23 05/29/2018 10:49:06 Screening for malignant neoplasm of breast 505271424 Z12.31 Essential hypertension 68568108 I10 no CP, HABP improved but still mildly elevated today cont enalapril 20mg po BID and clonidine 0.1mg po BID which is for her BP and anxiety though rec she take standing to avoid rebound HTN she [facility] and pt would like to proceed with amlodipine 2.5mg po dailyf/u 2 weeks BP check at clinic in [facility] sooner prn dizziness, CP, CONROY, concern f/u at [facility] when back in [facility] ED/911 for CP, severe CONROY with vision changes/pr oblems speech/bal ance, concern Greater tr ochanteric pain syndrome 7992131 M70.61 Xray showed mild narrowing of R [...] back pain.f/u 1 month sooner prn Anxiety 53332924 F41.9 worried about flightdisc ussed possible SE and she would like to proceed with hydroxyzin e to take 30 minutes prior to flight prn anxiety Chronic back pain 177275 002 G89.29 establishe d, stablecont tylenol 1000mg po TID prn. she does occasional ly takes OTC ibuprofen lower doses has been helpful and does not make her as dizzy provided refill tylenol with codeine as aboveresun medication , yoga, breathing exercises for chronic painfu 1 month [id number] MD LORENZA Adler [address] [facility] [address] [facility] [place] [address] 07/01/2018 08:28:06 07/01/2018 10:35:50 Essential hypertension 39993364 I10 BP well controlled todayagree to continue on just clonidine and enalapril Greater tr ochanteric pain syndrome 7126052 M70.61 reviewed [facility] record -- has been having monthly refills as prescribed by last PCPlast filled 05/29/18,req uesting to be evaluated by a different hospital product specialist , believes that may need surgery for ongoing R hip issuespati ent to call insurance to see which specialist s will accept insurance, then can have new referral generated for 2nd opinion [id number] Antonia Negron MD ZZZ NQ-ADULT DO NOT USE [address] [place] [address] 08/16/2018 09:42:26 08/16/2018 16:45:36 Greater trochanteric pain syndrome 5951163 M70.61 - xray hip in 09/03/18: mild narrowing o R hip joint space small osteophyte notes from acetabular margin R femoral head- need to f/u with orthopedic s- [employer] reviewed- UDS today- refill given- RTC with PCP at [place] Right uppe r quadrant pain 292603396 R10.11 - DDx Gb disease vs hepatitis vs lipomas- h/o abdominal wall lipoma s/p excision - US order given- h/o s/o Hep C tx in 2017- h/o + Hep B core AB- will do labs- ED precaution s given- will contact patient with results- RTC as needed Long-term drug therapy 772812616 Z79.899 History of hepatitis C 1152887628 9101 Z86.19 - Gt1a, F0 s/p tx with Cheryl- reviewed RF with patient, denies- will do labs today [id number] CHAITANYA Heredia [address] [facility] [address] [facility] [place] [address] 09/04/2018 08:24:09 09/04/2018 09:22:10 Atypical chest pain 810689227 R07.89 -ECG wnl as per patient, at [facility] in [facility] d--> signed release for records-Ex am wnl, VSS aside from elevated BP- plan noted below-DDx: CA (unlikely per recent ECG), PE, CM, AI, pn, pleuritis, GERD, musculoske latal, anxiety/pa karol attack (most likely)-Pa tient very anxious with varying tangential thoughts-A larm signs reviewed-- > to -Send to cards for chest stress for atypical chets pain, f/u after test/consu lt Essential hypertension 01144312 I10 -Establish ed, unstable-B P 154/98 in office, patient is non-compli ant/adhere nt on clonidine and enalapril, misses many doses-Stre ss important of compliant on medication - to take a prescribed - expresses understand ing-Discus sed possible complicati ons from uncontroll ed BP including CA, stoke, etc-F/u in 3 months for BP check-F/u with cardiology as advised for CP Chronic back pain 832096 002 M54.9 -Continue on tylenol #3 at night as needed, tylenol PRN during day for pain-[place] f/ at pain clinic for injections - patient upset they will not prescribe her stronger pain medication --> advised can call [facility] pain clinic to discuss med management -F/u with ortho/pain clinic as planned [id number] CHAITANYA Heredia [address] [facility] [place] [address] 09/26/2018 11:12:22 09/26/2018 12:40:31 Essential hypertension 01188519 I10 -Establish ed, unstable-P atient is non-compli ant/adhere nt on clonidine and enalapril, misses many doses-Stre ss important of compliant on medication - to take a prescribed - expresses understand ing-Refill of clonidine sent-Discu ssed possible complicati ons from uncontroll ed BP including CA, stoke, etc-F/u in 3 months for BP check-F/u with cardiology as advised for h/o atypical CP Mass of skin 265741154 R 22.9 -2 cm superficia l mobile mass palpated along anterior lower rib cage just superior to RUQ adjacent to scar s/o lipoma excision-R eports severe pain/distr ess to palpation- Concerned more for surgical/s car tissue complicati ons vs. abdominal pathology- OTC NSAIDs/tyl enol for pain, continue compresses -Patient advised to f/u with general surgeon to discuss treatment [id number] CHAITANYA Heredia [address] [facility] [place] [address] 11/06/2018 19:10:43 11/06/2018 20:21:25 Imaging of spleen abnormal 942306512 R93.5 -2 cm enhancing lesion seen on CT with previous abnormalit y non imaging >2 years ago-Never had f/u MRI--> new order sent for further eval Lipomatosis 734373650 E8 8.2 -2 cm superficia l mobile [...] diagnosis, discuss excision with surgeon Essential hypertension 27019902 I10 -Establish ed, unstable-P atient is non-compli ant/adhere nt on clonidine and enalapril, misses many doses-Stre ss important of compliant on medication - to take a prescribed - expresses understand ing-Refill of clonidine sent-Discu ssed possible complicati ons from uncontroll ed BP including CA, stoke, etc-F/u in 1-2 months for BP check-F/u with cardiology as advised for h/o atypical CP Chronic back pain 701721 002 M54.9 -Continue on tylenol #3 at night as needed, tylenol PRN during day for pain-Santy nue f/ at pain clinic for injections - patient upset they will not prescribe her stronger pain medication --> advised can call [facility] pain clinic to discuss med management -F/u with ortho/pain clinic as planned Health Concerns Section Related Observation LastModified by Organization Detai ls LastModified Time None Recorded Concern Status LastModified by Organization Details LastModified Time None Recorded Advance Directives Directive None Recorded Payers Insurance Date Sequence Insurance Name Policy Number Policy Tena Covered Member ID Tena Member ID Guarantor Name 10/14/2020 1 [place]IC[place] B-[place]: [employer] Heaven Martin [id number] Heaven Martin 06/06/2017 1 UNSPECIFIED REMIT PAYOR Heaven Martin 11/06/2018 2 [place] [facility] Heaven Martin [id number] Heaven Martin 10/13/2015 2 [place] [facility] Heaven Manoj Martin [id number] Heaven Martin 11/06/2018 MEDICARE A-[place]: [facility] Heaven Martin [id number] Heaven Martin Notes Date Note Type Note Provider Name and Address Organization Details Recorded Time 07/01/2018 text/html here for BP chec k, medication refill had low dose amlodipine added to medication regimen for HTN control on last visit within the past month; noted BP well controlled today on VSto reports that stopped taking amlodipine, due to not wanting to take Eriberto Fernandez MD [address] [place], [address], [facility] 07/17/2018 13:03:23 08/16/2018 text/html here for f/u she has been having RUQ painon and off for 6 monthsfor the last week she was having more painshe has a h/o lipoma in RUQ area- s/p excision several years agono change on BMappetite decreasedno change on urineno sore throat + CONROY+ fatiguefeverish +no swollen glansbut no feels better Antonia Negron MD [address] [place], [address], [facility] 08/16/2018 10:32:39 09/04/2018 text/html 57F is here c/o chest tightness over the past 2 weeksBegan while she was on vacation in [place] with her daughterSays pain was severe, mostly on right side of chestSays she had to push on chest to relieve pain which did helpSays when her plan landed back in [place], she went right to [facility] in [place] for chest pain within the last weekHad [...] changes in appetite Lacie Masters PA-C [address] [place], [address], [facility] 09/05/2018 11:15:14 09/26/2018 text/html 57 is [...] RUQH/o Hep C treated with Harvoni in 2017Denies any changes in BM, urination, appetite, fatigue, feverHas been applying heat and ice with little releif Lacie Masters PA-C [address] [place], [address], [facility] 09/26/2018 15:07:13 11/06/2018 text/html 57 is [...] of pain medication Lacie Masters PA-C [address] [place], [address], [facility] 11/06/2018 20:14:16 OBGyn Episode No OBEpisode recorded.
[2024-09-26 07:33] VITALS: BP 122/70; PULSE 66; O2SAT 98; BMI 25.3
--- NOTE | 2024-09-26 07:33 | A.OFFPC_ITS ---
Vital Signs 09/26/24 07:33 Height 5 ft 6 in Weight 157 lb BMI 25.3 BP 122/70 Blood Pressure Location Lt brachial Position Sitting Pulse 66 Pulse Source Pulse Oximeter Pulse Oximetry (%) 98 Oxygen Delivery Method Room Air Intake Visit Reasons: [facility] 09/13 throwing up 3 days Allergies ibuprofen [From Motrin] Adverse Reaction (Severe, Verified 09/26/24 07:35) high blood pressure, dizzy and chest pain NSAIDS (Non-Steroidal Anti-Inflamma Adverse Reaction (Severe, Verified 09/26/24 07:35) palpitations,dizziness Tobacco use date assessed: 07/15/24 Fall risk assessment: 2 + Falls in past year Last assessed Fall Risk: 09/26/24 Dental Screening Dental Screen Date: 09/26/24 Did you have a dental visit in the last 12 months?: Yes Did you have a dental problem in the last 6 months where you did not have access to dental care?: No Was dental information given to patient?: Patient has dentist HPI HPI Comments History of Present Illness Details 63 y/o Female patient who presents to e clinic for HDF. She was admitted at [facility] on 09/11 - 09/12 for intractable nausea and vomiting for 3 days. She was diagnosed with HTN urgency. Pt has not been taking her Enalapril daily as prescribed. She was only taking it PRN when BP elevated. She was also found to have Low Potassium levels, which was corrected in the hospital. Pt asking for Blood work to check levels. Pt had CT Abdomen while in the hospital due to Abdominal pain; this showed a Splenic lesion and Hiatal Hernia. Pt c/o Painful Lipoma right Upper Quadrant Abdomen and she was told that the CT scan abdomen showed increase in size of Lipoma. Pt asking to be referred to GI. Reports Previous Surgeries to remove Lipomas. [facility] Medical History (Updated 09/26/24 @ 08:12 by Eri Sutherland NP) Splenic lesion Hypertensive urgency Numbness and tingling of both feet Neuropathy Reflex sympathetic dystrophy of right leg Left lower quadrant pain Left groin pain Insomnia HCV (hepatitis C virus) Hemorrhoids Pure hypercholesterolemia Postlaminectomy syndrome Overweight (BMI 25.0-29.9) Memory loss or impairment Cerebrovascular accident (CVA) (~2019) Lumbar degenerative disc disease Benign essential hypertension Hair loss Paresthesia of foot Surgical History History of colonoscopy History of surgery History of neck surgery History of hysterectomy Family History Father Diabetes Mother Lung cancer Past heart attack Daughter In good health Brother In good health Brother No problems noted. Brother No problems noted. Family/Other Colon cancer Social History Housing: Apartment Alcohol intake: current Alcohol intake frequency: holidays/special occasions only Patient Tobacco Use Status: Never used Tobacco Tobacco use type: Cigarette e-Cigarette/Vaping Use: Never Used Second Hand Smoke Exposure: No service: No Current occupational status: disabled Cognitive needs: No Hearing needs: No Vision needs: Yes Female Reproductive History Menstrual Age of Menarche: 8 Questionnaire PHQ-9 Over the last 2 weeks, how often have you been bothered by any of the following problems? 1. Little interest or pleasure in doing things: not at all 2. Feeling down, depressed, or hopeless: not at all 3. Trouble falling or staying asleep, or sleeping too much: nearly every day 4. Feeling tired or having little energy: more than half the days 5. Poor appetite or overeating: several days 6. Feeling bad about yourself - or that you are a failure or have let yourself or your family down: not at all 7. Trouble concentrating on things, such as reading the newspaper or watching television: not at all 8. Moving or speaking so slowly that other people could have noticed. Or the opposite - being so fidgety or restless that you have been moving around a lot more than usual: not at all 9. Thoughts that you would be better off or of hurting yourself in some way: not at all Total score: 6 Depression Screening Interpretation: Positive Depression Screening Done: Yes 80676 - PHQ-9 Billing: Yes Source: Developed by Drs. Orlando Kat, Corina Corona, Dillon Greenwood and colleagues, with an educational marilynn from [employer]. Thrive Questionnaire Date Thrive assessed: 07/15/24 I am a: Patient What is your living situation today?: I have a steady place to live Within the past 12 months, did the food you bought not last and you didn't have the money to get more?: Never true Within the past 12 months, did you worry whether your food would run out before you got money to buy more?: Never true Do you have trouble paying for medicines?: No Do you have trouble getting transportation to medical appointments?: No Do you have trouble paying your heating and electricity bill?: Yes Do you have trouble taking care of your child, family member or friend?: No Do you have trouble with day-to-day activities such as bathing, preparing meals, shopping, managing finances, etc.?: No Are you currently unemployed and looking for a job?: No Are you interested in more education?: No Please select the resources that you would like help with: None Currently or been in a relationship where the following occur: No concerns reported THRIVE Score: 1 AUDIT C Alcohol Use Questionnaire (AUDIT-C) 1. How often do you have a drink containing alcohol?: Never Total Score: 0 CONSTANTINO-7 AMB Questionnaire CONSTANTINO-7 Date CONSTANTINO - 7 assessed: 07/15/24 Feeling nervous, anxious, or on edge: 0 = Not at all Not being able to stop or control worryin = Not at all Worrying too much about different things: 0 = Not at all Trouble relaxin = Not at all Being so restless that it is hard to sit still: 0 = Not at all Becoming easily annoyed or irritable: 0 = Not at all Feeling afraid as if something awful might happen: 0 = Not at all Total CONSTANTINO-7 score (0-4 normal; 5-9 mild; 10-14 moderate; 15-21 severe): 0 Source: Developed by Drs. Orlando Kat, Corina Corona, Dillon Greenwood and colleagues, with an educational marilynn from [employer]. Review of Systems Const All systems reviewed & are unremarkable except as noted in HPI and below Physical exam (Primary Care) Vital Signs: Last Vital Signs Pulse 66 09/26/24 07:33 BP 122/70 09/26/24 07:33 Pulse Ox 98 09/26/24 07:33 Oxygen Delivery Method Room Air 09/26/24 07:33 BMI result Body Mass Index 25.3 Tobacco/Smoking Status: Tobacco use Status Tobacco use date assessed 07/15/24 09/26/24 07:34 Patient Tobacco Use Status Never used Tobacco 09/26/24 07:34 Tobacco use type Cigarette 09/26/24 07:40 e-Cigarette/Vaping Use Never Used 09/26/24 07:34 PHQ-9: PHQ-9 Score PHQ-9: Total score 6 09/26/24 08:21 Depression Screening Interpretation: Positive Thrive Assessment: Date of Thrive Assessment Date Thrive assessed 07/15/24 09/26/24 07:34 Currently or been in a relationship where the following occur: No concerns reported Const General: no acute distress Orientation/consciousness: patient oriented x3 Resp Effort & Inspection: normal respiratory effort Auscultation: clear to auscultation bilaterally Cardio Heart sounds: S1 normal heart sound present and S2 normal heart sound present GI Inspection: Yes Abdominal panniculus present Palpation (GI): Soft to palpation, not firm, Tenderness to palpation present (GI) in the RUQ, no guarding, not rigid and No hepatosplenomegaly present Auscultation: normal bowel sounds Neuro General: patient oriented x3 and gait normal Coding Level of Care Code Est Pt Level 4 (80639) Diagnoses Hypertensive urgency I16.0 Splenic lesion D73.89 Hypokalemia E87.6 Additional Codes PHQ-9 - 09408 - PHQ-9 Billing: Yes ([id number]) Time Spent (min) 20 Assessment & Plan Assessment & Plan (1) Hypertensive urgency: Code(s): I16.0 - Hypertensive urgency Category: Medical Plan: Advise to take Losartan 50 mg and Clonidine as prescribed. Continue to monitor BP weekly at home. (2) Splenic lesion: Code(s): D73.89 - Other diseases of spleen Category: Medical Plan: CT Abdomen found a Splenic Lesion and Hiatal Hernia. Advised Patient to F/U with PCP regarding these issues. (3) Hypokalemia: Code(s): E87.6 - Hypokalemia Plan: Ordered CMP Labs Orders: Orders Comprehensive Met. Panel Today E87.6 - Hypokalemia
== END 2024-09-26 07:56 | disposition home or self-care (01) ==
LOC: HO.HMCH 07:29
PROVIDERS: PCP Internal Medicine; Visit Provider Nurse Practitioner Family
DX: I16.0 Hypertensive urgency (principal); D73.89 Other diseases of spleen; E87.6 Hypokalemia

== ENCOUNTER 2024-09-26 07:28 | Outpatient (REF) | payer MEDICARE, MEDICAID, SELFPAY ==
--- OUTSIDE RECORDS SUMMARY | 2024-09-26 08:05 | XMS_ITS | Data Portability ---
Author Organization ID - [facility], _[facility] Address [address] [place] [address] Assessment No assessment recorded. Plan of Treatment Reminders Order Date Submit Date Provider Last Modified By Organization Details Last Modified Time Details Appointments None recorded . Lab drug screen, urine 2016 017 [facility] (Closed Permanently, Testing Ceased), [address], [place], [address], 7 10:27:42 BMP, serum or plasma 2016 017 [facility] (Lab), [address], [place], [address], 7 21:40:17 unlisted lab - vitamin D 25 hydroxy by lcmsms 2016 017 [facility] (Lab), [address] [place], [address], 7 12:35:32 Referral pain manageme nt referral 2016 017 [facility] (Pain Management), [address], [facility] [address], [place], [address], 7 23:19:05 Procedures None recorded . Surgeries None recorded . Imaging None recorded . Medication Orders tramadol 50 mg tablet 2016 017 mary annvazully [facility]/Pharmacy #[id number], [address] [place], [address], 7 15:26:29 Vasotec 10 mg tablet 2016 017 INTERFACE [facility]/Pharmacy #[id number], [address] [place], [address], 7 15:27:22 oxycodon e 15 mg tablet 2016 017 [facility]/Pharmacy #[id number], [address] [place], [address], 7 15:27:14 Vasotec 10 mg tablet 2016 017 INTERFACE [facility]/Pharmacy #[id number], [address] [place], [address], 7 15:26:24 oxycodon e 15 mg tablet 2016 017 [facility]/Pharmacy #[id number], [address] [place], [address], 2 09:40:47 cycloben zaprine 10 mg tablet 2016 017 [facility]/Pharmacy #[id number], [address] [place], [address], 7 15:11:47 Patient TargetsNo targets recorded. Patient Instructions Encounter Date Encounter Id Patient Instructions Last Modified By Organization Details Last Modified Time 07/17/2016 [id number] 30 mins spent with pt and >50% of face to face time spent on counseling. [email or web address] Not available 07/17/2016 19:25:44 08/07/2016 [id number] 30 mins spent with pt and >50% [...] mmol/ L 136-14 5 normal Not Available [facility] (Lab) [address] [place], [address], 06/15/2016 09:59:28 06/14/19 17 06/14/2016 BMP, serum or plasm a potassium 4.6 mmol/ L 3.5-5. 1 normal Not Available [facility] (Lab) [address] [place], [address], 06/15/2016 09:59:28 06/14/19 17 06/14/2016 BMP, serum or plasm a chloride 97 mmol/ L 98-107 low Not Available [facility] (Lab) [address] [place], [address], 06/15/2016 09:59:28 06/14/19 17 06/14/2016 BMP, serum or plasm a carbon dioxide 23 mmol/ L 22-29 normal Not Available [facility] (Lab) [address] [place], [address], 06/15/2016 09:59:28 06/14/19 17 06/14/2016 BMP, serum or plasm a glucose 111 mg/dL 74-109 high Not Available [facility] (Lab) [address] [place], [address], 06/15/2016 09:59:28 06/14/19 17 06/14/2016 BMP, serum or plasm a BUN 11 mg/dL 6-20 normal Not Available [facility] (Lab) [address] [place], [address], 06/15/2016 09:59:28 06/14/19 17 06/14/2016 BMP, serum or plasm a creatinine 0.7 mg/dL 0.5-0. 9 normal Not Available [facility] (Lab) [address] [place], [address], 06/15/2016 09:59:28 06/14/19 17 06/14/2016 BMP, serum or plasm a calcium 10.0 mg/dL 8.6-10 .0 normal Not Available [facility] (Lab) [address] [place] [place], [address], 06/15/2016 09:59:28 06/14/19 17 06/14/2016 BMP, serum or plasm a anion gap 22 mmol/ L 6-18 high Not Available [facility] (Lab) [address] [place] [place], [address], 06/15/2016 09:59:28 06/14/19 17 06/14/2016 BMP, serum or plasm a est glom filtration rate calc2 86.2 normal MULTI PLY X 1.212 IF OF AFRIC AN AMERI CAN DESCE NT PAULINA L KIDNE Y FUNCT ION >60 mL/mi n RESUL TS PAULINA LIZED TO 1.73 m SQUAR ED BODY SURFA CE AREA Not Available [facility] (Lab) [address] [place], [address], 06/15/2016 09:59:28 06/14/19 17 06/15/2016 vitam in D, 25-hy droxy , total , serum vitamin D total 32.30 NG/mL 30-100 normal Defic iency : <10 ng/mL Insuf ficie ncy: 10 - 30 ng/mL Suffi cienc y: 30 - 100 ng/mL Toxic ity: >100 ng/mL Not Available [facility] (Lab) [address] [place], [address], 06/15/2016 09:59:29 Result Notes None recorded. Problems Name Problem SNOMED Code Status Onset Date Resolution Date Notes Provider Name and Address Organization Details Recorded Time Low back pain 215982037 Active 2015 Elsy Gold MD [address] [place] [address], [phone] , [facility] 01/11/201 7 06:26:19 Chronic pain 41906996 Active 2015 W/U Status: confirme d Not Available [facility] 7 15:27:31 Neck pain 11576768 Active 2015 W/U Status: confirme d Not Available [facility] 7 15:27:31 Foot-augie p 7978777 Completed 201505/31/2016 W/U Status: confirme d Elsy Gold MD [address] [place] [address], [address] , [facility] 7 06:27:26 Carpal tunnel syndrome 23128664 Active 2015 W/U Status: confirme d Not Available [facility] 7 15:27:32 Chest pain 52371704 Active 2015 Atypical chest pain, stress test negative for ischemia , echo normal. W/U Status: confirme d Elsy Gold MD [address] [place] [address], [phone] , [facility] 7 06:27:00 Vitamin D deficien cy 62047285 Active 2015 advised to take vitamin D 2,000 iu daily OTC. W/U Status: confirme d Elsy Gold MD [address] [place] [address], [address] , [facility] 7 06:27:17 Stress 73192808 Active 2015 advised stress can also raise BP. Stress mgt deniz jean Declined ghanshyam matthew ;W/U Status: confirme d Not Available [facility] 7 15:27:32 Heart murmur 48931767 Active 2015 obtain echo;W/U Status: confirme d Not Available [facility] 7 15:27:32 Hyperten sive disorder 67625821 Active 2015 W/U Status: confirme d Not Available [facility] 7 15:27:34 Foot-augie p 9454648 Active 2016 Elsy Gold MD [address] [place] [address], [address] , [facility] 7 06:27:39 Problem Notes None recorded. Medical Equipment None Reported. Allergies Allergen ID Allergen Name Allergen Category Reaction Reaction Severity Criticality Documentation Date Start Date Code Code System Note Provider Name and Address Organization Details Recorded Time 934251 amitripty line hydrochlo ride medicatio n irregular heart rate Not available Not available 05/24/20162015 35313 8 RxNorm React ion: palpi tatio ns; Not Available [facility] 7 09:03:45 888315 cyclobenz aprine hydrochlo ride medicatio n dizziness Not available Not available 05/24/20162015 53603 RxNorm React ion: dizzi ness; Elsy lieberman MD [address] [place] [address], [phone] [place] [address] [facility] 7 20:31:33 501991 gabapenti n medicatio n dizziness Not available Not available 05/24/20162015 43910 RxNorm React ion: dizzi ness; Not Available [facility] 7 09:03:45 404324 lisinopri l medicatio n dizziness Not available Not available 05/24/20162015 36623 RxNorm React ion: dizzi ness; Not Available [facility] 7 09:03:45 161646 amlodipin e besylate medicatio n chest pain Not available Not available 05/24/20162015 36593 6 RxNorm React ion: chest pain; Not Available [facility] 7 09:03:45 894791 Non-stero idal anti-infl ammatory agent (product) medicatio n chest pain Not available Not available 05/24/20162015 35519 005 SNOMED React ion: chest pain; Not Available [facility] 7 09:03:45 Medications Name Sig Start Date [...] rce: Shannan Bautista MD;Fer pérez By: Shannan aButista Not Available Not Available Not Available Vitals Date Recorded Body height Body weight Body mass index (BMI) Heart rate Oxygen saturation Oxygen saturation in Arterial blood by Pulse oximetry Systolic blood pressure Diastolic blood pressure Provider Name and Address Organization Details Last Updated DateTime 7 165.1 cm 16317 g 26.1 kg/m2 73 /min 99 % 99 % 122 mm[Hg] 82 mm[Hg] Marizol Braga ID - [facility] 7 14:26:29 Date Recorded Body height Heart rate Systolic blood pressure Diastolic blood pressure Systolic blood pressure Diastolic blood pressure Provider Name and Address Organization Details Last Updated DateTime 7 165.1 cm 103 /min 170 mm[Hg] 120 mm[Hg] 158 mm[Hg] 100 mm[Hg] Elisha Vargas LPN ID - [facility] 7 11:06:29 Date Recorded Body height Body weight Body mass index (BMI) Oxygen saturation Oxygen saturation in Arterial blood by Pulse oximetry Heart rate Systolic blood pressure Diastolic blood pressure Provider Name and Address Organization Details Last Updated DateTime 7 165.1 cm 36379 g 26.1 kg/m2 99 % 99 % 104 /min 160 mm[Hg] 100 mm[Hg] Froylan Ireland ID - [facility] 7 15:05:42 Date Recorded Body height Body weight Body mass index (BMI) Heart rate Oxygen saturation Oxygen saturation in Arterial blood by Pulse oximetry Systolic blood pressure Diastolic blood pressure Provider Name and Address Organization Details Last Updated DateTime 7 165.1 cm 78454.6 3 g 25.5 kg/m2 76 /min 99 % 99 % 150 mm[Hg] 90 mm[Hg] Froylan Ireland [facility] 7 15:02:21 Date Recorded Systolic blood pressure Diastolic blood pressure Provider Name and Address Organization Details Last Updated DateTime 08/07/2016 144 mm[Hg] 90 mm[Hg] Elsy Gold MD [address] [place] [address], [address], [facility] 08/07/2016 15:27:34 Social History Question Answer Notes LastModified by Organizat ion Details LastModified Time Tobacco Smoking Status Never Smoker Marizol Braga [facility] ID - [facility] 05/31/2016 14:28:08 What [...] SNOMED-CT Code Diagnosis ICD10 Code Diagnosis Note [id number] Elsy Gold MD [address] [address] 05/31/2016 14:01:57 05/31/2016 15:36:11 Hypertensive disorder 92087964 I10 controlled , continue enalapril 10 mg BID, check BMP Chronic pain 76452265 G8 9.29 Chronic neck and back pain s/p multiple surgeries, injections , PT, heavy duty narcotics, [facility]. 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 2000 - T1 compressio n fracture, traumatic Continue oxycodone. 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 Refer to [facility]. Low back pain 672694022 M54.5 Vitamin D deficiency 347 60697 E55.9 advised to take vitamin D 2,000 iu daily OTC Spasm of back muscles 20 8042122 M62.830 Start flexeril only at night QHS prn. Cautioned about dizziness/ drowsiness . [id number] Elsy Gold MD [address] [place] [address] 06/14/2016 10:22:02 06/14/2016 11:09:18 Essential hypertension 30881009 I10 [id number] Elsy Gold MD [address] [place] [address] 07/17/2016 14:25:19 07/17/2016 16:24:51 Hypertensive disorder 64074486 I10 uncontroll ed today which could be due to pain, prior BP within goal, continue enalapril 10 mg BID, continue to monitor BP at home. Chronic pain 72324650 G8 9.29 Chronic neck and back pain s/p multiple surgeries, injections , PT, heavy duty narcotics, [facility] pain clinic. SE with TCA, gabapentin , NSAIDs. 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 2000 - T1 compressio n fracture, traumatic Continue oxycodone. 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 F/u with [facility] as scheduled on 08/11/16.Ad vised pt to disclose all meds she is taking. Will repeat UDS. Low back pain 825384403 M54.5 Spasm of back muscles 20 4438221 M62.830 Continue with flexeril QHS prn. Cautioned about dizziness/ drowsiness . Vitamin D deficiency 347 28350 E55.9 repleted, advised to take vitamin D 2,000 iu daily OTC for maintenanc e [id number] Elsy Gold MD [address] [address] 08/07/2016 14:19:57 08/07/2016 15:30:26 Hypertensive disorder 75136237 I10 uncontroll ed, states home BP had been high the past week, increase enalapril to 20 mg in AM and 10 mg in PM, continue to monitor BP at home. Goal BP <140/90. F/u on 08/23/16 as scheduled for BP check and bMP. Low back pain 835834932 M54.5 Neck pain 38369070 M54.2 Chronic pain 49377344 G8 9.29 Chronic neck and back pain s/p multiple surgeries, injections , PT, heavy duty narcotics, [facility] pain clinic. Reports SE with TCA, gabapentin [...] Member ID Tena Member ID Guarantor Name 01/26/2017 1 [place]ICARE B-[place]: [employer] Heaven Martin [id number] Heaven Martin 08/20/2016 2 [place] [facility] Heaven Martin [id number] Heaven Martin Notes Date Note Type Note Provider Name and Address Organization Details Recorded Time 05/31/2016 text/html 55 y/o F here fo r f/u HTN. HTN : Taking enalapril 10 mg BID. BP today is within normal range.Feels better on enalapril. She reports UTI in the past week. Went to in [place]. Was given Bactrim and pyridium initially which [...] July. She found another pain clinic at [facility], can see her in Jun and would like to get a referral there. Esly Gold MD [address] [place] [address], [phone], [facility] 05/31/2016 20:32:03 07/17/2016 text/html [...] She states that saw pain doctor at [facility] recently, did not have her records. Has f/u on 08/11/16 and per pt, doctor willing to take over prescription.We discussed UDS done on 06/28/16 which showed clonazepam and +THC. She admits to taking 2 left over clonazepam she had in the past and used marijuana to help with the pain. She will be going to [place] in 2 weeks x 5 days. Elsy Gold MD [address] [place] [address], [phone], [facility] 07/17/2016 19:25:46 08/07/2016 text/html 55 [...] filled on 07/17/16.She saw pain doctor at [facility] (Dr Finley) on 07/24/16. UDS done there [...] pill to prevent withdrawal. Elsy Gold MD [address] [place] [address], [phone], [facility] 08/07/2016 19:38:29 OBGyn Episode No OBEpisode recorded.
[2024-09-26 09:29] LABS: Alanine Aminotransferase 11 U/L (0-31); Albumin Level 4.2 g/dL (3.5-5.0); Alkaline Phosphatase 56 U/L (39-117); Anion Gap 14 (12-20); Aspartate Amino Transferase 21 U/L (5-31); Bilirubin Total 0.4 mg/dL (0.0-1.0); Blood Urea Nitrogen 10 mg/dL (9-16); Calcium 9.9 mg/dL (8.4-10.2); Carbon Dioxide 29 mmol/L (22-29); Chloride 101 mmol/L (96-108); Estimated Glomerular Filt Rate > 60; Glucose Random 100 mg/dL (60-115); Potassium 4.5 mmol/L (3.3-5.1); Sodium 139 mmol/L (135-145); Total Protein 6.7 g/dL (6.5-8.0)
== END 2024-09-26 07:29 | disposition home or self-care (01) ==
LOC: HO.LAB 07:28
PROVIDERS: PCP Internal Medicine; Visit Provider Nurse Practitioner Family
DX: I16.0 Hypertensive urgency (principal); D73.89 Other diseases of spleen; E87.6 Hypokalemia
CPT/HCPCS: 36415; 80053; 96127; 99212

== ENCOUNTER 2024-10-16 08:33 | Outpatient (AMB) | payer MEDICARE, MEDICAID, SELFPAY ==
--- OUTSIDE RECORDS SUMMARY | 2024-10-16 08:43 | XMS_ITS | Data Portability ---
Author Organization [place] [facility], _[facility] Address [address] [place] [address] Assessment No assessment recorded. Plan of Treatment Reminders Order Date Submit Date Provider Last Modified By Organization Details Last Modified Time Details Appointments None recorded . Lab drug screen, urine 2016 017 [facility] (Closed Permanently, Testing Ceased), [address], [place], [address], 7 10:27:42 BMP, serum or plasma 2016 017 [facility] (Lab), [address], [place], [address], 7 21:40:17 unlisted lab - vitamin D 25 hydroxy by lcmsms 2016 017 [facility] (Lab), [address] [place], [address], 7 12:35:32 Referral pain manageme nt referral 2016 017 [facility] (Pain Management), [address], [facility] [address], [place], [address], 7 23:19:05 Procedures None recorded . Surgeries None recorded . Imaging None recorded . Medication Orders tramadol 50 mg tablet 2016 017 mary annarzully [facility]/Pharmacy #[id number], [address] [place], [address], 7 15:26:29 Vasotec 10 mg tablet 2016 017 INTERFACE [facility]/Pharmacy #[id number], [address] [place], [address], 7 15:27:22 oxycodon e 15 mg tablet 2016 017 [facility]/Pharmacy #[id number], [address] [place], [address], 7 15:27:14 Vasotec 10 mg tablet 2016 017 INTERFACE [facility]/Pharmacy #[id number], [address] [place], [address], 7 15:26:24 oxycodon e 15 mg tablet 2016 017 [facility]/Pharmacy #[id number], [address] [place], [address], 2 09:40:47 cycloben zaprine 10 mg tablet 2016 017 [facility]/Pharmacy #[id number], [address] [place], [address], 7 15:11:47 Patient TargetsNo targets recorded. Patient Instructions Encounter Date Encounter Id Patient Instructions Last Modified By Organization Details Last Modified Time 07/17/2016 [id number] 30 mins spent with pt and >50% of face to face time spent on counseling. [email or web address] Not available 07/17/2016 19:25:44 08/07/2016 [id number] 30 mins spent with pt and >50% [...] mmol/ L 136-14 5 normal Not Available [facility] (Lab) [address] [place], [address], 06/15/2016 09:59:28 06/14/19 17 06/14/2016 BMP, serum or plasm a potassium 4.6 mmol/ L 3.5-5. 1 normal Not Available [facility] (Lab) [address] [place], [address], 06/15/2016 09:59:28 06/14/19 17 06/14/2016 BMP, serum or plasm a chloride 97 mmol/ L 98-107 low Not Available [facility] (Lab) [address] [place], [address], 06/15/2016 09:59:28 06/14/19 17 06/14/2016 BMP, serum or plasm a carbon dioxide 23 mmol/ L 22-29 normal Not Available [facility] (Lab) [address] [place], [address], 06/15/2016 09:59:28 06/14/19 17 06/14/2016 BMP, serum or plasm a glucose 111 mg/dL 74-109 high Not Available [facility] Annie Fishman (Lab) [address] [place], [address], 06/15/2016 09:59:28 06/14/19 17 06/14/2016 BMP, serum or plasm a BUN 11 mg/dL 6-20 normal Not Available [facility] Annie Fishman (Lab) [address] [place], [address], 06/15/2016 09:59:28 06/14/19 17 06/14/2016 BMP, serum or plasm a creatinine 0.7 mg/dL 0.5-0. 9 normal Not Available [facility] (Lab) [address] [place], [address], 06/15/2016 09:59:28 06/14/19 17 06/14/2016 BMP, serum or plasm a calcium 10.0 mg/dL 8.6-10 .0 normal Not Available [facility] (Lab) [address] [place], [address], 06/15/2016 09:59:28 06/14/19 17 06/14/2016 BMP, serum or plasm a anion gap 22 mmol/ L 6-18 high Not Available [facility] (Lab) [address] [place] [place], [address], 06/15/2016 09:59:28 06/14/19 17 06/14/2016 BMP, serum or plasm a est glom filtration rate calc2 86.2 normal MULTI PLY X 1.212 IF OF AFRIC AN AMERI CAN DESCE NT PAULINA L KIDNE Y FUNCT ION >60 mL/mi n RESUL TS PAULINA LIZED TO 1.73 m SQUAR ED BODY SURFA CE AREA Not Available [facility] (Lab) [address] [place], [address], 06/15/2016 09:59:28 06/14/19 17 06/15/2016 vitam in D, 25-hy droxy , total , serum vitamin D total 32.30 NG/mL 30-100 normal Defic iency : <10 ng/mL Insuf ficie ncy: 10 - 30 ng/mL Suffi cienc y: 30 - 100 ng/mL Toxic ity: >100 ng/mL Not Available [facility] (Lab) [address] [place], [address], 06/15/2016 09:59:29 Result Notes None recorded. Problems Name Problem SNOMED Code Status Onset Date Resolution Date Notes Provider Name and Address Organization Details Recorded Time Low back pain 554075927 Active 2015 Elsy Gold MD [address] [place] [address], [phone] , [facility] 01/11/201 7 06:26:19 Chronic pain 65642154 Active 2015 W/U Status: confirme d Not Available [facility] 7 15:27:31 Neck pain 57104509 Active 2015 W/U Status: confirme d Not Available [facility] 7 15:27:31 Foot-augie p 7829849 Completed 201505/31/2016 W/U Status: confirme d Elsy Gold MD [address] [place] [address], [address] , [facility] 7 06:27:26 Carpal tunnel syndrome 90648119 Active 2015 W/U Status: confirme d Not Available [facility] 7 15:27:32 Chest pain 52167504 Active 2015 Atypical chest pain, stress test negative for ischemia , echo normal. W/U Status: confirme d Elsy Gold MD [address] [place] [address], [address] , [facility] 7 06:27:00 Vitamin D deficien cy 44100783 Active 2015 advised to take vitamin D 2,000 iu daily OTC. W/U Status: confirme d Elsy Gold MD [address] [place] [address], [address] , [facility] 7 06:27:17 Stress 85692814 Active 2015 advised stress can also raise BP. Stress mgt deniz jean Declined ghanshyam matthew ;W/U Status: confirme d Not Available [facility] 7 15:27:32 Heart murmur 64393319 Active 2015 obtain echo;W/U Status: confirme d Not Available [facility] 7 15:27:32 Hyperten sive disorder 80853706 Active 2015 W/U Status: confirme d Not Available [facility] 7 15:27:34 Foot-augie p 7282259 Active 2016 Elsy Gold MD [address] [place] [address], [address] , [facility] 7 06:27:39 Problem Notes None recorded. Medical Equipment None Reported. Allergies Allergen ID Allergen Name Allergen Category Reaction Reaction Severity Criticality Documentation Date Start Date Code Code System Note Provider Name and Address Organization Details Recorded Time 941644 amitripty line hydrochlo ride medicatio n irregular heart rate Not available Not available 05/24/20162015 04326 8 RxNorm React ion: palpi tatio ns; Not Available [facility] 7 09:03:45 958209 cyclobenz aprine hydrochlo ride medicatio n dizziness Not available Not available 05/24/20162015 95284 RxNorm React ion: dizzi ness; Elsy lieberman MD [address] [place] [address], [phone] [place] [address] [facility] 7 20:31:33 638435 gabapenti n medicatio n dizziness Not available Not available 05/24/20162015 83857 RxNorm React ion: dizzi ness; Not Available [facility] 7 09:03:45 990461 lisinopri l medicatio n dizziness Not available Not available 05/24/20162015 57007 RxNorm React ion: dizzi ness; Not Available [facility] 7 09:03:45 582628 amlodipin e besylate medicatio n chest pain Not available Not available 05/24/20162015 67703 6 RxNorm React ion: chest pain; Not Available [facility] 7 09:03:45 383979 Non-stero idal anti-infl ammatory agent (product) medicatio n chest pain Not available Not available 05/24/20162015 42852 005 SNOMED React ion: chest pain; Not Available [facility] 7 09:03:45 Medications Name Sig Start [...] and Address Organization Details Last Updated DateTime 165.1 cm 72697 g 26.1 kg/m2 73 /min 99 % 99 % 122 mm[Hg] 82 mm[Hg] Marizol Braga [facility] 7 14:26:29 Date Recorded Body height Heart rate Systolic blood pressure Diastolic blood pressure Systolic blood pressure Diastolic blood pressure Provider Name and Address Organization Details Last Updated DateTime 165.1 cm 103 /min 170 mm[Hg] 120 mm[Hg] 158 mm[Hg] 100 mm[Hg] Elisha Vargas LPN [facility] 7 11:06:29 Date Recorded Body height Body weight Body mass index (BMI) Oxygen saturation Oxygen saturation in Arterial blood by Pulse oximetry Heart rate Systolic blood pressure Diastolic blood pressure Provider Name and Address Organization Details Last Updated DateTime 7 165.1 cm 08751 g 26.1 kg/m2 99 % 99 % 104 /min 160 mm[Hg] 100 mm[Hg] Froylan Ireland [facility] 7 15:05:42 Date Recorded Systolic blood pressure Diastolic blood pressure Provider Name and Address Organization Details Last Updated DateTime 08/07/2016 144 mm[Hg] 90 mm[Hg] Elsy Gold MD [address] [place] [address], [address], [facility] 08/07/2016 15:27:34 Date Recorded Body height Body weight Body mass index (BMI) Heart rate Oxygen saturation Oxygen saturation in Arterial blood by Pulse oximetry Systolic blood pressure Diastolic blood pressure Provider Name and Address Organization Details Last Updated DateTime 7 165.1 cm 34525.6 3 g 25.5 kg/m2 76 /min 99 % 99 % 150 mm[Hg] 90 mm[Hg] Froylan Ireland [facility] 15:02:21 Social History None recorded. Functional Status Question Answer Note LastModified by Organizat ion Details LastModified Time What is your level of alcohol consumption? Occasional [email or web address] Information not available 05/31/2016 Mental Status None recorded. Family History Nothing [...] SNOMED-CT Code Diagnosis ICD10 Code Diagnosis Note [id number] Elsy Gold MD [address] [address] 05/31/2016 14:01:57 05/31/2016 15:36:11 Hypertensive disorder 48301089 I10 controlled , continue enalapril 10 mg BID, check BMP Chronic pain 82758925 G8 9.29 Chronic neck and back pain s/p multiple surgeries, injections , PT, heavy duty narcotics, [facility]. 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 2000 - T1 compressio n fracture, traumatic Continue oxycodone. ORTHOTICS PROSTHETICS ASSISTANT reviewed. Refer to [facility]. Low back pain 415208952 M54.5 Vitamin D deficiency 347 47171 E55.9 advised to take vitamin D 2,000 iu daily OTC Spasm of back muscles 20 8539106 M62.830 Start flexeril only at night QHS prn. Cautioned about dizziness/ drowsiness . [id number] Elsy Gold MD [address] [address] 06/14/2016 10:22:02 06/14/2016 11:09:18 Essential hypertension 17633010 I10 [id number] Elsy Gold MD [address] [address] 07/17/2016 14:25:19 07/17/2016 16:24:51 Hypertensive disorder 81849938 I10 uncontroll ed today which could be due to pain, prior BP within goal, continue enalapril 10 mg BID, continue to monitor BP at home. Chronic pain 10134733 G8 9.29 Chronic neck and back pain s/p multiple surgeries, injections , PT, heavy duty narcotics, [facility]. SE with TCA, gabapentin , NSAIDs. 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 2000 - T1 compressio n fracture, traumatic Continue oxycodone. ORTHOTICS PROSTHETICS ASSISTANT reviewed. F/u with [facility] as scheduled on 08/11/16.Ad vised pt to disclose all meds she is taking. Will repeat UDS. Low back pain 038987236 M54.5 Spasm of back muscles 20 9553449 M62.830 Continue with flexeril QHS prn. Cautioned about dizziness/ drowsiness . Vitamin D deficiency 347 79353 E55.9 repleted, advised to take vitamin D 2,000 iu daily OTC for maintenanc e [id number] Elsy Gold MD [address] [address] 08/07/2016 14:19:57 08/07/2016 15:30:26 Hypertensive disorder 23012804 I10 uncontroll ed, states home BP had been high the past week, increase enalapril to 20 mg in AM and 10 mg in PM, continue to monitor BP at home. Goal BP <140/90. F/u on 08/23/16 as scheduled for BP check and bMP. Low back pain 591530472 M54.5 Neck pain 76294750 M54.2 Chronic pain 86563746 G8 9.29 Chronic neck and back pain s/p multiple surgeries, injections , PT, heavy duty narcotics, [facility]. Reports SE with TCA, gabapentin [...] ID Guarantor Name 01/26/2017 1 [place]IC[place] B-[place]: [employer] Heaven Martin [id number] Heaven Martin 08/20/2016 2 [place] [facility] Heaven Martin [id number] Heaven Martin Notes Date Note Type Note Provider Name and Address Organization Details Recorded Time 05/31/2016 text/html 55 y/o F here fo r f/u HTN. HTN : Taking enalapril 10 mg BID. BP today is within normal range.Feels better on enalapril. She reports UTI in the past week. Went to in [place]. Was given Bactrim and pyridium initially which [...] July. She found another pain clinic at [facility], can see her in Jun and would like to get a referral there. Elsy Gold MD [address] [place] [address], [phone], [facility] 05/31/2016 20:32:03 07/17/2016 text/html 55 [...] She states that saw pain doctor at [place] recently, did not have her records. Has f/u on 08/11/16 and per pt, doctor willing to take over prescription.We discussed UDS done on 06/28/16 which showed clonazepam and +THC. She admits to taking 2 left over clonazepam she had in the past and used marijuana to help with the pain. She will be going to [place] in 2 weeks x 5 days. Elsy Gold MD [address] [place] [address], [address], [facility] 07/17/2016 19:25:46 08/07/2016 text/html 55 [...] filled on 07/17/16.She saw pain doctor at [place] (Dr Finley) on 07/24/16. UDS done there [...] to prevent withdrawal. Elsy Gold MD [address] [place] [address], [address], [facility] 08/07/2016 19:38:29 OBGyn Episode No OBEpisode recorded.
--- NOTE | 2024-10-16 09:01 | MHC.OFFVIS ---
Vital Signs 10/16/24 09:11 Height 5 ft 6 in Weight 154 lb 8 oz BMI 24.9 BP 154/88 H Blood Pressure Location Rt brachial Position Sitting Pulse 71 Pulse Source Pulse Oximeter Pulse Oximetry (%) 98 Oxygen Delivery Method Room Air Intake Visit Reasons: Pill count Intake Note: Heaven comes in today for a pill count to oxycodone.Patient should have 42 tablets and presents with 33 tablets which she states she last took last night 10/15/24 at 9pm. Pain today 10/10 Unfortunately patient is 9 tablets short ( 3 days worth). Patient states I take my meds as prescribed and thought I had 10 days, I counted Unfortunately this will result in a suspension from the opioid program for 1 year due to risk assessment which she was a moderate risk. 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 This patient is supposed to have 42 pills in her possession and has 33. Unfortunately, this demonstrates an irresponsible attitude towards her medication regimen. Her prescription is for three pills per day, therefore she is short 3 days. The patient has a history of post-laminectomy syndrome and a stroke in 2018, resulting in right-sided weakness, particularly affecting her right foot. She also suffers from Complex Regional Pain Syndrome (CRPS) in the same foot, leading to significant pain. In June 2024, the patient reports she sustained a non-displaced fracture of the proximal fifth metatarsal in her right foot, further complicating her pain management. She reports her pain as 10/10 in severity and constant. The patient is prescribed oxycodone 5 mg three times a day as needed but presented with fewer pills than expected, attributing this to a counting error. She is attempting to taper off pregabalin and zolpidem, noting that zolpidem has not been effective in managing her insomnia and pregabalin causes her significant hair loss. The patient reports elevated blood pressure and sleep disturbances due to pain and has been advised to reduce her cannabis consumption. She reports she stopped cannabis consumption a month ago and notes increased level of pain. Patient has expressed frustration and became tearful with the guidelines and opioid contract but unfortunately her pill count was short for over 3 days. We discussed alternative treatments for chronic pain management such as SCS and ITDD trials. Patient is hesitant towards any implants at this time. - Onset and Timing: Chronic pain following post-laminectomy syndrome and stroke; recent exacerbation due to foot fracture. - Quality and Character: Severe, throbbing pain rated 10/10; desire to amputate foot due to pain intensity. - Location: Predominantly in the right foot. Low back pain - Radiation: Right foot, right lower extremity. - Exacerbating Factors: Physical activity, lack of effective pain management. - Relieving Factors: None effectively identified. - Interference: Severe impact on daily living and sleep, elevated blood pressure due to pain. - Affect: Significant impact on patient's mood and psychological wellbeing; expresses distress and desperation. - Analgesia: Currently prescribed oxycodone 5 mg three times daily; 10/10 pain reported; goal pain level not specified. - Adverse Effects: Reports memory loss and hair loss potentially related to medications; insomnia persisting despite zolpidem. - Activities of Daily Living: Severely affected; unable to sleep or function normally due to pain. - Aberrant Drug Related Behaviors: Discrepancy in pill count; reports consuming cannabis in significant doses but attempting to reduce. PRIOR 09/18/24 Dr. Adams: Heaven is back in my office for the follow-up and pain medication refill as well as pill count. Pill count today is correct she presented today with 30 pill in her possession, she supposed to have 31 pills in her possession. Technically pill count is correct. She reports her pain severe 8/10 today. She currently receives oxycodone 5 mg t.i.d.. She is also taking pregabalin and Ambien. She was also daily consumes cannabis in significant doses. I personally think that this combination is dangerous and I would recommend her to stop at least cannabis consumption. She also has Narcan at home. Unfortunately she lives alone and if she would go into respiratory depression Narcan would be of little help. I explained to her that she needs to tell all of her neighbors and friends about the Narcan in the way to use it in the situation when they will find her unconscious and breathing less than 8 breaths a minute. She denies side effects of the opioid medication at this time. She denies constipation. Prior: She has Complex regional pain syndrome of the right lower extremity she also suffers from postlaminectomy syndrome of the lumbar spine she had Barbosa rods inserted and removed. I offered her intrathecal pain pump trial and spinal cord stimulation trial. Initially patient was agreeable to that but after I started her on opioid medication she withdrew her agreement. She brought today a copy of the receipt from 1 of the local cannabis dispensaries. Currently I will allow her to continue on oral opioids since the consumption of the cannabis is legitimate. Her UDS come came back and it was positive for carisoprodol and cannabis. Her PHQ score is equal to 9. Her addiction score is equal to 7. Therefore total opioid addiction risk score is equal to 16. She therefore has moderate risk for opioid addiction. Prior: very unfortunate 63 years old female who presented today in my office after 3 years of absence. She was seen in 2020. She is suffering from Complex regional pain syndrome of the right foot with severe burning, pins and needles, crushing pain and wrenching pain sensation. She exhausted conservative therapy to treat this condition. She tried multiple medications including gabapentin which causes alopecia, Lyrica causes weight gain in sodium retention, she is allergic to ibuprofen and NSAIDs which cause palpitation and dizziness. She is currently taking Tylenol, her primary care physician prescribes her short course opioid medications. She reports today in the office with pain 10/10. She is also suffering from postlaminectomy syndrome, she had Barbosa fanny insertion for scoliosis and removal of the Barbosa rods. [facility] Medical History Splenic lesion Hypertensive urgency Numbness and tingling of both feet Neuropathy Reflex sympathetic dystrophy of right leg Left lower quadrant pain Left groin pain Insomnia HCV (hepatitis C virus) Hemorrhoids Pure hypercholesterolemia Postlaminectomy syndrome Overweight (BMI 25.0-29.9) Memory loss or impairment Cerebrovascular accident (CVA) (~2019) Lumbar degenerative disc disease Benign essential hypertension Hair loss Paresthesia of foot Surgical History History of colonoscopy History of surgery History of neck surgery History of hysterectomy Family History Father Diabetes Mother Lung cancer Past heart attack Daughter In good health Brother In good health Brother No problems noted. Brother No problems noted. Family/Other Colon cancer Social History Housing: Apartment Alcohol intake: current Alcohol intake frequency: holidays/special occasions only Patient Tobacco Use Status: Never used Tobacco Tobacco use type: Cigarette e-Cigarette/Vaping Use: Never Used Second Hand Smoke Exposure: No service: No Current occupational status: disabled Cognitive needs: No Hearing needs: No Vision needs: Yes Female Reproductive History Menstrual Age of Menarche: 8 Review of Systems Const Details: - Neurological: Reports right-sided weakness post-stroke, left foot drop h/o prior longstanding injury - Musculoskeletal: Reports severe pain in the right foot, history of recent non-displaced fracture. - Dermatological: Denies skin changes. - Psychiatric: Reports significant distress and insomnia. - Substance Use: Denies alcohol use; reports past significant cannabis use. All systems reviewed & are unremarkable except as noted in HPI and below Physical Exam General: Appears afebrile. Alert and oriented. Mood and affect appropriate. Follows and participates in conversation appropriately. Respiratory effort is unlabored. No cough. Able to transition from sit to stand unassisted. Uses cane with ambulation. Left foot drop, reports history of longstanding injury. Right lower extremity weakness, h/o CVA 2018. Reports right foot pain-h/o recent nondisplaced fracture of the proximal 5th metatarsal. Patient is wearing regular shoes both feet, reports discomfort with orthopedic right foot brace. Psych Appearance: grossly normal Mental Status: mental status grossly normal Speech and movement: Normal speech and movement present Affect: normal affect and Sad affect present Attitude: cooperative Thought process: Circumstantial thought process present Thought content: Normal thought content present, suicidality (none), no hallucinations and Depressive thoughts present Insight: Fair insight present (Psych) Judgement: Fair judgement present (Psych) Results Reviewed Results Reviewed: XR foot RT min 3V 07/04/24 ADDENDUM: CLINICAL HISTORY: M79.671 - Pain in right foot 3 view right foot Comparison: None Findings: There is a nondisplaced fracture of the proximal 5th metatarsal. There is soft tissue edema. There is osteopenia. There is a moderate calcaneal spur No significant arthritic change or erosions. No ankle effusion. No radiopaque foreign body. IMPRESSION: Nondisplaced fracture of the proximal 5th metatarsal Soft tissue edema Osteopenia Moderate calcaneal spur XR THORACIC SPINE April 13 CLINICAL INFORMATION: Postlaminectomy syndrome, not elsewhere classified M96.1. Patient stated no injury / pain in upper and lower back. COMPARISON: None available TECHNIQUE: 3 views of the thoracic spine were obtained. FINDINGS: Mild dextro scoliotic curvature centered in the lower thoracic spine. There is a moderate compression deformity in the T12 vertebral body. Mild degenerative disc disease throughout the thoracic spine. There is orthopedic hardware in the visualized lower cervical spine. XR LUMBAR SPINE April 13 CLINICAL INFORMATION: Postlaminectomy syndrome, not elsewhere classified M96.1. Patient stated no injury / pain in upper and lower back. COMPARISON: None available TECHNIQUE: Three views of the lumbosacral spine. FINDINGS: There is a moderate compression deformity at T12. Advanced degenerative disc disease at L2-L3 with minimal retrolisthesis of L2 on L3. Mild degenerative disc disease throughout the remainder of the lumbar spine. Mild facet arthropathy. IMPRESSION: 1. Age-indeterminate moderate compression deformity at T12. 2. Advanced degenerative disc disease at L2-L3 with minimal retrolisthesis of L2 on L3. Assessment & Plan Assessment & Plan (1) Lumbar degenerative disc disease: Comment: Has failed back sydrome/postlaminectomy syndrome Code(s): M51.36 - Other intervertebral disc degeneration, lumbar region Category: Medical Qualifiers: Disc-related pain type: discogenic back pain only Qualified Code(s): M51.360 - Other intervertebral disc degeneration, lumbar region with discogenic back pain only (2) Right leg pain: Code(s): M79.604 - Pain in right leg Category: Medical (3) Complex regional pain syndrome i of right lower limb: Code(s): G90.521 - Complex regional pain syndrome I of right lower limb Category: Medical (4) Right foot pain: Code(s): M79.671 - Pain in right foot Category: Medical (5) Cerebrovascular accident (CVA): Onset Date: ~2018 Comment: (+) CVA in 2019, with residual right-sided weakness primarily involving the right arm and right leg - S/P physical therapy with only some improvement of her weakness Code(s): I63.9 - Cerebral infarction, unspecified Category: Medical Qualifiers: CVA mechanism: unspecified Qualified Code(s): I63.9 - Cerebral infarction, unspecified (6) Postlaminectomy syndrome: Code(s): M96.1 - Postlaminectomy syndrome, not elsewhere classified Category: Medical Plan PHQ score is equal to 9. Opioid addiction score is equal to 7. Therefore total score is 16. The patient presented today with a discrepancy in her oxycodone pill count, leading to her potential suspension from the opioid program per policy. She is advised to seek medical pain management through her primary care provider during the 12-month suspension. If confirmed, she will receive a full month's compassion prescription to safely taper her medication. We also discussed symptoms of withdrawal and medications to assist with this. The patient's pain level is reported at 10/10, and her opioid risk is moderate. It is crucial for her to adhere to the prescribed regimen and maintain communication with her healthcare providers. She will await a call from Dr. Adams for further instructions. All questions and concerns have been answered and patient agreed with the plan. Follow up with Dr. Adams as discussed today. Patient was informed and verbally consented to the use of an ambient scribe for clinic note documentation during this visit. Coding Level of Care Code Est Pt Level 4 (58331) Complex EM visit Add On G2211 Diagnoses Degeneration of intervertebral disc of lumbar region with discogenic back pain M51.360 Disc-related pain type: discogenic back pain only Right leg pain M79.604 Complex regional pain syndrome i of right lower limb G90.521 Right foot pain M79.671 Cerebrovascular accident (CVA), unspecified mechanism I63.9 CVA mechanism: unspecified Postlaminectomy syndrome M96.1
[2024-10-16 09:11] VITALS: BP 154/88; PULSE 71; O2SAT 98; BMI 24.9
== END 2024-10-16 09:34 | disposition home or self-care (01) ==
LOC: HO.PMC 08:33
PROVIDERS: PCP Internal Medicine; Visit Provider Nurse Practitioner Family
DX: M51.360 Other intervertebral disc degeneration, lumbar region with discogenic back pain only (principal); M79.604 Pain in right leg; G90.521 Complex regional pain syndrome I of right lower limb; M79.671 Pain in right foot; I63.9 Cerebral infarction, unspecified; M96.1 Postlaminectomy syndrome, not elsewhere classified
CPT/HCPCS: 99214; G2211

== ENCOUNTER → 2024-10-16 08:33 | Outpatient (BNVA) | payer MEDICARE, MEDICAID, SELFPAY | PROVIDERS: PCP Internal Medicine; Visit Provider Nurse Practitioner Family | DX: Z51.81 Encounter for therapeutic drug level monitoring (principal); M51.360 Other intervertebral disc degeneration, lumbar region with discogenic back pain only; M79.604 Pain in right leg; M79.671 Pain in right foot; M96.1 Postlaminectomy syndrome, not elsewhere classified; G90.521 Complex regional pain syndrome I of right lower limb; Z79.891 Long term (current) use of opiate analgesic; Z86.73 Personal history of transient ischemic attack (TIA), and cerebral infarction without residual deficits | CPT/HCPCS: 99212 ==

== ENCOUNTER 2024-11-26 11:14 | Outpatient (REF) | payer MEDICARE, MEDICAID, SELFPAY ==
--- OUTSIDE RECORDS SUMMARY | 2024-11-26 12:29 | XMS_ITS | Data Portability ---
Author Organization [place] [facility], [place] Address [address] [place] [address] Assessment No assessment recorded. Plan of Treatment Reminders Order Date Submit Date Provider Last Modified By Organization Details Last Modified Time Details Appointments None recorded . Lab drug screen, urine 2016 017 [facility] (Closed Permanently, Testing Ceased), [address], [place], [address], 7 10:27:42 BMP, serum or plasma 2016 017 [facility] (Lab), [address], [place], [address], 7 21:40:17 unlisted lab - vitamin D 25 hydroxy by lcmsms 2016 017 [facility] (Lab), [address], [place], [address], 7 12:35:32 Referral pain manageme nt referral 2016 017 [facility] (Pain Management), [address], [place], [address], 7 23:19:05 Procedures None recorded . Surgeries None recorded . Imaging None recorded . Medication Orders tramadol 50 mg tablet 2016 017 [facility]/Pharmacy #[id number], [address] [place], [address], 7 15:26:29 Vasotec 10 mg tablet 2016 017 [facility]/Pharmacy #[id number], [address] [place], [address], 7 15:27:22 oxycodon e 15 mg tablet 2016 017 [facility]/Pharmacy #[id number], [address] [place], [address], 7 15:27:14 Vasotec 10 mg tablet 2016 017 [facility]/Pharmacy #[id number], [address] [place], [address], 7 15:26:24 oxycodon e 15 mg tablet 2016 017 [facility]/Pharmacy #[id number], [address] [place], [address], 2 09:40:47 cycloben zaprine 10 mg tablet 2016 017 [facility]/Pharmacy #[id number], [address] [place], [address], 7 15:11:47 Patient TargetsNo targets recorded. Patient Instructions Encounter Date Encounter Id Patient Instructions Last Modified By Organization Details Last Modified Time 07/17/2016 [id number] 30 mins spent with pt and >50% of face to face time spent on counseling. [email or web address] Not available 07/17/2016 19:25:44 08/07/2016 [id number] 30 mins spent with pt and >50% [...] mmol/ L 136-14 5 normal Not Available [facility] (Lab) [address] [place], [address], 06/15/2016 09:59:28 06/14/19 17 06/14/2016 BMP, serum or plasm a potassium 4.6 mmol/ L 3.5-5. 1 normal Not Available [facility] [address] [place], [address], 06/15/2016 09:59:28 06/14/19 17 06/14/2016 BMP, serum or plasm a chloride 97 mmol/ L 98-107 low Not Available [facility] [place] [facility] [address] [place], [address], 06/15/2016 09:59:28 06/14/19 17 06/14/2016 BMP, serum or plasm a carbon dioxide 23 mmol/ L 22-29 normal Not Available [facility] (Lab) [address] [place], [address], 06/15/2016 09:59:28 06/14/19 17 06/14/2016 BMP, serum or plasm a glucose 111 mg/dL 74-109 high Not Available [facility] ([facility]) [address] [place], [address], 06/15/2016 09:59:28 06/14/19 17 06/14/2016 BMP, serum or plasm a BUN 11 mg/dL 6-20 normal Not Available [facility] (Lab) [address] [place], [address], 06/15/2016 09:59:28 06/14/19 17 06/14/2016 BMP, serum or plasm a creatinine 0.7 mg/dL 0.5-0. 9 normal Not Available [facility] [place] (Lab) [address] [place], [address], 06/15/2016 09:59:28 06/14/19 17 06/14/2016 BMP, serum or plasm a calcium 10.0 mg/dL 8.6-10 .0 normal Not Available [facility] (Lab) [address] [place], [address], 06/15/2016 09:59:28 06/14/19 17 06/14/2016 BMP, serum or plasm a anion gap 22 mmol/ L 6-18 high Not Available [facility] (Lab) [address] [place], [address], 06/15/2016 09:59:28 06/14/19 17 06/14/2016 BMP, serum or plasm a est glom filtration rate calc2 86.2 normal MULTI PLY X 1.212 IF OF AFRIC AN AMERI CAN DESCE NT PAULINA L KIDNE Y FUNCT ION >60 mL/mi n RESUL TS PAULINA LIZED TO 1.73 m SQUAR ED BODY SURFA CE AREA Not Available [facility] (Lab) [address], [place], [address], 06/15/2016 09:59:28 06/14/19 17 06/15/2016 vitam in D, 25-hy droxy , total , serum vitamin D total 32.30 NG/mL 30-100 normal Defic iency : <10 ng/mL Insuf ficie ncy: 10 - 30 ng/mL Suffi cienc y: 30 - 100 ng/mL Toxic ity: >100 ng/mL Not Available [facility] (Lab) [address] [place], [address], 06/15/2016 09:59:29 Result Notes None recorded. Problems Name Problem SNOMED Code Status Onset Date Resolution Date Notes Provider Name and Address Organization Details Recorded Time Low back pain 950684344 Active 2015 Elsy Glod MD [address] [place] [address], [phone] , [facility] 7 06:26:19 Chronic pain 60919662 Active 2015 W/U Status: confirme d Not Available [facility] 7 15:27:31 Neck pain 22361375 Active 2015 W/U Status: confirme d Not Available [facility] 7 15:27:31 Foot-augie p 3007283 Completed 201505/31/2016 W/U Status: confirme d Elsy Gold MD [address] [place] [address], [phone] , [facility] 7 06:27:26 Carpal tunnel syndrome 80286537 Active 2015 W/U Status: confirme d Not Available [facility] 7 15:27:32 Chest pain 91450187 Active 2015 Atypical chest pain, stress test negative for ischemia , echo normal. W/U Status: confirme d Elsy Gold MD [address] [place] [address], [phone] , [facility] 7 06:27:00 Vitamin D deficien cy 47245001 Active 2015 advised to take vitamin D 2,000 iu daily OTC. W/U Status: confirme d Elsy Gold MD [address] [place] [address], [phone] , [facility] 7 06:27:17 Stress 06007201 Active 2015 advised stress can also raise BP. Stress mgt deniz jean Declined ghanshyam matthew ;W/U Status: confirme d Not Available [facility] 7 15:27:32 Heart murmur 95239098 Active 2015 obtain echo;W/U Status: confirme d Not Available [facility] 7 15:27:32 Hyperten sive disorder 30133667 Active 2015 W/U Status: confirme d Not Available [facility] 7 15:27:34 Foot-augie p 4858027 Active 2016 Elsy Gold MD [address] [place] [address], [phone] , [facility] 7 06:27:39 Problem Notes None recorded. Medical Equipment None Reported. Allergies Allergen ID Allergen Name Allergen Category Reaction Reaction Severity Criticality Documentation Date Start Date Code Code System Note Provider Name and Address Organization Details Recorded Time 353887 amitripty line hydrochlo ride medicatio n irregular heart rate Not available Not available 05/24/20162015 81934 8 RxNorm React ion: palpi tatio ns; Not Available [facility] 7 09:03:45 992316 cyclobenz aprine hydrochlo ride medicatio n dizziness Not available Not available 05/24/20162015 96074 RxNorm React ion: dizzi ness; Elsy lieberman MD [address] [place] [address], [phone], [facility] 7 20:31:33 841878 gabapenti n medicatio n dizziness Not available Not available 05/24/20162015 26699 RxNorm React ion: dizzi ness; Not Available [facility] 7 09:03:45 031644 lisinopri l medicatio n dizziness Not available Not available 05/24/20162015 76820 RxNorm React ion: dizzi ness; Not Available [facility] 7 09:03:45 301777 amlodipin e besylate medicatio n chest pain Not available Not available 05/24/20162015 03583 6 RxNorm React ion: chest pain; Not Available [facility] 7 09:03:45 451342 Non-stero idal anti-infl ammatory agent (product) medicatio n chest pain Not available Not available 05/24/20162015 75939 005 SNOMED React ion: chest pain; Not Available [facility] 7 09:03:45 Medications Name Sig Start Date [...] day; 30 day(s) 05/31 completed Actio n: Marthao ntinu ed;So urce: Shannan Bautista MD;Pr epare d By: Shannan Bautista Not Available Not Available Not Available amlodipine 5 mg tablet 1 tablet; 5 mg; Once a day; 30 day(s) 05/31 completed Actio n: Job hermosilloFelicity rce: Shannan Bautista MD;Pr epare d By: Shannan Bautista Not Available Not Available Not Available Vasotec 10 mg tablet Take 2 tablets in AM and 1 tablet in PM 2016 active Not Available Not Available Not Avai lable tramadol 50 mg tablet 1 tabs; 50 mg; every 8 hrs prn 2016 active Actio n: Job hermosilloFelicity rce: Shannan Bautista MD;Pr epare d By: Shannan Bautista Not Available Not Available Not Available oxycodone 15 mg tablet 1 tablet every 4-6 hrs PRN for pain. Max 5 a day. Fill date 07/17/16; 14 days 2016 active Actio n: Tyler byrneFelicity rce: Shannan Bautista MD;Pr epare d By: Shannan Bautista 03/15 10:21 :35 AM Not Available Not Available Not Available amitriptyli ne 10 mg tablet 1 tablet; 10 mg; at bedtime; 30 day(s) 05/31 completed Actio n: Marthao ntinu ed;So urce: Shannan Bautista MD;Pr epare d [...] Actio n: Job Pollard rce: Shannan Bautista MD;Fer pérez By: Shannan Bautista Not Available Not Available Not Available Vitals Date Recorded Body height Body weight Body mass index (BMI) Heart rate Oxygen saturation Oxygen saturation in Arterial blood by Pulse oximetry Systolic And Diastolic Provider Name and Address Organization Details Last Updated DateTime 7 165.1 cm 68352 g 26.1 kg/m2 73 /min 99 % 99 % 122/82 mm[Hg] Marizol Braga [facility] 7 14:26:29 Date Recorded Body height Heart rate Systolic And Diastolic Systolic And Diastolic Provider Name and Address Organization Details Last Updated DateTime 06/14/2016 165.1 cm 103 /min 170/120 mm[Hg] 158/100 mm[Hg] Elisha Vargas LPN [facility] 06/14/2016 11:06:29 Date Recorded Body height Body weight Body mass index (BMI) Oxygen saturation Oxygen saturation in Arterial blood by Pulse oximetry Heart rate Systolic And Diastolic Provider Name and Address Organization Details Last Updated DateTime 7 165.1 cm 48725 g 26.1 kg/m2 99 % 99 % 104 /min 160/100 mm[Hg] Froylan Ireland [facility] 7 15:05:42 Date Recorded Systolic And Diastolic Provider Name and Address Organization Details Last Updated DateTime 08/07/2016 144/90 mm[Hg] Elsy Gold MD [address] [place] [address], [phone], [facility] 08/07/2016 15:27:34 Date Recorded Body height Body weight Body mass index (BMI) Heart rate Oxygen saturation Oxygen saturation in Arterial blood by Pulse oximetry Systolic And Diastolic Provider Name and Address Organization Details Last Updated DateTime 7 165.1 cm 82591.6 3 g 25.5 kg/m2 76 /min 99 % 99 % 150/90 mm[Hg] Froylan Ireland [facility] 7 15:02:21 Social History None recorded. Functional Status [...] SNOMED-CT Code Diagnosis ICD10 Code Diagnosis Note [id number] Elsy Gold MD [address] [address] 05/31/2016 14:01:57 05/31/2016 15:36:11 Hypertensive disorder 00049958 I10 controlled , continue enalapril 10 mg BID, check BMP Chronic pain 88870719 G8 9.29 Chronic neck and back pain s/p multiple surgeries, injections , PT, heavy duty narcotics, [facility]. 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 2000 - T12 compressio n fracture, traumatic Continue oxycodone. CARTON STAPLER reviewed. Refer to [facility]. Low back pain 739360628 M54.5 Vitamin D deficiency 347 05104 E55.9 advised to take vitamin D 2,000 iu daily OTC Spasm of back muscles 20 4140099 M62.830 Start flexeril only at night QHS prn. Cautioned about dizziness/ drowsiness . [id number] Elsy Gold MD [address] [address] 06/14/2016 10:22:02 06/14/2016 11:09:18 Essential hypertension 08596573 I10 [id number] Elsy Gold MD [address] [address] 07/17/2016 14:25:19 07/17/2016 16:24:51 Hypertensive disorder 83360938 I10 uncontroll ed today which could be due to pain, prior BP within goal, continue enalapril 10 mg BID, continue to monitor BP at home. Chronic pain 79738443 G8 9.29 Chronic neck and back pain s/p multiple surgeries, injections , PT, heavy duty narcotics, [facility]. SE with TCA, gabapentin , NSAIDs. 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 2000 - T1 compressio n fracture, traumatic Continue oxycodone. CARTON STAPLER reviewed. F/u with [facility] as scheduled on 08/11/16.Ad vised pt to disclose all meds she is taking. Will repeat UDS. Low back pain 190285385 M54.5 Spasm of back muscles 20 6692640 M62.830 Continue with flexeril QHS prn. Cautioned about dizziness/ drowsiness . Vitamin D deficiency 347 80775 E55.9 repleted, advised to take vitamin D 2,000 iu daily OTC for sydni jaquez [id number] Elsy Gold MD [address] [address] 08/07/2016 14:19:57 08/07/2016 15:30:26 Hypertensive disorder 62057329 I10 uncontroll ed, states home BP had been high the past week, increase enalapril to 20 mg in AM and 10 mg in PM, continue to monitor BP at home. Goal BP <140/90. F/u on 08/23/16 as scheduled for BP check and bMP. Low back pain 611350272 M54.5 Neck pain 18638056 M54.2 Chronic pain 49964973 G8 9.29 Chronic neck and back pain s/p multiple surgeries, injections , PT, heavy duty narcotics, [facility]. Reports SE with TCA, gabapentin , Lyrica, NSAIDs. 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 2000 - T12 compressio n fracture, traumatic Discussed recent UDS [...] ID Guarantor Name 01/26/2017 1 [place]ICARE B-[place]: [employer] Heaven Martin [id number] Heaven Martin 08/20/2016 2 [place] [facility] Heaven Martin [id number] Heaven Martin Notes Date Note Type Note Provider Name and Address Organization Details Recorded Time 05/31/2016 text/html 55 y/o F here fo r f/u HTN. HTN : Taking enalapril 10 mg BID. BP today is within normal range.Feels better on enalapril. She reports UTI in the past week. Went to in [place]. Was given Bactrim and pyridium initially which [...] July. She found another pain clinic at [facility], can see her in Jun and would like to get a referral there. Elsy Gold MD [address] [place] [address], [phone], [facility] 05/31/2016 20:32:03 07/17/2016 text/html 55 [...] She states that saw pain doctor at [place] recently, did not have her records. Has f/u on 08/11/16 and per pt, doctor willing to take over prescription.We discussed UDS done on 06/28/16 which showed clonazepam and +THC. She admits to taking 2 left over clonazepam she had in the past and used marijuana to help with the pain. She will be going to [place] in 2 weeks x 5 days. Elsy Gold MD [address] [place] [address], [phone], [facility] 07/17/2016 19:25:46 08/07/2016 [...] filled on 07/17/16.She saw pain doctor at [place] (Dr Finley) on 07/24/16. UDS done there [...] pill to prevent withdrawal. Elsy Gold MD [address] [place] [address], [phone], [facility] 08/07/2016 19:38:29 OBGyn Episode No OBEpisode recorded.
[2024-11-26 15:52] LABS: MANUAL DIFF FLAG NO
[2024-11-26 15:56] LABS: Hematocrit 38.5 % (37.0-47.0); Hemoglobin 12.9 g/dl (12.0-16.0); Imm Gran Abs Auto 0.06 X10*3/uL (0.00-0.03); Imm Gran Pct Auto 0.8 % (0.0-0.4); Lymphocytes Absolute Auto 2.5 X10*3/uL (1.2-4.9); Mean Corpuscular HGB Conc 33.5 g/dl (31.0-35.0); Mean Corpuscular Hemoglobin 31.1 pg (27.0-33.0); Mean Corpuscular Volume 92.8 fL (80.0-98.0); NRBC Abs Auto 0.000 X10*3/uL (0.0-0.012); NRBC Pct Auto 0.0 /100WBC (0.0-0.2); Platelet Count 384 X10*3/uL (160-400); Red Blood Count 4.15 X10*6/uL (4.20-5.50); White Blood Count 7.8 X10*3/uL (4.8-10.8)
[2024-11-26 16:10] LABS: Alanine Aminotransferase 31 U/L (0-31); Albumin Level 4.1 g/dL (3.5-5.0); Alkaline Phosphatase 52 U/L (39-117); Anion Gap 13 (12-20); Aspartate Amino Transferase 44 U/L (5-31); Blood Urea Nitrogen 7 mg/dL (9-16); Calcium 9.4 mg/dL (8.4-10.2); Carbon Dioxide 26 mmol/L (22-29); Chloride 103 mmol/L (96-108); Cholesterol 189 mg/dL (<200); Estimated Glomerular Filt Rate > 60; HDL Cholesterol 61 mg/dL (>40); Potassium 4.2 mmol/L (3.3-5.1); Sodium 138 mmol/L (135-145); Total Protein 6.7 g/dL (6.5-8.0); Triglycerides 231 mg/dL (<150)
[2024-11-26 16:19] LABS: Appearance Urine Clear; Glucose Urine UA Negative (Negative); PH 7.0 (5.0-9.0); Specific Gravity - Urine <= 1.005 (1.005-1.025); UMIC TRIGGER UACC YES
== END 2024-11-26 11:15 | disposition home or self-care (01) ==
LOC: HO.HMGCLDS 11:14
PROVIDERS: PCP Internal Medicine; Visit Provider Internal Medicine
DX: R30.0 Dysuria (principal); E78.00 Pure hypercholesterolemia, unspecified; D64.9 Anemia, unspecified
CPT/HCPCS: 36415; 80053; 80061; 81001; 85025

== ENCOUNTER 2024-12-03 08:45 | Outpatient (AMB) | payer MEDICARE, MEDICAID, SELFPAY ==
--- OUTSIDE RECORDS SUMMARY | 2024-12-03 08:53 | XMS_ITS | Data Portability ---
Author Organization [place] - [facility], [facility] Address [address] [place] [address] Assessment No assessment recorded. Plan of Treatment Reminders Order Date Submit Date Provider Last Modified By Organization Details Last Modified Time Details Appointments None recorded . Lab drug screen, urine 2016 017 [facility] (Closed Permanently, Testing Ceased), [address], [place], [address], 7 10:27:42 BMP, serum or plasma 2016 017 [facility] (Lab), [address], [place], [address], 7 21:40:17 unlisted lab - vitamin D 25 hydroxy by lcmsms 2016 017 [facility] (Lab), [address], [place], [address], 7 12:35:32 Referral pain manageme nt referral 2016 017 [facility] (Pain Management), [address], [place], [address], 7 23:19:05 Procedures None recorded . Surgeries None recorded . Imaging None recorded . Medication Orders tramadol 50 mg tablet 2016 017 [facility]/Pharmacy #[id number], [address] [place], [address], 7 15:26:29 Vasotec 10 mg tablet 2016 017 [facility]/Pharmacy #[id number], [address] [place], [address], 7 15:27:22 oxycodon e 15 mg tablet 2016 017 [facility]/Pharmacy #[id number], [address] [place], [address], 7 15:27:14 Vasotec 10 mg tablet 2016 017 [facility]/Pharmacy #[id number], [address] [place], [address], 7 15:26:24 oxycodon e [address] mg tablet [address] [facility]/Pharmacy #[id number], [address] [place], [address], 2 09:40:47 cycloben zaprine 10 mg tablet 2016 017 [facility]/Pharmacy #[id number], [address] [place], [address], 7 15:11:47 Patient TargetsNo targets recorded. Patient Instructions Encounter Date Encounter Id Patient Instructions Last Modified By Organization Details Last Modified Time 07/17/2016 [id number] 30 mins spent with pt and >50% of face to face time spent on counseling. [email or web address] Not available 07/17/2016 19:25:44 08/07/2016 [id number] 30 mins spent with pt and >50% [...] mmol/ L 136-14 5 normal Not Available [facility] [place] (Lab) [address] [place], [address], 06/15/2016 09:59:28 06/14/19 17 06/14/2016 BMP, serum or plasm a potassium 4.6 mmol/ L 3.5-5. 1 normal Not Available [facility] [address] [place], [address], 06/15/2016 09:59:28 06/14/19 17 06/14/2016 BMP, serum or plasm a chloride 97 mmol/ L 98-107 low Not Available [facility] [place] ([facility]) [address] [place], [address], 06/15/2016 09:59:28 06/14/19 17 06/14/2016 BMP, serum or plasm a carbon dioxide 23 mmol/ L 22-29 normal Not Available [facility] [place] (Lab) [address] [place], [address], 06/15/2016 09:59:28 06/14/19 17 06/14/2016 BMP, serum or plasm a glucose 111 mg/dL 74-109 high Not Available [facility] [place] (Lab) [address] [place], [address], 06/15/2016 09:59:28 06/14/19 17 06/14/2016 BMP, serum or plasm a BUN 11 mg/dL 6-20 normal Not Available [facility] (Lab) [address] [place], [address], 06/15/2016 09:59:28 06/14/19 17 06/14/2016 BMP, serum or plasm a creatinine 0.7 mg/dL 0.5-0. 9 normal Not Available [facility] [place] (Lab) [address] [place], [address], 06/15/2016 09:59:28 06/14/19 17 06/14/2016 BMP, serum or plasm a calcium 10.0 mg/dL 8.6-10 .0 normal Not Available [facility] (Lab) [address] [place], [address], 06/15/2016 09:59:28 06/14/19 17 06/14/2016 BMP, serum or plasm a anion gap 22 mmol/ L 6-18 high Not Available [facility] (Lab) [address] [place], [address], 06/15/2016 09:59:28 06/14/19 17 06/14/2016 BMP, serum or plasm a est glom filtration rate calc2 86.2 normal MULTI PLY X 1.212 IF OF AFRIC AN AMERI CAN DESCE NT PAULINA L KIDNE Y FUNCT ION >60 mL/mi n RESUL TS PAULINA LIZED TO 1.73 m SQUAR ED BODY SURFA CE AREA Not Available [facility] (Lab) [address], [place], [address], 06/15/2016 09:59:28 06/14/19 17 06/15/2016 vitam in D, 25-hy droxy , total , serum vitamin D total 32.30 NG/mL 30-100 normal Defic iency : <10 ng/mL Insuf ficie ncy: 10 - 30 ng/mL Suffi cienc y: 30 - 100 ng/mL Toxic ity: >100 ng/mL Not Available [facility] (Lab) [address] [place], [address], 06/15/2016 09:59:29 Result Notes None recorded. Problems Name Problem SNOMED Code Status Onset Date Resolution Date Notes Provider Name and Address Organization Details Recorded Time Low back pain 831860797 Active 2015 Elsy Gold MD [address] [place] [address], [address] , [facility] 7 06:26:19 Chronic pain 88394748 Active 2015 W/U Status: confirme d Not Available [facility] 7 15:27:31 Neck pain 93621619 Active 2015 W/U Status: confirme d Not Available [facility] 7 15:27:31 Foot-augie p 1060147 Completed 201505/31/2016 W/U Status: confirme d Elsy Gold MD [address] [place] [address], [address] , [facility] 7 06:27:26 Carpal tunnel syndrome 17566257 Active 2015 W/U Status: confirme d Not Available [facility] 7 15:27:32 Chest pain 60152107 Active 2015 Atypical chest pain, stress test negative for ischemia , echo normal. W/U Status: confirme d Elsy Gold MD [address] [place] [address], [address] , [facility] 7 06:27:00 Vitamin D deficien cy 74770928 Active 2015 advised to take vitamin D 2,000 iu daily OTC. W/U Status: confirme d Elsy Gold MD [address] [place] [address], [phone] , [facility] 7 06:27:17 Stress 16232912 Active 2015 advised stress can also raise BP. Stress mgt deniz jean Declined ghanshyam matthew ;W/U Status: confirme d Not Available [facility] 7 15:27:32 Heart murmur 47106959 Active 2015 obtain echo;W/U Status: confirme d Not Available [facility] 7 15:27:32 Hyperten sive disorder 61025630 Active 2015 W/U Status: confirme d Not Available [facility] 7 15:27:34 Foot-augie p 5179229 Active 2016 Elsy Gold MD [address] [place] [address], [address] , [facility] 7 06:27:39 Problem Notes None recorded. Medical Equipment None Reported. Allergies Allergen ID Allergen Name Allergen Category Reaction Reaction Severity Criticality Documentation Date Start Date Code Code System Note Provider Name and Address Organization Details Recorded Time 547685 amitripty line hydrochlo ride medicatio n irregular heart rate Not available Not available 05/24/20162015 50496 8 RxNorm React ion: palpi tatio ns; Not Available [facility] 7 09:03:45 220552 cyclobenz aprine hydrochlo ride medicatio n dizziness Not available Not available 05/24/20162015 45766 RxNorm React ion: dizzi ness; Elsy lieberman MD [address] [place] [address], [address], [facility] 7 20:31:33 700328 gabapenti n medicatio n dizziness Not available Not available 05/24/20162015 26610 RxNorm React ion: dizzi ness; Not Available [facility] 7 09:03:45 263034 lisinopri l medicatio n dizziness Not available Not available 05/24/20162015 33811 RxNorm React ion: dizzi ness; Not Available [facility] 7 09:03:45 094732 amlodipin e besylate medicatio n chest pain Not available Not available 05/24/20162015 04034 6 RxNorm React ion: chest pain; Not Available [facility] 7 09:03:45 293581 Non-stero idal anti-infl ammatory agent (product) medicatio n chest pain Not available Not available 05/24/20162015 29046 005 SNOMED React ion: chest pain; Not Available [facility] 7 09:03:45 Medications Name Sig Start Date [...] Details Last Updated DateTime 7 165.1 cm 76155 g 26.1 kg/m2 73 /min 99 % 99 % 122/82 mm[Hg] Marizol Braga [facility] 7 14:26:29 Date Recorded Body height Heart rate Systolic And Diastolic Systolic And Diastolic Provider Name and Address Organization Details Last Updated DateTime 06/14/2016 165.1 cm 103 /min 170/120 mm[Hg] 158/100 mm[Hg] Elisha Vargas LPN [facility] 06/14/2016 11:06:29 Date Recorded Body height Body weight Body mass index (BMI) Oxygen saturation Oxygen saturation in Arterial blood by Pulse oximetry Heart rate Systolic And Diastolic Provider Name and Address Organization Details Last Updated DateTime 7 165.1 cm 47694 g 26.1 kg/m2 99 % 99 % 104 /min 160/100 mm[Hg] Froylan Ireland [facility] 7 15:05:42 Date Recorded Systolic And Diastolic Provider Name and Address Organization Details Last Updated DateTime 08/07/2016 144/90 mm[Hg] Elsy Gold MD [address] [place] [address], [address], [facility] 08/07/2016 15:27:34 Date Recorded Body height Body weight Body mass index (BMI) Heart rate Oxygen saturation Oxygen saturation in Arterial blood by Pulse oximetry Systolic And Diastolic Provider Name and Address Organization Details Last Updated DateTime 7 165.1 cm 00546.6 3 g 25.5 kg/m2 76 /min 99 % 99 % 150/90 mm[Hg] Froylan Ireland [facility] 7 15:02:21 Social History [...] SNOMED-CT Code Diagnosis ICD10 Code Diagnosis Note [id number] Elsy Gold MD [address] [address] 05/31/2016 14:01:57 05/31/2016 15:36:11 Hypertensive disorder 21394773 I10 controlled , continue enalapril 10 mg BID, check BMP Chronic pain 08394587 G8 9.29 Chronic neck and back pain s/p multiple surgeries, injections , PT, heavy duty narcotics, [facility]. 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 2000 - T12 compressio n fracture, traumatic Continue oxycodone. 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 Refer to [facility]. Low back pain 864819062 M54.5 Vitamin D deficiency 347 20776 E55.9 advised to take vitamin D 2,000 iu daily OTC Spasm of back muscles 20 8485388 M62.830 Start flexeril only at night QHS prn. Cautioned about dizziness/ drowsiness . [id number] Elsy Gold MD [address] [address] 06/14/2016 10:22:02 06/14/2016 11:09:18 Essential hypertension 03251465 I10 [id number] Elsy Gold MD [address] [address] 07/17/2016 14:25:19 07/17/2016 16:24:51 Hypertensive disorder 74005252 I10 uncontroll ed today which could be due to pain, prior BP within goal, continue enalapril 10 mg BID, continue to monitor BP at home. Chronic pain 18758506 G8 9.29 Chronic neck and back pain s/p multiple surgeries, injections , PT, heavy duty narcotics, [facility]. SE with TCA, gabapentin , NSAIDs. 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 2000 - T1 compressio n fracture, traumatic Continue oxycodone. 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 F/u with [facility] as scheduled on 08/11/16.Ad vised pt to disclose all meds she is taking. Will repeat UDS. Low back pain 688264112 M54.5 Spasm of back muscles 20 0786890 M62.830 Continue with flexeril QHS prn. Cautioned about dizziness/ drowsiness . Vitamin D deficiency 347 28852 E55.9 repleted, advised to take vitamin D 2,000 iu daily OTC for sydni jaquez [id number] Elsy Gold MD [address] [address] 08/07/2016 14:19:57 08/07/2016 15:30:26 Hypertensive disorder 92661617 I10 uncontroll ed, states home BP had been high the past week, increase enalapril to 20 mg in AM and 10 mg in PM, continue to monitor BP at home. Goal BP <140/90. F/u on 08/23/16 as scheduled for BP check and bMP. Low back pain 618082140 M54.5 Neck pain 08641142 M54.2 Chronic pain 69484300 G8 9.29 Chronic neck and back pain [...] ID Guarantor Name 01/26/2017 1 [place]ICARE B-[place]: [facility] Heaven Martin [id number] Heaven Martin 08/20/2016 2 [place] [facility] Heaven [facility] [id number] Heaven Martin Notes Date Note Type Note Provider Name and Address Organization Details Recorded Time 05/31/2016 text/html 55 y/o F here fo r f/u HTN. HTN : Taking enalapril 10 mg BID. BP today is within normal range.Feels better on enalapril. She reports UTI in the past week. Went to in [place]. Was given Bactrim and pyridium initially which [...] July. She found another pain clinic at [facility], can see her in Jun and would like to get a referral there. Elsy Gold MD [address] [place] [address], [address], [facility] 05/31/2016 20:32:03 07/17/2016 [...] She states that saw pain doctor at [place] recently, did not have her records. Has [...] weeks x 5 days. Elsy Gold MD [address] [place] [address], [address], [facility] 07/17/2016 [...] filled on 07/17/16.She saw pain doctor at [place] (Dr Finley) on 07/24/16. UDS done there [...] pill to prevent withdrawal. Elsy Gold MD [address] [place] [address], [address], [facility] 08/07/2016 19:38:29 OBGyn Episode No OBEpisode recorded.
[2024-12-03 08:56] VITALS: BP 122/78; PULSE 62; O2SAT 98; BMI 25.0
--- NOTE | 2024-12-03 08:56 | MHC.PC.OV ---
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 Accompanied by: Self / Same As Patient Allergies ibuprofen (From Motrin) Adverse Reaction (Severe, Verified 12/03/24 09:15) high blood pressure, dizzy and chest pain NSAIDS (Non-Steroidal Anti-Inflamma Adverse Reaction (Severe, Verified 12/03/24 09:15) palpitations,dizziness Medication List - Last Reconciled 12/03/24 by Himanshu Navarrete MD atorvastatin 10 mg PO BEDTIME 90 days clonidine HCl 0.2 mg PO TID 30 days losartan 50 mg PO DAILY naloxone 4 mg/actuation 4 mg intranasal Q2M PRN 1 day oxycodone 5 mg PO Q8H PRN 28 days [POST-OP SHOE (RIGHT) - medium As directed] potassium chloride ER 10 mEq PO BID pregabalin 100 mg PO TID 30 days zolpidem 10 mg PO BEDTIME PRN 30 days Tobacco use date assessed: 12/03/24 Fall risk assessment: 1 Fall in past year Last assessed Fall Risk: 12/03/24 Dental Screening Dental Screen Date: 12/03/24 Did you have a dental visit in the last 12 months?: Yes Did you have a dental problem in the last 6 months where you did not have access to dental care?: No Was dental information given to patient?: Patient has dentist HPI hyperlipidemia, right foot fracture, HTN HPI Details Patient comes in today for her follow up visit She was being seeing by Dr. Adams/[facility] Management for her chronic pain and has an existing pain management contract with him for chronic opioid Rx at 5 mg of Oxycodone TID, # 90 tablets per month BUT she apparently was short by about 3 days on her pill count at the end of September 2024 and as a result, she is now suspended from the pain management clinic for a year She was reportedly advised to seek pain management through her PCP in the meantime until she can be reinstated at the end of September 2025 Patient denies any headaches or dizziness lately Denies any increased SOB but reports on and off chest pains - notes that her chest pains are often sharp but she is not sure whether they are mostly exertional or not She is requesting for a referral to cardiology to get them checked out further No nausea/vomiting, no abdominal pain No change in bowel habits noted She had her follow up labs done last week - to discuss her results Patient adds that she was admitted to [facility] for a few days about 2 to 3 months ago and had some abdominal imaging done (thinks she had a CT) that reportedly showed some lesions in her liver or kidney that needs to be further evaluated Review of her hospital records showed that the lesion is actually in the spleen and it was mentioned that the lesion has increased in size from previous There was also some pancreatic duct dilatation noted and she was advised to see her PCP about getting an outpatient MRI done for further evaluation [facility] Medical History Splenic lesion Hypertensive urgency Numbness and tingling of both feet Neuropathy Reflex sympathetic dystrophy of right leg Left lower quadrant pain Left groin pain Insomnia HCV (hepatitis C virus) Hemorrhoids Pure hypercholesterolemia Postlaminectomy syndrome Overweight (BMI 25.0-29.9) Memory loss or impairment Cerebrovascular accident (CVA) (~2019) Lumbar degenerative disc disease Benign essential hypertension Hair loss Paresthesia of foot Surgical History History of colonoscopy History of surgery History of neck surgery History of hysterectomy Family History Father Diabetes Mother Lung cancer Past heart attack Daughter In good health Brother In good health Brother No problems noted. Brother No problems noted. Family/Other Colon cancer Social History Housing: Apartment Alcohol intake: current Alcohol intake frequency: holidays/special occasions only Patient Tobacco Use Status: Never used Tobacco Tobacco use type: Cigarette e-Cigarette/Vaping Use: Never Used Second Hand Smoke Exposure: No service: No Current occupational status: disabled Cognitive needs: No Hearing needs: No Vision needs: Yes Female Reproductive History Menstrual Age of Menarche: 8 Questionnaire PHQ-9 Over the last 2 weeks, how often have you been bothered by any of the following problems? 1. Little interest or pleasure in doing things: not at all 2. Feeling down, depressed, or hopeless: not at all 3. Trouble falling or staying asleep, or sleeping too much: nearly every day 4. Feeling tired or having little energy: more than half the days 5. Poor appetite or overeating: several days 6. Feeling bad about yourself - or that you are a failure or have let yourself or your family down: not at all 7. Trouble concentrating on things, such as reading the newspaper or watching television: not at all 8. Moving or speaking so slowly that other people could have noticed. Or the opposite - being so fidgety or restless that you have been moving around a lot more than usual: not at all 9. Thoughts that you would be better off or of hurting yourself in some way: not at all Total score: 6 Depression Screening Interpretation: Positive Depression Screening Follow-up: Follow-up Visit Requested Depression Screening Done: Yes 28219 - PHQ-9 Billing: Yes Source: Developed by Drs. Orlando Kat, Corina Corona, Dillon Greenwood and colleagues, with an educational marilynn from [employer]. Thrive Questionnaire Date Thrive assessed: 12/03/24 I am a: Patient What is your living situation today?: I have a steady place to live Within the past 12 months, did the food you bought not last and you didn't have the money to get more?: Never true Within the past 12 months, did you worry whether your food would run out before you got money to buy more?: Never true Do you have trouble paying for medicines?: No Do you have trouble getting transportation to medical appointments?: No Do you have trouble paying your heating and electricity bill?: Yes Do you have trouble taking care of your child, family member or friend?: No Do you have trouble with day-to-day activities such as bathing, preparing meals, shopping, managing finances, etc.?: No Are you currently unemployed and looking for a job?: No Are you interested in more education?: No Please select the resources that you would like help with: None Currently or been in a relationship where the following occur: No concerns reported THRIVE Score: 1 AUDIT C Alcohol Use Questionnaire (AUDIT-C) 1. How often do you have a drink containing alcohol?: Never 3. How often do you have six or more drinks on one occasion?: Never Total Score: 0 Score Reviewed/Action Taken: Yes CONSTANTINO-7 AMB Questionnaire CONSTANTINO-7 Date CONSTANTINO - 7 assessed: 12/03/24 Feeling nervous, anxious, or on edge: 0 = Not at all Not being able to stop or control worryin = Not at all Worrying too much about different things: 0 = Not at all Trouble relaxin = Not at all Being so restless that it is hard to sit still: 0 = Not at all Becoming easily annoyed or irritable: 0 = Not at all Feeling afraid as if something awful might happen: 0 = Not at all Total CONSTANTINO-7 score (0-4 normal; 5-9 mild; 10-14 moderate; 15-21 severe): 0 Source: Developed by Drs. Orlando Kat, Corina Corona, Dillon Greenwood and colleagues, with an educational marilynn from [employer]. Review of Systems Const Denies chills, Reports difficulty sleeping (due to pain), Reports fatigue, Denies fever(s), Denies headache(s) and Reports weakness (over the right side, involving the right arm & right leg ) ENT Denies dysphagia, Denies dizziness, Denies otalgia, Denies headache(s), Denies neck pain, Denies odynophagia and Denies sore throat Card Reports chest pain (on and off - see HPI), Denies palpitations and Denies dyspnea Resp Denies chest congestion, Denies cough and Denies dyspnea GI Denies abdominal pain, Denies constipation, Denies dysphagia, Denies heartburn, Denies diarrhea, Denies nausea, Denies odynophagia and Denies vomiting Denies difficulty voiding, Denies nocturia, Denies dysuria and Denies urinary urgency Musc Details: (+) chronic pain in the right foot - foot goes completely numb at times Reports back pain (over the lower back, chronic), Reports arthralgias (involving multiple joints) and Denies neck pain Skin/Breast Reports alopecia (due to Gabapentin) and Denies rash Neuro Reports burning sensations (and pain in her feet - increased especially at night ), Denies dizziness, Denies headache(s), Reports memory loss and Reports weakness (over the right side, involving the right arm & right leg ) Psych Reports memory loss Endo Reports fatigue and Denies palpitations Physical exam (Primary Care) Vital Signs: Last Vital Signs Pulse 62 12/03/24 08:56 BP 122/78 12/03/24 08:56 Pulse Ox 98 12/03/24 08:56 Oxygen Delivery Method Room Air 12/03/24 08:56 BMI result Body Mass Index 25.0 Tobacco/Smoking Status: Tobacco use Status Tobacco use date assessed 12/03/24 12/03/24 09:00 Patient Tobacco Use Status Never used Tobacco 12/03/24 09:00 Tobacco use type Cigarette 12/03/24 09:00 e-Cigarette/Vaping Use Never Used 12/03/24 09:00 PHQ-9: PHQ-9 Score PHQ-9: Total score 6 12/03/24 09:00 Depression Screening Interpretation: Positive Depression Screening Follow-up: Follow-up Visit Requested Thrive Assessment: Date of Thrive Assessment Date Thrive assessed 12/03/24 12/03/24 09:00 Currently or been in a relationship where the following occur: No concerns reported Const General: no acute distress and alert HENMT Ears: TM's normal bilaterally and EAC's normal Throat: Yes posterior oropharynx normal and Yes tonsils normal (no TP congestion noted) Neck Neck: Yes supple and No lymphadenopathy Thyroid: Thyroid normal Resp Auscultation: clear to auscultation bilaterally, no rales and no wheezes Cardio Rate: regular rate Rhythm: regular rhythm Heart sounds: no murmurs GI Palpation (GI): Soft to palpation and nontender Auscultation: normal bowel sounds General: Yes no CVA tenderness Back/Spine/Pelvis Back: no CVA tenderness Thoracic/Lumbar Spine: lumbar spinal tenderness (chronic) Skin Rashes: no rashes Neuro Other: (+) residual weakness over the right arm and right leg - unchanged from previous Extrem General: Yes no clubbing, cyanosis or edema Results Reviewed Results Reviewed: Laboratory Tests 11/26/24 11/26/24 11:22 11:30 WBC 7.8 Hgb 12.9 Hct 38.5 Plt Count 384 D Sodium 138 Potassium 4.2 Creatinine 0.61 Estimated GFR > 60 Fasting Glucose 85 Calcium 9.4 AST 44 H ALT 31 Triglycerides 231 H Cholesterol 189 LDL Cholesterol, Calc 82 HDL Cholesterol 61 Ur Specific [place] <= 1.005 Urine Protein Negative Urine Glucose (UA) Negative Urine Blood Negative Urine Nitrite Negative Ur Leukocyte Esterase Trace H Coding Level of Care Code Est Pt Level 4 (02332) Complex EM visit Add On G2211 Diagnoses Pure hypercholesterolemia E78.00 Cerebrovascular accident (CVA), unspecified mechanism I63.9 CVA mechanism: unspecified Benign essential hypertension I10 Chest pain, unspecified type R07.9 Chest pain type: unspecified Impaired fasting glucose R73.01 Splenic lesion D73.89 Dilation of pancreatic duct K86.89 Degeneration of intervertebral disc of lumbar region with discogenic back pain M51.360 Disc-related pain type: discogenic back pain only Neuropathy G62.9 Memory loss or impairment R41.3 Insomnia, unspecified type G47.00 Insomnia type: unspecified Overweight (BMI 25.0-29.9) E66.3 Additional Codes PHQ-9 - 60529 - PHQ-9 Billing: Yes ([id number]) Assessment & Plan Assessment & Plan (1) Pure hypercholesterolemia: Code(s): E78.00 - Pure hypercholesterolemia, unspecified Category: Medical Plan: Results of her labs done last week reviewed and discussed with patient Reinforced low cholesterol diet Continue Atorvastatin 10 mg QD Will recheck her labs and fasting lipids in 4 months for follow up (2) Cerebrovascular accident (CVA): Onset Date: ~2018 Comment: (+) CVA in 2019, with residual right-sided weakness primarily involving the right arm and right leg - S/P physical therapy with only some improvement of her weakness Code(s): I63.9 - Cerebral infarction, unspecified Category: Medical Qualifiers: CVA mechanism: unspecified Qualified Code(s): I63.9 - Cerebral infarction, unspecified Plan: Patient is reinforced to continue with aggressive risk factor modification to minimize recurrence, including lowering her cholesterol and controlling her BP Patient used to see Dr. Haq for neurology follow up but she has not been to see neurology in over 2 years now She was referred back to neurology but she requested to see another neurologist other than Dr. Haq She is now following up with [facility] Neurology regularly (3) Benign essential hypertension: Code(s): I10 - Essential (primary) hypertension Category: Medical Plan: Reinforced low-sodium diet -? goal is systolic BP of at least 120 to 130 mm or less Continue Losartan 50 mg QD and Clonidine 0.2 mg TID Patient is reminded to continue monitoring her blood pressure regularly (4) Chest pain: Code(s): R07.9 - Chest pain, unspecified Category: Medical Qualifiers: Chest pain type: unspecified Qualified Code(s): R07.9 - Chest pain, unspecified Plan: Per her request, will refer her to cardiology for further evaluation and management although advised patient that based on her description of her symptoms, these are most likely musculoskeletal in nature (5) Impaired fasting glucose: Code(s): R73.01 - Impaired fasting glucose Category: Medical Plan: Her FBS was normal at 85 mg/dl on her recent labs Reinforced low calorie diet Will continue to monitor this closely (6) Splenic lesion: Code(s): D73.89 - Other diseases of spleen Category: Medical Plan: This was seen again on a recent abdominal and pelvic CT done at [facility] in late August 2024 when patient was admitted there briefly for GI symptoms It was noted that the lesion appears to have increased in size from previous and she was advised to see her PCP ESTEBAN for follow up and to have this worked up further Will send her for abdominal MRI ESTEBAN for further evaluation (7) Dilation of pancreatic duct: Code(s): K86.89 - Other specified diseases of pancreas Category: Medical Plan: This was also seen on her recent abdominal imaging studies and she is being sent for abdominal MRI for further evaluation (8) Lumbar degenerative disc disease: Comment: Has failed back sydrome/postlaminectomy syndrome Code(s): M51.36 - Other intervertebral disc degeneration, lumbar region Category: Medical Qualifiers: Disc-related pain type: discogenic back pain only Qualified Code(s): M51.360 - Other intervertebral disc degeneration, lumbar region with discogenic back pain only Plan: She was seen by pain management a few years ago but she did not follow-up again with them for a while as she was not interested in any alternative or interventional Tx options at the time She was referred back to pain management last year and was seen by Dr. Adams, who recommended that she start on TCAs and have her Gabapentin dose increased but patient declined both of these recommendations She was seen more recently at [facility] and offered trial of SCS which patient also decided not to pursue She was on Gabapentin 600 mg TID and Tizanidine 4 mg QID PRN for a while and requested to have her Gabapentin switched out to Lyrica as her hair loss seemed to be progressively worse while she was on Gabapentin - she was then switched over to Pregabalin, now at 100 mg TID, and her Gabapentin was discontinued She was also started on a trial of Duloxetine 30 mg QD last year but patient decided NOT to continue on the Rx Reinforced again to patient that other than Tramadol, we have no plans to start her back on opioids for chronic/long-term pain management MRI of the thoracic and lumbar spine done back in March 2024 revealed (+) age-indeterminate moderate compression deformity at T12 as well as advanced degenerative disc disease at L2-L3 with minimal retrolisthesis of L2 on L3 She was referred back [facility] for pain management evaluation last year but patient ended up going back to [facility] Pain Management and was seeing Dr. Adams regularly for chronic opioid Rx BUT she now finds herself suspended from pain management for a year due to a recent discrepancy in her pill count (9) Neuropathy: Code(s): G62.9 - Polyneuropathy, unspecified Category: Medical Plan: Continue Pregabalin 100 mg TID; feels that Clonidine also helps with her symptoms She is now seeing [facility] Neurology (Dr. Ledezma) for this issue as well as for her Hx of CVA She does not appear to have had any formal EMG and NCV done in the past and have again advised her that these may be worthwhile to pursue but I will leave it up to neurology to decide if they are necessary or not at this point (10) Memory loss or impairment: Code(s): R41.3 - Other amnesia Category: Medical Plan: She reports (+) memory loss/impairment that appear to have started after her CVA in 2019 - advised again that this is most likely a sequelae of her CVA and that there may not be much we can do for this except for aggressive reduction of her risk factors to prevent any further recurrence of her CVA Follow up with neurology as scheduled (11) Insomnia: Code(s): G47.00 - Insomnia, unspecified Category: Medical Qualifiers: Insomnia type: unspecified Qualified Code(s): G47.00 - Insomnia, unspecified Plan: Sleep hygiene reinforced Continue Zolpidem 10 mg Q HS PRN (12) Overweight (BMI 25.0-29.9): Code(s): E66.3 - Overweight Category: Medical Plan: Reinforced diet/lose weight; exercise is unrealistic given patient's right-sided weakness as well as her significant low back pain Plan Follow-up in 4 months Orders: Orders Complete Blood Count Auto Diff 4 Months D64.9 - Anemia, unspecified Comprehensive [place]. Panel Fast 4 Months E78.00 - Pure hypercholesterolemia, unspecified UA CC w/rflx Micro + Cult 4 Months R30.0 - Dysuria Lipid Panel 4 Months E78.00 - Pure hypercholesterolemia, unspecified TSH reflex Free T4 4 Months E78.00 - Pure hypercholesterolemia, unspecified Vitamin D 25-OH Total 4 Months E55.9 - Vitamin D deficiency, unspecified Vitamin B12 and Folate 4 Months E53.8 - Deficiency of other specified B group vitamins MR abdomen wo/w con Today D73.89 - Other diseases of spleen, K86.89 - Other specified diseases of pancreas Referrals Cardiology Referral R07.9 - Chest pain, unspecified
== END 2024-12-03 09:42 | disposition home or self-care (01) ==
LOC: HO.HMCH 08:45
PROVIDERS: PCP Internal Medicine; Visit Provider Internal Medicine
DX: E78.00 Pure hypercholesterolemia, unspecified (principal); I63.9 Cerebral infarction, unspecified; I10 Essential (primary) hypertension; R07.9 Chest pain, unspecified; R73.01 Impaired fasting glucose; D73.89 Other diseases of spleen; K86.89 Other specified diseases of pancreas; M51.360 Other intervertebral disc degeneration, lumbar region with discogenic back pain only; G62.9 Polyneuropathy, unspecified; R41.3 Other amnesia; G47.00 Insomnia, unspecified; E66.3 Overweight

== ENCOUNTER → 2024-12-03 08:45 | Outpatient (BNVA) | payer MEDICARE, MEDICAID, SELFPAY | PROVIDERS: PCP Internal Medicine; Visit Provider Internal Medicine | DX: E78.00 Pure hypercholesterolemia, unspecified (principal); I63.9 Cerebral infarction, unspecified; I10 Essential (primary) hypertension; R07.9 Chest pain, unspecified; R73.01 Impaired fasting glucose; D73.89 Other diseases of spleen; K86.89 Other specified diseases of pancreas; M51.360 Other intervertebral disc degeneration, lumbar region with discogenic back pain only; G62.9 Polyneuropathy, unspecified; R41.3 Other amnesia; G47.00 Insomnia, unspecified; E66.3 Overweight; Z68.25 Body mass index [BMI] 25.0-25.9, adult; Z71.3 Dietary counseling and surveillance | CPT/HCPCS: 96127; 99212 ==

== ENCOUNTER 2024-12-25 10:32 | Outpatient (REF) | payer MEDICARE, MEDICAID, SELFPAY ==
--- NOTE | ~2024-12-25 | MR_ITS ---
CLINICAL HISTORY: D73.89 - Other diseases of spleen MR abdomen without contrast Comparison: None available Findings: Limited examination. Coronal in sagittal T2 images were obtained. No signal abnormality in the lung bases. Underdistended gallbladder without stones. The common bile duct is dilated, measuring up to 1.1 cm. There is no common bile duct stone. Mild dilation of main pancreatic duct, measuring up to 0.4 cm. The pancreatic parenchyma is unremarkable. The liver measures 19.7 cm in craniocaudal dimension which is within normal limits. No focal liver lesions. The spleen measures 11.5 cm in craniocaudal dimension which is within normal limits. There is a hyperintense lesion in the spleen measuring 2.2 cm which could be a cyst or hemangioma. There there are hypointense lesions in the spleen measuring up to 0.8 cm which could be calcified granuloma. Left duplex kidney. The other solid organs are unremarkable. Small hiatal hernia no bowel wall thickening or dilation. No aneurysm. No lymphadenopathy. No ascites. Mild multilevel endplate increased signal and could be Modic type 1 and Modic type 2 change. Impression: 2.2 cm lesion in the spleen could be a cyst or hemangioma. Subcentimeter hypointense lesions in the spleen may indicate splenic granulomatosis. The spleen is nonenlarged. Dilation of the common bile duct of uncertain etiology. Mild dilation of the main pancreatic duct. Correlate with laboratory values. Consider further evaluation with ERCP. This document has been electronically signed by: Amita Grimaldo MD on 12/25/2024 13:35:29
--- OUTSIDE RECORDS SUMMARY | 2024-12-25 11:16 | XMS_ITS | Clinical Summary ---
Author Organization [facility] Address [address] [place] [phone] Phone Care Team Providers Care Caser Name Role Phone Antonia Mg MD Primary Care Prov ider Allergies Active Allergy Reactions Criticality Noted Date Comments Motrin (Ibuprofen) 12/16/2014 Nsaids (Non-Steroidal Anti-I nflammatory Drug) 12/16/2014 Medications LISINOPRIL ORAL Take by mouth. Active TRAMADOL HCL (TRAMADOL ORAL) Take by mouth. Active OXYCODONE HCL/ACETAMINOPH EN (PERCOCET ORAL) Take by mouth. Active zolpidem (AMBIEN) 5 MG tablet Take 5 mg by mouth nightly as needed for sleep. Active Family History Medical History Relation Comments Cancer Maternal Grandmother Coronary artery disease Maternal Grandmother Coronary artery disease Mother Relation Status Comments Maternal Grandmother Mother Social History Tobacco Use Types Packs/Day Years Used Date Smoking Tobacco: Never Alcohol Use Standard Drinks/Week Comments No 0 (1 standard drink = 0.6 oz pur e alcohol) Education Answer Date Recorded Are you interested in more education? Not on tiara e 09/15/2022 Are you concerned about learning? Not on file 09/15/2022 No 09/15/2022 No 09/15/2022 Digital Access Answer Date Recorded No 10/16/2022 No 10/16/2022 No 10/16/2022 Reliable internet access at home? Not on file 10/16/2022 Device with a working camera? Not on file Comments Unknown Sex and Gender Information Value Date Recorded Sex Assigned at Not on file Legal Sex Female 11:34 AM EDT Gender Identity Not on file Sexual Orientation Not on file Last Filed Vital Signs Vital Sign Reading Time Taken Comments Blood Pressure 163/124 12/16/2014 12:05 PM EDT Pulse 70 12/16/2014 12:05 PM EDT Temperature 36.9 C (98.4 F) 12/16/2014 12:05 PM EDT Respiratory Rate - - Oxygen Saturation - - Inhaled Oxygen Concentration - - Weight 72.6 kg (160 lb) 06/01/2015 5:08 PM EST Height 167.6 cm (5' 6 ) 06/01/2015 5:08 PM EST Body Mass Index 25.82 06/01/2015 5:08 PM EST Plan of Treatment Health Maintenance Due Date Last Done Comments CREATININE LEVEL 1958 LIPID PANEL 1958 POTASSIUM LEVEL 1958 DEPRESSION SCREENING 1970 HEPATITIS C SCREENING 1976 MAMMOGRAM 1998 COLOGUARD 11/15/2003 COLONOSCOPY 11/15/2003 COLORECTAL CANCER SCREENING 11/15/2003 FIT TEST 11/15/2003 FOBT 11/15/2003 SIGMOIDOSCOPY 11/15/2003 VIRTUAL COLONOSCOPY 11/15/2003 PNEUMOCOCCAL VACCINES (50+ years) (1 of 1 - PCV) 2008 ZOSTER VACCINES (1 of 2) 2008 OSTEOPOROSIS SCREENING INITI AL (ONE-TIME) 11/15/2023 COVID-19 VACCINE ( - 2023-2 5 season) 2024 Adult Td,Tdap Booster 11/01/2027 10/31/2017 RSV VACCINE (1 - 1-dose 75+ series) 2033 SMOKING STATUS SCREENING (On ce After 26 Yrs) Completed 12/16/2014 HEPATITIS A VACCINES Aged Out 10/06/2016, 10/08/2015 No longer eligible based on patient's age to complete this topic HIB VACCINES Aged Out No longer eligi ble based on patient's age to complete this topic MENINGOCOCCAL VACCINES (ACWY) Aged Out No longer eligible based on patient's age to complete this topic MENINGOCOCCAL VACCINES (B) Aged Out N o longer eligible based on patient's age to complete this topic Medical Devices Not on file Insurance MEDICARE PART A & [place] & [place] & [place] & [place] & B [facility] Care Teams Caser Relationship Specialty Start Date End [place] [address] PCP - General 11/09/15 Additional Source Comments The information contained in this document represents components of the legal health record. It is not the complete legal health record.[facility]
== END 2024-12-25 10:33 | disposition home or self-care (01) ==
LOC: HO.MRI 10:32
PROVIDERS: PCP Internal Medicine; Visit Provider Internal Medicine
DX: D73.89 Other diseases of spleen (principal); K86.89 Other specified diseases of pancreas
CPT/HCPCS: 74183; A9585

== ENCOUNTER → 2024-12-25 10:39 | Outpatient (BNV) | payer MEDICARE, MEDICAID, SELFPAY | PROVIDERS: PCP Internal Medicine; Visit Provider Radiology Diagnostic Radiology | DX: D73.89 Other diseases of spleen (principal) | CPT/HCPCS: 74183 ==

== ENCOUNTER 2025-04-07 08:33 | Outpatient (REF) | payer MEDICARE, MEDICAID, SELFPAY ==
[2025-04-07 10:33] LABS: MANUAL DIFF FLAG NO
[2025-04-07 10:58] LABS: Appearance Urine Clear; Glucose Urine UA Negative (Negative); PH >= 9.0 (5.0-9.0); Specific Gravity - Urine 1.015 (1.005-1.025); UMIC TRIGGER UACC YES
[2025-04-07 11:07] LABS: Hematocrit 43.0 % (37.0-47.0); Hemoglobin 14.2 g/dl (12.0-16.0); Imm Gran Abs Auto 0.02 X10*3/uL (0.00-0.03); Imm Gran Pct Auto 0.2 % (0.0-0.4); Lymphocytes Absolute Auto 1.7 X10*3/uL (1.2-4.9); Mean Corpuscular HGB Conc 33.0 g/dl (31.0-35.0); Mean Corpuscular Hemoglobin 31.2 pg (27.0-33.0); Mean Corpuscular Volume 94.5 fL (80.0-98.0); NRBC Abs Auto 0.000 X10*3/uL (0.0-0.012); NRBC Pct Auto 0.0 /100WBC (0.0-0.2); Platelet Count 241 X10*3/uL (160-400); Red Blood Count 4.55 X10*6/uL (4.20-5.50); White Blood Count 8.3 X10*3/uL (4.8-10.8)
[2025-04-07 11:18] LABS: Alanine Aminotransferase 11 U/L (0-31); Albumin Level 4.7 g/dL (3.5-5.0); Alkaline Phosphatase 56 U/L (39-117); Anion Gap 13 (12-20); Aspartate Amino Transferase 23 U/L (5-31); Blood Urea Nitrogen 10 mg/dL (9-16); Calcium 9.7 mg/dL (8.4-10.2); Carbon Dioxide 29 mmol/L (22-29); Chloride 99 mmol/L (96-108); Cholesterol 164 mg/dL (<200); Estimated Glomerular Filt Rate > 60; HDL Cholesterol 78 mg/dL (>40); Potassium 4.2 mmol/L (3.3-5.1); Sodium 137 mmol/L (135-145); Total Protein 7.4 g/dL (6.5-8.0); Triglycerides 108 mg/dL (<150)
[2025-04-07 11:39] LABS: UACC Culture Trigger YES
[2025-04-07 11:44] LABS: Folate 12.7 ng/mL (> or = 4.0); Vitamin B12 514 pg/mL (200-900)
== END 2025-04-07 08:34 | disposition home or self-care (01) ==
LOC: HO.HMGCLDS 08:33
PROVIDERS: PCP Internal Medicine; Visit Provider Internal Medicine
DX: E53.8 Deficiency of other specified B group vitamins (principal); E78.00 Pure hypercholesterolemia, unspecified; E55.9 Vitamin D deficiency, unspecified; D64.9 Anemia, unspecified; R30.0 Dysuria
CPT/HCPCS: 36415; 80053; 80061; 81001; 82306; 82607; 82746; 84443; 85025; 87086; 87088; 87186

== ENCOUNTER 2025-04-15 08:58 | Outpatient (AMB) | payer MEDICARE, MEDICAID, SELFPAY ==
--- OUTSIDE RECORDS SUMMARY | 2025-04-09 23:59 | XMS_ITS | Continuity of Care Document ---
Author Organization [facility] Address [address] [place] [id number]- Care Team Providers Care Honest [employer] Member Name Role Phone Himanshu Navarrete MD Primary Care Physician [phone] Encounter [facility] Date(s): 03/10/25 - 04/09/25 [facility] [address] [place] [address]- Encounter Type: Triage Allergies, Adverse Reactions, Alerts Substance Criticality Severity Reaction Reaction Severity Status nonsteroidal antiinflammatory agent High criticality Moderate nausea; dizziness; chest pain Active Motrin High criticality Severe chest pain dizziness nausea Active Medications cloNIDine 0.1 mg oral tablet 0.1 mg, 1, tablet, By Mouth, 3 times a day Start Date: 12/19/18 Status: Ordered Medication Dispense Status: Completed Total Allowed Fills: 1 Fills Dispensed: 0 losartan 50 mg oral tablet 50 mg, By Mouth, Daily, # 30 tablet, Refills 0, Tot. Refills 0, Maintenance, 09/12/24 10:14:00 AM EDT, Route to Pharmacy Electronically, [facility]/pharmacy #[id number], Partial fill upon patient request if the prescription is for a schedule II opioid drug., 168, cm, 09/12/24 9:38:00 EDT, Height, 69.1, kg, 09/11/24 21:59:00 EDT, Dry Weight Start Date: 09/12/24 Stop Date: 10/12/24 Status: Ordered Medication Dispense Status: Completed Quantity: 30.0 Unit: tablet Total Allowed Fills: 1 Fills Dispensed: 0 Lyrica 50 mg oral capsule 1 capsule = 50 mg, By Mouth, 3 times a day, Maintenance, 03/03/25 2:36:00 PM EDT Start Date: 03/03/25 Status: Ordered Medication Dispense Status: Completed Total Allowed Fills: 1 Fills Dispensed: 0 omeprazole 20 mg oral delayed release tablet 1 tablet = 20 mg, By Mouth, Daily, # 30 tablet, 11 Refills, Maintenance, 03/10/25 3:17:00 PM EDT, [facility]/pharmacy #[id number], Partial fill upon patient request if the prescription is for a schedule II opioiddrug., 168, cm, 03/06/25 13:21:00 EDT, Height, 73, kg, 03/06/25 13:21:00 EDT, Dry Weight Start Date: 03/10/25 Stop Date: 03/05/26 Status: Ordered Medication Dispense Status: Completed Quantity: 30.0 Unit: tablet Total Allowed Fills: 12 Fills Dispensed: 0 zolpidem 10 mg oral tablet 1 tablet = 10 mg, By Mouth, Daily at bedtime, 0 Refills, Maintenance, 09/11/24 8:55:00 PM EDT, Tablet Start Date: 09/11/24 Status: Ordered Medication Dispense Status: Completed Total Allowed Fills: 1 Fills Dispensed: 0 Problem List Condition Confirmation Course Effective Dates Status Health St atus Informant Arthritis Confirmed Active Hypertension Confirmed Active Hysterectomy Confirmed Active Tonsillectomy Confirmed Active Social History Social History Type Response Smoking Status Never (less than 100 in lifetime) entered on: 09/11/24 Sex Female Sex Representation Female (finding) Patient Care team information Care Team Personnel Name: Himanshu Naavrrete MD Position: Reference Physician Member Role: PCP Address: [address] [place], [place] [id number] Telecom: Care Team Related Persons Name: LIBRADO LORENZ Name: EDUARD SINHA Insurance Providers Guarantor name: VEGA LLOYD [facility] Plan Information #: 1 Payer: MEDICARE B Payer Identifier: NA Member Number: [id number] Group Number: [id number] Subscriber Identifier: ZULEYMA Relationship to Subscriber: self Coverage Type: NA Coverage Verification Date: ZULEYMA Telecom: ZULEYMA Address: Health Plan Information #: 2 Payer: [employer] Payer Identifier: ZULEYMA Member Number: [id number] Group Number: [id number] Subscriber Identifier: ZULEYMA Relationship to Subscriber: self Coverage Type: MEDICAID Coverage Verification Date: ZULEYMA Telecom: ZULEYMA Address: NA
--- OUTSIDE RECORDS SUMMARY | 2025-04-11 23:59 | XMS_ITS | Continuity of Care Document ---
Author Organization [facility] Address [address] [place] [id number]- Care Team Providers Care Clinical Research Monitor Name Role Phone Himanshu Navarrete MD Primary Care Physician Encounter [facility] Date(s): 03/12/25 - 04/11/25 [facility] [address] [place] [address]- Encounter Type: Triage Allergies, Adverse Reactions, Alerts [...] 10:14:00 AM EDT, Route to Pharmacy Electronically, [facility]/pharmacy #[id number], Partial fill upon patient request if the [...] 11 Refills, Maintenance, 03/10/25 3:17:00 PM EDT, [facility]/pharmacy #[id number], Partial fill upon patient request if [...] team information Care Team Personnel Name: Himanshu Navarrete MD Position: Reference Physician Member Role: PCP Address: [address] [place], [place] [id number] Telecom: Care Team Related Persons Name: LIBRADO LORENZ Name: EDUARD SINHA Insurance Providers Guarantor name: VEGA LLOYD [facility] Plan Information #: 1 Payer: MEDICARE B Payer Identifier: NA Member Number: [id number] Group Number: [id number] Subscriber Identifier: ZULEYMA Relationship to Subscriber: self Coverage Type: NA Coverage Verification Date: ZULEYMA Telecom: ZULEYMA Address: Health Plan Information #: 2 Payer: [employer] Payer Identifier: ZULEYMA Member Number: [id number] Group Number: [id number] Subscriber Identifier: ZULEYMA Relationship to Subscriber: self Coverage Type: MEDICAID Coverage Verification Date: ZULEYMA Telecom: ZULEYMA Address: NA
--- NOTE | 2025-04-15 09:02 | A.OFFPC_ITS ---
Vital Signs 04/15/25 09:03 Height 5 ft 6 in Weight 156 lb 6 oz BMI 25.2 BP 112/74 Blood Pressure Location Lt brachial Position Sitting Pulse 67 Pulse Source Pulse Oximeter Temp 97.0 F Temp Source Temporal Artery Scan Pulse Oximetry (%) 97 Oxygen Delivery Method Room Air Intake Visit Reasons: hyperlipidemia, CVA, HTN, chronic pain Allergies ibuprofen (From Motrin) Adverse Reaction (Severe, Verified 04/15/25 09:29) high blood pressure, dizzy and chest pain NSAIDS (Non-Steroidal Anti-Inflamma Adverse Reaction (Severe, Verified 04/15/25 09:29) palpitations,dizziness Medication List - Last Reconciled 04/15/25 by Himanshu Navarrete MD atorvastatin 10 mg PO BEDTIME 90 days clonidine HCl 0.2 mg PO TID 30 days losartan 50 mg PO DAILY naloxone 4 mg/actuation 4 mg intranasal Q2M PRN 1 day omeprazole 20 mg PO DAILY [POST-OP SHOE (RIGHT) - medium As directed] pregabalin 50 mg PO TID 30 days zolpidem 10 mg PO BEDTIME PRN 30 days Tobacco use date assessed: 04/15/25 Fall risk assessment: No Falls in past year Last assessed Fall Risk: 04/15/25 Dental Screening Dental Screen Date: 04/15/25 Did you have a dental visit in the last 12 months?: Yes Did you have a dental problem in the last 6 months where you did not have access to dental care?: No Was dental information given to patient?: Patient has dentist HPI hyperlipidemia, CVA, HTN, chronic pain HPI Details Patient comes in today for her follow up visit She continues to complain of increased pain all over, which she feels have gotten worse since the onset of the cold weather over the past couple of months She was seeing Dr. Adams[place] for her chronic pain and has an existing pain management contract with him for chronic opioid Rx at 5 mg of Oxycodone TID, # 90 tablets per month BUT she apparently was short by about 3 days on her pill count at the end of September 2024 and as a result, she is now suspended from pain management prescription from them for a year and was reportedly advised to seek pain management through her PCP in the meantime until she can be reinstated at the end of September 2025 States that she has also been having problems getting her Pregabalin Rx refilled timely through her pharmacy lately and this is contributing to her increased pain recently She is again requesting for a small Rx for Oxycodone to help her with her pain at this time until she can get reinstated with pain management next door She denies any headaches or dizziness lately Denies any increased SOB but reports on and off chest pains - notes that her chest pains are often sharp but she is not sure whether they are mostly exertional or not She was previously referred to cardiology for further evaluation and is now scheduled to be seen by them in August of 2025 No nausea/vomiting, no abdominal pain No change in bowel habits noted Needs her Soma Rx refilled as well and she is also reqesting for Rx for an aluminum cane as well as a shower chair She had her follow up labs done last week - to discuss her results COUNTS INCLUDE 234 BEDS AT THE [facility] Medical History Splenic lesion Hypertensive urgency Numbness and tingling of both feet Neuropathy Reflex sympathetic dystrophy of right leg Left lower quadrant pain Left groin pain Insomnia HCV (hepatitis C virus) Hemorrhoids Pure hypercholesterolemia Postlaminectomy syndrome Overweight (BMI 25.0-29.9) Memory loss or impairment Cerebrovascular accident (CVA) (~2018) Lumbar degenerative disc disease Benign essential hypertension Hair loss Paresthesia of foot Surgical History History of colonoscopy History of surgery History of neck surgery History of hysterectomy Family History Father Diabetes Mother Lung cancer Past heart attack Daughter In good health Brother In good health Brother No problems noted. Brother No problems noted. Family/Other Colon cancer Social History Housing: Apartment Alcohol intake: current Alcohol intake frequency: holidays/special occasions only Patient Tobacco Use Status: Never used Tobacco Tobacco use type: Cigarette e-Cigarette/Vaping Use: Never Used Second Hand Smoke Exposure: No service: No Current occupational status: disabled Cognitive needs: No Hearing needs: No Vision needs: Yes Female Reproductive History Menstrual Age of Menarche: 8 Questionnaire PHQ-9 Over the last 2 weeks, how often have you been bothered by any of the following problems? 1. Little interest or pleasure in doing things: not at all 2. Feeling down, depressed, or hopeless: not at all 3. Trouble falling or staying asleep, or sleeping too much: nearly every day 4. Feeling tired or having little energy: more than half the days 5. Poor appetite or overeating: several days 6. Feeling bad about yourself - or that you are a failure or have let yourself or your family down: not at all 7. Trouble concentrating on things, such as reading the newspaper or watching television: not at all 8. Moving or speaking so slowly that other people could have noticed. Or the opposite - being so fidgety or restless that you have been moving around a lot more than usual: not at all 9. Thoughts that you would be better off or of hurting yourself in some way: not at all Total score: 6 Depression Screening Interpretation: Positive Depression Screening Follow-up: Follow-up Visit Requested Depression Screening Done: Yes 06193 - PHQ-9 Billing: Yes Source: Developed by Drs. Orlando Kat, Corina Corona, Dillon Greenwood and colleagues, with an educational marilynn from [employer]. Thrive Questionnaire Date Thrive assessed: 09/26/24 I am a: Patient What is your living situation today?: I have a steady place to live Within the past 12 months, did the food you bought not last and you didn't have the money to get more?: Never true Within the past 12 months, did you worry whether your food would run out before you got money to buy more?: Never true Do you have trouble paying for medicines?: No Do you have trouble getting transportation to medical appointments?: No Do you have trouble paying your heating and electricity bill?: Yes Do you have trouble taking care of your child, family member or friend?: No Do you have trouble with day-to-day activities such as bathing, preparing meals, shopping, managing finances, etc.?: No Are you currently unemployed and looking for a job?: No Are you interested in more education?: No Please select the resources that you would like help with: None Currently or been in a relationship where the following occur: No concerns reported THRIVE Score: 1 AUDIT C Alcohol Use Questionnaire (AUDIT-C) 1. How often do you have a drink containing alcohol?: Never 3. How often do you have six or more drinks on one occasion?: Never Total Score: 0 Score Reviewed/Action Taken: Yes CONSTANTINO-7 AMB Questionnaire CONSTANTINO-7 Date CONSTANTINO - 7 assessed: 12/03/24 Feeling nervous, anxious, or on edge: 0 = Not at all Not being able to stop or control worryin = Not at all Worrying too much about different things: 0 = Not at all Trouble relaxin = Not at all Being so restless that it is hard to sit still: 0 = Not at all Becoming easily annoyed or irritable: 0 = Not at all Feeling afraid as if something awful might happen: 0 = Not at all Total CONSTANTINO-7 score (0-4 normal; 5-9 mild; 10-14 moderate; 15-21 severe): 0 Source: Developed by Drs. Orlando Kat, Corina Corona, Dillon Greenwood and colleagues, with an educational marilynn from [employer]. Review of Systems Const Denies chills, Reports difficulty sleeping (due to pain), Reports fatigue, Denies fever(s), Denies headache(s) and Reports weakness (over the right side, involving the right arm & right leg ) ENT Denies dysphagia, Denies dizziness, Denies otalgia, Denies headache(s), Denies neck pain, Denies odynophagia and Denies sore throat Card Reports chest pain (on and off - see HPI), Denies palpitations and Denies dyspnea Resp Denies chest congestion, Denies cough and Denies dyspnea GI Denies abdominal pain, Denies constipation, Denies dysphagia, Denies heartburn, Denies diarrhea, Denies nausea, Denies odynophagia and Denies vomiting Denies difficulty voiding, Denies nocturia, Denies dysuria and Denies urinary urgency Musc Details: (+) chronic pain in the right foot - foot goes completely numb at times Reports back pain (over the lower back, chronic), Reports arthralgias (involving multiple joints) and Denies neck pain Skin/Breast Reports alopecia (due to Gabapentin) and Denies rash Neuro Reports burning sensations (and pain in her feet - increased especially at night ), Denies dizziness, Denies headache(s), Reports memory loss and Reports weakness (over the right side, involving the right arm & right leg ) Psych Reports memory loss Endo Reports fatigue and Denies palpitations Physical exam (Primary Care) Vital Signs: Last Vital Signs Temp 97.0 F 04/15/25 09:03 Pulse 67 04/15/25 09:03 BP 112/74 04/15/25 09:03 Pulse Ox 97 04/15/25 09:03 Oxygen Delivery Method Room Air 04/15/25 09:03 BMI result Body Mass Index 25.2 Tobacco/Smoking Status: Tobacco use Status Tobacco use date assessed 04/15/25 04/15/25 09:08 Patient Tobacco Use Status Never used Tobacco 04/15/25 09:08 Tobacco use type Cigarette 04/15/25 09:08 e-Cigarette/Vaping Use Never Used 04/15/25 09:08 PHQ-9: PHQ-9 Score PHQ-9: Total score 6 04/15/25 09:32 Depression Screening Interpretation: Positive Depression Screening Follow-up: Follow-up Visit Requested Thrive Assessment: Date of Thrive Assessment Date Thrive assessed 09/26/24 04/15/25 09:08 Currently or been in a relationship where the following occur: No concerns reported Const General: no acute distress and alert HENMT Throat: Yes posterior oropharynx normal and Yes tonsils normal (no TP congestion noted) Neck Neck: Yes supple and No lymphadenopathy Thyroid: Thyroid normal Resp Auscultation: clear to auscultation bilaterally, no rales and no wheezes Cardio Rate: regular rate Rhythm: regular rhythm Heart sounds: no murmurs GI Palpation (GI): Soft to palpation and nontender Auscultation: normal bowel sounds General: Yes no CVA tenderness Back/Spine/Pelvis Back: no CVA tenderness Thoracic/Lumbar Spine: lumbar spinal tenderness (chronic) Skin Rashes: no rashes Neuro Other: (+) residual weakness over the right arm and right leg - unchanged from previous Extrem General: Yes no clubbing, cyanosis or edema Results Reviewed Results Reviewed: Laboratory Tests 04/07/25 08:48 WBC 8.3 Hgb 14.2 Hct 43.0 Plt Count 241 D Sodium 137 Potassium 4.2 Creatinine 0.66 Estimated GFR > 60 Fasting Glucose 104 H Calcium 9.7 AST 23 ALT 11 Triglycerides 108 Cholesterol 164 LDL Cholesterol, Calc 65 HDL Cholesterol 78 Vitamin B12 514 25-OH Vitamin D Total 50.8 TSH 0.70 Ur Specific Baxter 1.015 Urine Protein 30 (1+) H Urine Glucose (UA) Negative Urine Blood Negative Urine Nitrite Negative Ur Leukocyte Esterase Small (1+) H Coding Level of Care Code Est Pt Level 4 (35122) Diagnoses Pure hypercholesterolemia E78.00 Cerebrovascular accident (CVA), unspecified mechanism I63.9 CVA mechanism: unspecified Benign essential hypertension I10 Chest pain, unspecified type R07.9 Chest pain type: unspecified Impaired fasting glucose R73.01 Splenic lesion D73.89 Dilation of pancreatic duct K86.89 Degeneration of intervertebral disc of lumbar region with discogenic back pain M51.360 Disc-related pain type: discogenic back pain only Neuropathy G62.9 Memory loss or impairment R41.3 Insomnia, unspecified type G47.00 Insomnia type: unspecified Overweight (BMI 25.0-29.9) E66.3 Additional Codes PHQ-9 - 54328 - PHQ-9 Billing: Yes ([id number]) Assessment & Plan Assessment & Plan (1) Pure hypercholesterolemia: Code(s): E78.00 - Pure hypercholesterolemia, unspecified Category: Medical Plan: Results of her labs done last week reviewed and discussed with patient - her cholesterol levels have improved slightly from previous Reinforced low cholesterol diet Continue Atorvastatin 10 mg QD Will recheck her labs and fasting lipids in 4 months for follow up (2) Cerebrovascular accident (CVA): Onset Date: ~2018 Comment: (+) CVA in 2019, with residual right-sided weakness primarily involving the right arm and right leg - S/P physical therapy with only some improvement of her weakness Code(s): I63.9 - Cerebral infarction, unspecified Category: Medical Qualifiers: CVA mechanism: unspecified Qualified Code(s): I63.9 - Cerebral infarct ion, unspecified Plan: Patient is reminded to continue with aggressive risk factor modification to minimize recurrence of her CVA, including lowering her cholesterol and controlling her BP Patient used to see Dr. Haq for neurology follow up but she has not been to see neurology in over 2 years She was referred back to neurology but she requested to see another neurologist other than Dr. Haq She is now following up with [facility] [place] (3) Benign essential hypertension: Code(s): I10 - Essential (primary) hypertension Category: Medical Plan: Reinforced low-sodium diet -? goal is systolic BP of at least 120 to 130 mm or less Continue Losartan 50 mg QD and Clonidine 0.2 mg TID Patient is reminded to continue monitoring her blood pressure regularly (4) Chest pain: Code(s): R07.9 - Chest pain, unspecified Category: Medical Qualifiers: Chest pain type: unspecified Qualified Code(s): R07.9 - Chest pain, unspecified Plan: Per her request, we referred her to cardiology for further evaluation and management at her last visit (although we have advised patient that based on her description of symptoms, her chest pains are most likely musculoskeletal in nature) - she is now scheduled to see cardiology in August 2025 (5) Impaired fasting glucose: Code(s): R73.01 - Impaired fasting glucose Category: Medical Plan: Her FBS was slightly elevated at 104 mg/dl on her recent labs; was at 84 mg/dl previously Reinforced low calorie diet Will continue to monitor this closely (6) Splenic lesion: Code(s): D73.89 - Other diseases of spleen Category: Medical Plan: This was seen again on a recent abdominal and pelvic CT done at [facility] in late August 2024 when patient was admitted there briefly for GI symptoms It was noted that the lesion appears to have increased in size from previous and she was advised to see her PCP to have this worked up further Abdominal MRI done back in December 2024 revealed (+) 2.2 cm lesion in the spleen, which could be a cyst or hemangioma. Subcentimeter hypointense lesions in the spleen may indicate splenic granulomatosis. The spleen is nonenlarged. Dilation of the common bile duct of uncertain etiology. Mild dilation of the main pancreatic duct. Correlate with laboratory values. Consider further evaluation with ERCP Her LFTs were normal on her recent labs (7) Dilation of pancreatic duct: Code(s): K86.89 - Other specified diseases of pancreas Category: Medical Plan: This was also seen on her recent abdominal imaging studies and she was sent for abdominal MRI for further evaluation - see above for results and management option (8) Lumbar degenerative disc disease: Comment: Has failed back sydrome/postlaminectomy syndrome Code(s): M51.36 - Other intervertebral disc degeneration, lumbar region Category: Medical Qualifiers: Disc-related pain type: discogenic back pain only Qualified Code(s): M51.360 - Other intervertebral disc degeneration, lumbar region with discogenic back pain only Plan: She was seen by pain management a few years ago but she did not follow-up again with them for a while as she was not interested in any alternative or interventional Tx options at the time She was referred back to pain management last year and was seen by Dr. Adams, who recommended that she start on TCAs and have her Gabapentin dose increased but patient declined both of these recommendations She was seen more recently at [facility] and offered trial of SCS which patient also decided not to pursue She was on Gabapentin 600 mg TID and Tizanidine 4 mg QID PRN for a while and requested to have her Gabapentin switched out to Lyrica as her hair loss seemed to be progressively worse while she was on Gabapentin - she was then switched over to Pregabalin, now at 100 mg TID, and her Gabapentin was discontinued She was also started on a trial of Duloxetine 30 mg QD last year but patient decided NOT to continue on the Rx Reinforced again to patient that other than Tramadol, we have no plans to start her back on opioids for chronic/long-term pain management but I will give her another compassionate Rx for Oxycodone 5 mg Q HS PRN #7 tablets Her Tizanidine appears to have also been switched over to Soma 350 mg TID PRN (Rx refilled) MRI of the thoracic and lumbar spine done back in March 2024 revealed (+) age-indeterminate moderate compression deformity at T12 as well as advanced deg enerative disc disease at L2-L3 with minimal retrolisthesis of L2 on L3 She was referred back to [facility] for pain management evaluation last year but patient ended up going back [place] [facility] and was seeing Dr. Adams regularly for chronic opioid Rx BUT she now finds herself suspended from pain management for a year due to a recent discrepancy in her pill count Per request, Rx for aluminum cane and shower chair provided today as well (9) Neuropathy: Code(s): G62.9 - Polyneuropathy, unspecified Category: Medical Plan: Continue Pregabalin 100 mg TID; feels that Clonidine also helps with her symptoms She is now seeing [facility] [place]Dr. Ledezma) for this issue as well as for her Hx of CVA She does not appear to have had any formal EMG and NCV done in the past and have again advised her that these may be worthwhile to pursue but I will leave it up to neurology to decide if they are necessary or not at this point (10) Memory loss or impairment: Code(s): R41.3 - Other amnesia Category: Medical Plan: She reports (+) memory loss/impairment that appear to have started after her CVA in 2019 - advised again that this is most likely a sequelae of her CVA and that there may not be much we can do for this except for aggressive reduction of her risk factors to prevent any further recurrence of her CVA Follow up with neurology as scheduled (11) Insomnia: Code(s): G47.00 - Insomnia, unspecified Category: Medical Qualifiers: Insomnia type: unspecified Qualified Code(s): G47.00 - Insomnia, unspecified Plan: Sleep hygiene reinforced Continue Zolpidem 10 mg Q HS PRN (12) Overweight (BMI 25.0-29.9): Code(s): E66.3 - Overweight Category: Medical Plan: Reinforced diet/lose weight; exercise is unrealistic given patient's right-sided weakness as well as her significant low back pain Plan Follow-up in 4 months Orders: Orders Comprehensive [place]. Panel Fast 4 Months E78.00 - Pure hypercholesterolemia, unspecified UA CC w/rflx Micro + Cult 4 Months R30.0 - Dysuria Complete Blood Count Auto Diff 4 Months D64.9 - Anemia, unspecified Lipid Panel 4 Months E78.00 - Pure hypercholesterolemia, unspecified TSH reflex Free T4 4 Months E78.00 - Pure hypercholesterolemia, unspecified Vitamin D 25-OH Total 4 Months E55.9 - Vitamin D deficiency, unspecified Medications: New oxycodone Partial Fill upon patient request. 5 mg PO BEDTIME PRN 7 tabs 0RF severe pain 7 days [SHOWER CHAIR] As directed 1 ea 0RF M16.12 - Unilateral primary osteoarthritis, left hip, M51.360 - Other intervertebral disc degeneration, lumbar region with discogenic back pain only, M96.1 - Postlaminectomy syndrome, not elsewhere classified [LIGHTWEIGHT (METAL) CANE] As directed 1 ea 0RF M16.12 - Unilateral primary osteoarthritis, left hip, M96.1 - Postlaminectomy syndrome, not elsewhere classified Refilled carisoprodol 350 mg PO TID PRN 30 tabs 0RF muscle pain/low back pain
[2025-04-15 09:03] VITALS: BP 112/74; PULSE 67; TEMP 36.1; O2SAT 97; BMI 25.2
--- OUTSIDE RECORDS SUMMARY | 2025-04-15 09:34 | XMS_ITS | Clinical Summary ---
Author Organization [facility] Address [address] [place] [phone] Phone Care Team Providers Care Filler Shredding Machine Loader Name Role Phone Antonia Saenz MD Primary Care Prov ider Allergies Active [...] 1958 POTASSIUM LEVEL 1958 DEPRESSION SCREENING 1970 SMOKING Hx and SMOKELESS TOBACCO SCREENING 11/15/1971 HEPATITIS C SCREENING 1976 MAMMOGRAM 1998 COLOGUARD 11/15/2003 COLONOSCOPY 11/15/2003 COLORECTAL CANCER SCREENING 11/15/2003 FIT TEST 11/15/2003 FOBT 11/15/2003 SIGMOIDOSCOPY 11/15/2003 VIRTUAL COLONOSCOPY 11/15/2003 PNEUMOCOCCAL VACCINES (50+ years) (1 of 1 - PCV) 2008 ZOSTER VACCINES (1 of 2) 2008 OSTEOPOROSIS SCREENING INITI AL (ONE-TIME) 11/15/2023 INFLUENZA VACCINE (#1) 2024 COVID-19 VACCINE (1 - 2024-2 6 season) 2025 Adult Td,Tdap Booster 11/01/2027 10/31/2017 RSV VACCINE (1 - 1-dose 75+ series) 2033 HEPATITIS A VACCINES Aged Out 10/06/2016, 10/08/2015 [...] B [place] MEDICARE PART [place] & [place] [employer]HEALTH MEDICARE PART A & B Member Subscriber Plan / Payer ( fective 2000-Present) Name:Heaven Martin Member ID:[id number] Relation to Subscriber:Self Name:Heaven Martin Subscriber ID:[id number] Payer ID:[id number] Group ID:Not on file Type:Medicare Address: [employer] [address] [place] [id number] [place] B [employer]HEALTH MEDICARE PART A & [place] [id number] MEDICARE PART A & B [facility] [place] [id number] Care Teams Filler Shredding Machine Loader Relationship Specialty Start Date End [place] [id number] PCP - General 11/09/15 Additional Source Comments The information contained in this document represents components of the legal health record. It is not the complete legal health record.[facility]
--- OUTSIDE RECORDS SUMMARY | 2025-04-15 09:34 | XMS_ITS | Data Portability ---
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 12/06/2016 15:12:01 12/06/2016 17:32:01 Chronic hepatitis C 332132154 B18.2 - G1a, naive to treatment- currently [...] le- RTC in 4 weeks with labs [id number] Victorina Camacho, GRISELDA BRITT [address] [facility] [address] [place] [address] 12/12/2016 14:35:08 12/22/2016 14:28:40 History of cervical spine fusion 8964662996 101 Z98.1 MRI cervical spine shows post op changes and DJD and foraminal stenosisre [facility] has appointmen t with Dr. Max at [...] prnrepeat tox screenf/u 1 month Essential hypertension 12535620 I10 no CP, HABP elevated today but missed medication and was normal when taking as prescribed last visit, reviewed importance of taking as prescribed f/u 2 weeks BP checkto ED/911 for CP, severe CONROY with vision changes/pr oblems speech/bal ance, concern Chronic back pain 471760 002 G89.29 MRI 12/07/16 report as follow: [...] management as above Imaging re sult abnormal 553308306 R93.8 MRI thoracic spine noted increased T2 signal on spleen and rec dedicated imaging--> US ordered and nsg will schedule for pt [id number] Antonia Negron MD ZZZ NQ-ADULT DO NOT USE [address] [place] [address] 01/09/2017 09:53:33 01/09/2017 10:54:07 Chronic hepatitis C 557345474 B18.2 - G1a, s/p Harvoni treatment - [...] - RTC as needed- RTC with PCP [id number] Victorina Camacho, GRISELDA BRITT [address] [facility] [address] [place] [address] 01/09/2017 14:47:08 01/09/2017 15:35:48 Administration of diphtheria, pertussis, and tetanus vaccine 396162226 Z23 Pain in left knee 550785 0094 95165 M25.562 eval with xrayrest, ice, compressio n bandage placed today, tylenol prn (unable to tolerate NSAIDs)f/u xray or if worsening pain, knee swelling or giving out Chronic back pain 132214 002 G89.29 MRI 12/07/16 report as follow: [...] qHSf/u 1 month Chronic hepatitis C 1283 03233 B18.2 completed 8 weeks harvonihep c viral load drawn by ID and pending [id number] Victorina Camacho, GRISELDA BRITT [address] [facility] [place] [address] 02/08/2017 11:26:22 02/08/2017 13:44:36 Osteopenia 953604170 M85.80 reviewed recent [facility] showed osteopenia L hip and normal bone density spine and femoral neckrec walking, weight bearing exercise as toleratedr eviewed dietary sources of calcium and rec 3 per day and she occasional ly takes a calcium supprepeat [facility] 2019 History of cervical spine fusion 5491291383 101 Z98.1 MRI cervical spine shows post [...] and tylenol as neededrefe r [facility] PT for eval and pool therapyref er behavioral health for counseling on anxiety and depression related to chronic painf/u 3 months or sooner prn Chronic back pain 244733 002 G89.29 MRI 12/07/16 report as follow: [...] await neurosurge ry response as above Foot-drop 4053563 M21.37 9 nerve damage from trauma/spi nal [facility] er AFO is very old and falling apart and she has been tripping without it, needs new one, will provide with a script (L[place] called for her and [place] [employer] in [place] can fit her for this) [id number] Victorina Rhoades S, STRIPE MATCHER LORENZA [address] [facility] N [facility] [place] [address] 03/30/2017 08:26:28 03/30/2017 10:09:50 Chronic back pain 896214750 G89.29 exam at baseline. She had good response to the thoracic injection which is encouragin g. Rec she schedule with pain clinic for cervical injection as well. She agreeswoul d benefit from pool therapy with PT but transporta tion is difficult for her. She has medicare primary and [place] [employer] secondary, will ask [place] to see if [...] clinic cervical injection and PT Spleen finding [id number] R94.8 need to re-order spleen imaging for approval through her insurance. Order placed and faxed to [facility] for PA. Pt t call if has not heard in next 2 weeks about appt Major depr essive disorder 543593655 F32.9 denies SIshe agrees she could benefit from counseling but transporta tion is an issue. She agrees to schedule and let MA know appt date/time so she can apply for PT1 ride for ptdid not tolerate citalopram in past due to SE chest pain and she declines any trial of alternate medication at this time [id number] Antonia Negron MD ZZZ NQ-ADULT DO NOT USE [address] [place] [address] 04/26/2017 11:37:43 04/26/2017 12:32:46 Chronic hepatitis C 681049479 B18.2 - G1a, F0 s/p Harvoni treatment, completed 8 weeks- no alcohol, drugs or tobacco use - Hep B core Ab+ - Hep A vaccinatio n complete- labs @ 4 weeks - wnl, HCV RNA undetectab le-SVR 12 weeks today- counseling to avoid reexposure - RTC with PCP [id number] Victorina Camacho, GRISELDA BRITT [address] [facility] N [facility] [place] [address] 07/05/2017 13:03:15 07/05/2017 14:32:22 Adult health examination 691265535 Z00.00 normal CPEvacc UTDscreen lipids cmp cbcanticip atory guidance providedma mmo: scheduled 12/2017colo noscopy screen order providedRT C 1 year CPE Allergic rhinitis 057700 04 J30.9 rec avoid decongesta nts given HTNrestart flonase and start loratidine 10mg dailyRTC worsening symptoms not responding to above Overweight 520114896 E66 .3 doing a great job with healthy diet and exercise encouraged her to continue Essential hypertension 62900698 I10 no CP, HABP at goal, reviewed importance of taking medication daily though will decrease enalapril to 20mg daily given she has not been taking more than that dosecheck renal fxn and lytes and f/u 2-3 weeks BP checkto ED/911 for CP, severe CONROY with vision changes/pr oblems speech/bal ance, concern Chronic back pain 184591 002 G89.29 doing well managing her chronic [...] injection to different area of pain Osteopenia 632111470 M85 .80 bone density 01/30/17 showed normal density spine and L femoral neck, osteopenia total L hipcont weigth bearing exercise and 1200mg calcium combined with vitamin D via diet or supplement ation and repeat BMD 01/30/19 Major depr essive disorder 716165182 F32.9 denies SIdoing well right now minimizing contact with daughter, toxic relationsh ip, and taking care of her body and prayingcon t self caref/u prn Spleen finding [id number] R94.8 need to re-order spleen imaging for approval through her insurance. Order placed and faxed to [facility] for PA. Pt to call if has not heard in next 2 weeks about appt [id number] Victorina Camacho, GRISELDA BRITT [address] [facility] [place] [address] 08/29/2017 09:50:25 09/06/2017 15:12:49 Screening for malignant neoplasm of colon 766531827 Z12.11 Pain of ri ght hip joint 8046446778 08440 M25.551 eval with xray rule out fx and OA tx with medrol pack and then ibuprofen as needed. she requests 800mg tabs to break in half and see if tolerates (has made her dizzy in past but does help the pain)rest, icef/u xrayRTC problems with ambulation worsening pain or not repsonding to above Chronic back pain 113313 002 G89.29 establishe d, stablerefi ll flexeril prncont tylenol 1000mg po TID prn. she does occasional ly takes OTC ibuprofen lower doses has been helpful and does not make her as dizzysched ule with pain clinic for worsening pain and repeat injection vs injection to different area of pain Greater tr ochanteric pain syndrome 0172793 M70.61 [id number] Judy [place] [address] [facility] [place] [address] 10/02/2017 15:24:27 10/02/2017 16:35:41 Essential hypertension 87912094 I10 --Managed with RX Hyperlipidemia 49500745 E78.2 07/05/17: TCHOL:225 HDL:71 TRI LDL:116 Overweight 226141524 E66 .3 10/02/17: WT: 149 lbs. 3 ozs. BMI: 25.4 Body mass index 25-29 - overweight 620528387 Z68.25 10/02/17: BMI: 25.4 History of eating disorder 0939316708 43863 Z86.59 --Pt reports hx eating disorder including starving herself, binging and purging, beginning at age 13 and continued until 2 years ago when she started Atkins diet. [id number] GRISELAD Hopper [address] [facility] [place] [address] 10/04/2017 09:18:17 10/04/2017 10:21:45 Screening for malignant neoplasm of breast 611755913 Z12.31 Greater tr ochanteric pain syndrome 1398710 M70.61 Xray showed mild narrowing o R [...] if no relief with PT Essential hypertension 58943354 I10 no CP, HABP elevated again today increase enalapril to 20mg po BIDf/u 3-4 weeks BP check to ED/911 for CP, severe CONROY with vision changes/pr oblems speech/bal ance, concern Foot-drop 3115173 M21.37 9 nerve damage from trauma/spi nal [facility] er AFO is very old and falling apart and she has been tripping without it, needs new one, will provide with a script and fax to orth[place] [id number] [place] [address] 10/31/2017 09:29:43 10/31/2017 10:18:30 Administration of diphtheria, pertussis, and tetanus vaccine 259584110 Z23 Antibody measurement 352 7003 Z01.84 nop indication communicab le infection on exam today, Tdap admin and titers drawn Dysphagia 57885778 R13.1 0 refer GI for eval dysphagia and abnormalit y of pharynx (though may be better evaluated by ENT with laryngosco py but will eval with EGD 1st given dysphagia r/o stricture or malignancy and may be able to biopsy)f/u after consult [id number] [place] [address] 11/09/2017 13:53:49 11/09/2017 16:17:55 Sore throat 520347427 J02.9 neg rapid strep, check monotx post nasal drip as abovef/u rn worsening symptoms or not responding to above Headache 50346801 R51 normal neuro exam, attributes to allergic sinusitis as above Allergy to mold 70642845 3 Z91.048 check resp allergy panel, address mold at homecont flonasetx with medrol pack and cetirizine f/u labs and RTC if worsening symptoms or not responding to above [id number] GRISELDA Hopper [address] [place] [address] 01/22/2018 08:27:18 01/22/2018 09:13:48 Essential hypertension 86102964 I10 no CP, HABP elevated today cont [...] vision changes/pr oblems speech/bal ance, concern Anxiety 76831144 F41.9 see above Pain in throat 443116738 R07.0 bumps most consistent with transient lingular [...] will discuss with ENT Chronic back pain 853297 002 G89.29 establishe d, stablecont flexeril prncont [...] vs injection to different area of pain [id number] Victorina Rhoades S, GRISELDA BRITT [address] [facility] [place] [address] 04/02/2018 14:44:10 04/02/2018 16:30:40 Greater trochanteric pain syndrome 7737708 M70.61 Xray showed mild narrowing of R [...] back pain. f/u 1 month Hypertriglyceridemia 302 613789 E78.1 reviewed healthy diet and exercisech dante fasting lipids and LFTs Vitamin D deficiency 347 40918 E55.9 low in past takes OTC supplement on occasionch dante vitamin d level [id number] Victorina Rhoades S, STRIPE MATCHER [address] [address] [place] [address] 05/01/2018 12:52:58 05/01/2018 13:58:01 Greater trochanteric pain syndrome 3890585 M70.61 Xray showed mild narrowing of R [...] with me in 1 month Essential hypertension 41034979 I10 no CP, HABP elevated today cont [...] speech/bal ance, concern Chronic pain syndrome 37 9454398 G89.4 see above regarding hipreviewe d breathing and meditation exercises to take focus off painshe plans to start water walking, yoga as toleratedf /u 1 month, sooner prn [id number] Victorina Camacho, STRIPE MATCHER LORENZA [address] [facility] [address] [place] [address] 05/29/2018 08:26:23 05/29/2018 10:49:06 Screening for malignant neoplasm of breast 614451611 Z12.31 Essential hypertension 39625707 I10 no CP, HABP improved but still mildly elevated today cont enalapril 20mg po BID and clonidine 0.1mg po BID which is for her BP and anxiety though rec she take standing to avoid rebound HTN she has had with abruptly stopping in [facility] ed possible SE of amlodipine and pt would like to proceed with amlodipine 2.5mg po dailyf/u 2 weeks BP check at clinic in [facility] sooner prn dizziness, CP, CONROY, concern f/u at [facility] when back in [facility] ED/911 for CP, severe CONROY with vision changes/pr oblems speech/bal ance, concern Greater tr ochanteric pain syndrome 9458339 M70.61 Xray showed mild narrowing of R hip joint space small osteophyte from acetabular margin R femoral head. no fx or dislocatio nshe will reconsider steroid injection and has # to call ortho to scheduledi scussed PT, she prefers to do exercises at home, [facility] with hx [...] back pain.f/u 1 month sooner prn Anxiety 42185052 F41.9 worried about flightdisc ussed possible SE and she would like to proceed with hydroxyzin e to take 30 minutes prior to flight prn anxiety Chronic back pain 981015 002 G89.29 establishe d, stablecont tylenol 1000mg po TID prn. she does occasional ly takes OTC ibuprofen lower doses has been helpful and does not make her as dizzy provided refill tylenol with codeine [facility] medication , yoga, breathing exercises for chronic painfu 1 month [id number] MD LORENZA Adler [address] [facility] [address] 07/01/2018 08:28:06 07/01/2018 10:35:50 Essential hypertension 15888458 I10 BP well controlled todayagree to continue on just clonidine and enalapril Greater tr ochanteric pain syndrome 4739212 M70.61 reviewed [facility] record -- has been having monthly refills as prescribed by last PCPlast filled 05/29/18,req uesting to be evaluated by a different data collection specialist , believes that may need surgery for ongoing R hip issuespati ent to call insurance to see which specialist s will accept insurance, then can have new referral generated for 2nd opinion [id number] Antonia Negron MD ZZZ NQ-ADULT DO NOT USE [address] [place] [address] 08/16/2018 09:42:26 08/16/2018 16:45:36 Greater trochanteric pain syndrome 5066134 M70.61 - xray hip in 09/03/18: mild narrowing o R hip joint space small osteophyte notes from acetabular margin R femoral head- need to f/u with orthopedic s- [employer] reviewed- UDS today- refill given- RTC with PCP at [place] Right uppe r quadrant pain 945501826 R10.11 - DDx Gb disease vs hepatitis vs lipomas- h/o abdominal wall lipoma s/p excision - US order given- h/o s/o Hep C tx in 2017- h/o + Hep B core AB- will do labs- ED precaution s given- will contact patient with results- RTC as needed Long-term drug therapy 380951730 Z79.899 History of hepatitis C 1496851777 9101 Z86.19 - Gt1a, F0 s/p tx with Cheryl- reviewed RF with patient, denies- will do labs today [id number] CHAITANYA Heredia [address] [facility] [place] [address] 09/04/2018 08:24:09 09/04/2018 09:22:10 Atypical chest pain 378433017 R07.89 -ECG wnl as per patient, at [facility] [place]--> signed release for records-Ex am wnl, VSS aside from elevated BP- plan noted below-DDx: AL (unlikely per recent ECG), PE, CM, AI, pn, pleuritis, GERD, musculoske latal, anxiety/pa karol attack (most likely)-Pa tiefeliciano very anxious with varying tangential thoughts-A larm signs reviewed-- > to E/-Send to cards for chest stress for atypical chets pain, f/u after test/consu lt Essential hypertension 96741904 I10 -Establish ed, unstable-B P 154/98 in office, patient is non-compli ant/adhere nt on clonidine and enalapril, misses many doses-Stre ss important of compliant on medication - to take a prescribed - expresses understand ing-Discus sed possible complicati ons from uncontroll ed BP including AL, stoke, etc-F/u in 3 months for BP check-F/u with cardiology as advised for CP Chronic back pain 293364 002 M54.9 -Continue on tylenol #3 at night as needed, tylenol PRN during day for pain-Santy nue f/ at pain clinic for injections - patient upset they will not prescribe her stronger pain medication --> advised can [place] [facility] [place] to discuss med management -F/u with ortho/pain clinic as planned [id number] CHAITANYA Heredia [address] [facility] [place] [address] 09/26/2018 11:12:22 09/26/2018 12:40:31 Essential hypertension 43878798 I10 -Establish ed, unstable-P atient is non-compli ant/adhere nt on clonidine and enalapril, misses many doses-Stre ss important of compliant on medication - to take a prescribed - expresses understand ing-Refill of clonidine sent-Discu ssed possible complicati ons from uncontroll ed BP including AL, stoke, etc-F/u in 3 months for BP check-F/u with cardiology as advised for h/o atypical CP Mass of skin 216751794 R 22.9 -2 cm superficia l mobile mass palpated along anterior lower rib cage just superior to RUQ adjacent to scar s/o lipoma excision-R eports severe pain/distr ess to palpation- Concerned more for surgical/s car tissue complicati ons vs. abdominal pathology- OTC NSAIDs/tyl enol for pain, continue compresses -Patient advised to f/u with general surgeon to discuss treatment [id number] CHAITANYA Heredia [address] [facility] [address] [place] [address] 11/06/2018 19:10:43 11/06/2018 20:21:25 Imaging of spleen abnormal 656788964 R93.5 -2 cm enhancing lesion seen on CT with previous abnormalit y non imaging >2 years ago-Never had f/u MRI--> new order sent for further eval Lipomatosis 372406461 E8 8.2 -2 cm superficia l mobile [...] diagnosis, discuss excision with surgeon Essential hypertension 72144064 I10 -Establish ed, unstable-P atient is non-compli ant/adhere nt on clonidine and enalapril, misses many doses-Stre ss important of compliant on medication - to take a prescribed - expresses understand ing-Refill of clonidine sent-Discu ssed possible complicati ons from uncontroll ed BP including AL, stoke, etc-F/u in 1-2 months for BP check-F/u with cardiology as advised for h/o atypical CP Chronic back pain 500224 002 M54.9 -Continue on tylenol #3 at night as needed, tylenol PRN during day for pain-Santy nue f/ at pain clinic for injections - patient upset they will not prescribe her stronger pain medication --> advised can call [facility] pain clinic to discuss med management -F/u with ortho/pain clinic as planned Health Concerns Section Related Observation LastModified by Organization Adiel antonio LastModified Time None Recorded Concern Status LastModified by Organization Details LastModified Time None Recorded Advance Directives Directive None Recorded Payers Insurance Date Sequence Insurance Name Policy Number Policy Tena Covered Member ID Tena Member ID Guarantor Name 10/14/2020 1 [place] B[place]: [employer] Heaven Martin [id number] Heaven Martin 06/06/2017 1 UNSPECIFIED REMIT PAYOR Heaven Martin 11/06/2018 2 [place] [facility] Heaven Martin [id number] Heaven Martin 10/13/2015 2 [place] Heaven Martin [id number] Heaven Martin 11/06/2018 MEDICARE A-[place]: [facility] Heaven Martin [id number] Heaven Martin Notes Date Note Type Note Provider Name and Address Organization Details Recorded Time 07/01/2018 text/html ROS as noted in the HPI here for BP check, medication refill had low dose amlodipine added to medication regimen for HTN control on last visit within the past month; noted BP well controlled today on reports that stopped taking amlodipine, due to not wanting to take Eriberto Fernandez MD [address] [place] [address] [place], [address], [facility] 07/17/2018 13:03:23 08/16/2018 text/html here for f/u she has been having RUQ painon and off for 6 monthsfor the last week she was having more painshe has a h/o lipoma in RUQ area- s/p excision several years agono change on BMappetite decreasedno change on urineno sore throat + CONROY+ fatiguefeverish +no swollen glansbut no feels better Antonia Negron MD [address] [place], [address], [facility] 08/16/2018 10:32:39 09/04/2018 text/html 57F is here c/o chest tightness over the past 2 weeksBegan while she was on vacation in [place] with her daughterSays pain was severe, mostly on right side of chestSays she had to push on chest to relieve pain which did helpSays when her plan landed back in [place], she went right to [facility] in [place] for chest pain within the last weekHad [...] changes in appetite Lacie Masters PA-C [address] [place], [address], [facility] 09/05/2018 11:15:14 09/26/2018 text/html 57 is here c/o right sided abdominal pain x 6 monthsPain originally [...] with little releif Lacie Masters PA-C [address] [place], [address], [facility] 09/26/2018 15:07:13 11/06/2018 text/html ROS as noted in the HPI 57 is here for f/u for right sided painHas been c/o right [...] neededH/o Hep C treated with Harvoni in 2017 Labs normal in July 2018Denies any changes in BM, urination, appetite, fatigue, fever Has been applying heat and ice with little releifRequesting refill of pain medication Lacie Masters PA-C [address] [facility], [place], [address], [facility] - [facility] 11/06/2018 20:14:16 OBGyn Episode No OBEpisode recorded.
--- OUTSIDE RECORDS SUMMARY | 2025-04-15 09:34 | XMS_ITS | Data Portability ---
Author Organization [place] - [facility], [place] Address [address] [place] [address] Assessment No assessment recorded. Plan of Treatment Reminders Order Date Submit Date Provider Last Modified By Organization Details Last Modified Time Details Appointments None recorded . Lab drug screen, urine 2016 017 [place] [facility] (Closed Permanently, Testing Ceased), [address], [place], [address], 7 10:27:42 BMP, serum or plasma 2016 017 [facility] (Lab), [address], [place], [address], 7 21:40:17 unlisted lab - vitamin D 25 hydroxy by lcmsms 2016 017 [facility] (Lab), [address], [place], [address], 7 12:35:32 Referral pain manageme nt referral 2016 017 [facility] (Pain Management), [address], [place], [address], 7 23:19:05 Procedures None recorded . Surgeries None recorded . Imaging None recorded . Medication Orders tramadol 50 mg tablet 2016 017 [facility]/Pharmacy #[id number], [address] [place], [address], 7 15:26:29 Vasotec 10 mg tablet 2016 017 [facility]/Pharmacy #[id number], [address] [place], [address], 7 15:27:22 oxycodon e 15 mg tablet 2016 017 [facility]/Pharmacy #[id number], [address] [place], [address], 7 15:27:14 Vasotec 10 mg tablet 2016 017 [facility]/Pharmacy #[id number], [address] [place], [address], 7 15:26:24 oxycodon e 15 mg tablet 2016 017 [facility]/Pharmacy #[id number], [address] [place], [address], 2 09:40:47 cycloben zaprine 10 mg tablet 2016 017 [facility]/Pharmacy #[id number], [address] [place], [address], 7 15:11:47 Patient TargetsNo targets recorded. Patient Instructions Encounter Date Encounter Id Patient Instructions Last Modified By Organization Details Last Modified Time 07/17/2016 [id number] 30 mins spent with pt and >50% of face to face time spent on counseling. [email or web address] Not available 07/17/2016 19:25:44 08/07/2016 [id number] 30 mins spent with pt and >50% [...] mmol/ L 136-14 5 normal Not Available [facility] [place] (Lab) [address] [place], [address], 06/15/2016 09:59:28 06/14/19 17 06/14/2016 BMP, serum or plasm a potassium 4.6 mmol/ L 3.5-5. 1 normal Not Available [facility] [place] [address] [place], [address], 06/15/2016 09:59:28 06/14/19 17 06/14/2016 BMP, serum or plasm a chloride 97 mmol/ L 98-107 low Not Available [facility] [place] ([facility]) [address] [place], [address], 06/15/2016 09:59:28 06/14/19 17 06/14/2016 BMP, serum or plasm a carbon dioxide 23 mmol/ L 22-29 normal Not Available [facility] [place] (Lab) [address] [place], [address], 06/15/2016 09:59:28 06/14/19 17 06/14/2016 BMP, serum or plasm a glucose 111 mg/dL 74-109 high Not Available [facility] [place] (Lab) [address] [place], [address], 06/15/2016 09:59:28 06/14/19 17 06/14/2016 BMP, serum or plasm a BUN 11 mg/dL 6-20 normal Not Available [facility] (Lab) [address] [place], [address], 06/15/2016 09:59:28 06/14/19 17 06/14/2016 BMP, serum or plasm a creatinine 0.7 mg/dL 0.5-0. 9 normal Not Available [facility] [place] (Lab) [address] [place], [address], 06/15/2016 09:59:28 06/14/19 17 06/14/2016 BMP, serum or plasm a calcium 10.0 mg/dL 8.6-10 .0 normal Not Available [facility] (Lab) [address] [place], [address], 06/15/2016 09:59:28 06/14/19 17 06/14/2016 BMP, serum or plasm a anion gap 22 mmol/ L 6-18 high Not Available [facility] (Lab) [address], [place], [address], 06/15/2016 09:59:28 06/14/19 17 06/14/2016 BMP, serum or plasm a est glom filtration rate calc2 86.2 normal MULTI PLY X 1.212 IF OF AFRIC AN AMERI CAN DESCE NT PAULINA L KIDNE Y FUNCT ION >60 mL/mi n RESUL TS PAULINA LIZED TO 1.73 m SQUAR ED BODY SURFA CE AREA Not Available [facility] (Lab) [address], [place], [address], 06/15/2016 09:59:28 06/14/19 17 06/15/2016 vitam in D, 25-hy droxy , total , serum vitamin D total 32.30 NG/mL 30-100 normal Defic iency : <10 ng/mL Insuf ficie ncy: 10 - 30 ng/mL Suffi cienc y: 30 - 100 ng/mL Toxic ity: >100 ng/mL Not Available [facility] (Lab) [address], [place], [address], 06/15/2016 09:59:29 Result Notes None recorded. Problems Name Problem SNOMED Code Status Onset Date Resolution Date Notes Provider Name and Address Organization Details Recorded Time Hyperten sive disorder 02909091 Active 2015 W/U Status: confirme d Not Available [facility] 7 15:27:34 Low back pain 276533037 Active 2015 Elsy Gold MD [address] [place] [address], [phone] , [facility] 7 06:26:19 Chronic pain 26490693 Active 2015 W/U Status: confirme d Not Available [facility] 7 15:27:31 Neck pain 37324701 Active 2015 W/U Status: confirme d Not Available [facility] 7 15:27:31 Foot-augie p 0212609 Completed 201505/31/2016 W/U Status: confirme d Elsy Gold MD [address] [place] [address], [phone] , [facility] 7 06:27:26 Carpal tunnel syndrome 45932510 Active 2015 W/U Status: confirme d Not Available [facility] 7 15:27:32 Chest pain 65025053 Active 2015 Atypical chest pain, stress test negative for ischemia , echo normal. W/U Status: confirme d Elsy Gold MD [address] [place] [address], [phone] , [facility] 7 06:27:00 Vitamin D deficien cy 28676855 Active 2015 advised to take vitamin D 2,000 iu daily OTC. W/U Status: confirme d Elsy Gold MD [address] [place] [address], [phone] , [facility] 7 06:27:17 Stress 21595166 Active 2015 advised stress can also raise BP. Stress mgt discusse elisa. Declined counseli ng. ;W/U Status: confirme d Not Available [facility] 7 15:27:32 Heart murmur 93326332 Active 2015 obtain echo;W/U Status: confirme d Not Available [facility] 7 15:27:32 Foot-augie p 5656042 Active 2016 Elsy Gold MD [address] [place] [address], [phone] , [facility] 7 06:27:39 Problem Notes None recorded. Medical Equipment None Reported. Allergies Allergen ID Allergen Name Allergen Category Reaction Reaction Severity Criticality Documentation Date Start Date Code Code System Note Provider Name and Address Organization Details Recorded Time 822891 amitripty line hydrochlo ride medicatio n irregular heart rate Not available Not available 05/24/20162015 70981 8 RxNorm React ion: palpi tatio ns; Not Available [facility] 7 09:03:45 778644 cyclobenz aprine hydrochlo ride medicatio n dizziness Not available Not available 05/24/20162015 27052 RxNorm React ion: dizzi ness; Elsy lieberman MD [address] [place] [address], [phone], [facility] 7 20:31:33 379867 gabapenti n medicatio n dizziness Not available Not available 05/24/20162015 83802 RxNorm React ion: dizzi ness; Not Available [facility] 7 09:03:45 986691 lisinopri l medicatio n dizziness Not available Not available 05/24/20162015 08397 RxNorm React ion: dizzi ness; Not Available [facility] 7 09:03:45 308973 amlodipin e besylate medicatio n chest pain Not available Not available 05/24/20162015 08465 6 RxNorm React ion: chest pain; Not Available [facility] 7 09:03:45 029982 Non-stero idal anti-infl ammatory agent (substanc e) medicatio n chest pain Not available Not available 05/24/20162015 79035 5008 SNOMED React ion: chest pain; Not Available [facility] 7 09:03:45 Medications Name Sig [...] mass index (BMI) Heart rate Oxygen saturation Systolic And Diastolic Provider Name and Address Organization Details Last Updated DateTime 7 165.1 cm 09519 g 26.1 kg/m2 73 /min 99 % 122/82 mm[Hg] Marizol Braga [facility] 7 14:26:29 Date Recorded Body height Heart rate Systolic And Diastolic Systolic And Diastolic Provider Name and Address Organization Details Last Updated DateTime 06/14/2016 165.1 cm 103 /min 170/120 mm[Hg] 158/100 mm[Hg] Elisha Vargas LPN [facility] 06/14/2016 11:06:29 Date Recorded Body height Body weight Body mass index (BMI) Oxygen saturation Heart rate Systolic And Diastolic Provider Name and Address Organization Details Last Updated DateTime 7 165.1 cm 37008 g 26.1 kg/m2 99 % 104 /min 160/100 mm[Hg] Froylan Ireland [facility] 7 15:05:42 Date Recorded Systolic And Diastolic Provider Name and Address Organization Details Last Updated DateTime 08/07/2016 144/90 mm[Hg] Elsy Gold MD [address] [place] [address], [phone], [facility] 08/07/2016 15:27:34 Date Recorded Body height Body weight Body mass index (BMI) Heart rate Oxygen saturation Systolic And Diastolic Provider Name and Address Organization Details Last Updated DateTime 7 165.1 cm 13616.6 3 g 25.5 kg/m2 76 /min 99 % 150/90 mm[Hg] Froylan Ireland [facility] 15:02:21 Social History None recorded. [...] ICD10 Code Diagnosis IMO Codes Diagnosis Note [id number] Elsy Gold MD [address] [phone] 05/31/2016 14:01:57 05/31/2016 15:36:11 Hypertensive disorder 71889903 I10 controlled , continue enalapril 10 mg BID, check BMP Chronic pain 95064717 G8 9.29 Chronic neck and back pain s/p multiple surgeries, injections , PT, heavy duty narcotics, [facility]. 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 2000 - T12 compressio n fracture, traumatic Continue oxycodone. BPM ANALYST reviewed. Refer to [facility]. Low back pain 398545910 M54.5 Vitamin D deficiency 347 [address]7860 E55.9 advised to take vitamin D 2,000 iu daily OTC Spasm of back muscles 20 8248611 M62.830 Start flexeril only at night QHS prn. Cautioned about dizziness/ drowsiness . [id number] Elsy Gold MD [address] [phone] 06/14/2016 10:22:02 06/14/2016 11:09:18 Essential hypertension 81781832 I10 [id number] Elsy Gold MD [address] [address] 07/17/2016 14:25:19 07/17/2016 16:24:51 Hypertensive disorder 73401294 I10 uncontroll ed today which could be due to pain, prior BP within goal, continue enalapril 10 mg BID, continue to monitor BP at home. Chronic pain 67962706 G8 9.29 Chronic neck and back pain s/p multiple surgeries, injections , PT, heavy duty narcotics, [facility]. SE with TCA, gabapentin , NSAIDs. 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 2000 - compressio n fracture, traumatic Continue oxycodone. BPM ANALYST reviewed. F/u with [facility] as scheduled on 08/11/16.Ad vised pt to disclose all meds she is taking. Will repeat UDS. Low back pain 248967660 M54.5 Spasm of back muscles 20 0067754 M62.830 Continue with flexeril QHS prn. Cautioned about dizziness/ drowsiness . Vitamin D deficiency 347 51599 E55.9 repleted, advised to take vitamin D 2,000 iu daily OTC for sydni leonid [id number] Elsy Gold MD [address] [address] 08/07/2016 14:19:57 08/07/2016 15:30:26 Hypertensive disorder 04912031 I10 uncontroll ed, states home BP had been high the past week, increase enalapril to 20 mg in AM and 10 mg in PM, continue to monitor BP at home. Goal BP <140/90. F/u on 08/23/16 as scheduled for BP check and bMP. Low back pain 398239606 M54.5 Neck pain 94538850 M54.2 Chronic pain 63558695 G8 9.29 Chronic neck and back pain [...] ID Guarantor Name 01/26/2017 1 [place]IC[place]: [employer] Heaven Martin [id number] Heaven Martin 08/20/2016 2 [place] [facility] Heaven Martin [id number] Heaven Martin Notes Date Note Type Note Provider Name and Address Organization Details Recorded Time 05/31/2016 text/html 55 y/o F here for f/u HTN. HTN : Taking enalapril 10 mg BID. BP today is within normal range.Feels better on enalapril. She reports UTI in the past week. Went to in [place]. Was given Bactrim and pyridium initially which [...] July. She found another pain clinic at [facility], can see her in Jun and would like to get a referral there. Elsy Gold MD [address] [place] [address], [phone], [facility] 05/31/2016 20:32:03 07/17/2016 text/html 55 y/o F here for f/u HTN, med check. HTN : Taking [...] She states that saw pain doctor at [place] recently, did not have her records. Has f/u on 08/11/16 and per pt, doctor willing to take over prescription.We discussed UDS done on 06/28/16 which showed clonazepam and +THC. She admits to taking 2 left over clonazepam she had in the past and used marijuana to help with the pain. She will be going to [place] in 2 weeks x 5 days. Elsy Gold MD [address] [place] [address], [phone], [facility] 07/17/2016 19:25:46 08/07/2016 text/html 55 y/o F here for f/u HTN, med check. HTN : Taking [...] filled on 07/17/16.She saw pain doctor at [place] (Dr Finley) on 07/24/16. UDS done there [...] pill to prevent withdrawal. Elsy Gold MD [address] [place] [address], [phone], [facility] 08/07/2016 19:38:29 OBGyn Episode No OBEpisode recorded.
== END 2025-04-15 09:40 | disposition home or self-care (01) ==
LOC: HO.HMCH 08:58
PROVIDERS: PCP Internal Medicine; Visit Provider Internal Medicine
DX: E78.00 Pure hypercholesterolemia, unspecified (principal); I63.9 Cerebral infarction, unspecified; I10 Essential (primary) hypertension; R07.9 Chest pain, unspecified; R73.01 Impaired fasting glucose; D73.89 Other diseases of spleen; K86.89 Other specified diseases of pancreas; M51.360 Other intervertebral disc degeneration, lumbar region with discogenic back pain only; G62.9 Polyneuropathy, unspecified; R41.3 Other amnesia; G47.00 Insomnia, unspecified; E66.3 Overweight

== ENCOUNTER → 2025-04-15 08:58 | Outpatient (BNVA) | payer MEDICARE, MEDICAID, SELFPAY | PROVIDERS: PCP Internal Medicine; Visit Provider Internal Medicine | DX: E78.00 Pure hypercholesterolemia, unspecified (principal); I63.9 Cerebral infarction, unspecified; I10 Essential (primary) hypertension; R07.9 Chest pain, unspecified; R73.01 Impaired fasting glucose; D73.89 Other diseases of spleen; K86.89 Other specified diseases of pancreas; M51.360 Other intervertebral disc degeneration, lumbar region with discogenic back pain only; G62.9 Polyneuropathy, unspecified; R41.3 Other amnesia; G47.00 Insomnia, unspecified; E66.3 Overweight; Z68.25 Body mass index [BMI] 25.0-25.9, adult | CPT/HCPCS: 96127; 99212 ==